=== PATIENT | female | born 1980 | race Caucasian/White ===

== ENCOUNTER 2020-07-05 08:58 | Outpatient (REF) | payer OTHER, SELFPAY ==
[2020-07-05 11:40] LABS: Alanine Aminotransferase 50 U/L (0-31); Anion Gap 13 (12-20); Aspartate Amino Transferase 33 U/L (5-31); Blood Urea Nitrogen 12 mg/dL (9-16); Calcium 9.4 mg/dL (8.4-10.2); Carbon Dioxide 24 mmol/L (22-29); Chloride 105 mmol/L (96-108); Cholesterol 186 mg/dL; Estimated Glomerular Filt Rate > 60; Glucose Fasting 95 mg/dL (60-99); HDL Cholesterol 46 mg/dL; LDL Cholesterol Calculated 103 mg/dl; Potassium 4.1 mmol/l (3.3-5.1); Sodium 138 mmol/L (135-145); Triglycerides 186 mg/dL
[2020-07-05 12:03] LABS: Free T4 (Free Thyroxine) 1.15 ng/dL (0.71-1.85); Thyroid Stimulating Hormone 3.98 mIU/mL (0.32-4.0)
== END 2020-07-05 08:59 | disposition home or self-care (01) ==
LOC: HO.HMGCLDS 08:58
PROVIDERS: PCP Internal Medicine; Visit Provider Internal Medicine
DX: E03.9 Hypothyroidism, unspecified (principal); E04.1 Nontoxic single thyroid nodule; E78.2 Mixed hyperlipidemia; M45.0 Ankylosing spondylitis of multiple sites in spine
CPT/HCPCS: 36415; 80048; 80061; 84439; 84443; 84450; 84460

== ENCOUNTER 2021-01-07 08:27 | Outpatient (REF) | payer OTHER, SELFPAY ==
[2021-01-07 11:56] LABS: Alanine Aminotransferase 56 U/L (0-31); Albumin Level 4.7 g/dL (3.5-5.0); Alkaline Phosphatase 66 U/L (39-117); Anion Gap 16 (12-20); Aspartate Amino Transferase 36 U/L (5-31); Bilirubin Total 0.9 mg/dL (0.0-1.0); Blood Urea Nitrogen 13 mg/dL (9-16); Calcium 9.6 mg/dL (8.4-10.2); Carbon Dioxide 26 mmol/L (22-29); Chloride 103 mmol/L (96-108); Cholesterol 201 mg/dL; Estimated Glomerular Filt Rate > 60; Glucose Fasting 97 mg/dL (60-99); HDL Cholesterol 59 mg/dL; LDL Cholesterol Calculated 109 mg/dl; Potassium 3.8 mmol/L (3.3-5.1); Sodium 141 mmol/L (135-145); Triglycerides 165 mg/dL
[2021-01-07 12:21] LABS: Free T4 (Free Thyroxine) 1.09 ng/dL (0.71-1.85); Thyroid Stimulating Hormone 3.27 uIU/mL (0.32-4.0)
== END 2021-01-07 08:28 | disposition home or self-care (01) ==
LOC: HO.HMGCLDS 08:27
PROVIDERS: PCP Internal Medicine; Visit Provider Internal Medicine
DX: Z00.01 Encounter for general adult medical examination with abnormal findings (principal); E03.9 Hypothyroidism, unspecified; E04.1 Nontoxic single thyroid nodule; E66.9 Obesity, unspecified; E78.2 Mixed hyperlipidemia
CPT/HCPCS: 36415; 80053; 80061; 84439; 84443

== ENCOUNTER 2021-03-19 06:29 | Outpatient (REF) | payer OTHER, SELFPAY ==
--- NOTE | ~2021-03-19 | FL_ITS ---
EXAMINATION: XR FLUOROSCOPY WITH IMAGES CLINICAL INFORMATION: M45.9 - Ankylosing spondylitis of unspecified sites in spine COMPARISON: Radiographs lumbar spine 08/18/2019 TECHNIQUE: Fluoroscopy performed by Loraine Reyes NP. Fluoroscopy time: 0.5 minutes DAP: 5.67 Gycm2 Images: 6 FINDINGS: There are spinal needles overlying the outer aspect of the bilateral L3, L4, L5 neural foramen. There is contrast seen in the respective nerve sheaths with some transforaminal epidural extension. No visible vascular communication. FL/FL guidance in treatment room IMPRESSION: Fluoroscopy for pain management procedures.
== END 2021-03-19 06:30 | disposition home or self-care (01) ==
LOC: HO.RADIR 06:29
PROVIDERS: Visit Provider Anesthesiology
DX: M47.816 Spondylosis without myelopathy or radiculopathy, lumbar region (principal); M45.9 Ankylosing spondylitis of unspecified sites in spine
CPT/HCPCS: Q9967

== ENCOUNTER → 2021-03-26 14:11 | Outpatient (BNVA) | payer OTHER, SELFPAY | PROVIDERS: PCP Internal Medicine; Visit Provider Nurse Practitioner Family ==

== ENCOUNTER 2021-03-27 09:49 | Outpatient (REF) | payer OTHER, SELFPAY ==
--- NOTE | ~2021-03-27 | US_ITS ---
EXAMINATION: US THYROID CLINICAL INFORMATION: Hypothyroidism, unspecified. COMPARISON: Ultrasound soft tissue head/neck thyroid dated 04/10/2020 and 06/23/2017. TECHNIQUE: Linear transducer grayscale and color Doppler examination with attention to the region of the thyroid. FINDINGS: SIZE: Measurements of the thyroid lobes and nodules are given in sagittal, anteroposterior and transverse dimensions respectively. Right Thyroid Lobe: 4.0 x 1.5 x 1.5 cm, volume 4.7 mL. Previously 4.1 x 1.7 x 1.9 cm, volume 6.9 mL. Parenchyma: The gland echotexture is heterogeneous. Thyroid vascularity is increased. Left Thyroid Lobe: 4.0 x 1.3 x 1.5 cm, volume 3.8 mL. Previously 4.0 x 1.7 x 1.7 cm, volume 6.0 mL. Parenchyma: The gland echotexture is heterogeneous. Thyroid vascularity is increased. Isthmus: 0.6 cm in maximum AP dimension. Previously 0.4 cm. Estimated total number of nodules greater than or equal to 1 cm: 0. Injection Molding Machine Offbearer nodules are described as follows: 1. Location: Right mid. Size: 0.4 x 0.4 x 0.3 cm, volume 0.03 mL. Previously: 0.3 x 0.3 x 0.3 cm, volume 0.01 mL. Nodule characteristics: Composition: Solid (2). Echogenicity: Hyperechoic (1). Shape: Not taller than wide (0). Margins: Smooth (0). Echogenic Foci: None (0). ACR TI-RADS total points: 3 ACR TI-RADS category: 3 Significant change in size (>/= 20% in 2 dimensions and minimal increase of 2 mm or 50% or greater increase in volume): None Change in features: None Change in ACR TI-RADS risk category: None applicable 2. Location: Left mid. Size: 0.72 x 0.51 x 0.45 cm, volume 0.09 mL. Previously: 0.7 x 0.5 x 0.5 cm, volume 0.09 mL. Nodule characteristics: Composition: Solid (2). Echogenicity: Hyperechoic (1). Shape: Not taller than wide (0). Margins: Smooth (0). Echogenic Foci: None (0). ACR TI-RADS total points: 3 ACR TI-RADS category: 3 Significant change in size (>/= 20% in 2 dimensions and minimal increase of 2 mm or 50% or greater increase in volume): None Change in features: None Change in ACR TI-RADS risk category: Not applicable NODES: There is a small lymph node inferior to the lower pole right lobe measuring 0.80 x 0.54 x 0.50 cm, previously it measured 1.0 x 0.80 x 0.54 cm. Inferior to the lower pole left thyroid lobe a lymph node measures 0.70 x 0.50 x 0.60 cm, previously measured 0.53 x 0.42 x 0.54 cm. US/US thyroid IMPRESSION: Small non-suspicious nodules, essentially stable compared to the last study 04/10/2020. There are small subcentimeter non-suspicious lymph nodes as described above. Follow up in 3 years is recommended. ACR TI-RADS RECOMMENDATION REFERENCE: Ultrasound-guided fine-needle aspiration, followup ultrasound, no further follow up. * TR1 (0 point) and TR 2 (2 points): No FNA or follow up * TR3 (3 points): FNA if more than or equal to 2.5 cm in maximum dimension, followup ultrasound in 1, 3 and 5 years if 1.5 to 2.4 cm in maximum dimension. * TR4 (4-6 points): FNA if more than or equal to 1.5 cm in maximum dimension, followup ultrasound in 1, 2, 3 and 5 years if 1 to 1.4 cm in maximum dimension. * TR5 (more than or equal to 7 points): FNA if more than or equal to 1 cm in maximum dimension, followup ultrasound every year for 5 years if 0.5 to 0.9 cm in maximum dimension. * TR3, TR4 or TR5 nodules that are below the size threshold for follow up receive no follow up.
== END 2021-03-27 09:50 | disposition home or self-care (01) ==
LOC: HO.HMGCX 09:49
PROVIDERS: PCP Internal Medicine; Visit Provider Internal Medicine
DX: E03.9 Hypothyroidism, unspecified (principal); E04.2 Nontoxic multinodular goiter
CPT/HCPCS: 76536

== ENCOUNTER → 2021-05-21 12:28 | Outpatient (BNVA) | payer OTHER, SELFPAY | PROVIDERS: PCP Internal Medicine; Visit Provider Nurse Practitioner Family ==

== ENCOUNTER 2021-06-06 11:04 | Day surgery (SDC) | payer OTHER, SELFPAY ==
[2021-05-31 11:33] VITALS: BMI 28.9
--- NOTE | 2021-06-05 09:58 | P.CONAN_ITS ---
Documented by User: Elsi Luque NP 06/05/21 10:09 HPI - Anesthesia Eval Consult details Narrative: 41yo F for Bilateral L3-DR L5 Medial Branch Radiofrequency AB PMFSH Active Problems Active Problems: All Active Problems (Updated 05/31/21 @ 11:35 by Princess Amado RN) Bursitis of left shoulder (Acute) Spondylosis of lumbar region without myelopathy or radiculopathy (Acute) Multinodular non-toxic goiter (Acute) Calcific tendinitis of left shoulder (Acute) Obesity (BMI 30.0-34.9) (Acute) Fibromyalgia (Acute) Hypothyroidism (acquired) (Acute) Mixed hyperlipidemia (Acute) Ankylosing spondylitis (Acute) Thyroid nodule (Acute) Past Medical History Medical History Ankylosing spondylitis Calcific tendinitis of left shoulder COVID-19 vaccine series completed Fibromyalgia Hypothyroidism (acquired) Mixed hyperlipidemia Multinodular non-toxic goiter Obesity (BMI 30.0-34.9) Spondylosis of lumbar region without myelopathy or radiculopathy Thyroid nodule Family History Family History Mother Hypothyroidism Maternal Grandmother Hypothyroidism Breast cancer Paternal Grandmother CVD (cardiovascular disease) Maternal Uncle Ulcerative colitis Brother No problems noted. Sister No problems noted. Son No problems noted. Son No problems noted. Surgical History Surgical History H/O arthroscopy of right knee History of section Social History Social History Household Members: Family Housing: House Are you a primary hospice care sales consultant to a significant other at home: No Do you presently have visiting nurse or other home services: No Patient Tobacco Use Status: Former Tobacco user Quit Date: age 17 Tobacco use type: Cigarette Years Smoked: 1 Use of substances other than those prescribed or required for medical reasons: No Have you been hit, kicked, punched, or otherwise hurt by someone within the past year? If so, by whom?: No Are you DNR?: No Advance Directives: No Advance Directives Information Provided: Yes (states does not have a HCP form completed) Advance Directives on File: No Recently lost weight without trying: No Eating poorly because of decreased appetite: No Nutrition Risks: No Nutritional Risk Patient : No FDLMP: 05/19/21 : No Poor oral hygiene: No Meds Allergies Allergy/AdvReac Type Severity Reaction Status Date / Time etanercept [Enbrel] AdvReac Intermediate rash/flu Verified 05/31/21 11:19 like Sx Home Medications Medication Instructions Recorded Confirmed Last Taken Type flu vacc [id number] 6mos up(PF) ml IM ONCE 07/06/20 05/21/21 Unknown History norethindrone (contraceptive) 0.35 0.35 mg PO DAILY 07/06/20 05/31/21 Unknown History mg tablet Exam Exam Date and Time: June 05, 2021 0958 Height,Weight and Vital Signs: Height 5 ft 5 in Weight 78.925 kg Assessment and Plan Assessment Anesthesia Assessment: Chart Reviewed Documented by User: Feng Stuart MD 06/06/21 14:09 [facility] Past Medical History Medical History Ankylosing spondylitis Calcific tendinitis of left shoulder COVID-19 vaccine series completed Fibromyalgia Hypothyroidism (acquired) Mixed hyperlipidemia Multinodular non-toxic goiter Obesity (BMI 30.0-34.9) Spondylosis of lumbar region without myelopathy or radiculopathy Thyroid nodule Family History Family History Mother Hypothyroidism Maternal Grandmother Hypothyroidism Breast cancer Paternal Grandmother CVD (cardiovascular disease) Maternal Uncle Ulcerative colitis Brother No problems noted. Sister No problems noted. Son No problems noted. Son No problems noted. Family history of problems with anesthesia: No Surgical History Surgical History H/O arthroscopy of right knee History of section History of Problems with Anesthesia: No Social History Social History Household Members: Family Housing: House Are you a primary hospice care sales consultant to a significant other at home: No Do you presently have visiting nurse or other home services: No Patient Tobacco Use Status: Former Tobacco user Quit Date: age 17 Tobacco use type: Cigarette Years Smoked: 1 Use of substances other than those prescribed or required for medical reasons: No Have you been hit, kicked, punched, or otherwise hurt by someone within the past year? If so, by whom?: No Are you DNR?: No Advance Directives: No Advance Directives Information Provided: Yes (states does not have a HCP form completed) Advance Directives on File: No Recently lost weight without trying: No Eating poorly because of decreased appetite: No Nutrition Risks: No Nutritional Risk Patient : No FDLMP: 05/19/21 : No Poor oral hygiene: No Meds Allergies Allergy/AdvReac Type Severity Reaction Status Date / Time etanercept [Enbrel] AdvReac Intermediate rash/flu Verified 05/31/21 11:19 like Sx Home Medications Medication Instructions Recorded Confirmed Last Taken Type flu vacc [id number] 6mos up(PF) ml IM ONCE 07/06/20 05/21/21 Unknown History norethindrone (contraceptive) 0.35 0.35 mg PO DAILY 07/06/20 05/31/21 Unknown History mg tablet Exam Airway Mallampati Class: I TM Dist: >3cm Neck ROM: Full Loose/Missing/Broken Teeth: No Assessment and Plan Assessment Anesthesia Assessment: Anesthesia Plan Discussed Final Anesthetic Review Family History of Problems with Anesthesia: No History of Problems with Anesthesia: No NPO: Yes ASA Class: II Final Preanesthetic Review: No Changes in Pt Med Stat, Meds/Allgs Chart Reviewed, Consent Obtained/Reviewed and Anes Risks/Benef Reviewed Patient Risk: Low Procedure Risk: Low Anesthetic Plan Anesthetic Plan: MAC: Disposition: Standard PACU
--- NOTE | ~2021-06-06 | FL_ITS ---
EXAMINATION: XR FLUOROSCOPY WITH IMAGES CLINICAL INFORMATION: Radiofrequency ablation. COMPARISON: None. TECHNIQUE: Fluoroscopy performed by Dr. Amando Silverman. Fluoroscopy time: 1.1 minutes DAP: 10.2 mGycm2 Images: 3 FINDINGS: There are 3 needles positioned lateral to the right L4, L5-S1 pedicles and 3 needles positioned lateral to the right elbow 4, L5 and S1 pedicles for radiofrequency ablation. Visualized L4, L5 vertebral bodies and intervening disc heights are unremarkable. FL/FL guidance in OR IMPRESSION: Fluoroscopy was provided to referring physician during radiofrequency ablation.
[2021-06-06 11:23] VITALS: BP 146/83; PULSE 117; RESP 18; TEMP 36.6; O2SAT 97
[2021-06-06] MEDS: Lactated Ringers 1,000 ML 100 ML IVCONT (11:33)
[2021-06-06 11:43] LABS: UPreg QC Valid YES; Urine Pregnancy NEGATIVE (NEGATIVE)
--- NOTE | 2021-06-06 12:28 | MHC.SHP ---
Pre-Procedural Eval Section A Date of Service: 06/06/21 Section B Chief Complaint: osteoarthritis right knee Details of Present Illness: Spondylosis lumbar Relevant Family History (Specify if Yes): No Relevant Social History: None Present Medications: see Short Stay Collaborative assessment Medical History: No relevant PMH History of Previous Operations: No relevant previous surgery Allergies: Allergies Allergy/AdvReac Type Severity Reaction Status Date / Time etanercept [Enbrel] AdvReac Intermediate rash/flu Verified 05/31/21 11:19 like Sx Review of Systems Sugical H&P ROS: Negative: Constitution, Cardiovascular, Respiratory, Neurological, Psychiatric, Hem-Onc, Allergic/Immunologic, Gastrointestinal, Genitourinary, Musculoskeletal, Integumentary, Endocrine and Eyes/Ears/Nose/Throat Exam Surgical H&P Exam: Normal: HEENT, Normal: Heart, Normal: Lungs, Normal: Extremities, Normal: Abdomen, Normal: Skin and Normal: Neurological Plan Diagnosis/Plan: Unchanged I have reviewed the history and physical and performed a pertinent physical examination on my patient. No changes have occurred unless specified.
[2021-06-06 14:12] VITALS: BP 133/80; PULSE 93; RESP 18; TEMP 36.5; O2SAT 98
[2021-06-06 14:17] VITALS: BP 139/92; PULSE 92; RESP 18; O2SAT 97
--- NOTE | 2021-06-06 14:17 | PM.OP ---
Brief Operative Note Date of Service: 06/06/21 Pre-op diagnosis: spondylosis lumbar spine Post-op diagnosis: same Procedure: RFA L3, L4, DRL5 b/l MB. Implants: none Surgeon: Amando Silverman MD Anesthesia: GETA Was an Telecommunications Cable Jointer used for this Procedure?: No Estimated blood loss (mL): 10 Condition: stable Disposition: PACU
[2021-06-06 14:22] VITALS: BP 146/92; PULSE 83; RESP 18; O2SAT 98
[2021-06-06 14:27] VITALS: BP 159/90; PULSE 85; RESP 18; O2SAT 99
--- NOTE | 2021-06-06 14:28 | P.OP_ITS ---
Operative Note Operative Note Date of Service: 06/06/21 Narrative: Ms. Alonzo is very pleasant 41 years old female who is suffering from axial back pain secondary to spondylosis of lumbar spine. She came- to the operating room today to receive a radiofrequency ablation of L3-L4 does ramus L5 medial branch radiofrequency ablations. After obtaining detailed informed consent the patient was moved to the operating room where she was positioned prone on operating table. [employer] monitors were applied patient was moderately sedated. The patient received no antibiotics before the procedure. Time-out was performed delineating correct site and side of the procedure name of the patient and date of risk of fire, risk of DVT prophylaxis need of antibiotics. Her lower back was prepped with ChloraPrep twice and draped with sterile utility drapes, sterilely draped C-arm was brought over the operating field and sq picture of L4-L 5 vertebrae and sacral bone were demonstrated on the screen. Significant distance between upper portion of the sacral alae and the iliac crest was noted on the screen probably pointing to bilateral sacroiliac joint insufficiency. point of interest were delineated as connection of superior articular process with lateral processes of L4 vertebra bilaterally, connection of superior articular processes with lateral processes of L5 bilaterally, and connection of superior articular process of S1 bilaterally with sacral alae. Projection of the point of interest to the skin with the shift to the foot was injected with small amount of lidocaine 1% 1-1.5 cc and after that radiofrequency cannulas 100 mm long were driven to were the point of interest in tunnel vision fashion. When needles gently contacted the bone at the point of interest the stylets were removed and nitinol electrodes were and inserted. Motor stimulation was performed on each cannula resulting in no motor response. After that the needs in all electrodes were removed momentarily from the needles and needles were filled with mixture of lidocaine 1% and bupivacaine 0.5% 1-1 with addition to the trace amount of Kenalog. After that the nitinol electrodes were reinserted and after 90 seconds of weight energy application was performed on the right 1st and on the left 2nd side. Upon completion of the energy application the needles were rotated 180? and application of energy was repeated. Upon completion of energy application the needles were removed and sterile Band-Aids were applied. The patient tolerated procedure well she was awaken taken outside of the operating room to recovery room where she recovered uneventfully. She went home without immediate complications.
[2021-06-06 14:42] VITALS: BP 131/79; PULSE 88; RESP 18; O2SAT 98
== END 2021-06-06 15:20 | disposition home or self-care (01) ==
PROVIDERS: Nurse Practitioner; PCP Internal Medicine; Visit Provider Anesthesiology
PROC: (CPT 64635; principal; 2021-06-06 12:30)
DX: M47.816 Spondylosis without myelopathy or radiculopathy, lumbar region (principal); Z79.891 Long term (current) use of opiate analgesic
CPT/HCPCS: 64635; 64636 ×2; 81025; J2250; J3010; J3300

== ENCOUNTER → 2021-07-10 10:54 | Outpatient (BNVA) | payer OTHER, SELFPAY | PROVIDERS: PCP Internal Medicine; Visit Provider Nurse Practitioner Family ==

== ENCOUNTER 2021-10-09 07:55 | Outpatient (REF) | payer OTHER, SELFPAY ==
[2021-10-09 11:25] LABS: MANUAL DIFF FLAG NO
[2021-10-09 11:31] LABS: Basophils Percent Auto 0.4 % (0-2); Eosinophils Absolute Auto 0.1 X10*3/uL (0.0-0.4); Eosinophils Percent Auto 1.4 % (0-4); Hematocrit 43.7 % (37.0-47.0); Imm Gran Abs Auto 0.01 X10*3/uL (0.00-0.03); Imm Gran Pct Auto 0.1 % (0.0-0.4); Lymphocytes Absolute Auto 2.5 X10*3/uL (1.2-4.9); Lymphocytes Percent Auto 32.6 % (20-40); Mean Corpuscular HGB Conc 34.3 g/dl (31.0-35.0); Mean Corpuscular Hemoglobin 29.4 pg (27.0-33.0); Mean Corpuscular Volume 85.5 fL (80.0-98.0); Mean Platelet Volume 12.8 fL (9.4-12.3); Monocytes Absolute Auto 0.5 X10*3/uL (0.1-1.2); Monocytes Percent Auto 6.4 % (2-11); Neutrophils Absolute Auto 4.5 x10*3/uL (2.0-8.3); Neutrophils Percent Auto 59.1 % (45-73); Platelet Count 195 X10*3/uL (160-400); Red Blood Count 5.11 X10*6/uL (4.20-5.50); Red Cell Distribution Width 13.3 % (11.0-16.0); White Blood Count 7.6 X10*3/uL (4.8-10.8)
[2021-10-09 12:09] LABS: Free T4 (Free Thyroxine) 1.16 ng/dL (0.71-1.85); Thyroid Stimulating Hormone 2.32 uIU/mL (0.32-4.0)
[2021-10-09 12:10] LABS: Alanine Aminotransferase 24 U/L (0-31); Albumin Level 4.7 g/dL (3.5-5.0); Alkaline Phosphatase 49 U/L (39-117); Anion Gap 13 (12-20); Aspartate Amino Transferase 20 U/L (5-31); Bilirubin Total 1.7 mg/dL (0.0-1.0); Blood Urea Nitrogen 13 mg/dL (9-16); C Reactive Protein 0.51 mg/dL (< or = 0.50); Calcium 9.8 mg/dL (8.4-10.2); Carbon Dioxide 27 mmol/L (22-29); Chloride 105 mmol/L (96-108); Cholesterol 172 mg/dL; Estimated Glomerular Filt Rate > 60; Glucose Random 92 mg/dL (60-115); HDL Cholesterol 47 mg/dL; LDL Cholesterol Calculated 99 mg/dl; Potassium 3.9 mmol/L (3.3-5.1); Sodium 141 mmol/L (135-145); Total Protein 7.5 g/dL (6.5-8.0); Triglycerides 131 mg/dL
[2021-10-09 12:19] LABS: Erythrocyte Sedimentation Rate 12 MM/HR (0-20)
== END 2021-10-09 07:56 | disposition home or self-care (01) ==
LOC: HO.HMGCLDS 07:55
PROVIDERS: Absent Provider Nurse Practitioner Family; PCP Internal Medicine; Visit Provider Internal Medicine
DX: E03.9 Hypothyroidism, unspecified (principal); E04.2 Nontoxic multinodular goiter; E78.2 Mixed hyperlipidemia; M45.9 Ankylosing spondylitis of unspecified sites in spine
CPT/HCPCS: 36415; 80053; 80061; 84439; 84443; 85025; 85652; 86140

== ENCOUNTER 2021-10-15 09:49 | Outpatient (REF) | payer OTHER, SELFPAY ==
[2021-10-15 11:49] LABS: MANUAL DIFF FLAG NO
[2021-10-15 11:57] LABS: Basophils Percent Auto 0.4 % (0-2); Eosinophils Absolute Auto 0.1 X10*3/uL (0.0-0.4); Hemoglobin 15.2 g/dl (12.0-16.0); Imm Gran Abs Auto 0.01 X10*3/uL (0.00-0.03); Imm Gran Pct Auto 0.1 % (0.0-0.4); Lymphocytes Absolute Auto 2.2 X10*3/uL (1.2-4.9); Lymphocytes Percent Auto 29.8 % (20-40); Mean Corpuscular HGB Conc 34.5 g/dl (31.0-35.0); Mean Corpuscular Hemoglobin 29.1 pg (27.0-33.0); Mean Corpuscular Volume 84.3 fL (80.0-98.0); Mean Platelet Volume 12.6 fL (9.4-12.3); Monocytes Absolute Auto 0.4 X10*3/uL (0.1-1.2); Monocytes Percent Auto 5.2 % (2-11); Neutrophils Absolute Auto 4.7 x10*3/uL (2.0-8.3); Neutrophils Percent Auto 63.5 % (45-73); Platelet Count 193 X10*3/uL (160-400); Red Blood Count 5.22 X10*6/uL (4.20-5.50); Red Cell Distribution Width 13.4 % (11.0-16.0); White Blood Count 7.4 X10*3/uL (4.8-10.8)
[2021-10-15 12:10] LABS: Alanine Aminotransferase 21 U/L (0-31); Albumin Level 4.7 g/dL (3.5-5.0); Alkaline Phosphatase 47 U/L (39-117); Anion Gap 15 (12-20); Aspartate Amino Transferase 18 U/L (5-31); Bilirubin Total 1.1 mg/dL (0.0-1.0); Blood Urea Nitrogen 15 mg/dL (9-16); C Reactive Protein 0.25 mg/dL (< or = 0.50); Calcium 10.1 mg/dL (8.4-10.2); Carbon Dioxide 23 mmol/L (22-29); Chloride 107 mmol/L (96-108); Estimated Glomerular Filt Rate > 60; Glucose Random 99 mg/dL (60-115); Potassium 4.3 mmol/L (3.3-5.1); Sodium 141 mmol/L (135-145); Total Protein 7.7 g/dL (6.5-8.0)
[2021-10-15 13:00] LABS: Erythrocyte Sedimentation Rate 13 MM/HR (0-20)
== END 2021-10-15 09:50 | disposition home or self-care (01) ==
LOC: HO.HMGCLDS 09:49
PROVIDERS: Absent Provider Nurse Practitioner Family; PCP Internal Medicine; Visit Provider Internal Medicine
DX: M45.9 Ankylosing spondylitis of unspecified sites in spine (principal)
CPT/HCPCS: 36415; 80053; 85025; 85652; 86140

== ENCOUNTER → 2021-11-11 12:26 | Outpatient (BNVA) | payer OTHER, SELFPAY | PROVIDERS: PCP Internal Medicine; Visit Provider Nurse Practitioner Family ==

== ENCOUNTER 2022-04-09 14:48 | Outpatient (REF) | payer OTHER, SELFPAY ==
--- NOTE | ~2022-04-09 | XR_ITS ---
EXAMINATION: XR HIP, RIGHT XR HIP, LEFT CLINICAL INFORMATION: Hip pain COMPARISON: Radiographs lumbar spine 08/18/2019, MR SI joints 05/31/2019 TECHNIQUE: Each hip is imaged in AP and frog-lateral projections. There is a total of 4 views, 2 each side. FINDINGS: Right: Normal bony mineralization. No fracture or dislocation. No destructive process or periostitis. No definite joint narrowing. No erosive change or chondrocalcinosis. Soft tissue planes are unremarkable. Left: Normal bony mineralization. No fracture or dislocation. No destructive process or periostitis. No joint narrowing or erosive change or chondrocalcinosis. Soft tissue planes are unremarkable. XR/XR hip RT min 2V IMPRESSION: Unremarkable bilateral hips.
--- NOTE | ~2022-04-09 | XR_ITS ---
EXAMINATION: XR KNEE, RIGHT XR KNEE, LEFT CLINICAL INFORMATION: Knee pain COMPARISON: Radiographs bilateral knees 10/19/2007 TECHNIQUE: Each knee is imaged in 3 views, including AP projections with weightbearing. There are total of 6 views. FINDINGS: Right: Normal bony mineralization. No fracture, dislocation, or definite suprapatellar effusion. Hoffa's fat pad appears normal. There is no joint narrowing or erosive change or chondrocalcinosis. There is no lateralization or tilting of the patella. There is mild spurring at the quadriceps insertion patella. Left: No periarticular demineralization. No fracture, dislocation, or suprapatellar effusion. Hoffa's fat pad appears normal. There is no joint narrowing or erosive change or chondrocalcinosis. There is no lateralization or tilting of the patella. Again, there is a chronic serpiginous mildly sclerotic subcortical lesion distal posterior femur suggesting old nonossifying fibroma, measuring approximately 1.4 x 2.2 x 5.7 cm in length. No periostitis. No significant change from remote prior exam 2007. XR/XR knee RT 3V IMPRESSION: -No joint narrowing or erosive change. -No patellar tilting or lateralization. -Right: Spurring quadriceps insertion right patella. 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
--- NOTE | ~2022-04-09 | XR_ITS ---
EXAMINATION: XR KNEE, RIGHT XR KNEE, LEFT CLINICAL INFORMATION: Knee pain COMPARISON: Radiographs bilateral knees 10/19/2007 TECHNIQUE: Each knee is imaged in 3 views, including AP projections with weightbearing. There are total of 6 views. FINDINGS: Right: Normal bony mineralization. No fracture, dislocation, or definite suprapatellar effusion. Hoffa's fat pad appears normal. There is no joint narrowing or erosive change or chondrocalcinosis. There is no lateralization or tilting of the patella. There is mild spurring at the quadriceps insertion patella. Left: No periarticular demineralization. No fracture, dislocation, or suprapatellar effusion. Hoffa's fat pad appears normal. There is no joint narrowing or erosive change or chondrocalcinosis. There is no lateralization or tilting of the patella. Again, there is a chronic serpiginous mildly sclerotic subcortical lesion distal posterior femur suggesting old nonossifying fibroma, measuring approximately 1.4 x 2.2 x 5.7 cm in length. No periostitis. No significant change from remote prior exam 2007. XR/XR knee LT 3V IMPRESSION: -No joint narrowing or erosive change. -No patellar tilting or lateralization. -Right: Spurring quadriceps insertion right patella. 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
--- NOTE | ~2022-04-09 | XR_ITS ---
EXAMINATION: XR HIP, RIGHT XR HIP, LEFT CLINICAL INFORMATION: Hip pain COMPARISON: Radiographs lumbar spine 08/18/2019, MR SI joints 05/31/2019 TECHNIQUE: Each hip is imaged in AP and frog-lateral projections. There is a total of 4 views, 2 each side. FINDINGS: Right: Normal bony mineralization. No fracture or dislocation. No destructive process or periostitis. No definite joint narrowing. No erosive change or chondrocalcinosis. Soft tissue planes are unremarkable. Left: Normal bony mineralization. No fracture or dislocation. No destructive process or periostitis. No joint narrowing or erosive change or chondrocalcinosis. Soft tissue planes are unremarkable. XR/XR hip LT min 2V IMPRESSION: Unremarkable bilateral hips.
[2022-04-09 15:00] LABS: MANUAL DIFF FLAG NO
[2022-04-09 15:14] LABS: Basophils Percent Auto 0.3 % (0-2); Eosinophils Absolute Auto 0.1 X10*3/uL (0.0-0.4); Eosinophils Percent Auto 1.3 % (0-4); Hematocrit 42.7 % (37.0-47.0); Hemoglobin 14.9 g/dl (12.0-16.0); Imm Gran Abs Auto 0.02 X10*3/uL (0.00-0.03); Imm Gran Pct Auto 0.2 % (0.0-0.4); Lymphocytes Absolute Auto 3.2 X10*3/uL (1.2-4.9); Lymphocytes Percent Auto 36.6 % (20-40); Mean Corpuscular HGB Conc 34.9 g/dl (31.0-35.0); Mean Corpuscular Hemoglobin 29.2 pg (27.0-33.0); Mean Corpuscular Volume 83.6 fL (80.0-98.0); Mean Platelet Volume 11.9 fL (9.4-12.3); Monocytes Absolute Auto 0.6 X10*3/uL (0.1-1.2); Monocytes Percent Auto 6.5 % (2-11); Neutrophils Absolute Auto 4.7 x10*3/uL (2.0-8.3); Neutrophils Percent Auto 55.1 % (45-73); Platelet Count 225 X10*3/uL (160-400); Red Blood Count 5.11 X10*6/uL (4.20-5.50); Red Cell Distribution Width 13.4 % (11.0-16.0); White Blood Count 8.6 X10*3/uL (4.8-10.8)
[2022-04-09 17:08] LABS: Erythrocyte Sedimentation Rate 12 MM/HR (0-20)
[2022-04-09 17:34] LABS: Alanine Aminotransferase 17 U/L (0-31); Aspartate Amino Transferase 18 U/L (5-31); C Reactive Protein 0.37 mg/dL (< or = 0.50); Estimated Glomerular Filt Rate > 60
== END 2022-04-09 14:49 | disposition home or self-care (01) ==
LOC: HO.LAB 14:48
PROVIDERS: PCP Internal Medicine; Visit Provider Nurse Practitioner Family
DX: M25.552 Pain in left hip (principal); M25.551 Pain in right hip; M25.562 Pain in left knee; M25.561 Pain in right knee; M45.9 Ankylosing spondylitis of unspecified sites in spine; Z79.899 Other long term (current) drug therapy
CPT/HCPCS: 36415; 73502; 73562; 82565; 84450; 84460; 85025; 85652; 86140

== ENCOUNTER → 2022-06-06 08:57 | Outpatient (BNVA) | payer OTHER, SELFPAY | PROVIDERS: PCP Internal Medicine; Visit Provider Physician Assistant | DX: M70.61 Trochanteric bursitis, right hip (principal) | CPT/HCPCS: 20610; J1040 ==

== ENCOUNTER 2022-09-04 07:57 | Outpatient (REF) | payer OTHER, SELFPAY ==
[2022-09-04 12:12] LABS: Erythrocyte Sedimentation Rate 12 MM/HR (0-20)
[2022-09-04 12:21] LABS: Alanine Aminotransferase 15 U/L (0-31); Aspartate Amino Transferase 16 U/L (5-31); C Reactive Protein 0.31 mg/dL (< or = 0.50); Cholesterol 164 mg/dL; Free T4 (Free Thyroxine) 1.26 ng/dL (0.71-1.85); HDL Cholesterol 54 mg/dL; LDL Cholesterol Calculated 96 mg/dl; Thyroid Stimulating Hormone 2.19 uIU/mL (0.32-4.0); Triglycerides 74 mg/dL
== END 2022-09-04 07:58 | disposition home or self-care (01) ==
LOC: HO.HMGCLDS 07:57
PROVIDERS: Absent Provider Nurse Practitioner Family; PCP Internal Medicine; Visit Provider Internal Medicine
DX: E78.2 Mixed hyperlipidemia (principal); E03.9 Hypothyroidism, unspecified; M45.9 Ankylosing spondylitis of unspecified sites in spine; E04.2 Nontoxic multinodular goiter
CPT/HCPCS: 36415; 80061; 84439; 84443; 84450; 84460; 85652; 86140

== ENCOUNTER 2022-12-01 13:10 | Outpatient (AMB) | payer OTHER, SELFPAY ==
--- NOTE | 2022-12-01 13:37 | MHC.PC.OV ---
Vital Signs 12/01/22 13:38 Height 5 ft 5 in Weight 149 lb 8 oz BMI 24.8 BP 110/72 Blood Pressure Location Lt brachial Position Sitting Pulse 88 Pulse Source Pulse Oximeter Pulse Oximetry (%) 97 Oxygen Delivery Method Room Air Intake Visit Reasons: Med Management Intake Note: Pt is here for a medication review. Allergies etanercept [Enbrel] Adverse Reaction (Intermediate, Verified 07/02/23 01:35) rash/flu like Sx Medication List - Last Reconciled 12/01/22 by Shavon Wells MD alprazolam 0.25 mg PO DAILY PRN atorvastatin 10 mg PO DAILY docusate sodium 100 mg PO BID levothyroxine 100 mcg PO DAILY nabumetone 750 mg PO DAILY PRN nitrofurantoin monohyd/m-cryst 100 mg (Macrobid) 100 mg PO Q12H 7 days norethindrone (contraceptive) 0.35 mg PO DAILY tramadol 50 mg PO BID PRN Tobacco use date assessed: 12/01/22 HPI Med Management HPI Details 43-year-old lady with hypothyroidism, mixed hyperlipidemia and ankylosing spondylitis currently followed by Rheumatology, here today for follow-up on her anxiety and depression. She is currently taking alprazolam 0.25 mg once a day as needed for acute anxiety attacks. Patient states that she has been experiencing more frequent anxiety attacks and low mood, has been needing to take more for alprazolam for acute anxiety attacks. She is also has been having intermittent episodes of burning epigastric pain specially after food intake, usually worse at night. She denies any accompanying vomiting, but gets occasional nausea, no blood in stool or dark stools reported. [facility] Medical History (Updated 07/02/23 @ 01:39 by Shavon Wells MD) PONV (postoperative nausea and vomiting) Nausea and vomiting Heartburn Mixed anxiety and depressive disorder Family history of breast cancer COVID-19 vaccine series completed Spondylosis of lumbar region without myelopathy or radiculopathy Multinodular non-toxic goiter Calcific tendinitis of left shoulder Obesity (BMI 30.0-34.9) Fibromyalgia Hypothyroidism (acquired) Mixed hyperlipidemia Ankylosing spondylitis Thyroid nodule Surgical History History of laparoscopic cholecystectomy (03/27/23) History of section H/O arthroscopy of right knee Family History Mother Hypothyroidism Maternal Grandmother Hypothyroidism Breast cancer Paternal Grandmother CVD (cardiovascular disease) Maternal Uncle Ulcerative colitis Brother No problems noted. Sister No problems noted. Son No problems noted. Son No problems noted. 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 1. Little interest or pleasure in doing things: several days 2. Feeling down, depressed, or hopeless: several days 3. Trouble falling or staying asleep, or sleeping too much: several days 4. Feeling tired or having little energy: several days 5. Poor appetite or overeating: several days 6. Feeling bad about yourself - or that you are a failure or have let yourself or your family down: not at all 7. Trouble concentrating on things, such as reading the newspaper or watching television: several days 8. Moving or speaking so slowly that other people could have noticed. Or the opposite - being so fidgety or restless that you have been moving around a lot more than usual: not at all 9. Thoughts that you would be better off or of hurting yourself in some way: not at all Total score: 6 Depression Screening Interpretation: Positive 05630 - PHQ-9 Billing: Yes Source: Developed by Drs. Manjit Silvestre, Ann Malone, Jeremy Lagunas and colleagues, with an educational farhat from [employer]. Thrive Questionnaire Date Thrive assessed: 11/11/22 AUDIT C Alcohol Use Questionnaire (AUDIT-C) 1. How often do you have a drink containing alcohol?: Never 3. How often do you have six or more drinks on one occasion?: Never Total Score: 0 NORTH-7 AMB Questionnaire NORTH-7 Date NORTH - 7 assessed: 11/11/22 Feeling nervous, anxious, or on edge: 2 = More than half the days Not being able to stop or control worryin = More than half the days Worrying too much about different things: 2 = More than half the days Trouble relaxin = Several days Being so restless that it is hard to sit still: 0 = Not at all Becoming easily annoyed or irritable: 1 = Several days Feeling afraid as if something awful might happen: 0 = Not at all Total NORTH-7 score (0-4 normal; 5-9 mild; 10-14 moderate; 15-21 severe): 8 Source: Developed by Drs. Manjit Silvestre, Ann Malone, Jeremy Lagunas and colleagues, with an educational farhat from [employer]. NORTH-7 Assessment Billing NORTH-7 Assessment Tool: NORTH-7 Assessment 40533 Review of Systems Const Reports difficulty sleeping, Reports fatigue and Reports poor appetite ENT Reports no additional complaints Card Denies chest pain, Denies irregular heart rhythm and Denies lightheadedness Resp Reports no additional complaints GI Details: Poor appetite Reports as per HPI, Denies change in bowel habits and Denies heartburn Psych Reports as per HPI Endo Reports fatigue Physical exam (Primary Care) Vital Signs: Last Vital Signs Pulse 88 12/01/22 13:38 BP 110/72 12/01/22 13:38 Pulse Ox 97 12/01/22 13:38 Oxygen Delivery Method Room Air 12/01/22 13:38 BMI result Body Mass Index 24.8 Tobacco/Smoking Status: Tobacco use Status Tobacco use date assessed 12/01/22 12/01/22 13:39 Patient Tobacco Use Status Former Tobacco user 12/01/22 13:39 Tobacco use type Cigarette 12/01/22 13:39 e-Cigarette/Vaping Use Never Used 12/01/22 13:39 Depression Screening Interpretation: Positive Thrive Assessment: Date of Thrive Assessment Date Thrive assessed 11/11/22 12/01/22 13:39 Const Other: Alert oriented x3, no acute distress noted ambulatory normal gait Orientation/consciousness: patient oriented x3 Resp Auscultation: clear to auscultation bilaterally Cardio Other: S1-S2 present , tachycardia GI Palpation (GI): Soft to palpation, nontender and no guarding Auscultation: normal bowel sounds Neuro General: patient oriented x3, moves all extremities, no focal motor deficits and CN's II-XI intact bilaterally Psych Appearance: grossly normal and well kempt Mental Status: mental status grossly normal Speech and movement: Normal speech and movement present Affect: Sad affect present Attitude: cooperative Thought process: Normal thought process present Assessment and Plan Assessment & Plan (1) Mixed anxiety and depressive disorder: Code(s): F41.8 - Other specified anxiety disorders Plan: Referred for counseling, started on escitalopram at 5 mg per tablet to take once a day, may take an occasional alprazolam as needed for acute anxiety attacks. (2) Heartburn: Code(s): R12 - Heartburn Plan: Prescription sent for omeprazole 20 mg per capsule to take once a day 1 hour before eating. Discussed avoidance of food triggers for heartburn, do not lie down right away after eating, wait at least 2 hours. Medications: New escitalopram oxalate 5 mg PO DAILY 30 tabs 1RF omeprazole 20 mg PO DAILY 30 caps 1RF R12 - Heartburn Refilled alprazolam 0.25 mg PO DAILY PRN 20 tabs 0RF anxiety Coding Level of Care Code Est Pt Level 3 (64626) Diagnoses Mixed anxiety and depressive disorder F41.8 Heartburn R12 Additional Codes NORTH-7 Assessment Billing - NORTH-7 Assessment Tool: NORTH-7 Assessment 19181 ([id number])
[2022-12-01 13:38] VITALS: BP 110/72; PULSE 88; O2SAT 97; BMI 24.8
== END 2022-12-01 14:17 | disposition home or self-care (01) ==
LOC: HO.HMGC 13:10
PROVIDERS: PCP Internal Medicine; Visit Provider Internal Medicine
DX: F41.8 Other specified anxiety disorders (principal); R12 Heartburn
CPT/HCPCS: 96127; 99213

== ENCOUNTER 2022-12-16 10:17 | Outpatient (REF) | payer OTHER, SELFPAY ==
--- NOTE | ~2022-12-16 | US_ITS ---
EXAMINATION: US ABDOMEN COMPLETE CLINICAL INFORMATION: Nausea with vomiting, unspecified. COMPARISON: Ultrasound abdomen complete 06/25/2015. TECHNIQUE: Real-time imaging of the abdominal viscera. FINDINGS: PANCREAS: Normal. ABDOMINAL AORTA: The proximal, mid, and distal segments are normal in caliber. INFERIOR VENA CAVA: Visualized portions are normal. LIVER: Normal. The liver is normal in size. The liver contour is normal. Parenchymal echogenicity is normal. No focal hepatic lesion. There is no intrahepatic biliary duct dilatation seen. GALLBLADDER: There is layering biliary sludge. The gallbladder is physiologically distended without evidence of stones, polyps, wall thickening or pericholecystic fluid. COMMON BILE DUCT: Normal in caliber measuring 0.10 cm in diameter. RIGHT KIDNEY: Normal. No hydronephrosis. No renal calculi or focal parenchymal lesions. The kidney measures 11.2 cm in maximum dimension. LEFT KIDNEY: Normal. No hydronephrosis. No renal calculi or focal parenchymal lesions. The kidney measures 10.3 cm in maximum dimension. SPLEEN: Normal. The spleen measures 10.5 cm in maximum dimension. FREE FLUID: None. US/US abdomen complete IMPRESSION: There is layering biliary sludge within the gallbladder. The examination is otherwise unremarkable. No cholelithiasis, cholecystitis or choledocholithiasis is seen.
== END 2022-12-16 10:18 | disposition home or self-care (01) ==
LOC: HO.HMGCX 10:17
PROVIDERS: PCP Internal Medicine; Visit Provider Internal Medicine
DX: R11.2 Nausea with vomiting, unspecified (principal)
CPT/HCPCS: 76700

== ENCOUNTER 2022-12-18 09:04 | Outpatient (REF) | payer OTHER, SELFPAY ==
--- NOTE | ~2022-12-18 | XR_ITS ---
EXAMINATION: XR SHOULDER, RIGHT CLINICAL INFORMATION: Right shoulder pain. COMPARISON: Left shoulder radiographs dated 07/27/2014. TECHNIQUE: AP external rotation, Grashey, scapular Y, and axillary views of the right shoulder. FINDINGS: The right glenohumeral joint is intact. A corticated osseous density seen posterior to the humeral head. Mild right acromioclavicular joint space narrowing and mild alignment is seen. There is no acute fracture or dislocation. The soft tissues are unremarkable. XR/XR shoulder RT min 2V IMPRESSION: 1. Corticated osseous density posterior to the humeral head is not acute and could represent an ossification center or could be secondary to degenerative change/old injury. 2. Mild right acromioclavicular degenerative joint space narrowing and mild alignment.
[2022-12-18 10:32] LABS: MANUAL DIFF FLAG NO
[2022-12-18 10:49] LABS: Basophils Percent Auto 0.3 % (0-2); Eosinophils Absolute Auto 0.1 X10*3/uL (0.0-0.4); Hematocrit 46.8 % (37.0-47.0); Hemoglobin 15.9 g/dl (12.0-16.0); Imm Gran Abs Auto 0.02 X10*3/uL (0.00-0.03); Imm Gran Pct Auto 0.3 % (0.0-0.4); Lymphocytes Absolute Auto 1.5 X10*3/uL (1.2-4.9); Mean Corpuscular Hemoglobin 28.6 pg (27.0-33.0); Mean Corpuscular Volume 84.3 fL (80.0-98.0); Mean Platelet Volume 12.3 fL (9.4-12.3); Monocytes Absolute Auto 0.4 X10*3/uL (0.1-1.2); Monocytes Percent Auto 6.2 % (2-11); Neutrophils Absolute Auto 4.3 x10*3/uL (2.0-8.3); Neutrophils Percent Auto 68.2 % (45-73); Platelet Count 236 X10*3/uL (160-400); Red Blood Count 5.55 X10*6/uL (4.20-5.50); Red Cell Distribution Width 13.2 % (11.0-16.0); White Blood Count 6.3 X10*3/uL (4.8-10.8)
[2022-12-18 11:16] LABS: Alanine Aminotransferase 19 U/L (0-31); Aspartate Amino Transferase 17 U/L (5-31); Blood Urea Nitrogen 10 mg/dL (9-16); Estimated Glomerular Filt Rate > 60
[2022-12-18 12:45] LABS: Amphetamine Screen Urine Not Detected (Not Detect); Barbiturates, Urine Not Detected (Not Detect); Benzodiazepines Screen Urine POSITIVE (Not Detect); Cannabinoid Screen Urine Not Detected (Not Detect); Cocaine Screen Urine Not Detected (Not Detect); Fentanyl, urine Not Detected (Not Detect); Opiate Screen Urine Not Detected (Not Detect); Phencyclidine Screen Urine Not Detected (Not Detect)
== END 2022-12-18 09:05 | disposition home or self-care (01) ==
LOC: HO.XRAY 09:04
PROVIDERS: PCP Internal Medicine; Visit Provider Nurse Practitioner Family
DX: M45.9 Ankylosing spondylitis of unspecified sites in spine (principal); M25.511 Pain in right shoulder; M47.816 Spondylosis without myelopathy or radiculopathy, lumbar region; M25.551 Pain in right hip; M25.552 Pain in left hip; R11.2 Nausea with vomiting, unspecified; E83.89 Other disorders of mineral metabolism; Z51.81 Encounter for therapeutic drug level monitoring; Z79.899 Other long term (current) drug therapy
CPT/HCPCS: 73030; 80307; 80373; 82565; 84450; 84460; 84520; 85025

== ENCOUNTER 2022-12-25 11:27 | Outpatient (REF) | payer OTHER, SELFPAY | END 2022-12-25 11:28 | disposition home or self-care (01) | LOC: HO.LNP 11:27 | PROVIDERS: Visit Provider Internal Medicine | DX: N30.00 Acute cystitis without hematuria (principal) | CPT/HCPCS: 87086 ==

== ENCOUNTER 2022-12-29 05:49 | Day surgery (SDC) | payer OTHER, SELFPAY ==
[2022-12-23 15:31] VITALS: BMI 23.9
[2022-12-29] VITALS (7 sets, daily range): BP systolic 122–171; BP diastolic 66–97; PULSE 62–75; RESP 13–16; TEMP 36.7–37.2; O2SAT 96–100
[2022-12-29 06:22] LABS: UPreg QC Valid YES; Urine Pregnancy NEGATIVE (NEGATIVE)
[2022-12-29] MEDS: Lactated Ringers 1,000 ML 100 ML IVCONT (06:34)
--- NOTE | 2022-12-29 06:58 | P.CONAN_ITS ---
[facility] Active Problems Active Problems: All Active Problems (Updated 12/25/22 @ 10:00 by Wilmer Coles MD) Acute cystitis (Acute) Greater trochanteric bursitis of right hip (Acute) Encounter for medication monitoring (Acute) Biliary sludge (Acute) Nausea and vomiting (Acute) Heartburn (Acute) Mixed anxiety and depressive disorder (Acute) Family history of breast cancer (Acute) Spondylosis of lumbar region without myelopathy or radiculopathy (Acute) Multinodular non-toxic goiter (Acute) Fibromyalgia (Acute) Hypothyroidism (acquired) (Acute) Mixed hyperlipidemia (Acute) Ankylosing spondylitis (Acute) Past Medical History Medical History Ankylosing spondylitis Calcific tendinitis of left shoulder COVID-19 vaccine series completed Family history of breast cancer Fibromyalgia Heartburn Hypothyroidism (acquired) Mixed anxiety and depressive disorder Mixed hyperlipidemia Multinodular non-toxic goiter Nausea and vomiting Obesity (BMI 30.0-34.9) PONV (postoperative nausea and vomiting) Spondylosis of lumbar region without myelopathy or radiculopathy Thyroid nodule Family History Family History Mother Hypothyroidism Maternal Grandmother Hypothyroidism Breast cancer Paternal Grandmother CVD (cardiovascular disease) Maternal Uncle Ulcerative colitis Brother No problems noted. Sister No problems noted. Son No problems noted. Son No problems noted. Maternal Grandfather Substance use disorder Family history of problems with anesthesia: No Surgical History Surgical History H/O arthroscopy of right knee History of section History of Problems with Anesthesia: No Social History Social History Household Members: Family Housing: House Are you a primary child adolescent care to a significant other at home: No Do you presently have visiting nurse or other home services: No Patient Tobacco Use Status: Former Tobacco user Quit Date: Age 17 Tobacco use type: Cigarette Years Smoked: 1 e-Cigarette/Vaping Use: Never Used Use of substances other than those prescribed or required for medical reasons: No Have you been hit, kicked, punched, or otherwise hurt by someone within the past year? 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 Cognitive needs: No Hearing needs: No Vision needs: Yes Meds Allergies Allergy/AdvReac Type Severity Reaction Status Date / Time etanercept [Enbrel] AdvReac Intermediate rash/flu Verified 12/25/22 09:47 like Sx Active Medications: Current Medications Lactated Ringer's (Lr) 1,000 mls @ 100 mls/hr IVCONT .Q10H ARISTIDES Last Admin: 12/29/22 06:34 Dose: 100 mls/hr Home Medications Medication Instructions Recorded Confirmed Last Taken Type norethindrone (contraceptive) 0.35 0.35 mg PO DAILY 07/06/20 12/25/22 Unknown History mg tablet Exam Exam Date and Time: December 29, 2022 0658 Height,Weight and Vital Signs: Height 5 ft 5 in Weight 65.317 kg Last Vital Signs Temp 98.1 F 12/29/22 06:29 Pulse 75 12/29/22 06:29 Resp 16 12/29/22 06:29 BP 132/79 12/29/22 06:29 Pulse Ox 96 12/29/22 06:29 O2 Del Method Room Air 12/29/22 06:29 Pertinent Lab Results Pertinent Lab Results: Laboratory Tests 12/29/22 06:08 Urine Test NEGATIVE Airway Mallampati Class: II (caps laterally) TM Dist: >3cm Neck ROM: Full Heart: rrr Lungs: cta Assessment and Plan Assessment Anesthesia Assessment: Anesthesia Plan Discussed and Chart Reviewed Final Anesthetic Review Family History of Problems with Anesthesia: No History of Problems with Anesthesia: No NPO: Yes ASA Class: II Final Preanesthetic Review: No Changes in Pt Med Stat, Meds/Allgs Chart Reviewed and Consent Obtained/Reviewed Patient Risk: Intermediate Procedure Risk: Intermediate Anesthetic Plan Anesthetic Plan: GA Disposition: Standard PACU
[2022-12-29] MEDS: Scopolamine 1.5 MG PATCH.TD.3 TRANSDERMA (07:23)
--- NOTE | 2022-12-29 07:26 | MHC.SHP ---
Pre-Procedural Eval Section A Date of Service: 12/29/22 The patient is an INPATIENT: No Changes since office visit: Yes Patient answered all questions; No Cold of Flu in the past 2 weeks, No New Medical Problems and No Changes in Medication The History & Physical has been completed within 30 days and I have reviewed it.: Yes Section B Chief Complaint: Nausea with vomiting, unspecified Allergies: Allergies Allergy/AdvReac Type Severity Reaction Status Date / Time etanercept [Enbrel] AdvReac Intermediate rash/flu Verified 12/25/22 09:47 like Sx Plan Diagnosis/Plan: Unchanged I have reviewed the history and physical and performed a pertinent physical examination on my patient. No changes have occurred unless specified. Time Spent With Patient Time: Total time managing care of this patient today ____ minutes.
--- NOTE | 2022-12-29 08:56 | W.PM.OPN ---
Operative Note Operative Note Date of Service: 12/29/22 Narrative: Preoperative diagnosis: Chronic cholecystitis, cholelithiasis Postoperative diagnosis: Same Procedure: Laparoscopic cholecystectomy Surgeon: Lanre Griffin MD Community Health Representative: EFFIE Escobedo Anesthesia: General endotracheal Indications for procedure: 42-year-old female patient presenting with persistent nausea and vomiting, weight loss found to have biliary sludge and otherwise negative workup presenting today for laparoscopic or possible open cholecystectomy. Operative findings: Evidence of chronic cholecystitis with adhesions to the undersurface of the gallbladder. Multiple small gallstones within the gallbladder. Specimen: gallbladder Estimated blood loss: 3 mL Complications: non Procedure details: Patient was brought to the OR and placed in a supine position. After administering general anesthesia the patient's abdomen was prepped with ChloraPrep and draped in a sterile fashion. Local anesthesia consisting of 0.5% Sensorcaine without epinephrine was infiltrated in a periumbilical region. A 5 mm incision was made above the umbilicus in a transverse fashion. The Veress needle was then inserted while elevating abdominal cavity with towel clips. After positive drop test the abdomen was insufflated to a pressure of 15 mm of mercury. The Veress needle was then removed and a 5 mm trocar inserted. The camera was inserted in the abdomen explored. A 12 mm trocar was then placed in the epigastrium. Two 5 mm trocars placed in the right upper quadrant by the bilingual office assistant. The patient was placed in reverse Trendelenburg positioning and rotated to the left. The gallbladder was grasped with the fundus and retracted cephalad by the bilingual office assistant. The infundibulum was then grasped and retracted away from the liver bed, also by the bilingual office assistant. The Dolphin dissected was then used by the surgeon to dissect the peritoneum off the infundibulum to reveal the junction with the cystic duct. Cystic artery was noted slightly medial and posterior to the cystic duct. After obtaining a critical view the cystic duct was doubly clipped and divided. The cystic artery was then doubly clipped and divided. The gallbladder was then dissected off the liver bed using electrocautery with an L hook. Hemostasis was assured all times using the electrocautery. When the gallbladder is completely dissected off the liver bed was placed in an Endo-Catch bag and brought out through the epigastric incision. The gallbladder was sent to pathology for further examination. The abdomen was then re-examined. The liver bed was irrigated and suctioned dry. No bleeding or bile leak could be identified. CO2 was then evacuated and all trocars removed. Fascia was closed at the epigastric incision using a [id number] 0 Polysorb suture. Skin was closed in all incisions using a subcuticular 4 0 Polysorb suture by both the surgeon and bilingual office assistant. Sterile dressings consisting of Steri-Strips, 2 x 2 gauze, and Tegaderm were then applied. The patient tolerated the procedure well. Sponge instrument and needle counts reported as correct. The patient was transferred to PACU in stable condition.
== END 2022-12-29 10:42 | disposition home or self-care (01) ==
PROVIDERS: Anesthesiology; PCP Internal Medicine; Visit Provider Surgery
PROC: 0FT44ZZ Resection of Gallbladder, Percutaneous Endoscopic Approach (ICD-10-PCS; CPT 47562; principal; 2022-12-29 07:30)
DX: K80.10 Calculus of gallbladder with chronic cholecystitis without obstruction (principal); K82.8 Other specified diseases of gallbladder; K83.8 Other specified diseases of biliary tract; R63.4 Abnormal weight loss; Z68.24 Body mass index [BMI] 24.0-24.9, adult; M79.7 Fibromyalgia; F41.8 Other specified anxiety disorders; E78.5 Hyperlipidemia, unspecified; E03.9 Hypothyroidism, unspecified; E04.2 Nontoxic multinodular goiter; Z79.899 Other long term (current) drug therapy; Z88.8 Allergy status to other drugs, medicaments and biological substances; Z87.891 Personal history of nicotine dependence
CPT/HCPCS: 47562; 81025; 88304; J0131; J1100; J2250; J2370; J2405; J2795; J3010

== ENCOUNTER → 2023-01-06 10:38 | Outpatient (BNVA) | payer OTHER, SELFPAY | PROVIDERS: PCP Internal Medicine; Visit Provider Surgery | DX: Z13.89 Encounter for screening for other disorder (principal) ==

== ENCOUNTER → 2023-02-03 12:26 | Outpatient (BNVA) | payer OTHER, SELFPAY | PROVIDERS: PCP Internal Medicine; Visit Provider Physician Assistant | DX: M75.101 Unspecified rotator cuff tear or rupture of right shoulder, not specified as traumatic (principal) | CPT/HCPCS: 20610; J1040 ==

== ENCOUNTER 2023-02-03 13:58 | Emergency (ER) | payer OTHER, SELFPAY ==
--- NOTE | ~2023-02-03 | CT_ITS ---
CT ANGIOGRAM NECK WITH CONTRAST CT ANGIOGRAM BRAIN WITH CONTRAST CLINICAL INFORMATION: Facial numbness and slurred speech. COMPARISON: CTA head 02/03/2023. TECHNIQUE: Test bolus sequences followed by intravenous administration 70 mL of Omnipaque 350. Helical imaging was performed in the axial plane from the thoracic inlet to the skull vertex. Delayed postcontrast imaging of the head was also performed. The data was processed at the echocardiography technologist workstation for generation of MIP sequences. Angled MIPs and volume rendered reformatted images were also generated at an offline 3D workstation under concurrent supervision. Stenoses are assessed in accordance with NASCET criteria unless otherwise indicated. This CT examination was performed using dose optimization techniques as appropriate, variously including the following: *Automated exposure control *Adjustment of mA and/or kV according to patient size (this includes techniques or standardized protocols for targeted exams where dose is matched to indication/reason for exam; i.e. extremities or head) *Use of iterative reconstruction technique FINDINGS: BRAIN: [There is no intracranial hemorrhage, hydrocephalus, extra-axial surface collection, midline shift, or other herniation pattern. Mckinney to white matter differentiation is diffusely maintained without evidence of an evolved acute territorial infarct. The basilar cisterns are preserved. No significant soft tissue abnormality. No acute osseous abnormality. The paranasal sinuses and the mastoid air cells are well aerated.] CERVICAL SOFT TISSUES AND LUNG APICES: [Unremarkable. ] NECK CTA: [There is a classic 3 vessel configuration of the aortic arch. Proximal arch vessels are non-stenotic. The vertebral arteries are codominant. No significant ostial stenosis is visualized on either side. Both vertebral arteries are widely patent throughout their extracranial cervical course. Both common and internal carotid arteries are normal in course and caliber.] BRAIN CTA: [There is normal opacification of major intracranial arteries. No focal flow-limiting stenosis nor discrete proximal large artery occlusion. No aneurysm. Timing of the contrast bolus allows assessment of the major dural venous sinuses, which all opacify normally] CT/CT angio head neck stroke IMPRESSION: - No acute intracranial findings. - No acute arterial occlusions and no significant arterial stenoses within the head or neck. Covering provider paged with these findings at 3:12 PM on 02/03/2023.
--- NOTE | ~2023-02-03 | CT_ITS ---
EXAMINATION: CT HEAD WITHOUT CONTRAST (STROKE PROTOCOL) CLINICAL INFORMATION: Stroke protocol. Right facial numbness with slurred speech COMPARISON: None available. TECHNIQUE: Contiguous axial imaging was performed from the skull base to vertex without intravenous administration of contrast. This CT examination was performed using dose optimization techniques as appropriate, variously including the following: *Automated exposure control *Adjustment of mA and/or kV according to patient size (this includes techniques or standardized protocols for targeted exams where dose is matched to indication/reason for exam; i.e. extremities or head) *Use of iterative reconstruction technique DLP: 596 mGy-cm FINDINGS: There is no acute intra-axial, extra-axial bleed, masses, collection or midline shift. There is no acute infarction in evolution. The patel to white matter differentiation is maintained normal. The lateral ventricles are symmetrical in size and configuration without enlargement. Bone windows reveal no calvarial abnormality. Bilateral paranasal sinuses and mastoid air cells are well-aerated. CT/CT head for stroke IMPRESSION: No acute intracranial process seen. This critical result was discussed with Dr. Floyd Correa at 2:48 hours on 02/03/2023. It was ascertained that the content and urgency of the report was understood at the time of direct communication.
--- NOTE | ~2023-02-03 | MR_ITS ---
MRI OF THE BRAIN WITHOUT IV CONTRAST INDICATION: Right-sided facial numbness. Slurred speech. Rule out stroke. COMPARISON: Head CT and CTA head and neck 02/03/2023. TECHNIQUE: Multiplanar multisequence MR imaging of the brain was obtained without IV contrast. FINDINGS: There is no hydrocephalus, extra-axial surface collection, or herniation. There are mild T2 signal changes within the supratentorial white matter in a nonspecific distribution. The major flow voids at the skull base are preserved. There is no acute infarct on diffusion-weighted imaging. There is no intracranial hemorrhage on the gradient recalled echo acquisition. The midline structures are normal. The cerebellar tonsils are normally positioned. There is 3 mm cerebellar tonsillar ectopia, a normal variant without true Chiari malformation. The craniocervical junction is normal. Osseous marrow signal intensity is homogenous. The visualized soft tissues are unremarkable. MR/MR head/brain wo con IMPRESSION: - No acute intracranial findings. No acute infarcts. - There are mild T2 signal changes within the supratentorial white matter in a nonspecific distribution.
[2023-02-03 14:07] VITALS: BP 184/100; PULSE 90; RESP 18; TEMP 37.1; O2SAT 98; BMI 23.3
--- NOTE | 2023-02-03 14:07 | ED_ITS ---
HPI - Neuro Symptoms/Deficit General Chief Complaint: Neuro Symptoms/Deficit <GIRMA Urena - Last Filed: 02/03/23 14:11> Stated Complaint: Reaction to cortison shot/numbness <GIRMA Urena - Last Filed: 02/03/23 14:11> Time Seen by Provider: 02/03/23 14:14 <GIRMA Urena - Last Filed: 02/03/23 14:11> Source: patient <Eriberto Correa MD - Last Filed: 02/03/23 16:35> Mode of arrival: ambulatory <Eriberto Correa MD - Last Filed: 02/03/23 16:35> Limitations: no limitations <Eriberto Correa MD - Last Filed: 02/03/23 16:35> History of Present Illness HPI Narrative: 42-year-old female who presents emergency department for evaluation of lightheadedness, slurred speech right-sided facial tingling and headache. The patient has a history of ankylosing spondylitis with spine and joint pain. She states she has been having pain in her right shoulder for months and was scheduled today for a steroid shot. This was performed at 13:15 hours. She was not NPO prior to the shot she states that she ate breakfast and had fluid to drink prior to the procedure. She states she has had a similar steroid shot in her left shoulder in the past with no reaction. She was driving home when she developed lightheadedness as if she was going to pass out. She states that her speech sounded slow to her. She developed tingling this in the right side of her face. Shortly after that she then developed a headache which she describes as a pressure-like pain on the right side of her head which was 4/10. She had no change in her vision. She had no nausea. She denied numbness or weakness of her extremities. She states that her symptoms persist therefore she called her who drove her to the emergency department for evaluation. At the time of evaluation, she is awake, alert. Her exam does reveal diminished light touch to the right side of her face compared to the left with normal sensation to other part of her body. Cranial nerves were intact. Her strength was normal and symmetric. Her NIH stroke scale was 1. Last well-known time was 13:15 hours. <Eriberto Correa MD - Last Filed: 02/03/23 16:35> Related Data Home Medications: Home Medications Medication Instructions Recorded Confirmed norethindrone (contraceptive) 0.35 0.35 mg PO DAILY 07/06/20 01/06/23 mg tablet Previous Rx's Medication Instructions Recorded docusate sodium 100 mg capsule 100 mg PO BID #180 caps 11/22/22 nabumetone 750 mg tablet 750 mg PO DAILY PRN Pain #90 tabs 11/28/22 alprazolam 0.25 mg tablet 0.25 mg PO DAILY PRN anxiety #20 12/01/22 tabs escitalopram oxalate 5 mg tablet 5 mg PO DAILY #30 tabs 12/23/22 omeprazole 20 mg capsule,delayed 20 mg PO DAILY #30 caps 12/23/22 release atorvastatin 10 mg tablet 10 mg PO DAILY #90 tabs 01/06/23 levothyroxine 100 mcg tablet 100 mcg PO DAILY #90 tabs 01/06/23 tramadol 50 mg tablet 50 mg PO BID PRN pain #60 tabs 01/12/23 metoclopramide HCl 10 mg tablet 10 mg PO Q6H PRN nausea and 02/03/23 (Reglan) vomiting #14 tabs <GIRMA Urena - Last Filed: 02/03/23 14:11> Allergies/Adverse Reactions: Allergies Allergy/AdvReac Type Severity Reaction Status Date / Time etanercept [Enbrel] AdvReac Intermediate rash/flu Verified 02/03/23 14:06 like Sx <GIRMA Urena - Last Filed: 02/03/23 14:11> Review of Systems Review of Systems: Yes all other systems are reviewed and are negative <Eriberto Correa MD - Last Filed: 02/03/23 16:35> [facility] Past Medical History [facility] Narrative: Social history: She is , her injury was here in the emergency department. She denies tobacco, alcohol and drug use. <Eriberto Correa MD - Last Filed: 02/03/23 16:35> Medical History: Medical History Ankylosing spondylitis Calcific tendinitis of left shoulder COVID-19 vaccine series completed Family history of breast cancer Fibromyalgia Heartburn Hypothyroidism (acquired) Mixed anxiety and depressive disorder Mixed hyperlipidemia Multinodular non-toxic goiter Nausea and vomiting Obesity (BMI 30.0-34.9) PONV (postoperative nausea and vomiting) Spondylosis of lumbar region without myelopathy or radiculopathy Thyroid nodule <GIRMA Urena - Last Filed: 02/03/23 14:11> Surgical History: Surgical History H/O arthroscopy of right knee History of section History of laparoscopic cholecystectomy (12/29/22) <GIRMA Urena - Last Filed: 02/03/23 14:11> Family History Family History: Family History Mother Hypothyroidism Maternal Grandmother Hypothyroidism Breast cancer Paternal Grandmother CVD (cardiovascular disease) Maternal Uncle Ulcerative colitis Brother No problems noted. Sister No problems noted. Son No problems noted. Son No problems noted. Maternal Grandfather Substance use disorder <GIRMA Urena - Last Filed: 02/03/23 14:11> Social History Social History: Social History Household Members: Family Housing: House Are you a primary acute care nurse to a significant other at home: No Do you presently have visiting nurse or other home services: No Alcohol intake: current Alcohol intake frequency: holidays/special occasions only Patient Tobacco Use Status: Former Tobacco user Quit Date: Age 17 Tobacco use type: Cigarette Years Smoked: 1 Smoked in Last 30 Days: No e-Cigarette/Vaping Use: Never Used Use of substances other than those prescribed or required for medical reasons: No Advance Directives: No Advance Directives Information Provided: No service: No Current occupational status: employed 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 Cognitive needs: No Hearing needs: No Vision needs: Yes <GIRMA Urena - Last Filed: 02/03/23 14:11> Physical Exam Vital Signs: Vital Signs: Last Vital Signs Temp 98.8 F 02/03/23 14:07 Pulse 90 02/03/23 14:07 Resp 18 02/03/23 14:07 BP 184/100 H 02/03/23 14:07 Pulse Ox 98 02/03/23 14:07 O2 Del Method Room Air 02/03/23 14:07 BMI result Body Mass Index 23.3 <GIRMA Urena - Last Filed: 02/03/23 14:11> Vital Signs: Last Vital Signs Temp 98.8 F 02/03/23 14:07 Pulse 90 02/03/23 14:07 Resp 18 02/03/23 14:07 BP 184/100 H 02/03/23 14:07 Pulse Ox 98 02/03/23 14:07 O2 Del Method Room Air 02/03/23 14:07 BMI result Body Mass Index 23.3 <Eriberto Correa MD - Last Filed: 02/03/23 16:35> Const: General: cooperative and no acute distress <Eriberto Correa MD - Last Filed: 02/03/23 16:35> Orientation/consciousness: oriented to person and oriented to place <Eriberto Correa MD - Last Filed: 02/03/23 16:35> Limitations: no limitations <Eriberto Correa MD - Last Filed: 02/03/23 16:35> HEENT: Other: No tenderness palpation over sinuses or temporal arteries areas bilaterally <Eriberto Correa MD - Last Filed: 02/03/23 16:35> Head: Yes normal to inspection, Yes normocephalic and Yes atraumatic <Christian Correa MD - Last Filed: 02/03/23 16:35> Ears: external ears normal <Eriberto Correa MD - Last Filed: 02/03/23 16:35> General nose exam: Normal external nose present <Eriberto Correa MD - Last Filed: 02/03/23 16:35> Face and sinus: Yes normal facial exam <Eriberto Correa MD - Last Filed: 02/03/23 16:35> Mouth: Normal oral and palatal mucosa present <Eriberto Correa MD - Last Filed: 02/03/23 16:35> Throat: Yes posterior oropharynx normal <Eriberto Correa MD - Last Filed: 02/03/23 16:35> Eyes: General: appearance normal, both eyes and all related structures <MD Itzel Oconnell Last Filed: 02/03/23 16:35> Pupils: Equal, round and reactive pupils present <MD Itzel Oconnell Last Filed: 02/03/23 16:35> Neck: Neck: Yes normal visual inspection, Yes no lymphadenopathy, Yes trachea midline and Yes supple <MD Itzel Oconnell Last Filed: 02/03/23 16:35> Chest: Chest palpation & inspection: normal inspection of the chest and normal palpation of entire chest wall <MD Itzel Oconnell Last Filed: 02/03/23 16:35> Resp: Effort & Inspection: normal respiratory effort and able to speak in complete sentences <MD Itzel Oconnell Last Filed: 02/03/23 16:35> Auscultation: clear to auscultation bilaterally <MD Itzel Oconnell Last Filed: 02/03/23 16:35> Cardio: Rate: regular rate <MD Itzel Oconnell Last Filed: 02/03/23 16:35> Rhythm: regular rhythm <MD Itzel Oconnell Last Filed: 02/03/23 16:35> Heart sounds: S1 normal heart sound present, S2 normal heart sound present and no murmurs <MD Itzel Oconnell Last Filed: 02/03/23 16:35> GI: Inspection: Yes normal to inspection <MD Itzel Oconnell Last Filed: 02/03/23 16:35> Palpation (GI): Soft to palpation, nontender and no guarding <MD Itzel Oconnell Last Filed: 02/03/23 16:35> Auscultation: normal bowel sounds <MD Itzel Oconnell Last Filed: 02/03/23 16:35> : General: Yes no CVA tenderness <MD Itzel Oconnell Last Filed: 02/03/23 16:35> Back/Spine/Pelvis: Back: no CVA tenderness <MD Itzel Oconnell Last Filed: 02/03/23 16:35> Skin: General skin exam: no rashes or lesions noted <Eriberto Correa MD - Last Filed: 02/03/23 16:35> Neuro: Other: Diminished light touch to the right side of her face compared to the left, normal light touch neck, arms, lower extremities <Eriberto Correa MD - Last Filed: 02/03/23 16:35> General: oriented to person and oriented to place <Eriberto Correa MD - Last Filed: 02/03/23 16:35> Cranial nerves: Yes CN's II-XII intact bilaterally and Yes Equal, round and reactive pupils present <Eriberto Correa MD - Last Filed: 02/03/23 16:35> Cognition (Neuro): normal cognition <Eriberto Correa MD - Last Filed: 02/03/23 16:35> Motor exam (neuro): 5/5 motor strength present throughout <Eriberto Correa MD - Last Filed: 02/03/23 16:35> Extrem: General: Yes normal to inspection <Eriberto Correa MD - Last Filed: 02/03/23 16:35> Psych: Appearance: grossly normal <Eriberto Correa MD - Last Filed: 02/03/23 16:35> Speech and movement: Normal speech and movement present <Eriberto Correa MD - Last Filed: 02/03/23 16:35> Affect: normal affect <MD Itzel Oconnell Last Filed: 02/03/23 16:35> Attitude: cooperative <Eriberto Correa MD - Last Filed: 02/03/23 16:35> Thought process: Normal thought process present <Eriberto Correa MD - Last Filed: 02/03/23 16:35> Thought content: Normal thought content present <MD Itzel Oconnell Last Filed: 02/03/23 16:35> Course Course Course Narrative: RME - 42 yo female with recent cortisone injection in her right shoulder with [facility] from Ortho at 1:15 pm today presents to the ER for evaluation of acute onset of lightheadedness, right sided facial numbness and pressure behind her right eye that started at 1:25pm. Speech was initially slow and she reports difficulty getting her words out. She called Ortho who told her to come to the ER as it was not a normal reaction. BP 180/100 in triage. reports no hx HTN Plan: to go back to main ER now <GIRMA Urena - Last Filed: 02/03/23 14:11> Medications Administered Discontinued Medications Generic Name Dose Route Start Last Admin Trade Name Freq PRN Reason Stop Dose Admin Diphenhydramine HCl 50 mg 02/03/23 14:29 02/03/23 15:05 Diphenhydramine Hcl 50 Mg/Ml Vial IVPUSH 02/03/23 14:30 50 mg ONCE STA Administration Sodium Chloride 1,000 mls @ 999 mls/hr 02/03/23 14:30 02/03/23 15:05 Ns IV 02/03/23 15:30 999 mls/hr .Q1H1M ARISTIDES Administration Iohexol 100 ml 02/03/23 14:47 02/03/23 14:48 Iohexol 350 Mg/Ml 100 Ml Infus..Btl IV 02/03/23 14:48 70 ml ONCE ONE Administration Ketorolac Tromethamine 15 mg 02/03/23 14:29 02/03/23 15:05 Ketorolac Tromethamine 15 Mg/Ml Vial IVPUSH 02/03/23 14:30 15 mg ONCE STA Administration Metoclopramide HCl 10 mg 02/03/23 14:29 02/03/23 15:05 Metoclopramide Hcl 10 Mg/2 Ml Vial IVPUSH 02/03/23 14:30 10 mg ONCE STA Administration <GIRMA Urena - Last Filed: 02/03/23 14:11> Medications Administered Discontinued Medications Generic Name Dose Route Start Last Admin Trade Name Freq PRN Reason Stop Dose Admin Diphenhydramine HCl 50 mg 02/03/23 14:29 02/03/23 15:05 Diphenhydramine Hcl 50 Mg/Ml Vial IVPUSH 02/03/23 14:30 50 mg ONCE STA Administration Sodium Chloride 1,000 mls @ 999 mls/hr 02/03/23 14:30 02/03/23 15:05 Ns IV 02/03/23 15:30 999 mls/hr .Q1H1M ARISTIDES Administration Iohexol 100 ml 02/03/23 14:47 02/03/23 14:48 Iohexol 350 Mg/Ml 100 Ml Infus..Btl IV 02/03/23 14:48 70 ml ONCE ONE Administration Ketorolac Tromethamine 15 mg 02/03/23 14:29 02/03/23 15:05 Ketorolac Tromethamine 15 Mg/Ml Vial IVPUSH 02/03/23 14:30 15 mg ONCE STA Administration Metoclopramide HCl 10 mg 02/03/23 14:29 02/03/23 15:05 Metoclopramide Hcl 10 Mg/2 Ml Vial IVPUSH 02/03/23 14:30 10 mg ONCE STA Administration <Eriberto Correa MD - Last Filed: 02/03/23 16:35> Medical Decision Making Medical Decision Making MDM Narrative: 42-year-old female with history of alkalosis spondylitis, fibromyalgia and hypothyroidism who presents emergency department for evaluation of lightheadedness, right facial numbness . She then developed right-sided headache which she describes as a pressure sensation, 4/10, with no numbness or weakness of her extremities. I ordered a stroke workup to include CBC, BMP, liver panel, ESR, CRP, PT/INR, magnesium, CT scan of the head, CT angiogram head and neck. I ordered Toradol 15 mg IV, Reglan 10 mg IV and Benadryl 50 mg IV. I also ordered normal saline x1 L I did discuss the patient's presentation with the covering neurologist Dr. Guerrero who recommended an MRI of the brain. 1514: My interpretation patient's laboratory evaluation is as follows: CBC was normal . PT/INR were normal. CRP was normal. ESR was normal at 7. CMP was normal. Troponin was below detectable limits. CT scan head without contrast was negative. CT angiogram head and neck was negative for retrievable clot. MRI of the brain revealed no stroke, there was nonspecific T2 signal but this does not correlate with the patient's presenta tion, the patient has had no symptoms to suggest that she has multiple sclerosis. The patient's headache did improve with the above treatment. She states that her numbness on the side of her face is almost completely resolved which is reassuring. At this time I think the patient's symptoms are consistent with a complex migraine I did discuss this with her. She will be treated with Benadryl, Reglan and Excedrin migraine every 6 hours as needed. She was advised to follow-up with our on-call neurologist for re-evaluation and to discuss the abnormal MRI findings. <Eriberto Correa MD - Last Filed: 02/03/23 16:35> Differential Diagnosis Differential diagnosis includes was not limited to stroke, TIA, complex migraine, volume depletion, dehydration <Eriberto Correa MD - Last Filed: 02/03/23 16:35> Admission/Observation Consideration of admission/observation: Escalation of care including admission/observation considered <Eriberto Correa MD - Last Filed: 02/03/23 16:35> Consult Healthcare Provider Management of the patient was discussed with: Help Desk Engineer (Neurologist, Dr. Guerrero) <Eriberto Correa MD - Last Filed: 02/03/23 16:35> Lab Data MDM Lab Attestation statement: I reviewed the patient's lab results. <Eriberto Correa MD - Last Filed: 02/03/23 16:35> See MDM <Eriberto Correa MD - Last Filed: 02/03/23 16:35> Result Diagrams: 02/03/23 14:36 02/03/23 14:36 <GIRMA Urena - Last Filed: 02/03/23 14:11> Labs: Lab Results 02/03/23 02/03/23 02/03/23 Range/Units 14:36 14:36 14:36 WBC 7.2 (4.8-10.8) X10*3/uL RBC 5.29 (4.20-5.50) X10*6/uL Hgb 15.2 (12.0-16.0) g/dl Hct 44.5 (37.0-47.0) % MCV 84.1 (80.0-98.0) fL MCH 28.7 (27.0-33.0) pg MCHC 34.2 (31.0-35.0) g/dl RDW 13.5 (11.0-16.0) % Plt Count 195 (160-400) X10*3/uL MPV 12.3 (9.4-12.3) fL Immature Gran % (Auto) 0.7 H (0.0-0.4) % Neut % (Auto) 59.1 (45-73) % Lymph % (Auto) 33.9 (20-40) % Christian % (Auto) 5.0 (2-11) % Eos % (Auto) 1.2 (0-4) % Baso % (Auto) 0.1 (0-2) % Lymph # (Auto) 2.5 (1.2-4.9) X10*3/uL Christian # (Auto) 0.4 (0.1-1.2) X10*3/uL Eos # (Auto) 0.1 (0.0-0.4) X10*3/uL Baso # (Auto) 0.0 (0.0-0.2) X10*3/uL Abs Immat Gran (auto) 0.05 H (0.00-0.03) X10*3/uL Absolute Neuts (auto) 4.3 (2.0-8.3) x10*3/uL Absolute Nucleated RBC 0.000 (0.0-0.012) X10*3/uL Nucleated RBC % (auto) 0.0 (0.0-0.2) /100WBC ESR (0-20) MM/HR PT 10.6 (10.0-13.1) SEC INR 0.9 (0.9-1.1) APTT 31.7 (26.0-36.4) SEC Sodium 141 (135-145) mmol/L Potassium 4.1 (3.3-5.1) mmol/L Chloride 105 (96-108) mmol/L Carbon Dioxide 28 (22-29) mmol/L Anion Gap 12 (12-20) BUN 10 (9-16) mg/dL Creatinine 0.74 (0.5-1.4) mg/dL Estim Creat Clear Calc 88.1 Estimated GFR > 60 Random Glucose 131 H (60-115) mg/dL Calcium 9.8 (8.4-10.2) mg/dL Total Bilirubin 1.7 H (0.0-1.0) mg/dL Direct Bilirubin 0.4 (0.0-0.5) mg/dL AST 17 (5-31) U/L ALT 13 (0-31) U/L Alkaline Phosphatase 50 (39-117) U/L Total Creatine Kinase 79 (26-140) U/L Troponin I High Sens (<3.5-17.0) ng/L C-Reactive Protein (< or = 0.50) mg/dL Total Protein 7.2 (6.5-8.0) g/dL Albumin 4.6 (3.5-5.0) g/dL 02/03/23 02/03/23 02/03/23 Range/Units 14:36 14:36 14:36 WBC (4.8-10.8) X10*3/uL RBC (4.20-5.50) X10*6/uL Hgb (12.0-16.0) g/dl Hct (37.0-47.0) % MCV (80.0-98.0) fL MCH (27.0-33.0) pg MCHC (31.0-35.0) g/dl RDW (11.0-16.0) % Plt Count (160-400) X10*3/uL MPV (9.4-12.3) fL Immature Gran % (Auto) (0.0-0.4) % Neut % (Auto) (45-73) % Lymph % (Auto) (20-40) % Christian % (Auto) (2-11) % Eos % (Auto) (0-4) % Baso % (Auto) (0-2) % Lymph # (Auto) (1.2-4.9) X10*3/uL Christian # (Auto) (0.1-1.2) X10*3/uL Eos # (Auto) (0.0-0.4) X10*3/uL Baso # (Auto) (0.0-0.2) X10*3/uL Abs Immat Gran (auto) (0.00-0.03) X10*3/uL Absolute Neuts (auto) (2.0-8.3) x10*3/uL Absolute Nucleated RBC (0.0-0.012) X10*3/uL Nucleated RBC % (auto) (0.0-0.2) /100WBC ESR 7 (0-20) MM/HR PT (10.0-13.1) SEC INR (0.9-1.1) APTT (26.0-36.4) SEC Sodium (135-145) mmol/L Potassium (3.3-5.1) mmol/L Chloride (96-108) mmol/L Carbon Dioxide (22-29) mmol/L Anion Gap (12-20) BUN (9-16) mg/dL Creatinine (0.5-1.4) mg/dL Estim Creat Clear Calc Estimated GFR Random Glucose (60-115) mg/dL Calcium (8.4-10.2) mg/dL Total Bilirubin (0.0-1.0) mg/dL Direct Bilirubin (0.0-0.5) mg/dL AST (5-31) U/L ALT (0-31) U/L Alkaline Phosphatase (39-117) U/L Total Creatine Kinase (26-140) U/L Troponin I High Sens < 2.7 (<3.5-17.0) ng/L C-Reactive Protein 0.21 (< or = 0.50) mg/dL Total Protein (6.5-8.0) g/dL Albumin (3.5-5.0) g/dL <GIRMA Urena - Last Filed: 02/03/23 14:11> Lab Results 02/03/23 02/03/23 02/03/23 Range/Units 14:36 14:36 14:36 WBC 7.2 (4.8-10.8) X10*3/uL RBC 5.29 (4.20-5.50) X10*6/uL Hgb 15.2 (12.0-16.0) g/dl Hct 44.5 (37.0-47.0) % MCV 84.1 (80.0-98.0) fL MCH 28.7 (27.0-33.0) pg MCHC 34.2 (31.0-35.0) g/dl RDW 13.5 (11.0-16.0) % Plt Count 195 (160-400) X10*3/uL MPV 12.3 (9.4-12.3) fL Immature Gran % (Auto) 0.7 H (0.0-0.4) % Neut % (Auto) 59.1 (45-73) % Lymph % (Auto) 33.9 (20-40) % Christian % (Auto) 5.0 (2-11) % Eos % (Auto) 1.2 (0-4) % Baso % (Auto) 0.1 (0-2) % Lymph # (Auto) 2.5 (1.2-4.9) X10*3/uL Christian # (Auto) 0.4 (0.1-1.2) X10*3/uL Eos # (Auto) 0.1 (0.0-0.4) X10*3/uL Baso # (Auto) 0.0 (0.0-0.2) X10*3/uL Abs Immat Gran (auto) 0.05 H (0.00-0.03) X10*3/uL Absolute Neuts (auto) 4.3 (2.0-8.3) x10*3/uL Absolute Nucleated RBC 0.000 (0.0-0.012) X10*3/uL Nucleated RBC % (auto) 0.0 (0.0-0.2) /100WBC ESR (0-20) MM/HR PT 10.6 (10.0-13.1) SEC INR 0.9 (0.9-1.1) APTT 31.7 (26.0-36.4) SEC Sodium 141 (135-145) mmol/L Potassium 4.1 (3.3-5.1) mmol/L Chloride 105 (96-108) mmol/L Carbon Dioxide 28 (22-29) mmol/L Anion Gap 12 (12-20) BUN 10 (9-16) mg/dL Creatinine 0.74 (0.5-1.4) mg/dL Estim Creat Clear Calc 88.1 Estimated GFR > 60 Random Glucose 131 H (60-115) mg/dL Calcium 9.8 (8.4-10.2) mg/dL Total Bilirubin 1.7 H (0.0-1.0) mg/dL Direct Bilirubin 0.4 (0.0-0.5) mg/dL AST 17 (5-31) U/L ALT 13 (0-31) U/L Alkaline Phosphatase 50 (39-117) U/L Total Creatine Kinase 79 (26-140) U/L Troponin I High Sens (<3.5-17.0) ng/L C-Reactive Protein (< or = 0.50) mg/dL Total Protein 7.2 (6.5-8.0) g/dL Albumin 4.6 (3.5-5.0) g/dL 02/03/23 02/03/23 02/03/23 Range/Units 14:36 14:36 14:36 WBC (4.8-10.8) X10*3/uL RBC (4.20-5.50) X10*6/uL Hgb (12.0-16.0) g/dl Hct (37.0-47.0) % MCV (80.0-98.0) fL MCH (27.0-33.0) pg MCHC (31.0-35.0) g/dl RDW (11.0-16.0) % Plt Count (160-400) X10*3/uL MPV (9.4-12.3) fL Immature Gran % (Auto) (0.0-0.4) % Neut % (Auto) (45-73) % Lymph % (Auto) (20-40) % Christian % (Auto) (2-11) % Eos % (Auto) (0-4) % Baso % (Auto) (0-2) % Lymph # (Auto) (1.2-4.9) X10*3/uL Christian # (Auto) (0.1-1.2) X10*3/uL Eos # (Auto) (0.0-0.4) X10*3/uL Baso # (Auto) (0.0-0.2) X10*3/uL Abs Immat Gran (auto) (0.00-0.03) X10*3/uL Absolute Neuts (auto) (2.0-8.3) x10*3/uL Absolute Nucleated RBC (0.0-0.012) X10*3/uL Nucleated RBC % (auto) (0.0-0.2) /100WBC ESR 7 (0-20) MM/HR PT (10.0-13.1) SEC INR (0.9-1.1) APTT (26.0-36.4) SEC Sodium (135-145) mmol/L Potassium (3.3-5.1) mmol/L Chloride (96-108) mmol/L Carbon Dioxide (22-29) mmol/L Anion Gap (12-20) BUN (9-16) mg/dL Creatinine (0.5-1.4) mg/dL Estim Creat Clear Calc Estimated GFR Random Glucose (60-115) mg/dL Calcium (8.4-10.2) mg/dL Total Bilirubin (0.0-1.0) mg/dL Direct Bilirubin (0.0-0.5) mg/dL AST (5-31) U/L ALT (0-31) U/L Alkaline Phosphatase (39-117) U/L Total Creatine Kinase (26-140) U/L Troponin I High Sens < 2.7 (<3.5-17.0) ng/L C-Reactive Protein 0.21 (< or = 0.50) mg/dL Total Protein (6.5-8.0) g/dL Albumin (3.5-5.0) g/dL <Eriberto Correa MD - Last Filed: 02/03/23 16:35> Radiology Impression Discussion of test interpretation with radiology: I discussed test interpretation with the radiologist <Eriberto Correa MD - Last Filed: 02/03/23 16:35> Radiologist Impression: CT head for stroke IMPRESSION: No acute intracranial process seen. This critical result was discussed with Dr. Floyd Correa at 2:48 hours on 02/03/2023. It was ascertained that the content and urgency of the report was understood at the time of direct communication. Dictated By:Andi Luque MD CT angio head neck stroke IMPRESSION: - No acute intracranial findings. - No acute arterial occlusions and no significant arterial stenoses within the head or neck. Covering provider paged with these findings at 3:12 PM on 02/03/2023. Dictated By:Pedro Guzman MD MRI OF THE BRAIN WITHOUT IV CONTRAST INDICATION: Right-sided facial numbness. Slurred speech. Rule out stroke. COMPARISON: Head CT and CTA head and neck 02/03/2023. TECHNIQUE: Multiplanar multisequence MR imaging of the brain was obtained without IV contrast. FINDINGS: There is no hydrocephalus, extra-axial surface collection, or herniation. There are mild T2 signal changes within the supratentorial white matter in a nonspecific distribution. The major flow voids at the skull base are preserved. There is no acute infarct on diffusion-weighted imaging. There is no intracranial hemorrhage on the gradient recalled echo acquisition. The midline structures are normal. The cerebellar tonsils are normally positioned. There is 3 mm cerebellar tonsillar ectopia, a normal variant without true Chiari malformation. The craniocervical junction is normal. Osseous marrow signal intensity is homogenous. The visualized soft tissues are unremarkable. MR/MR head/brain wo con IMPRESSION: - No acute intracranial findings. No acute infarcts. - There are mild T2 signal changes within the supratentorial white matter in a nonspecific distribution. Dictated By:Pedro Guzman MD <Eriberto Correa MD - Last Filed: 02/03/23 16:35> Independent Historian Clinical information obtained from an independent historian. History obtained from or confirmed by: Spouse <Eriberto Correa MD - Last Filed: 02/03/23 16:35> External Record Review External record reviewed: Office record <Eriberto Correa MD - Last Filed: 02/03/23 16:35> Orthopedic note from 02/03/2023 (today) patient was injected with 80 mg of Depo all Medrol and 8 mL of 2% lidocaine in the sub normal space. Diagnosis was painful arc syndrome of right shoulder <Eriberto Correa MD - Last Filed: 02/03/23 16:35> Chronic Conditions Patient?s care impacted by: Other (Ankylosing spondylitis, fibromyalgia) <Eriberto Correa MD - Last Filed: 02/03/23 16:35> NIH Stroke Scale Internal: Initial- Upon Arrival <Eriberto Correa MD - Last Filed: 02/03/23 16:35> Level of Consciousness: Alert <Eriberto Correa MD - Last Filed: 02/03/23 16:35> Level of Consciousness Questions: Answers both questions correctly <Eriberto Correa MD - Last Filed: 02/03/23 16:35> Level of Consciousness Commands: Performs both tasks correctly <Eriberto Correa MD - Last Filed: 02/03/23 16:35> Best Gaze: Normal <Eriberto Correa MD - Last Filed: 02/03/23 16:35> Visual: No visual loss <Eriberto Correa MD - Last Filed: 02/03/23 16:35> Facial Palsy: Normal <Eriberto Correa MD - Last Filed: 02/03/23 16:35> Motor Arm (Right): No drift <Eriberto Correa MD - Last Filed: 02/03/23 16:35> Motor Arm (Left): No drift <Eriberto Correa MD - Last Filed: 02/03/23 16:35> Motor Leg (Right): No drift <Eriberto Correa MD - Last Filed: 02/03/23 16:35> Motor Leg (Left): No drift <Eriberto Correa MD - Last Filed: 02/03/23 16:35> Limb Ataxia: Absent <Eriberto Correa MD - Last Filed: 02/03/23 16:35> Sensory: Mild to moderate sensory loss <Eriberto Correa MD - Last Filed: 02/03/23 16:35> Best Language: No aphasia <Eriberto Correa MD - Last Filed: 02/03/23 16:35> Dysarthia: Normal <Eriberto Correa MD - Last Filed: 02/03/23 16:35> Extinction and Inattention: No abnormality <Eriberto Correa MD - Last Filed: 02/03/23 16:35> Score: 1 <Eriberto Correa MD - Last Filed: 02/03/23 16:35> Critical Care Time Critical Care Time Critical Care Time: Yes <Eriberto Correa MD - Last Filed: 02/03/23 16:35> Total Critical Care Time: 45 <Eriberto Correa MD - Last Filed: 02/03/23 16:35> Attestation: Critical Care: The patient was critically ill with a high probability of imminent or life threatening deterioration. I spent greater than 30 minutes of discontinuous time evaluating the patient,delivering critical care at the bedside, discussing and evaluating pertinent data with consultants. Critical care time does not include time spent performing separately billable procedures or teaching. Total time spent performing critical care was 45 minutes. <Eriberto Correa MD - Last Filed: 02/03/23 16:35> Discharge Plan Discharge Clinical Impression: Migraine, Right facial numbness <GIRMA Urena - Last Filed: 02/03/23 14:11> Patient Disposition: Home, Self-Care <GIRMA Urena - Last Filed: 02/03/23 14:11> Instructions: Migraine Headache (ED) <GIRMA Urena - Last Filed: 02/03/23 14:11> Additional Instructions: Your CT scan of the brain without contrast was normal. Your CT angiogram of your head and neck was negative for a blood clot causing her symptoms. The MRI of your brain revealed no stroke but there was a nonspecific finding of increased T2 signal. See the reading below, you should follow-up with our on- call neurologist to discuss this reading and to further discuss her symptoms Your symptoms are consistent with a complex migraine the cause numbness of your face and her headache. I want you to take the following 3 medications together every 6 hours as needed for headache, nausea or vomiting. Reglan (metoclopramide) in 10 mg, 1 pill Benadryl 25 mg, 2 pills Excedrin migraine, 2 pills. After you take these medications, lie down in a dark quiet room and try to fall asleep. These medications will make you sleepy, do not drive or work after taking these medications. Follow-up with your doctor in 2 days and our on-call neurologist. Please return to the emergency department if your symptoms get worse or if you develop any symptoms that are concerning to you. Below is the MRI reading. The unrelated finding was mild T2 signal changes that were in a nonspecific distribution. These findings are not related to your symptoms at all and is probably normal for you but it is important to follow-up with a neurologist Multiplanar multisequence MR imaging of the brain was obtained without IV contrast. FINDINGS: There is no hydrocephalus, extra-axial surface collection, or herniation. There are mild T2 signal changes within the supratentorial white matter in a nonspecific distribution. The major flow voids at the skull base are preserved. There is no acute infarct on diffusion-weighted imaging. There is no intracranial hemorrhage on the gradient recalled echo acquisition. The midline structures are normal. The cerebellar tonsils are normally positioned. There is 3 mm cerebellar tonsillar ectopia, a normal variant without true Chiari malformation. The craniocervical junction is normal. Osseous marrow signal intensity is homogenous. The visualized soft tissues are unremarkable. MR/MR head/brain wo con IMPRESSION: - No acute intracranial findings. No acute infarcts. - There are mild T2 signal changes within the supratentorial white matter in a nonspecific distribution. Dictated By:Pedro Guzman MD <GIRMA Urena - Last Filed: 02/03/23 14:11> Prescriptions: New metoclopramide HCl [Reglan] 10 mg tablet 10 mg PO Q6H PRN (Reason: nausea and vomiting) Qty: 14 0RF No Action docusate sodium 100 mg capsule 100 mg PO BID Qty: 180 3RF nabumetone 750 mg tablet 750 mg PO DAILY PRN (Reason: Pain) Qty: 90 0RF escitalopram oxalate 5 mg tablet 5 mg PO DAILY Qty: 30 1RF omeprazole 20 mg capsule,delayed release(DR/EC) 20 mg PO DAILY Qty: 30 1RF levothyroxine 100 mcg tablet 100 mcg PO DAILY Qty: 90 1RF atorvastatin 10 mg tablet 10 mg PO DAILY Qty: 90 1RF tramadol 50 mg tablet 50 mg PO BID PRN (Reason: pain) Qty: 60 0RF norethindrone (contraceptive) 0.35 mg tablet 0.35 mg PO DAILY alprazolam 0.25 mg tablet 0.25 mg PO DAILY PRN (Reason: anxiety) Qty: 20 0RF <GIRMA Urena - Last Filed: 02/03/23 14:11> Referrals: Dwight Newton MD [Physician] - 2 weeks (Headache with right facial numbness, negative workup for stroke. MRI revealed increased T2 signal in a nonspecific distribution.) <GIRMA Urena - Last Filed: 02/03/23 14:11>
--- NOTE | 2023-02-03 14:39 | PC.NURSE ---
pt is alert and oriented, skin pwd, respirations even and unlabored, speaking in full clear sentences, no visible facial drift, hand grasp strong and equal and no drift present, moving all extremities, denies dizziness. pt reports at 1325 after her cortisone injection started with some pressure behind her right eye with some tingling on the right side, rating the pain at 4/10 at this time.
[2023-02-03] MEDS: iohexoL 350 MG/ML 100 ML INFUS..BTL IV (14:48)
[2023-02-03 14:52] LABS: MANUAL DIFF FLAG NO
[2023-02-03 14:57] LABS: Basophils Percent Auto 0.1 % (0-2); Eosinophils Absolute Auto 0.1 X10*3/uL (0.0-0.4); Eosinophils Percent Auto 1.2 % (0-4); Hematocrit 44.5 % (37.0-47.0); Hemoglobin 15.2 g/dl (12.0-16.0); Imm Gran Abs Auto 0.05 X10*3/uL (0.00-0.03); Imm Gran Pct Auto 0.7 % (0.0-0.4); Lymphocytes Absolute Auto 2.5 X10*3/uL (1.2-4.9); Lymphocytes Percent Auto 33.9 % (20-40); Mean Corpuscular HGB Conc 34.2 g/dl (31.0-35.0); Mean Corpuscular Hemoglobin 28.7 pg (27.0-33.0); Mean Corpuscular Volume 84.1 fL (80.0-98.0); Mean Platelet Volume 12.3 fL (9.4-12.3); Monocytes Absolute Auto 0.4 X10*3/uL (0.1-1.2); Neutrophils Absolute Auto 4.3 x10*3/uL (2.0-8.3); Neutrophils Percent Auto 59.1 % (45-73); Platelet Count 195 X10*3/uL (160-400); Red Blood Count 5.29 X10*6/uL (4.20-5.50); Red Cell Distribution Width 13.5 % (11.0-16.0); White Blood Count 7.2 X10*3/uL (4.8-10.8)
[2023-02-03 15:02] LABS: INTERNATIONAL NORM RATIO 0.9 (0.9-1.1); Prothrombin Time 10.6 SEC (10.0-13.1)
[2023-02-03 15:04] LABS: Partial Thromboplastin Time 31.7 SEC (26.0-36.4)
[2023-02-03] MEDS: diphenhydrAMINE HCL 50 MG/ML VIAL IVPUSH (15:05)
[2023-02-03] MEDS: 0.9 % Sodium Chloride 1,000 ML 999 ML IV (15:05)
[2023-02-03] MEDS: Ketorolac Tromethamine 15 MG/ML VIAL IVPUSH (15:05)
[2023-02-03] MEDS: Metoclopramide HCl 10 MG/2 ML VIAL IVPUSH (15:05)
[2023-02-03 15:09] LABS: C Reactive Protein 0.21 mg/dL (< or = 0.50)
[2023-02-03 15:16] LABS: Alanine Aminotransferase 13 U/L (0-31); Albumin Level 4.6 g/dL (3.5-5.0); Alkaline Phosphatase 50 U/L (39-117); Anion Gap 12 (12-20); Aspartate Amino Transferase 17 U/L (5-31); Bilirubin Direct 0.4 mg/dL (0.0-0.5); Bilirubin Total 1.7 mg/dL (0.0-1.0); Blood Urea Nitrogen 10 mg/dL (9-16); Calcium 9.8 mg/dL (8.4-10.2); Carbon Dioxide 28 mmol/L (22-29); Chloride 105 mmol/L (96-108); Creatinine Clr Calc Pharmacy 88.1; Estimated Glomerular Filt Rate > 60; Glucose Random 131 mg/dL (60-115); Potassium 4.1 mmol/L (3.3-5.1); Sodium 141 mmol/L (135-145); Stroke Lab Use COMPLETE; Total Protein 7.2 g/dL (6.5-8.0)
[2023-02-03 15:19] LABS: Troponin-I High Sensitivity < 2.7 ng/L (<3.5-17.0)
[2023-02-03 15:35] LABS: Erythrocyte Sedimentation Rate 7 MM/HR (0-20)
--- NOTE | 2023-02-03 16:43 | MHC.EDTECH ---
this pct assumed care of pt at 1645 ,this pct notice ekg was not done ,sheela vasquez said not to bother because patient is getting discharged ,vitals sign taken .
[2023-02-03 16:45] VITALS: BP 129/80; PULSE 86; RESP 16; TEMP 36.6; O2SAT 97
[2023-02-03 16:48] LABS: Prothrombin Time Whole Bld POC 11.7 sec (11.1-13.5)
[2023-02-03 16:49] LABS: Glucose, Whole Blood 146 mg/dL (60-115)
== END 2023-02-03 16:51 | disposition home or self-care (01) ==
PROVIDERS: Emergency Provider Emergency Medicine Emergency Medical Services; PCP Internal Medicine
DX: G43.909 Migraine, unspecified, not intractable, without status migrainosus (principal); R20.0 Anesthesia of skin; M54.2 Cervicalgia; Z79.899 Other long term (current) drug therapy; Z87.891 Personal history of nicotine dependence
CPT/HCPCS: 36415; 70450; 70496; 70498; 70551; 80048; 80076; 82550; 82947; 84484; 85025; 85610; 85652; 85730; 86140; 96361; 96374; 96375; 99285; J1200; J1885; J2765; Q9967

== ENCOUNTER 2023-05-15 10:41 | Outpatient (AMB) | payer OTHER, SELFPAY ==
--- NOTE | 2023-05-15 10:47 | MHC.OFFVIS ---
Intake Vital Signs 05/15/23 10:48 Height 5 ft 5 in Weight 147 lb 14.883 oz BMI 24.6 BP 116/64 Blood Pressure Location Rt brachial Position Sitting Pulse 88 Pulse Source Pulse Oximeter Temp 97.5 F Temp Source Skin Pulse Oximetry (%) 99 Intake Visit Reasons: ankylosing spondylitis Intake Note: Pt seen today for follow up. 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 Required: No Accompanied by: Self / Same As Patient Allergies etanercept [Enbrel] Adverse Reaction (Intermediate, Verified 05/15/23 10:49) rash/flu like Sx Medication List - Last Reconciled 05/15/23 by Blair Poe MD alprazolam 0.25 mg PO DAILY PRN amitriptyline 10 mg PO BEDTIME atorvastatin 10 mg PO DAILY docusate sodium 100 mg PO BID escitalopram oxalate 10 mg PO QAM levothyroxine 100 mcg PO DAILY metoclopramide HCl (Reglan) 10 mg PO Q6H PRN nabumetone 750 mg PO DAILY PRN norethindrone (contraceptive) 0.35 mg PO DAILY omeprazole 20 mg PO DAILY tramadol 50 mg PO BID PRN HPI HPI Comments History of Present Illness Details 43yoF presents for follow-up of ankylosing spondylitis. Last seen by Kayla Fuentes 12/25 Patient reports that overall her back pain has been stable. She received a steroid injection by Orthopedics at [facility] back in February 24 without much relief, she had another injection by [facility] which gave her good relief. Patient continues to have similar symptoms. Gets aches in different areas such as her fingers, her ankles, her back. She takes tramadol 50 mg Twice daily. There was a time when she tried to take 1 tablet a day but she felt some withdrawal symptoms. She takes nabumetone 3 to 4 times a week. [facility] Medical History Ankylosing spondylitis Calcific tendinitis of left shoulder COVID-19 vaccine series completed Family history of breast cancer Fibromyalgia Heartburn Hypothyroidism (acquired) Mixed anxiety and depressive disorder Mixed hyperlipidemia Multinodular non-toxic goiter Nausea and vomiting Obesity (BMI 30.0-34.9) PONV (postoperative nausea and vomiting) Spondylosis of lumbar region without myelopathy or radiculopathy Thyroid nodule Surgical History H/O arthroscopy of right knee History of section History of laparoscopic cholecystectomy (12/29/22) Family History Mother Hypothyroidism Maternal Grandmother Hypothyroidism Breast cancer Paternal Grandmother CVD (cardiovascular disease) Maternal Uncle Ulcerative colitis Brother No problems noted. Sister No problems noted. Son No problems noted. Son No problems noted. 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 Cognitive needs: No Hearing needs: No Vision needs: Yes Review of Systems Musc Reports back pain and Reports arthralgias Physical Exam Vital Signs: Last Vital Signs Temp 97.5 F 05/15/23 10:48 Pulse 88 05/15/23 10:48 BP 116/64 05/15/23 10:48 Pulse Ox 99 05/15/23 10:48 BMI result Body Mass Index 24.6 Const General: cooperative, healthy appearing and comfortable Nutritional Appearance: average body habitus Orientation/consciousness: patient oriented x3 Limitations: no limitations HEENT Head: Yes normocephalic and Yes atraumatic Mouth: moist mucous membranes Resp Effort & Inspection: normal respiratory effort and able to speak in complete sentences Auscultation: clear to auscultation bilaterally Cardio Rate: regular rate Rhythm: regular rhythm GI Inspection: No distended Palpation (GI): Soft to palpation and nontender Neuro General: patient oriented x3 Extrem Other: Few fibromyalgia tender points. No nail pitting Negative JILLIAN test bilaterally Negative straight leg raise test bilaterally Results Reviewed Results Reviewed: MR pelvis 2019 Impression: Normal exam. No evidence of sacroiliitis Assessment & Plan Assessment & Plan (1) Ankylosing spondylitis: Comment: Jung 08/2017 to 03/2020-ineffective Methotrexate- 02/2017- 03/2018 Humira 02/2016-07/2016 Enbrel 08/2015- 10/2015- did not tolerate, injection site reactions Sulfasalazine 08/2015 stopped due to diarrhea Cosentyx: September 2019 stopped after 2-3 months, not effective. Nabumetone-continues with good effect. Code(s): M45.9 - Ankylosing spondylitis of unspecified sites in spine Plan: This is a 43-year-old female previously diagnosed with ankylosing spondylitis who presents for follow-up. Patient with approximately 20 years of chronic low back pain. Had morning stiffness in her lumbar spine that lasted up to 45 minutes and also had pain in her low back that woke her up in the 2nd half of the night. Positive HLA B27. Her lumbar spine pain has been stable after bilateral L3 L4 DR L5 MBB RFA in June 2021. Upon evaluation today I do not see any signs of active autoimmune rheumatic disease. Clinical picture today rather consistent with fibromyalgia. Patient takes tramadol 50 mg Twice daily. She had some withdrawal symptoms when she attempted to take 1 tablet today. Advised patient to try taking half a tablet in the morning and 1 tablet at night. Labs before next visit in 4 months Orders: Orders Comprehensive Met. Panel 4 Months M45.9 - Ankylosing spondylitis of unspecified sites in spine C Reactive Protein 4 Months M45.9 - Ankylosing spondylitis of unspecified sites in spine Complete Blood Count Auto Diff 4 Months M45.9 - Ankylosing spondylitis of unspecified sites in spine Erythrocyte Sedimentation Rate 4 Months M45.9 - Ankylosing spondylitis of unspecified sites in spine Coding Level of Care Code Est Pt Level 3 (17758) Diagnoses Ankylosing spondylitis M45.9
[2023-05-15 10:48] VITALS: BP 116/64; PULSE 88; TEMP 36.4; O2SAT 99; BMI 24.6
== END 2023-05-15 11:16 | disposition home or self-care (01) ==
PROVIDERS: PCP Internal Medicine; Visit Provider Student in an Organized Health Care Education/Training Program
DX: M45.9 Ankylosing spondylitis of unspecified sites in spine (principal)
CPT/HCPCS: 99213

== ENCOUNTER → 2023-05-15 10:41 | Outpatient (BNVA) | payer OTHER, SELFPAY | PROVIDERS: PCP Internal Medicine; Visit Provider Student in an Organized Health Care Education/Training Program ==

== ENCOUNTER 2023-09-03 14:06 | Outpatient (REF) | payer OTHER, SELFPAY ==
[2023-09-03 15:58] LABS: MANUAL DIFF FLAG NO
[2023-09-03 16:05] LABS: Basophils Percent Auto 0.4 % (0-2); Eosinophils Absolute Auto 0.2 X10*3/uL (0.0-0.4); Eosinophils Percent Auto 2.1 % (0-4); Hematocrit 42.4 % (37.0-47.0); Hemoglobin 14.7 g/dl (12.0-16.0); Imm Gran Abs Auto 0.02 X10*3/uL (0.00-0.03); Imm Gran Pct Auto 0.3 % (0.0-0.4); Lymphocytes Absolute Auto 2.4 X10*3/uL (1.2-4.9); Lymphocytes Percent Auto 32.9 % (20-40); Mean Corpuscular HGB Conc 34.7 g/dl (31.0-35.0); Mean Corpuscular Hemoglobin 29.8 pg (27.0-33.0); Mean Platelet Volume 12.1 fL (9.4-12.3); Monocytes Absolute Auto 0.4 X10*3/uL (0.1-1.2); Monocytes Percent Auto 5.7 % (2-11); Neutrophils Absolute Auto 4.2 x10*3/uL (2.0-8.3); Neutrophils Percent Auto 58.6 % (45-73); Platelet Count 207 X10*3/uL (160-400); Red Blood Count 4.93 X10*6/uL (4.20-5.50); Red Cell Distribution Width 13.3 % (11.0-16.0); White Blood Count 7.2 X10*3/uL (4.8-10.8)
[2023-09-03 16:22] LABS: Alanine Aminotransferase 15 U/L (0-31); Albumin Level 4.2 g/dL (3.5-5.0); Alkaline Phosphatase 45 U/L (39-117); Anion Gap 12 (12-20); Aspartate Amino Transferase 19 U/L (5-31); Bilirubin Total 0.8 mg/dL (0.0-1.0); Blood Urea Nitrogen 17 mg/dL (9-16); C Reactive Protein 0.47 mg/dL (< or = 0.50); Calcium 9.8 mg/dL (8.4-10.2); Carbon Dioxide 27 mmol/L (22-29); Chloride 103 mmol/L (96-108); Estimated Glomerular Filt Rate > 60; Glucose Random 119 mg/dL (60-115); Potassium 3.9 mmol/L (3.3-5.1); Sodium 138 mmol/L (135-145); Total Protein 7.6 g/dL (6.5-8.0)
[2023-09-03 16:50] LABS: Erythrocyte Sedimentation Rate 7 MM/HR (0-20)
== END 2023-09-03 14:07 | disposition home or self-care (01) ==
LOC: HO.HMGCLDS 14:06
PROVIDERS: PCP Internal Medicine; Visit Provider Student in an Organized Health Care Education/Training Program
DX: M45.9 Ankylosing spondylitis of unspecified sites in spine (principal)
CPT/HCPCS: 36415; 80053; 85025; 85652; 86140

== ENCOUNTER 2023-09-09 15:48 | Outpatient (AMB) | payer OTHER, SELFPAY ==
[2023-09-09 16:10] VITALS: BP 128/76; PULSE 87; RESP 15; TEMP 36.8; O2SAT 97; BMI 26.2
--- NOTE | 2023-09-09 16:10 | MHC.OFFVIS ---
Intake Vital Signs 09/09/23 16:10 Height 5 ft 5 in Weight 157 lb 10.088 oz BMI 26.2 BP 128/76 Blood Pressure Location Rt brachial Position Sitting Respiration 15 Pulse 87 Pulse Source Pulse Oximeter Temp 98.2 F Temp Source Tympanic Pulse Oximetry (%) 97 Oxygen Delivery Method Room Air Intake Visit Reasons: Allergies etanercept [Enbrel] Adverse Reaction (Intermediate, Verified 09/09/23 16:13) rash/flu like Sx Medication List - Last Reconciled 09/09/23 by Blair Poe MD alprazolam 0.25 mg PO DAILY PRN amitriptyline 10 mg PO BEDTIME atorvastatin 10 mg PO DAILY docusate sodium 100 mg PO BID escitalopram oxalate 10 mg PO QAM levothyroxine 100 mcg PO DAILY metoclopramide HCl (Reglan) 10 mg PO Q6H PRN nabumetone 750 mg PO DAILY PRN norethindrone-e.estradiol-iron 1 mg-10 mcg (24)/10 mcg (2) (Lo Loestrin Fe) 1 tab PO DAILY omeprazole 20 mg PO DAILY tramadol 50 mg PO TID PRN HPI HPI Comments History of Present Illness Details 43yoF presents for follow-up of low back pain and fibromyalgia. Patient states that over the last few weeks she has been having more back and knee pain. She states that she is in the process of getting a divorce. She has been quite stressed recently. Normally she uses the nabumetone once or twice a month but over the last 3 weeks she has been using it daily. She did not attempt to lower her tramadol. She continues to take tramadol 50 mg Twice daily. [facility] Medical History PONV (postoperative nausea and vomiting) Nausea and vomiting Heartburn Mixed anxiety and depressive disorder Family history of breast cancer COVID-19 vaccine series completed Spondylosis of lumbar region without myelopathy or radiculopathy Multinodular non-toxic goiter Calcific tendinitis of left shoulder Obesity (BMI 30.0-34.9) Fibromyalgia Hypothyroidism (acquired) Mixed hyperlipidemia Ankylosing spondylitis Thyroid nodule Surgical History History of laparoscopic cholecystectomy (12/29/22) History of section H/O arthroscopy of right knee Family History Mother Hypothyroidism Maternal Grandmother Hypothyroidism Breast cancer Paternal Grandmother CVD (cardiovascular disease) Maternal Uncle Ulcerative colitis Brother No problems noted. Sister No problems noted. Son No problems noted. Son No problems noted. 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 Cognitive needs: No Hearing needs: No Vision needs: Yes Review of Systems Musc Reports back pain and Reports arthralgias Physical Exam Vital Signs: Last Vital Signs Temp 98.2 F 09/09/23 16:10 Pulse 87 09/09/23 16:10 Resp 15 09/09/23 16:10 BP 128/76 09/09/23 16:10 Pulse Ox 97 09/09/23 16:10 Oxygen Delivery Method Room Air 09/09/23 16:10 BMI result Body Mass Index 26.2 Const General: cooperative, healthy appearing and comfortable Nutritional Appearance: average body habitus Orientation/consciousness: patient oriented x3 Limitations: no limitations HEENT Head: Yes normocephalic and Yes atraumatic Mouth: moist mucous membranes Resp Effort & Inspection: normal respiratory effort and able to speak in complete sentences Auscultation: clear to auscultation bilaterally Cardio Rate: regular rate Rhythm: regular rhythm GI Inspection: No distended Palpation (GI): Soft to palpation and nontender Neuro General: patient oriented x3 Extrem Other: Few fibromyalgia tender points. No nail pitting Negative JILLIAN test bilaterally Negative straight leg raise test bilaterally Results Reviewed Results Reviewed: MR pelvis 2019 Impression: Normal exam. No evidence of sacroiliitis Assessment & Plan Assessment & Plan (1) Spondylosis of lumbar region without myelopathy or radiculopathy: Comment: Previously diagnosed with ankylosing spondylitis: Jung 08/2017 to 03/2020-ineffective Methotrexate- 02/2017- 03/2018 Humira 02/2016-07/2016 Enbrel 08/2015- 10/2015- did not tolerate, injection site reactions Sulfasalazine 08/2015 stopped due to diarrhea Cosentyx: September 2019 stopped after 2-3 months, not effective. Nabumetone-continues with good effect. Code(s): M47.816 - Spondylosis without myelopathy or radiculopathy, lumbar region Plan: This is a 43-year-old female previously diagnosed with ankylosing spondylitis who presents for follow-up.? Patient with approximately 20 years of chronic low back pain. Had morning stiffness in her lumbar spine that lasted up to 45 minutes and also had pain in her low back that woke her up in the 2nd half of the night.? Positive HLA B27.? Her lumbar spine pain has been stable after bilateral L3 L4 DR L5 MBB RFA? in June 2021.? MR pelvis in 2018 showed no sacroiliitis. Upon evaluation today I do not see any signs of active autoimmune rheumatic disease.? Her inflammatory markers are normal. Clinical picture today rather consistent with fibromyalgia. Patient continues to take tramadol 50 mg Twice daily. Patient is currently under significant stress as she is in the process of getting a divorce. Advised patient to attempt to lower her tramadol to 1.5 tabs daily Follow-up in 6 months Plan I spent 17 minutes reviewing patient's chart, evaluating patient,counseling patient and documenting in the chart Coding Level of Care Code Est Pt Level 3 (29282) Diagnoses Spondylosis of lumbar region without myelopathy or radiculopathy M47.816
== END 2023-09-09 16:32 | disposition home or self-care (01) ==
PROVIDERS: PCP Internal Medicine; Visit Provider Student in an Organized Health Care Education/Training Program
DX: M47.816 Spondylosis without myelopathy or radiculopathy, lumbar region (principal)
CPT/HCPCS: 99213

== ENCOUNTER → 2023-09-09 15:48 | Outpatient (BNVA) | payer OTHER, SELFPAY | PROVIDERS: PCP Internal Medicine; Visit Provider Student in an Organized Health Care Education/Training Program ==

== ENCOUNTER 2023-09-11 08:03 | Outpatient (REF) | payer OTHER, SELFPAY ==
[2023-09-11 13:16] LABS: Alanine Aminotransferase 16 U/L (0-31); Aspartate Amino Transferase 21 U/L (5-31); Cholesterol 187 mg/dL (<200); HDL Cholesterol 69 mg/dL (>40); LDL Cholesterol Calculated 102 mg/dL (<100); Triglycerides 82 mg/dL (<150)
[2023-09-11 13:37] LABS: Free T4 (Free Thyroxine) 1.24 ng/dL (0.71-1.85); Thyroid Stimulating Hormone 3.17 uIU/mL (0.32-4.0)
== END 2023-09-11 08:04 | disposition home or self-care (01) ==
LOC: HO.HMGCLDS 08:03
PROVIDERS: PCP Internal Medicine; Visit Provider Internal Medicine
DX: E03.9 Hypothyroidism, unspecified (principal); E78.2 Mixed hyperlipidemia
CPT/HCPCS: 36415; 80061; 84439; 84443; 84450; 84460

== ENCOUNTER 2023-09-15 08:54 | Outpatient (AMB) | payer OTHER, SELFPAY ==
[2023-09-15 08:57] VITALS: BP 132/88; PULSE 102; O2SAT 98; BMI 26.1
--- NOTE | 2023-09-15 08:57 | MHC.PC.OV ---
Vital Signs 09/15/23 08:57 Height 5 ft 5 in Weight 157 lb BMI 26.1 BP 132/88 Blood Pressure Location Lt brachial Position Sitting Pulse 102 H Pulse Source Pulse Oximeter Pulse Oximetry (%) 98 Oxygen Delivery Method Room Air Intake Visit Reasons: follow up TSH and lipids Intake Note: Pt is here to follow up for her lab results Allergies etanercept [Enbrel] Adverse Reaction (Intermediate, Verified 09/15/23 09:34) rash/flu like Sx Medication List - Last Reconciled 09/15/23 by Shavon Wells MD alprazolam 0.25 mg PO DAILY PRN amitriptyline 10 mg PO BEDTIME atorvastatin 10 mg PO DAILY docusate sodium 100 mg PO BID escitalopram oxalate 10 mg PO QAM levothyroxine 100 mcg PO DAILY metoclopramide HCl (Reglan) 10 mg PO Q6H PRN nabumetone 750 mg PO DAILY PRN norethindrone-e.estradiol-iron 1 mg-10 mcg (24)/10 mcg (2) (Lo Loestrin Fe) 1 tab PO DAILY omeprazole 20 mg PO DAILY tramadol 50 mg PO TID PRN Tobacco use date assessed: 09/15/23 Dental Screening Dental Screen Date: 09/15/23 Did you have a dental visit in the last 12 months?: No Did you have a dental problem in the last 6 months where you did not have access to dental care?: No Was dental information given to patient?: Patient has dentist HPI follow up TSH and lipids HPI Details 43-year-old lady here today for follow-up on her hypothyroidism and dyslipidemia currently on atorvastatin 10 mg daily and levothyroxine 100 mcg once a day. Recent labs showed lipids and thyroid levels are within normal limits. She currently is being followed by [facility] him see Rheumatology for her ankylosing spondylitis and fibromyalgia, currently stable controlled on nabumetone and tramadol. Patient also has been applying lidocaine patches to affected area in her lower back which has been helping Has mixed anxiety and depression, stable controlled now on escitalopram 10 mg daily in a.m. and alprazolam 0.25 mg taken as needed for acute anxiety attacks . Patient states that her home life has now stabilized , will be starting divorce proceedings next year, per patient. Call if she just had COVID infection July 2023, did not get a booster, up-to-date with her flu shot [facility] Medical History History of COVID-19 PONV (postoperative nausea and vomiting) Nausea and vomiting Heartburn Mixed anxiety and depressive disorder Family history of breast cancer COVID-19 vaccine series completed Spondylosis of lumbar region without myelopathy or radiculopathy Multinodular non-toxic goiter Calcific tendinitis of left shoulder Obesity (BMI 30.0-34.9) Fibromyalgia Hypothyroidism (acquired) Mixed hyperlipidemia Ankylosing spondylitis Thyroid nodule Surgical History History of laparoscopic cholecystectomy (12/29/22) History of section H/O arthroscopy of right knee Family History Mother Hypothyroidism Maternal Grandmother Hypothyroidism Breast cancer Paternal Grandmother CVD (cardiovascular disease) Maternal Uncle Ulcerative colitis Brother No problems noted. Sister No problems noted. Son No problems noted. Son No problems noted. 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 1. Little interest or pleasure in doing things: not at all 2. Feeling down, depressed, or hopeless: not at all 3. Trouble falling or staying asleep, or sleeping too much: not at all 4. Feeling tired or having little energy: not at all 5. Poor appetite or overeating: not at all 6. Feeling bad about yourself - or that you are a failure or have let yourself or your family down: not at all 7. Trouble concentrating on things, such as reading the newspaper or watching television: not at all 8. Moving or speaking so slowly that other people could have noticed. Or the opposite - being so fidgety or restless that you have been moving around a lot more than usual: not at all 9. Thoughts that you would be better off or of hurting yourself in some way: not at all Total score: 0 Depression Screening Interpretation: Negative Depression Screening Done: Yes 03553 - PHQ-9 Billing: Yes Source: Developed by Drs. Manjit Silvestre, Ann Malone, Jeremy Lagunas and colleagues, with an educational farhat from [employer] Thrive Questionnaire Date Thrive assessed: 11/11/22 NORTH-7 AMB Questionnaire NORTH-7 Date NORTH - 7 assessed: 09/15/23 Feeling nervous, anxious, or on edge: 0 = Not at all Not being able to stop or control worryin = Not at all Worrying too much about different things: 0 = Not at all Trouble relaxin = Not at all Being so restless that it is hard to sit still: 0 = Not at all Becoming easily annoyed or irritable: 0 = Not at all Feeling afraid as if something awful might happen: 0 = Not at all Total NORTH-7 score (0-4 normal; 5-9 mild; 10-14 moderate; 15-21 severe): 0 Source: Developed by Drs. Manjit Silvestre, Ann Malone, Jeremy Lagunas and colleagues, with an educational farhat from [employer] NORTH-7 Assessment Billing NORTH-7 Assessment Tool: NORTH-7 Assessment 02255 (Stable and controlled present treatment) Review of Systems Const Reports no additional complaints Eyes Denies change in vision ENT Reports no additional complaints Card Denies chest pain, Denies chest pain with activity, Denies irregular heart rhythm and Denies lightheadedness Resp Reports no additional complaints GI Denies abdominal pain, Denies change in bowel habits, Reports heartburn (Occasional) and Denies nausea Reports no additional complaints Musc Reports back pain (Lower back), Reports myalgias (Occasional), Denies joint swelling, Denies limited range of motion and Reports stiffness Neuro Reports no additional complaints Psych Reports as per HPI Endo Reports no additional complaints Rahul/Lymph Reports no additional complaints Aller/Immun Reports no additional complaints Physical exam (Primary Care) Vital Signs: Last Vital Signs Pulse 102 H 09/15/23 08:57 BP 132/88 09/15/23 08:57 Pulse Ox 98 09/15/23 08:57 Oxygen Delivery Method Room Air 09/15/23 08:57 BMI result Body Mass Index 26.1 Tobacco/Smoking Status: Tobacco use Status Tobacco use date assessed 09/15/23 09/15/23 09:02 Patient Tobacco Use Status Former Tobacco user 09/15/23 08:58 Tobacco use type Cigarette 09/15/23 08:58 e-Cigarette/Vaping Use Never Used 09/15/23 08:58 Depression Screening Interpretation: Negative Thrive Assessment: Date of Thrive Assessment Date Thrive assessed 11/11/22 09/15/23 08:58 Const General: cooperative, comfortable and no acute distress Nutritional Appearance: average body habitus Orientation/consciousness: patient oriented x3 Limitations: no limitations HENMT Head: Yes normocephalic Ears: hearing grossly normal bilaterally, TM's normal bilaterally and EAC's normal Face and sinus: Yes face symmetric Mouth: Normal oral and palatal mucosa present, oropharynx normal and moist mucous membranes Eyes General: appearance normal, both eyes and all related structures Neck Neck: Yes full ROM, Yes no lymphadenopathy and Yes supple Thyroid: Thyroid normal (Nonpalpable) Resp Effort & Inspection: normal respiratory effort and able to speak in complete sentences Auscultation: clear to auscultation bilaterally Cardio Rate: regular rate Rhythm: regular rhythm Heart sounds: S1 normal heart sound present and S2 normal heart sound present GI Palpation (GI): Soft to palpation, nontender, no guarding and no masses Auscultation: normal bowel sounds General: Yes no CVA tenderness Back/Spine/Pelvis Back: no CVA tenderness and No back tenderness Skin General skin exam: no rashes or lesions noted Neuro General: patient oriented x3, gait normal, tone normal, moves all extremities and no focal motor deficits Extrem General: Yes full ROM, Yes no joint enlargement, Yes no pedal edema and Yes normal gait Psych Appearance: grossly normal and well kempt Mental Status: mental status grossly normal Speech and movement: Normal speech and movement present Affect: normal affect Attitude: cooperative Thought process: Normal thought process present Thought content: Normal thought content present Results Reviewed Results Reviewed: Name: Alis Alonzo Age/Sex: 43/F : 1980 Unit#: [id number] Attend Dr: Blair Poe MD Re09/03/23 Status: DEP REF Location: [facility] Disch: SPEC : [id number] AMINA: 09/03/23 STATUS: COMP REQ : [id number] RECD: 09/03/[address]: Blair Poe MD COMP: 09/03/23 ENTERED: 09/03/[address] [facility] [address]: Shavon Wells MD ORDERED: CBC Auto Diff Test Result Flag Reference Site WBC 7.2 4.8-10.8 X10*3/uL RBC 4.93 4.20-5.50 X10*6/uL HGB 14.7 12.0-16.0 g/dl HCT 42.4 37.0-47.0 % MCV 86.0 80.0-98.0 fL MCH 29.8 27.0-33.0 pg MCHC 34.7 31.0-35.0 g/dl RDW 13.3 11.0-16.0 % PLT 207 160-400 X10*3/uL MPV 12.1 9.4-12.3 fL Neut Pct Auto 58.6 45-73 % ImGran Pct Auto 0.3 0.0-0.4 % Lymp Pct Auto 32.9 20-40 % [place] Pct Auto 5.7 2-11 % Eos Pct Auto 2.1 0-4 % Baso Pct Auto 0.4 0-2 % NRBC Pct Auto 0.0 0.0-0.2 /100WBC ANC Neut Abs # 4.2 2.0-8.3 x10*3/uL ImGran Abs Auto 0.02 0.00-0.03 X10*3/uL Lymph Abs Auto 2.4 1.2-4.9 X10*3/uL [place] Abs Auto 0.4 0.1-1.2 X10*3/uL Eos Abs Auto 0.2 0.0-0.4 X10*3/uL Baso Abs Auto 0.0 0.0-0.2 X10*3/uL NRBC Abs Auto 0.000 0.0-0.012 X10*3/uL SPEC : [id number] AMINA: 09/11/23 STATUS: COMP REQ : [id number] RECD: 09/11/23 [facility] DR: Shavon Wells MD COMP: 09/11/23 ENTERED: 09/11/[address] [facility] [address]: ORDERED: AST, ALT, Lipid Panel, Free T4, TSH Test Result Flag Reference Site AST (GOT) 21 5-31 U/L ALT (GPT) 16 0-31 U/L Triglyceride 82 <150 mg/dL Desirable Triglyceride: less than 150 mg/dL Borderline High Triglyceride 150-199 mg/dL High Triglyceride: 200-499 mg/dL Very High Triglyceride: greater than or equal to 5OO mg/dL Cholesterol 187 <200 mg/dL Desirable Cholesterol: less than 200 mg/dL Borderline High Cholesterol: 200-239 mg/dL High Cholesterol: greater than 239 mg/dL LDL Calculated 102 H <100 mg/dL Desirable LDL: less than 100 mg/dL Near Optimal/Above Optimal LDL: 110-129 mg/dL Borderline High LDL: 130-159 mg/dL High LDL: 160-189 mg/dL Very High LDL: greater than or equal to 190 mg/dL HDL 69 >40 mg/dL Desirable HDL: greater than 40 mg/dL Note: This HDL assay may give artificially low results in patients with liver disease. Free T4 1.24 0.71-1.85 ng/dL TSH 3rd Gen. 3.17 0.32-4.0 uIU/mL Note: A sustained TSH level above 2.5 uIU/mL may warrant further investigation. TSH 3rd Generation ([facility]) Assessment and Plan Assessment & Plan (1) Mixed hyperlipidemia: Code(s): E78.2 - Mixed hyperlipidemia Plan: Reviewed recent fasting lipid profile with patient with levels within normal limits, . Continue with atorvastatin 10 mg daily , in addition to adherence to low-cholesterol diet and regular exercise, at least 30 minutes 3 to 4 times a week. Advised patient to make healthy food choices, eat more fruits, vegetables, whole grains, wild caught fish and low-fat dairy. Limit amount of meat and fried or fatty food products, as well as processed foods and fast foods. (2) Hypothyroidism (acquired): Code(s): E03.9 - Hypothyroidism, unspecified Plan: Thyroid levels are stable and controlled on present treatment, continued on levothyroxine 100 mcg once a day (3) Mixed anxiety and depressive disorder: Code(s): F41.8 - Other specified anxiety disorders Plan: Stable controlled on escitalopram, takes alprazolam as needed Coding Level of Care Code Est Pt Level 4 (57072) Diagnoses Mixed hyperlipidemia E78.2 Hypothyroidism (acquired) E03.9 Mixed anxiety and depressive disorder F41.8 Additional Codes NORTH-7 Assessment Billing - NORTH-7 Assessment Tool: NORTH-7 Assessment 36175 ([id number])
== END 2023-09-15 09:34 | disposition home or self-care (01) ==
PROVIDERS: PCP Internal Medicine; Visit Provider Internal Medicine
DX: E78.2 Mixed hyperlipidemia (principal); E03.9 Hypothyroidism, unspecified; F41.8 Other specified anxiety disorders
CPT/HCPCS: 99214

== ENCOUNTER 2024-03-10 10:33 | Outpatient (AMB) | payer OTHER, SELFPAY ==
[2024-03-10 10:40] VITALS: BP 122/64; PULSE 93; O2SAT 97; BMI 28.1
--- NOTE | 2024-03-10 10:40 | A.OFFVIS_ITS ---
Vital Signs 03/10/24 10:40 Height 5 ft 5 in Weight 168 lb 10.458 oz BMI 28.1 BP 122/64 Blood Pressure Location Rt brachial Position Sitting Pulse 93 Pulse Source Pulse Oximeter Pulse Oximetry (%) 97 Oxygen Delivery Method Room Air Intake Visit Reasons: /CM Intake Note: Since last visit pt states she has been having lots more pain, especially R shoulder. 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 Accompanied by: Self / Same As Patient Allergies etanercept [Enbrel] Adverse Reaction (Intermediate, Verified 03/10/24 10:47) rash/flu like Sx Medication List - Last Reconciled 03/10/24 by Blair Poe MD alprazolam 0.25 mg PO DAILY PRN amitriptyline 10 mg PO BEDTIME atorvastatin 10 mg PO DAILY docusate sodium 100 mg PO BID escitalopram oxalate 10 mg PO QAM levothyroxine 100 mcg PO DAILY metoclopramide HCl (Reglan) 10 mg PO Q6H PRN nabumetone 750 mg PO DAILY PRN norethindrone-e.estradiol-iron 1 mg-10 mcg (24)/10 mcg (2) (Lo Loestrin Fe) 1 tab PO DAILY omeprazole 20 mg PO DAILY tramadol 50 mg PO BID PRN HPI Comments Details: 43yoF presents for follow-up of low back pain and fibromyalgia. Patient states that she recently she has been under plenty of stress. She has in the process of getting a divorce. She has been having right shoulder pain. But it got worse over the last few days. She has pain when sleeping on her right side. She she states that she has received multiple cortisone injections in the shoulders and they usually provides significant relief. States that started having hives yesterday night and today. It is on her face, back upper chest. Itchy. [facility] Medical History History of COVID-19 PONV (postoperative nausea and vomiting) Nausea and vomiting Heartburn Mixed anxiety and depressive disorder Family history of breast cancer COVID-19 vaccine series completed Spondylosis of lumbar region without myelopathy or radiculopathy Multinodular non-toxic goiter Calcific tendinitis of left shoulder Obesity (BMI 30.0-34.9) Fibromyalgia Hypothyroidism (acquired) Mixed hyperlipidemia Ankylosing spondylitis Thyroid nodule Surgical History History of laparoscopic cholecystectomy (12/29/22) History of section H/O arthroscopy of right knee Family History Mother Hypothyroidism Maternal Grandmother Hypothyroidism Breast cancer Paternal Grandmother CVD (cardiovascular disease) Maternal Uncle Ulcerative colitis Brother No problems noted. Sister No problems noted. Son No problems noted. Son No problems noted. 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 Cognitive needs: No Hearing needs: No Vision needs: Yes Review of Systems Musc Reports arthralgias Skin/Breast Reports pruritus and Reports lesions Physical Exam Vital Signs: Last Vital Signs Pulse 93 03/10/24 10:40 BP 122/64 03/10/24 10:40 Pulse Ox 97 03/10/24 10:40 Oxygen Delivery Method Room Air 03/10/24 10:40 BMI result Body Mass Index 28.1 Const General: cooperative, healthy appearing and comfortable Nutritional Appearance: average body habitus Orientation/consciousness: patient oriented x3 Limitations: no limitations HEENT Head: Yes normocephalic and Yes atraumatic Mouth: moist mucous membranes Resp Effort & Inspection: normal respiratory effort and able to speak in complete sentences Auscultation: clear to auscultation bilaterally Cardio Rate: regular rate Rhythm: regular rhythm GI Inspection: No distended Palpation (GI): Soft to palpation and nontender Skin Other: Urticarial lesions on left cheek, upper back, upper chest Neuro General: patient oriented x3 Extrem Other: Negative rotator cuff provocative maneuvers bilaterally negative Speed's test bilaterally Few fibromyalgia tender points. No nail pitting Negative JILLIAN test bilaterally Negative straight leg raise test bilaterally Office Procedures Joint Injection/Drain Joint Injection/Drain Primary Site: right shoulder Prep: site was prepped using sterile technique and ethochloride spray was applied Injected: 40 mg of, Kenalog and other (2 mL of 1% lidocaine) Approach Used: posterolateral Procedure: The patient tolerated the procedure well Coding Details: Patient's consent. The right shoulder was prepped ChloraPrep and alcohol. The subacromial space was injected with 40 mg of triamcinolone and 2 cc of lidocaine. Patient tolerated the procedure well no apparent immediate side effects. 46486 - Large joint Procedure code (CPT) selection complete Results Reviewed Results Reviewed: MR pelvis 2019 Impression: Normal exam. No evidence of sacroiliitis Assessment & Plan Assessment & Plan (1) Spondylosis of lumbar region without myelopathy or radiculopathy: Comment: Previously diagnosed with ankylosing spondylitis: [place] 08/2017 to 03/2020-ineffective Methotrexate- 02/2017- 03/2018 Humira 02/2016-07/2016 Enbrel 08/2015- 10/2015- did not tolerate, injection site reactions Sulfasalazine 08/2015 stopped due to diarrhea Cosentyx: September 2019 stopped after 2-3 months, not effective. Nabumetone-continues with good effect. Code(s): M47.816 - Spondylosis without myelopathy or radiculopathy, lumbar region Category: Medical Plan: This is a 43-year-old female previously diagnosed with ankylosing spondylitis who presents for follow-up.? Patient with approximately 20 years of chronic low back pain. Had morning stiffness in her lumbar spine that lasted up to 45 minutes and also had pain in her low back that woke her up in the 2nd half of the night.? Positive HLA B27.? Her lumbar spine pain has been stable after bilateral L3 L4 DR L5 MBB RFA? in June 2021.? MR pelvis in 2018 showed no sacroiliitis. Her clinical picture is more consistent with active arthritis and fibromyalgia. Her pain symptoms are well controlled with tramadol 50 mg Twice daily. Refilled (2) Painful arc syndrome of right shoulder: Code(s): M75.101 - Unspecified rotator cuff tear or rupture of right shoulder, not specified as traumatic Category: Medical Plan: Injected in clinic today (3) Urticaria: Code(s): L50.9 - Urticaria, unspecified Category: Medical Plan: Likely the steroid injection will help. Plan I spent 17 minutes reviewing patient's chart, evaluating patient,counseling patient and documenting in the chart Orders: Orders AMB Joint Injection/Aspiration Today M75.101 - Unspecified rotator cuff tear or rupture of right shoulder, not specified as traumatic Coding Level of Care Code Est Pt Level 4 (62321) Diagnoses Spondylosis of lumbar region without myelopathy or radiculopathy M47.816 Painful arc syndrome of right shoulder M75.101 Urticaria L50.9 CPT Codes Coding - 98734 Large joint: 71387 - Large joint ([id number])
== END 2024-03-10 11:20 | disposition home or self-care (01) ==
PROVIDERS: PCP Internal Medicine; Visit Provider Student in an Organized Health Care Education/Training Program
DX: M47.816 Spondylosis without myelopathy or radiculopathy, lumbar region (principal); M75.101 Unspecified rotator cuff tear or rupture of right shoulder, not specified as traumatic; L50.9 Urticaria, unspecified
CPT/HCPCS: 20610; 99213

== ENCOUNTER → 2024-03-10 10:33 | Outpatient (BNVA) | payer OTHER, SELFPAY | PROVIDERS: PCP Internal Medicine; Visit Provider Student in an Organized Health Care Education/Training Program | DX: M25.511 Pain in right shoulder (principal); M75.101 Unspecified rotator cuff tear or rupture of right shoulder, not specified as traumatic; M47.816 Spondylosis without myelopathy or radiculopathy, lumbar region; L50.9 Urticaria, unspecified | CPT/HCPCS: 20610 ==

== ENCOUNTER 2024-03-11 10:09 | Outpatient (AMB) | payer OTHER, SELFPAY ==
--- NOTE | 2024-03-11 10:03 | MHC.PC.OV ---
Intake Visit Reasons: Iphone [phone] to discuss letter Intake Note: Pt is having a TH visit to discuss a letter she is requesting Allergies etanercept [Enbrel] Adverse Reaction (Intermediate, Verified 07/06/24 02:02) rash/flu like Sx Medication List - Last Reconciled 03/11/24 by Shavon Wells MD alprazolam 0.25 mg PO DAILY PRN amitriptyline 10 mg PO BEDTIME atorvastatin 10 mg PO DAILY docusate sodium 100 mg PO BID escitalopram oxalate 10 mg PO QAM levothyroxine 100 mcg PO DAILY metoclopramide HCl (Reglan) 10 mg PO Q6H PRN nabumetone 750 mg PO DAILY PRN norethindrone-e.estradiol-iron 1 mg-10 mcg (24)/10 mcg (2) (Lo Loestrin Fe) 1 tab PO DAILY omeprazole 20 mg PO DAILY tramadol 50 mg PO BID PRN Tobacco use date assessed: 03/11/24 Dental Screening Dental Screen Date: 03/11/24 Did you have a dental visit in the last 12 months?: Yes Did you have a dental problem in the last 6 months where you did not have access to dental care?: No Was dental information given to patient?: Patient has dentist HPI Iphone [phone] to discuss letter HPI Details 43-year-old lady with history of ankylosing spondylitis, acquired hypothyroidism, fibromyalgia, mixed hyperlipidemia, and mixed anxiety and depressive disorder, here today for follow-up. She has been working from home since the pandemic, which she states has helped a lot in controlling her pain symptoms. She is under the care of a coating mixer tender , who recently saw her yesterday. She has approximately 20 years of chronic low back pain. She has morning stiffness in her lumbar spine that lasts up to 45 minutes, and also has pain in her low back that would occasionally wake her up in the 2nd half of the night.? Positive HLA B27.? Her lumbar spine pain has been stable after bilateral L3 L4 DR L5 MBB RFA? in June 2021.? MR pelvis in 2019 showed no sacroiliitis. As per her coating mixer tender, clinical picture is more consistent with active arthritis and fibromyalgia. Her pain symptoms are well controlled with taking nabumetone, and tramadol 50 mg Twice daily. She would benefit from continuing to first calender worker at least twice a week, as this allows her to take necessary breaks when she gets flare-ups of her pain symptoms. [facility] Medical History History of COVID-19 PONV (postoperative nausea and vomiting) Nausea and vomiting Heartburn Mixed anxiety and depressive disorder Family history of breast cancer COVID-19 vaccine series completed Spondylosis of lumbar region without myelopathy or radiculopathy Multinodular non-toxic goiter Calcific tendinitis of left shoulder Obesity (BMI 30.0-34.9) Fibromyalgia Hypothyroidism (acquired) Mixed hyperlipidemia Ankylosing spondylitis Thyroid nodule Surgical History History of laparoscopic cholecystectomy (12/29/22) History of section H/O arthroscopy of right knee Family History Mother Hypothyroidism Maternal Grandmother Hypothyroidism Breast cancer Paternal Grandmother CVD (cardiovascular disease) Maternal Uncle Ulcerative colitis Brother No problems noted. Sister No problems noted. Son No problems noted. Son No problems noted. 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 1. Little interest or pleasure in doing things: several days 2. Feeling down, depressed, or hopeless: more than half the days 3. Trouble falling or staying asleep, or sleeping too much: more than half the days 4. Feeling tired or having little energy: nearly every day 5. Poor appetite or overeating: not at all 6. Feeling bad about yourself - or that you are a failure or have let yourself or your family down: not at all 7. Trouble concentrating on things, such as reading the newspaper or watching television: not at all 8. Moving or speaking so slowly that other people could have noticed. Or the opposite - being so fidgety or restless that you have been moving around a lot more than usual: not at all 9. Thoughts that you would be better off or of hurting yourself in some way: not at all Total score: 8 Depression Screening Interpretation: Positive (Currently followed by Flora Caba) Depression Screening Follow-up: Existing condition, In treatment and Community Mental Health Worker F/U Depression Screening Done: Yes 07959 - PHQ-9 Billing: Yes Source: Developed by Drs. Manjit Silvestre, Ann Malone, Jeremy Lagunas and colleagues, with an educational farhat from [employer]. Thrive Questionnaire Date Thrive assessed: 03/11/24 I am a: Patient What is your living situation today?: I have a steady place to live Within the past 12 months, did the food you bought not last and you didn't have the money to get more?: Never true Within the past 12 months, did you worry whether your food would run out before you got money to buy more?: Never true Do you have trouble paying for medicines?: No Do you have trouble getting transportation to medical appointments?: No Do you have trouble paying your heating and electricity bill?: No Do you have trouble taking care of your child, family member or friend?: No Do you have trouble with day-to-day activities such as bathing, preparing meals, shopping, managing finances, etc.?: No Are you currently unemployed and looking for a job?: No Are you interested in more education?: No THRIVE Score: 0 AUDIT C Alcohol Use Questionnaire (AUDIT-C) 1. How often do you have a drink containing alcohol?: Never Total Score: 0 NORTH-7 AMB Questionnaire NORTH-7 Date NORTH - 7 assessed: 03/11/24 Feeling nervous, anxious, or on edge: 3 = Nearly every day Not being able to stop or control worryin = Several days Worrying too much about different things: 0 = Not at all Trouble relaxin = Nearly every day Being so restless that it is hard to sit still: 3 = Nearly every day Becoming easily annoyed or irritable: 3 = Nearly every day Feeling afraid as if something awful might happen: 0 = Not at all Total NORTH-7 score (0-4 normal; 5-9 mild; 10-14 moderate; 15-21 severe): 13 Source: Developed by Drs. Manjit Silvestre, Ann Malone, Jeremy Lagunas and colleagues, with an educational farhat from [employer]. NORTH-7 Assessment Billing NORTH-7 Assessment Tool: NORTH-7 Assessment 11006 (Followed by psychiatry) Review of Systems Const Reports no additional complaints ENT Reports no additional complaints Card Denies chest pain, Denies chest pain with activity, Denies irregular heart rhythm and Denies lightheadedness Resp Reports no additional complaints GI Denies abdominal pain, Denies change in bowel habits, Reports heartburn (Occasional) and Denies nausea Reports no additional complaints Musc Reports back pain (Lower back), Reports myalgias (Occasional), Reports arthralgias, Denies joint swelling, Denies limited range of motion and Reports stiffness Skin/Breast Denies breast pain, Denies breast mass, Denies lesions and Denies rash Neuro Reports no additional complaints Psych Reports as per HPI Endo Reports no additional complaints Rahul/Lymph Reports no additional complaints Aller/Immun Reports no additional complaints Physical exam (Primary Care) Tobacco/Smoking Status: Tobacco use Status Tobacco use date assessed 03/11/24 03/11/24 10:04 Patient Tobacco Use Status Former Tobacco user 03/11/24 10:04 Tobacco use type Cigarette 03/11/24 10:04 e-Cigarette/Vaping Use Never Used 03/11/24 10:04 PHQ-9: PHQ-9 Score PHQ-9: Total score 8 03/21/24 00:26 Depression Screening Interpretation: Positive (Currently followed by Flora Caba) Depression Screening Follow-up: Existing condition, In treatment and Community Mental Health Worker F/U Thrive Assessment: Date of Thrive Assessment Date Thrive assessed 03/11/24 03/11/24 10:08 Telehealth Telehealth Telehealth Platform: [facility] Location of provider rendering services: practice address Location of patient: address on file Patient Identification confirmed using: Name, : Yes Telehealth method: video Patient verbally consented to treatment: Yes Patient verbally consented to billing insurance company: Yes Patient informed of any privacy concerns related to visit: Yes Minutes spent on Phone/Video with Pt.: 15 Coding Level of Care Code Tele Est Pt Level 3 (58942) Diagnoses Ankylosing spondylitis M45.9 Fibromyalgia M79.7 Mixed anxiety and depressive disorder F41.8 Hypothyroidism (acquired) E03.9 Additional Codes NORTH-7 Assessment Billing - NORTH-7 Assessment Tool: NORTH-7 Assessment 05012 ([id number])
== END 2024-03-11 12:21 | disposition home or self-care (01) ==
LOC: HO.HMGC 10:09
PROVIDERS: PCP Internal Medicine; Visit Provider Internal Medicine
DX: M45.9 Ankylosing spondylitis of unspecified sites in spine (principal); M79.7 Fibromyalgia; F41.8 Other specified anxiety disorders; E03.9 Hypothyroidism, unspecified
CPT/HCPCS: 99499

== ENCOUNTER 2024-03-24 10:33 | Outpatient (AMB) | payer OTHER, SELFPAY ==
--- NOTE | 2024-03-24 10:36 | A.OFFVIS_ITS ---
Vital Signs 03/24/24 10:46 Height 5 ft 5 in Weight 167 lb 6 oz BMI 27.8 BP 144/84 H Blood Pressure Location Lt brachial Position Sitting Respiration 16 Pulse 91 Pulse Source Pulse Oximeter Pulse Oximetry (%) 94 Oxygen Delivery Method Room Air Intake Visit Reasons: Low back pain Intake Note: Patient comes in for low back pain last seen in office 07/10/2021. Reports pain 05/14. Allergies etanercept [Enbrel] Adverse Reaction (Intermediate, Verified 03/24/24 10:48) rash/flu like Sx HPI Comments Details: Alis is very pleasant 43 years old female who presents in my office after 3 years and 9 months of absence. In June of 2021 she received radiofrequency ablation of the L3-L4 does ramus L5 medial branches. 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 Lew for ankylosing spondylitis. She came to me today in my office and reported that RFA lasted for her 3 years in 6 months. She reported that 3 months ago the pain started to climb back. I offered the patient to repeat RFA but I explained to her limitations of this procedure. I also offered her sprint PNS L5 bilateral. The patient agreed to go for this procedure. I will schedule her for sprint PNS L5 1st on the right and left will be 2nd. The follow-up appointment will be scheduled for this patient for the follow-up after 1st and after 2nd injections. She will attend nursing appointments in this office for dressing change for the 60 days of application of the PNS. [facility] Medical History History of COVID-19 PONV (postoperative nausea and vomiting) Nausea and vomiting Heartburn Mixed anxiety and depressive disorder Family history of breast cancer COVID-19 vaccine series completed Spondylosis of lumbar region without myelopathy or radiculopathy Multinodular non-toxic goiter Calcific tendinitis of left shoulder Obesity (BMI 30.0-34.9) Fibromyalgia Hypothyroidism (acquired) Mixed hyperlipidemia Ankylosing spondylitis Thyroid nodule Surgical History History of laparoscopic cholecystectomy (12/29/22) History of section H/O arthroscopy of right knee Family History Mother Hypothyroidism Maternal Grandmother Hypothyroidism Breast cancer Paternal Grandmother CVD (cardiovascular disease) Maternal Uncle Ulcerative colitis Brother No problems noted. Sister No problems noted. Son No problems noted. Son No problems noted. 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 Cognitive needs: No Hearing needs: No Vision needs: Yes Review of Systems Const All systems reviewed & are unremarkable except as noted in HPI and below ENT Denies Normal hearing present Neuro Denies Normal hearing present, Denies Abnormal speech present and Denies confusion Psych Denies confusion Physical Exam Vital Signs: Last Vital Signs Pulse 91 03/24/24 10:46 Resp 16 03/24/24 10:46 BP 144/84 H 03/24/24 10:46 Pulse Ox 94 03/24/24 10:46 Oxygen Delivery Method Room Air 03/24/24 10:46 BMI result Body Mass Index 27.8 Const General: No confusion Orientation/consciousness: No confusion Resp Effort & Inspection: normal respiratory effort, able to speak in complete se ntences and no audible wheezes Back/Spine/Pelvis Other: Loading test is positive, Valsalva is negative, SLR is negative, Scooter test is negative. Neuro General: No confusion Cranial nerves: No Normal hearing present Speech: No Abnormal speech present Psych Mental Status: mental status grossly normal Speech and movement: Clear speech present Attitude: cooperative Thought process: Normal thought process present Thought content: Normal thought content present Insight: Good insight present (Psych) Judgement: Good judgement present (Psych) Assessment & Plan Assessment & Plan (1) Spondylosis of lumbar region without myelopathy or radiculopathy: Comment: Previously diagnosed with ankylosing spondylitis: Simponi 08/2017 to 03/2020-ineffective Methotrexate- 02/2017- 03/2018 Humira 02/2016-07/2016 Enbrel 08/2015- 10/2015- did not tolerate, injection site reactions Sulfasalazine 08/2015 stopped due to diarrhea Cosentyx: September 2019 stopped after 2-3 months, not effective. Nabumetone-continues with good effect. Code(s): M47.816 - Spondylosis without myelopathy or radiculopathy, lumbar region Category: Medical (2) Ankylosing spondylitis: Code(s): M45.9 - Ankylosing spondylitis of unspecified sites in spine Category: Medical (3) Chronic pain syndrome: Code(s): G89.4 - Chronic pain syndrome Category: Medical Plan I will schedule this patient for sprint PNS. The results of the RFA are impressive however it is not guarantee that 2nd repeat of the RFA will give her the same results. I will schedule her for sprint PNS on the right following sprint PNS on the left. I will see this patient on the appointment after the procedures. She will continue with Dr. Lew for her rheumatologic care. Patient Instructions: I here by testify that I spent 32 minutes in conversation with this patient as well as planning her care and organizing this note Coding Level of Care Code Est Pt Level 4 (48118) Diagnoses Spondylosis of lumbar region without myelopathy or radiculopathy M47.816 Ankylosing spondylitis M45.9 Chronic pain syndrome G89.4
[2024-03-24 10:46] VITALS: BP 144/84; PULSE 91; RESP 16; O2SAT 94; BMI 27.8
== END 2024-03-24 10:58 | disposition home or self-care (01) ==
PROVIDERS: PCP Internal Medicine; Visit Provider Anesthesiology
DX: M47.816 Spondylosis without myelopathy or radiculopathy, lumbar region (principal); M45.9 Ankylosing spondylitis of unspecified sites in spine; G89.4 Chronic pain syndrome
CPT/HCPCS: 99214

== ENCOUNTER → 2024-03-24 10:33 | Outpatient (BNVA) | payer OTHER, SELFPAY | PROVIDERS: PCP Internal Medicine; Visit Provider Anesthesiology ==

== ENCOUNTER 2024-08-08 08:00 | Outpatient (REF) | payer OTHER, SELFPAY ==
[2024-08-08 10:46] LABS: Alanine Aminotransferase 21 U/L (0-31); Anion Gap 15 (12-20); Aspartate Amino Transferase 23 U/L (5-31); Blood Urea Nitrogen 11 mg/dL (9-16); Calcium 9.3 mg/dL (8.4-10.2); Carbon Dioxide 25 mmol/L (22-29); Chloride 105 mmol/L (96-108); Cholesterol 197 mg/dL (<200); Estimated Glomerular Filt Rate > 60; Glucose Fasting 93 mg/dL (60-99); HDL Cholesterol 56 mg/dL (>40); LDL Cholesterol Calculated 108 mg/dL (<100); Potassium 3.7 mmol/L (3.3-5.1); Sodium 141 mmol/L (135-145); Triglycerides 168 mg/dL (<150)
[2024-08-08 11:05] LABS: Thyroid Stimulating Hormone 2.72 uIU/mL (0.32-4.0)
== END 2024-08-08 08:01 | disposition home or self-care (01) ==
LOC: HO.HMGCLDS 08:00
PROVIDERS: PCP Internal Medicine; Visit Provider Internal Medicine
DX: E04.2 Nontoxic multinodular goiter (principal); E03.9 Hypothyroidism, unspecified; E78.2 Mixed hyperlipidemia
CPT/HCPCS: 36415; 80048; 80061; 84439; 84443; 84450; 84460

== ENCOUNTER 2024-08-10 13:17 | Outpatient (AMB) | payer OTHER, SELFPAY ==
[2024-08-10 13:27] VITALS: BP 142/80; PULSE 95; O2SAT 97; BMI 29.8
--- NOTE | 2024-08-10 13:27 | A.OFFPC_ITS ---
Vital Signs 08/10/24 13:27 Height 5 ft 5 in Weight 179 lb BMI 29.8 BP 142/80 H Blood Pressure Location Rt brachial Position Sitting Pulse 95 Pulse Source Pulse Oximeter Pulse Oximetry (%) 97 Intake Visit Reasons: PE Intake Note: pt is here for PE All Terrain Vehicle Technician Required: No Accompanied by: Self / Same As Patient Allergies etanercept [Enbrel] Adverse Reaction (Intermediate, Verified 08/10/24 13:27) rash/flu like Sx Medication List - Last Reconciled 08/10/24 by Mini Gutierrez, HUE amitriptyline 10 mg PO BEDTIME atorvastatin 10 mg PO DAILY docusate sodium 100 mg PO BID escitalopram oxalate 10 mg PO QAM levothyroxine 100 mcg PO DAILY norethindrone-e.estradiol-iron 1 mg-10 mcg (24)/10 mcg (2) (Lo Loestrin Fe) 1 tab PO DAILY omeprazole 20 mg PO DAILY tramadol 50 mg PO BID PRN Tobacco use date assessed: 03/11/24 Dental Screening Dental Screen Date: 03/11/24 HPI HPI Comments History of Present Illness Details 44 y/o female patient who presents to [facility] for PE. Pt of Dr. Wells. Pmhx Significant of Anxiety/Depression, Hypothyroidism and Dsylipidemia. Reports getting routine Neck/Thyroid U/S due to Multinodular. Last U/S done 3 years ago, will order another one. [facility]: Mammo: 09/22/2024 @ [facility] PAP: 3 years ago @ [facility] Colonoscopy: Ordered. Immunizations reviewed and Uptodate. Labs and medications reviewed. [facility] Medical History History of COVID-19 PONV (postoperative nausea and vomiting) Nausea and vomiting Heartburn Mixed anxiety and depressive disorder Family history of breast cancer COVID-19 vaccine series completed Spondylosis of lumbar region without myelopathy or radiculopathy Multinodular non-toxic goiter Calcific tendinitis of left shoulder Obesity (BMI 30.0-34.9) Fibromyalgia Hypothyroidism (acquired) Mixed hyperlipidemia Ankylosing spondylitis Thyroid nodule Surgical History History of laparoscopic cholecystectomy (12/29/22) History of section H/O arthroscopy of right knee Family History Mother Hypothyroidism Maternal Grandmother Hypothyroidism Breast cancer Paternal Grandmother CVD (cardiovascular disease) Maternal Uncle Ulcerative colitis Brother No problems noted. Sister No problems noted. Son No problems noted. Son No problems noted. 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 1. Little interest or pleasure in doing things: several days 2. Feeling down, depressed, or hopeless: several days 3. Trouble falling or staying asleep, or sleeping too much: several days 4. Feeling tired or having little energy: several days 5. Poor appetite or overeating: not at all 6. Feeling bad about yourself - or that you are a failure or have let yourself or your family down: several days 7. Trouble concentrating on things, such as reading the newspaper or watching television: not at all 8. Moving or speaking so slowly that other people could have noticed. Or the opposite - being so fidgety or restless that you have been moving around a lot more than usual: not at all 9. Thoughts that you would be better off or of hurting yourself in some way: not at all Total score: 5 Depression Screening Interpretation: Negative Depression Screening Done: Yes 16653 - PHQ-9 Billing: Yes Source: Developed by Drs. Manjit Silvestre, Ann Malone, Jeremy Lagunas and colleagues, with an educational farhat from [employer]. Thrive Questionnaire Date Thrive assessed: 08/10/24 I am a: Patient What is your living situation today?: I have a steady place to live Within the past 12 months, did the food you bought not last and you didn't have the money to get more?: Never true Within the past 12 months, did you worry whether your food would run out before you got money to buy more?: Never true Do you have trouble paying for medicines?: No Do you have trouble getting transportation to medical appointments?: No Do you have trouble paying your heating and electricity bill?: No Do you have trouble taking care of your child, family member or friend?: No Do you have trouble with day-to-day activities such as bathing, preparing meals, shopping, managing finances, etc.?: No Are you currently unemployed and looking for a job?: No Are you interested in more education?: No Please select the resources that you would like help with: None Currently or been in a relationship where the following occur: No concerns reported THRIVE Score: 0 AUDIT C Alcohol Use Questionnaire (AUDIT-C) 1. How often do you have a drink containing alcohol?: Never 3. How often do you have six or more drinks on one occasion?: Never Total Score: 0 Score Reviewed/Action Taken: Yes NORTH-7 AMB Questionnaire NORTH-7 Date NORTH - 7 assessed: 08/10/24 Feeling nervous, anxious, or on edge: 1 = Several days Not being able to stop or control worryin = Not at all Worrying too much about different things: 0 = Not at all Trouble relaxin = Not at all Being so restless that it is hard to sit still: 0 = Not at all Becoming easily annoyed or irritable: 1 = Several days Feeling afraid as if something awful might happen: 0 = Not at all Total NORTH-7 score (0-4 normal; 5-9 mild; 10-14 moderate; 15-21 severe): 2 Source: Developed by Drs. Manjit Silvestre, Ann Malone, Jeremy Lagunas and colleagues, with an educational farhat from [employer]. NORTH-7 Assessment Billing NORTH-7 Assessment Tool: NORTH-7 Assessment 17081 Review of Systems Const All systems reviewed & are unremarkable except as noted in HPI and below Physical exam (Primary Care) Vital Signs: Last Vital Signs Pulse 95 08/10/24 13:27 BP 142/80 H 08/10/24 13:27 Pulse Ox 97 08/10/24 13:27 BMI result Body Mass Index 29.8 Tobacco/Smoking Status: Tobacco use Status Tobacco use date assessed 03/11/24 08/10/24 13:28 Patient Tobacco Use Status Former Tobacco user 08/10/24 13:28 Tobacco use type Cigarette 08/10/24 13:28 e-Cigarette/Vaping Use Never Used 08/10/24 13:28 PHQ-9: PHQ-9 Score PHQ-9: Total score 5 08/10/24 13:38 Depression Screening Interpretation: Negative Thrive Assessment: Date of Thrive Assessment Date Thrive assessed 08/10/24 08/10/24 13:28 Currently or been in a relationship where the following occur: No concerns reported Const General: healthy appearing and no acute distress Nutritional Appearance: overweight Orientation/consciousness: patient oriented x3 HENMT Head: Yes normocephalic Ears: external ears normal and TM's normal bilaterally General nose exam: Normal external nose present Face and sinus: Yes sinuses nontender Mouth: moist mucous membranes Throat: Yes tonsils normal and Yes uvula midline Eyes Eyelids: Yes eyelids normal Conjunctivae: conjunctivae normal Pupils: Equal, round and reactive pupils present EOM: EOMs intact bilaterally Direct Ophthalmoscopy: normal light reflex Neck Neck: Yes full ROM and Yes no lymphadenopathy Resp Effort & Inspection: normal respiratory effort and able to speak in complete sentences Auscultation: clear to auscultation bilaterally, no crackles, no rales, no rhonchi and no wheezes Cardio Heart sounds: S1 normal heart sound present and S2 normal heart sound present GI Inspection: Yes normal to inspection, Yes Abdominal panniculus present and Yes obesity Palpation (GI): Soft to palpation, not firm, nontender, no guarding, not rigid and No hepatosplenomegaly present Percussion: Yes normal to percussion Auscultation: normal bowel sounds General: Yes no CVA tenderness Back/Spine/Pelvis Back: no CVA tenderness and No back tenderness Skin General skin exam: no rashes or lesions noted Neuro General: patient oriented x3, gait normal and moves all extremities Cranial nerves: Yes Equal, round and reactive pupils present Motor exam (neuro): 5/5 motor strength present throughout Extrem General: Yes full ROM and Yes capillary refill normal Psych Speech and movement: Normal speech and movement present Coding Level of Care Code New Pt Prev Care 40-64y(81764) Diagnoses Mixed hyperlipidemia E78.2 Hypothyroidism (acquired) E03.9 Mixed anxiety and depressive disorder F41.8 Encounter for routine adult health examination without abnormal findings Z00.00 Additional Codes NORTH-7 Assessment Billing - NORTH-7 Assessment Tool: NORTH-7 Assessment 52446 ([id number]) PHQ-9 - 29997 - PHQ-9 Billing: Yes ([id number]) Time Spent (min) 30 Assessment & Plan Assessment & Plan (1) Mixed hyperlipidemia: Code(s): E78.2 - Mixed hyperlipidemia Category: Medical Plan: Discussed lifestyle changes, weight management, and healthy eating. (2) Hypothyroidism (acquired): Code(s): E03.9 - Hypothyroidism, unspecified Category: Medical Plan: Ordered Neck/Thyroid US (3) Mixed anxiety and depressive disorder: Code(s): F41.8 - Other specified anxiety disorders Category: Medical Plan: Well controlled on current regiment. (4) Encounter for routine adult health examination without abnormal findings: Code(s): Z00.00 - Encounter for general adult medical examination without abnormal findings Plan: WNL. Orders: Orders US thyroid Today E04.2 - Nontoxic multinodular goiter Referrals Gastroenterology Referral Z12.11 - Encounter for screening for malignant neoplasm of colon Medications: Discontinued metoclopramide HCl (Reglan) Discontinued Reason: Patient Completed Course 10 mg PO Q6H PRN 14 tabs 0RF nausea and vomiting nabumetone Discontinued Reason: Patient Completed Course 750 mg PO DAILY PRN 90 tabs 0RF Pain alprazolam Discontinued Reason: Patient Completed Course 0.25 mg PO DAILY PRN 20 tabs 0RF anxiety
== END 2024-08-10 14:32 | disposition home or self-care (01) ==
LOC: HO.HMCC 13:17
PROVIDERS: PCP Internal Medicine; Visit Provider Nurse Practitioner Family
DX: E78.2 Mixed hyperlipidemia (principal); E03.9 Hypothyroidism, unspecified; F41.8 Other specified anxiety disorders; Z00.00 Encounter for general adult medical examination without abnormal findings

== ENCOUNTER → 2024-08-10 13:17 | Outpatient (BNVA) | payer OTHER, SELFPAY | PROVIDERS: PCP Internal Medicine; Visit Provider Nurse Practitioner Family | DX: Z00.00 Encounter for general adult medical examination without abnormal findings (principal); E78.2 Mixed hyperlipidemia; E03.9 Hypothyroidism, unspecified; F41.8 Other specified anxiety disorders | CPT/HCPCS: 96127 ==

== ENCOUNTER 2024-08-18 09:43 | Outpatient (REF) | payer OTHER, SELFPAY ==
--- NOTE | ~2024-08-18 | US_ITS ---
EXAMINATION: US THYROID CLINICAL INFORMATION: Nontoxic multinodular goiter. COMPARISON: Ultrasound soft tissue head/neck thyroid dated 03/27/2021 and 04/10/2020. TECHNIQUE: Linear transducer grayscale and color Doppler examination with attention to the region of the thyroid. FINDINGS: SIZE: Measurements of the thyroid lobes and nodules are given in sagittal, anteroposterior and transverse dimensions respectively. Right Thyroid Lobe: 4.0 x 1.4 x 1.5 cm, volume 4.2 mL. Previously 4.0 x 1.5 x 1.5 cm, volume 4.7 mL. Parenchyma: The gland echotexture is homogeneous. Thyroid vascularity is normal. Left Thyroid Lobe: 3.7 x 1.5 x 1.7 cm, volume 5.2 mL. Previously 4.0 x 1.3 x 1.5 cm, volume 3.8 mL. Parenchyma: The gland echotexture is homogeneous. Thyroid vascularity is normal. Isthmus: 0.42 cm in maximum AP dimension. Previously 0.60 cm. Estimated total number of nodules greater than or equal to 1 cm: 0. Bonderizer Operator nodules are described as follows: 1. Location: Right mid. Size: 0.43 x 0.45 x 0.32 cm, volume 0.03 mL. Previously: 0.40 x 0.40 x 0.30 cm, volume 0.03 mL. Nodule characteristics: Composition: Solid (2). Echogenicity: Hyperechoic (1). Shape: Taller than wide (3). Margins: Smooth (0). Echogenic Foci: None (0). ACR TI-RADS total points: 6 Previous: 3 ACR TI-RADS category: 4 Previous: 3 Significant change in size (>/= 20% in 2 dimensions and minimal increase of 2 mm or 50% or greater increase in volume): No Change in features: No Change in ACR TI-RADS risk category: No 2. Location: Left superior/mid. Size: 0.61 x 0.52 x 0.49 cm, volume 0.08 mL. Previously: 0.72 x 0.51 x 0.45 cm, volume 0.09 mL. Nodule characteristics: Composition: Solid (2). Echogenicity: Hyperechoic (1). Shape: Taller than wide (3). Margins: Smooth (0). Echogenic Foci: None (0). ACR TI-RADS total points: 6 Previous: 3 ACR TI-RADS category: 4 Previous: 3 Significant change in size (>/= 20% in 2 dimensions and minimal increase of 2 mm or 50% or greater increase in volume): No Change in features: No Change in ACR TI-RADS risk category: Yes NODES: Nonpathologic. US/US thyroid IMPRESSION: 1. Normal parenchymal echotexture. 2. TR Category 3 nodule right mid gland measuring 0.4 cm maximally. (No follow-up suggested) 3. TR category 4 nodule left mid superior gland measuring 0.7 cm maximally. (Follow-up recommended) ACR TI-RADS RECOMMENDATION REFERENCE: Ultrasound-guided fine-needle aspiration, follow up ultrasound, no further followup. * TR1 (0 point) and TR2 (2 points): No FNA or followup * TR3 (3 points): FNA if more than or equal to 2.5 cm in maximum dimension, follow up ultrasound in 1, 3 and 5 years if 1.5 to 2.4 cm in maximum dimension. * TR4 (4-6 points): FNA if more than or equal to 1.5 cm in maximum dimension, follow up ultrasound in 1, 2, 3 and 5 years if 1 to 1.4 cm in maximum dimension. * TR5 (more than or equal to 7 points): FNA if more than or equal to 1 cm in maximum dimension, follow up ultrasound every year for 5 years if 0.5 to 0.9 cm in maximum dimension. * TR3, TR4 or TR5 nodules that are below the size threshold for follow up receive no followup. Electronically signed by: Nazario Villaseñor MD 08/19/2024 04:32 PM MICHELLE
== END 2024-08-18 09:44 | disposition home or self-care (01) ==
LOC: HO.HMGCX 09:43
PROVIDERS: PCP Internal Medicine; Visit Provider Nurse Practitioner Family
DX: E04.2 Nontoxic multinodular goiter (principal)
CPT/HCPCS: 76536

== ENCOUNTER → 2024-08-18 09:45 | Outpatient (BNV) | payer OTHER, SELFPAY | PROVIDERS: PCP Internal Medicine; Visit Provider Radiology Diagnostic Radiology | DX: E04.2 Nontoxic multinodular goiter (principal) | CPT/HCPCS: 76536 ==

== ENCOUNTER 2024-09-12 15:36 | Outpatient (AMB) | payer OTHER, SELFPAY ==
[2024-09-12 15:43] VITALS: BP 134/80; PULSE 98; O2SAT 98; BMI 26.3
--- NOTE | 2024-09-12 15:43 | A.OFFVIS_ITS ---
Vital Signs 09/12/24 15:43 Height 5 ft 5 in Weight 158 lb 4.67 oz BMI 26.3 BP 134/80 Blood Pressure Location Lt brachial Position Sitting Pulse 98 Pulse Source Pulse Oximeter Pulse Oximetry (%) 98 Oxygen Delivery Method Room Air Intake Visit Reasons: FMS Intake Note: Patient last seen by Doctor Blair Poe on 03/10/24. Presents today for SLE follow up. Allergies etanercept [Enbrel] Adverse Reaction (Intermediate, Verified 09/12/24 15:45) rash/flu like Sx Medication List - Last Reconciled 09/12/24 by Blair Poe MD amitriptyline 10 mg PO BEDTIME atorvastatin 10 mg PO DAILY docusate sodium 100 mg PO BID escitalopram oxalate 10 mg PO QAM levothyroxine 100 mcg PO DAILY norethindrone-e.estradiol-iron 1 mg-10 mcg (24)/10 mcg (2) (Lo Loestrin Fe) 1 tab PO DAILY omeprazole 20 mg PO DAILY tramadol 50 mg PO BID PRN HPI Comments Details: 44yoF presents for follow-up of degenerative arthritis and fibromyalgia. She stated that recently she has been having pain in both her thumbs. She does not recall any increased use or any recent trauma. She takes ibuprofen 800 mg once daily 4 to 5 times a week [facility] Medical History History of COVID-19 PONV (postoperative nausea and vomiting) Nausea and vomiting Heartburn Mixed anxiety and depressive disorder Family history of breast cancer COVID-19 vaccine series completed Spondylosis of lumbar region without myelopathy or radiculopathy Multinodular non-toxic goiter Calcific tendinitis of left shoulder Obesity (BMI 30.0-34.9) Fibromyalgia Hypothyroidism (acquired) Mixed hyperlipidemia Ankylosing spondylitis Thyroid nodule Surgical History History of laparoscopic cholecystectomy (12/29/22) History of section H/O arthroscopy of right knee Family History Mother Hypothyroidism Maternal Grandmother Hypothyroidism Breast cancer Paternal Grandmother CVD (cardiovascular disease) Maternal Uncle Ulcerative colitis Brother No problems noted. Sister No problems noted. Son No problems noted. Son No problems noted. 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 Cognitive needs: No Hearing needs: No Vision needs: Yes Review of Systems Musc Reports arthralgias and Denies joint swelling Physical Exam Vital Signs: Last Vital Signs Pulse 98 09/12/24 15:43 BP 134/80 09/12/24 15:43 Pulse Ox 98 09/12/24 15:43 Oxygen Delivery Method Room Air 09/12/24 15:43 BMI result Body Mass Index 26.3 Const General: cooperative, healthy appearing and comfortable Nutritional Appearance: average body habitus Orientation/consciousness: patient oriented x3 Limitations: no limitations HEENT Head: Yes normocephalic and Yes atraumatic Resp Effort & Inspection: normal respiratory effort and able to speak in complete sentences Auscultation: clear to auscultation bilaterally Cardio Rate: regular rate Rhythm: regular rhythm GI Inspection: No distended Palpation (GI): Soft to palpation and nontender Neuro General: patient oriented x3 Extrem Other: Bilateral 1st CMC joint tenderness Assessment & Plan Assessment & Plan (1) Spondylosis of lumbar region without myelopathy or radiculopathy: Comment: Previously diagnosed with ankylosing spondylitis: Jung 08/2017 to 03/2020-ineffective Methotrexate- 02/2017- 03/2018 Humira 02/2016-07/2016 Enbrel 08/2015- 10/2015- did not tolerate, injection site reactions Sulfasalazine 08/2015 stopped due to diarrhea Cosentyx: September 2019 stopped after 2-3 months, not effective. Nabumetone-continues with good effect. Code(s): M47.816 - Spondylosis without myelopathy or radiculopathy, lumbar region Category: Medical Plan: This is a 43-year-old female previously diagnosed with ankylosing spondylitis who presents for follow-up.? Patient with approximately 20 years of chronic low back pain. Had morning stiffness in her lumbar spine that lasted up to 45 minutes and also had pain in her low back that woke her up in the 2nd half of the night.? Positive HLA B27.? Her lumbar spine pain has been stable after bilateral L3 L4 DR L5 MBB RFA? in June 2021.? MR pelvis in 2019 showed no sacroiliitis. Her clinical picture is more consistent with degenerative arthritis and fibromyalgia. Her pain symptoms are well controlled with tramadol 50 mg Twice daily. Refilled (2) Osteoarthritis of hands, bilateral: Code(s): M19.041 - Primary osteoarthritis, right hand; M19.042 - Primary osteoarthritis, left hand Category: Medical Qualifiers: Osteoarthritis type: primary Qualified Code(s): M19.041 - Primary osteoarthritis, right hand; M19.042 - Primary osteoarthritis, left hand Plan: Discussed management of hand osteoarthritis. Will refer patient to OT, apply Voltaren gel, use Tylenol Arthritis, can use ibuprofen sparingly Plan I spent 17 minutes reviewing patient's chart, evaluating patient,counseling patient and documenting in the chart Orders: Orders OT Evaluation and Treatment Today M19.041 - Primary osteoarthritis, right hand, M19.042 - Primary osteoarthritis, left hand Medications: Refilled tramadol 50 mg PO BID PRN 60 tabs 5RF pain M47.816 - Spondylosis without myelopathy or radiculopathy, lumbar region Coding Level of Care Code Est Pt Level 3 (61957) Diagnoses Spondylosis of lumbar region without myelopathy or radiculopathy M47.816 Primary osteoarthritis of both hands M19.041; M19.042 Osteoarthritis type: primary
== END 2024-09-12 16:09 | disposition home or self-care (01) ==
PROVIDERS: PCP Internal Medicine; Visit Provider Student in an Organized Health Care Education/Training Program
DX: M47.816 Spondylosis without myelopathy or radiculopathy, lumbar region (principal); M19.041 Primary osteoarthritis, right hand; M19.042 Primary osteoarthritis, left hand
CPT/HCPCS: 99213

== ENCOUNTER → 2024-09-12 15:36 | Outpatient (BNVA) | payer OTHER, SELFPAY | PROVIDERS: PCP Internal Medicine; Visit Provider Student in an Organized Health Care Education/Training Program ==

== ENCOUNTER 2025-01-31 06:10 | Outpatient (REF) | payer OTHER, SELFPAY ==
--- NOTE | ~2025-01-31 | FL_ITS ---
EXAMINATION: FL GUIDANCE ONLY HISTORY: M47.816 - Spondylosis without myelopathy or radiculopathy, lumbar region COMPARISON: None available. TECHNIQUE: Fluoroscopy time: 0.2 minutes. Cumulative Dose: 2.20 mGy. DAP: 0.0320 mGym2 Images: 2. FINDINGS: Images demonstrate a lead in the right lumbar region. FL/FL guidance in treatment room IMPRESSION: Fluoroscopy during procedure. Please see procedure report for additional information. Electronically signed by: Manjit Alicea MD 02/01/2025 02:07 PM EDT
--- OUTSIDE RECORDS SUMMARY | 2025-01-31 06:14 | XMS_ITS | Encounter Summary ---
Author Organization [facility] Address [address] [place] [address] [place] [phone] Phone Care Team Providers Care Film Producer Name Role Phone Elsi Chase BODY FINISHER Unavailable [phone] Paulette Chan NP Primary Care Provider Shavon Wells MD Primary Care Provider Encounter Details Date Type Department Care Team (Late st Contact Info) Description 07/09/2022 Procedure Pass [address] [place] [address] Social History Tobacco Use Types Packs/Day Years Used Date Smoking Tobacco: Never Smokeless Tobacco: Never Alcohol Use Standard Drinks/Week Comments No 0 (1 standard drink = 0.6 oz pur e alcohol) Sex and Gender Information Value Date Recorded Sex Assigned at Female 05/15/2022 12:06 PM EDT Gender Identity Female 05/15/2022 12:06 PM EDT Sexual Orientation Straight 05/15/2022 12 :06 PM EDT documented as of this encounter Plan of Treatment Not on file documented as of this encounter Visit Diagnoses Not on filedocumented in this encounter Care Teams Film Producer Relationship Specialty Start Date End Date Paulette Chan NP [address] [place] [address] [place] [address] [email or web address] PCP - General Family Medicine 10/24/19 11/06/22 Shavon Wells MD [address] [address] PCP - General Internal Medicine 11/07/22 Elsi Chase NP [address] [place] [id number] Historical LMR Provider 07/22/17 documented as of this encounter Additional Source Comments The information contained in this document represents components of the legal health record. It is not the complete legal health record.[facility]
--- OUTSIDE RECORDS SUMMARY | 2025-01-31 06:14 | XMS_ITS | Encounter Summary ---
Author Organization [facility] Address [address] [facility] [address] [place] [phone] Phone Care Team Providers Care Fan Blade Truer Name Role Phone Elsi Chase DOCUMENTATION BILLING CLERK Unavailable [phone] Paulette Chan NP Primary Care Provider Shavon Wells MD Primary Care Provider Encounter Details Date Type Department Care Team (Late st Contact Info) Description 10/10/2022 Procedure Pass [facility], [address] [address] Social History Tobacco Use Types Packs/Day Years [...] on filedocumented in this encounter Care Teams Fan Blade Truer Relationship Specialty Start Date End Date Paulette Chan NP [address] [place] [address] [place] [address] [email or web address] PCP - General Family Medicine 10/24/19 11/06/22 Shavon Wells MD [address] [place] [address] PCP - General Internal Medicine 11/07/22 Elsi Chase NP [address] [place] [address] Historical LMR Provider 07/22/17 documented as of this encounter Additional Source Comments The information contained in this document represents components of the legal health record. It is not the complete legal health record.[facility]
--- OUTSIDE RECORDS SUMMARY | 2025-01-31 06:14 | XMS_ITS | Encounter Summary ---
Author Organization [facility] Address [address] [facility] [address] [place] [address] Phone Care Team Providers Care Metal Flooring Installer Name Role Phone Elsi Chase NEIGHBORHOOD SERVICE CENTER DIRECTOR Unavailable [phone] Kelby Palacio DO Unavailable [phone] Norbert Rubin MD Unavailable [phone] Paulette Chan NP Primary Care Provider Shavon Wells MD Primary Care Provider Encounter Details Date Type Department Care Team (Late st Contact Info) Description 09/04/2020 Ancillary Orders [facility] [address] [place] [address] Eliud Jones MD [address] [facility], [address] [place] [address] Breast screening Social History Tobacco Use Types Packs/Day Years [...] on file documented as of this encounter Results * (ABNORMAL) BI MAMMOGRAM SCREENING WITH TOMOSYNTHESIS WITH CAD (BILATERAL) (03/05/2021 8:58 AM EDT) Anatomical Region Laterality Modality Breast Left, Breast Right, Breast Bilateral Bila teral Mammography 03/05/2021 10:5 5 AM EDT Impressions 03/05/2021 11:10 AM EDT RIGHT BREAST: 2.0 cm focal asymmetry in the medial breast at approximately 3 o'clock position at 3 to 5 cm from the nipple. Patient will be called back for additional imaging including full field ML 90 degrees and spot compression views in CC and MLO, followed by targeted ultrasound. LEFT BREAST: Negative, no evidence of malignancy. Normal interval follow-up is recommended in 12 months. Bi-RADS: BI-RADS CATEGORY: ??0 - Incomplete. Need additional imaging evaluation. DENSITY: ??The breast tissue is extremely dense, which lowers the sensitivity of mammography. RIGHT RECOMMENDATION DUE DATE: 1 Month Recommendation: Right Additional Imaging LEFT RECOMMENDATION DUE DATE: ??12 Months Recommendation: ??Left Mammography Screening Narrative 03/05/2021 11:10 AM EDT STUDY: Bilateral screening mammography with tomosynthesis and CAD TECHNIQUE: Bilateral full-field digital screening mammography is obtained and read in conjunction with computer-aided detection. ??Tomosynthesis as well as 2-D C view imaging were obtained. Best possible images according to the cardiovascular radiologic technologist. COMPARISON: Comparison made to October 24, 2019 BREAST COMPOSITION: The breast tissue is extremely dense, which lowers the sensitivity of mammography. RIGHT BREAST: ??There is approximately 2.0 cm focal asymmetry aspect of the right breast approximately 3 o'clock position at 3 to 5 cm from the nipple (best seen on tomosynthesis MLO 51/77 and tomosynthesis CC 39/80). No suspicious calcifications or other abnormalities are seen. LEFT BREAST: No significant masses, suspicious calcifications or other abnormalities are seen. Procedure Note Tristan Miramontes MD - 03/05/2021 STUDY: Bilateral screening mammography with tomosynthesis and CAD TECHNIQUE: Bilateral full-field digital screening mammography is obtainedand read in conjunction with computer-aided detection. Tomosynthesis aswell as 2-D C view imaging were obtained. Best possible images accordingto the cardiovascular radiologic technologist. COMPARISON: Comparison made to October 24, 2019 BREAST COMPOSITION: The breast tissue is extremely dense, which lowers thesensitivity of mammography. RIGHT BREAST: There is approximately 2.0 cm focal asymmetry aspect of theright breast approximately 3 o'clock position at 3 to 5 cm from the nipple(best seen on tomosynthesis MLO 51/77 and tomosynthesis CC 39/80). Nosuspicious calcifications or other abnormalities are seen. LEFT BREAST: No significant masses, suspicious calcifications or otherabnormalities are seen. IMPRESSION: RIGHT BREAST: 2.0 cm focal asymmetry in the medial breast at approximately3 o'clock position at 3 to 5 cm from the nipple. Patient will be calledback for additional imaging including full field ML 90 degrees and spotcompression views in CC and MLO, followed by targeted ultrasound. LEFT BREAST: Negative, no evidence of malignancy. Normal intervalfollow-up is recommended in 12 months. Bi-RADS: BI-RADS CATEGORY: 0 - Incomplete. Need additional imagingevaluation. DENSITY: The breast tissue is extremely dense, which lowers thesensitivity of mammography. RIGHT RECOMMENDATION DUE DATE: 1 Month Recommendation: Right Additional Imaging LEFT RECOMMENDATION DUE DATE: 12 Months Recommendation: Left Mammography Screening Eliud Jones MD IMG MG EXAMS documented in this encounter Visit Diagnoses Diagnosis Breast screening Breast screening, unspecified Breast screening Breast screening, unspecified documented in this encounter Care Teams Metal Flooring Installer Relationship Specialty Start Date End Date Paulette Chan NP [address] [place] [address] [place] [address] [email or web address] PCP - General Family Medicine 10/24/19 11/06/22 Shavon Wells MD [address] [place] [address] [place] [address] PCP - General Internal Medicine 11/07/22 Elsi Chase NP [address] [place] [address] [address] [place] [address] Historical LMR Provider 07/22/17 Kelby Palacio DO [address] [place] [address] Historical LMR Provider 07/22/17 Norbert Rubin MD [facility] [address] [place] [address] [email or web address] Historical LMR Provider 07/22/17 10/12/21 documented as of this encounter Additional Source Comments The information contained in this document represents components of the legal health record. It is not the complete legal health record.[facility]
--- OUTSIDE RECORDS SUMMARY | 2025-01-31 06:14 | XMS_ITS | Encounter Summary ---
Author Organization [facility] Address [address] [facility] [address] [place] [address] Phone Care Team Providers Care Brick Off Bearer Name Role Phone Elsi Chase INSURANCE PROFESSIONAL Unavailable [phone] Kelby Palacio DO Unavailable [phone] Norbert Rubin MD Unavailable [phone] Paulette Chan NP Primary Care Provider Shavon Wells MD Primary Care Provider Encounter Details Date Type Department Care Team (Late st Contact Info) Description 03/06/2021 Procedure Pass [facility] - [address] [place] [address] Social History Tobacco Use Types Packs/Day Years [...] on filedocumented in this encounter Care Teams Brick Off Bearer Relationship Specialty Start Date End Date Paulette Chan NP [address] [place] [address] [place] [address] [email or web address] PCP - General Family Medicine 10/24/19 11/06/22 Shavon Wells MD [facility] [place] [address] PCP - General Internal Medicine 11/07/22 Elsi Chase NP [address] [place] [address] [address] [place] [address] Historical LMR Provider 07/22/17 Kelby Palacio DO [facility] [place] [address] Historical LMR Provider 07/22/17 Norbert Rubin MD [facility] [address] [place] [address] [email or web address] Historical LMR Provider 07/22/17 10/12/21 documented as of this encounter Additional Source Comments The information contained in this document represents components of the legal health record. It is not the complete legal health record.[facility]
--- OUTSIDE RECORDS SUMMARY | 2025-01-31 06:14 | XMS_ITS | Clinical Summary ---
Author Organization [facility] Address [address] [facility] [address] [place] [address] Phone Care Team Providers Care Dump Attendant Name Role Phone Elsi Chase NP Unavailable [phone] Shavon Wells MD Primary Care Provider Allergies Active Allergy Reactions Criticality Noted Date Comments Etanercept Rash Low 04/12/2023 Medications Medication Sig Dispensed Refills Start Date End Date Status traMADol (ULTRAM) 50 mg tablet 4 pills a day; decrease by one pill a day every 3 days until at 10 mg Orally Active atorvastatin (LIPITOR) 10 MG tablet Take 10 mg by mouth daily. Active nabumetone (RELAFEN) 750 MG tablet 01/30/2021 Active STOOL SOFTENER 100 mg capsule Take 100 mg by mouth 2 (two) times a day. 02/16/2021 Active levothyroxine (SYNTHROID, LEVOTHROID) 100 MCG tablet Take 100 mcg by mouth daily. 05/26/2022 Active escitalopram oxalate (LEXAPRO) 10 MG tablet Take 10 mg by mouth daily. Active amitriptyline (ELAVIL) 25 MG tablet Take 25 mg by mouth nightly at bedtime. Active phenazopyridine (PYRIDIUM) 200 MG tablet Take 1 tablet (200 mg total) by mouth 3 (three) times a day as needed for pain (specific location in comments). 10 tablet 04/12/2023 Active LO LOESTRIN FE 1 mg-10 mcg (24)/10 mcg (2) TabIndications:Abnor mal uterine bleeding (AUB) take 1 tablet by mouth every day 84 tablet 3 06/24/2024 Active Active Problems Problem Noted Date Diagnosed Date Migraine Hyperlipidemia Hypothyroidism Overview (09/10/2018): acquired Fibromyalgia Chronic fatigue syndrome Ankylosing spondylitis Anxiety disorder Immunizations Name Administration Dates Next Due COVID-19 (Pre-07/27) Moderna Vaccine, mRNA, PF 09/18/2021,11/27/2020,11/27/2020,2020,10/30/2020 Influenza Quadrivalent Prese rvative Free IM 06/14/2021,07/09/2019,06/30/2018,2016 Influenza Quadrivalent w/ Preservative IM 05/25/2020,07/17/2016 Influenza, Unspecified Formulation 06/19,06/19/2023,06/19/2023,2022,06/08/2022 MMR 05/05/1994,08/02/1980 Pneumococcal conjugate PCV13 06/11/2018 Tdap 04/02/2016,03/30/2016 Family History Medical History Relation Comments Alcohol abuse Maternal Grandfather Prostate cancer Paternal Grandfather Breast cancer Paternal Grandmother CV disease Paternal Grandmother Relation Status Comments Brother Alive Father Alive Maternal Grandfather Alive Maternal Grandmother Alive Mother Alive Paternal Grandfather Paternal Grandmother Sister Alive Social History Tobacco Use Types Packs/Day Years Used Date Smoking Tobacco: Never Passive Smoke Exposure: Never Smokeless Tobacco: Never Tobacco Cessation:Counseling Given: Not Answered Alcohol Use Standard Drinks/Week Comments No 0 (1 standard drink = 0.6 oz pur e alcohol) Education Answer Date Recorded Are you interested in more education? Not on cristiana e 01/30/2023 Are you concerned about learning? Not on file 01/30/2023 No 01/30/2023 No 01/30/2023 Digital Access Answer Date Recorded No 02/25/2023 No 02/25/2023 Reliable internet access at home? Not on file 02/25/2023 Device with a working camera? Not on file Sex and Gender Information Value Date Recorded Sex Assigned at Female 05/15/2022 12:06 PM EDT Gender Identity Female 05/15/2022 12:06 PM EDT Sexual Orientation Straight 05/15/2022 12 :06 PM EDT Last Filed Vital Signs Vital Sign Reading Time Taken Comments Blood Pressure 148/84 08/19/2023 2:06 PM EST Pulse 96 04/12/2023 12:18 PM EDT Temperature - - Respiratory Rate 15 04/12/2023 12:18 PM EDT Oxygen Saturation 98% 04/12/2023 12:18 PM EDT Inhaled Oxygen Concentration - - Weight 70.4 kg (155 lb 3.2 oz) 08/19/2023 2:06 P M EST Height 165.1 cm (5' 5 ) 04/12/2023 12:18 PM EDT Body Mass Index 25.83 04/12/2023 12:18 PM EDT Plan of Treatment Health Maintenance Due Date Last Done Comments LIPID PANEL 1979 TSH LEVEL 1979 DEPRESSION SCREENING 1991 HEPATITIS B SCREENING 1997 HEPATITIS C SCREENING 1997 HIV ONE-TIME SCREENING (18-65 YEARS) 1997 HEPATITIS B VACCINES (1 of 3 - 19+ 3-dose series) 1998 SCREENING FOR DIABETES 2014 INFLUENZA VACCINE (#1) 2024 , 06/19/2023, 06/19/2023, Additional history exists COLOGUARD 2024 COLONOSCOPY 2024 COLORECTAL CANCER SCREENING 2024 FIT TEST 2024 FOBT 2024 SIGMOIDOSCOPY 2024 VIRTUAL COLONOSCOPY 2024 COVID-19 VACCINE ( season) 2024 09/18/2021, 11/27/2020, 11/27/2020, Additional history exists PAP SMEAR 10/18/2024 10/18/2019, 10/05, 12/25/2014, Additional history exists Adult Td,Tdap Booster 04/02/2026 04/02/2016, 016 MAMMOGRAM 10/13/2026 10/13/2024, 09/04, 07/16/2022, Additional history exists PNEUMOCOCCAL VACCINES (0-49 years) Aged Out 06/11/2018 No longer eligible based on patient's age to complete this topic SMOKING STATUS SCREENING (Once After 26 Yrs) Completed 10/13/2024 HEPATITIS A VACCINES Aged Out No long er eligible based on patient's age to complete this topic HIB VACCINES Aged Out No longer eligi ble based on patient's age to complete this topic MENINGOCOCCAL VACCINES (ACWY) Aged Out No longer eligible based on patient's age to complete this topic Medical Devices Not on file Procedures Procedure Name Priority Date/Time Associated Diagnosis Comments BI MAMMOGRAM DIAGNOSTIC WITH TOMOSYNTHESIS WITH CAD (BILATERAL) Routine 10/13/2024 3:40 PM EST Encounter for screening mammogram for malignant neoplasm of breast Abnormal mammogram of left breast PAP TEST Routine 10/18/2019 12:00 AM EST from Last 3 Months or Most Recently Relevant to Health Maintenance Results * BI MAMMOGRAM DIAGNOSTIC WITH TOMOSYNTHESIS WITH CAD (BILATERAL) (10/13/2024 3:40 PM EST) Anatomical Region Laterality Modality Breast Left, Breast Right, Breast Bilateral Bila teral Mammography 10/13/2024 4:07 PM EST Impressions 10/13/2024 4:15 PM EST Group of coarse calcifications in the posterior outer left breast are now considered benign and are 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 No other findings suspicious for malignancy in either breast. Partial imaging of lymph nodes in the posterior left axilla probably off the field of view on prior mammograms. These are non-specific and are not clearly enlarged. BI-RADS 2 BENIGN Results and recommendations were communicated to the patient at time of examination. Narrative 10/13/2024 4:15 PM EST BI MAMMOGRAM DIAGNOSTIC WITH TOMOSYNTHESIS WITH CAD (BILATERAL) Additional patient information: COMPARISON: Comparison is made with relevant prior imaging. Breast composition: The breast tissue is heterogeneously dense which may obscure small masses. FINDINGS: Right Mammogram: No abnormal masses, suspicious calcifications, or other significant findings are identified mammographically in the right breast. There is no change since previous examination. Left Mammogram: The group of coarse calcifications in the posterior outer left breast likely outlining a mass remains stable. This is suspected to be related to a stable degenerating fibroadenoma. No abnormal masses, suspicious calcifications, or other significant findings are identified mammographically in the left breast. There is no change since previous examination. Partial imaging of lymph nodes with fatty nishi in the posterior left axilla probably off the field of view on previous mammograms. These are not clearly enlarged. Procedure Note Giovanny Crowder MD - 10/13/2024 BI MAMMOGRAM DIAGNOSTIC WITH TOMOSYNTHESIS WITH CAD (BILATERAL) Additional patient information: COMPARISON: Comparison is made with relevant prior imaging. Breast composition: The breast tissue is heterogeneously dense which mayobscure small masses. FINDINGS: Right Mammogram: No abnormal masses, suspicious calcifications, or other significantfindings are identified mammographically in the right breast. There is nochange since previous examination. Left Mammogram: The group of coarse calcifications in the posterior outer left breastlikely outlining a mass remains stable. This is suspected to be related toa stable degenerating fibroadenoma. No abnormal masses, suspiciouscalcifications, or other significant findings are identifiedmammographically in the left breast. There is no change since previousexamination. Partial imaging of lymph nodes with fatty nishi in theposterior left axilla probably off the field of view on previousmammograms. These are not clearly enlarged. IMPRESSION: Group of coarse calcifications in the posterior outer left breast are nowconsidered benign and are 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No other findings suspicious for malignancy in either breast. Partialimaging of lymph nodes in the posterior left axilla probably off the fieldof view on prior mammograms. These are non-specific and are not clearlyenlarged. BI-RADS 2 BENIGN Results and recommendations were communicated to the patient at time ofexamination. Eliud Jones MD IMG MG EXAMS * Pap Smear (10/18/2019 12:00 AM EST) 10/18/2019 10/19/2019 8:4 2 AM EST Narrative SEE NARRATIVE - 11/01/2019 9:13 AM [place] [address] ?? CANNERY TENDER ENGINEER Cytology Report Patient Name: ??ALIS ALONZO : ??1980 (Age: 39) Sex: ??F Institution: ??[facility] Location: [facility] Date of Collection: ??10/18/2019 Date of Reported: ??11/01/2019 09:13 Results to: Eliud Jones MD FINAL DIAGNOSIS A. ??CERVICAL, LIQUID BASED SPECIMEN: SPECIMEN ADEQUACY: Satisfactory for evaluation. INTERPRETATION: NEGATIVE FOR INTRAEPITHELIAL LESION OR MALIGNANCY. ADDITIONAL INFORMATION: This specimen was prescreened using the [facility]. ? Electronically Signed Out By: ??MORRIS Thomson (ASCP) KRISTINA Cervical cytology is a screening test primarily for squamous cancers and precursors and has associated false-negative and false-positive results. ??New technologies such as liquid-based preparations may decrease but will not eliminate all false-negative results. ??Regular sampling and follow-up of unexplained clinical signs and symptoms are recommended to minimize false negative results. PROCEDURES/ADDENDA HPV Testing (Requested) Ordered Date: 10/19/2019 ? A. CERVICAL, LIQUID BASED SPECIMEN: ??Human Papilloma Virus Test Negative for high-risk human papillomavirus types 16, 18, 45 and the Other high risk probe set (Includes 31, 33, 35, 39, 51, 52, 56, 58, 59, 66, 68) by Celestina Skipo On[employer]arity HR-HPV analysis. Clinical correlation is advised. This HPV test was performed at [facility], [address] [place] [address]. This test has been FDA approved for [employer] cervical cytology specimens. The accuracy and precision of this test for all other specimen sources has been verified in the Cytopathology Laboratory of the [facility] and has not been cleared or approved by the U.S. Food and Drug Administration. Clinical correlation is advised. ? CLINICAL HISTORY Date of Last Menstrual Period: Menstrual History: Unknown Contraceptive History: BCPs Other Clinical Conditions: Screening Pap SPECIMEN SOURCE A: CERVICAL, LIQUID BASED SPECIMEN Eliud Jones MD CYTOLOGY ORDERABLES SEE NARRATIVE from Last 3 Months or Most Recently Relevant to Health Maintenance Care Teams Dump Attendant Relationship Specialty Start Date End Date Shavon Wells MD [facility] [place] [address] PCP - General Internal Medicine 11/07/22 Elsi Chase NP [address] [place] [address] [address] [place] [address] Historical LMR Provider 07/22/17 Additional Source Comments The information contained in this document represents components of the legal health record. It is not the complete legal health record.[facility]
--- OUTSIDE RECORDS SUMMARY | 2025-01-31 06:14 | XMS_ITS | Encounter Summary ---
Author Organization [facility] Address [address] [facility] [address] [place] [address] Phone Care Team Providers Care Telephone Answering Service Operator Name Role Phone Elsi Chase STUDENT CAREER DEVELOPMENT SPECIALIST Unavailable [phone] Shavon Wells MD Primary Care Provider Encounter Details Date Type Department Care Team ([facility] Contact Info) Description 08/03/2024 Procedure Pass [address] [place] [address] Social History Tobacco Use Types Packs/Day Years Used Date Smoking Tobacco: Never Passive Smoke Exposure: Never Smokeless Tobacco: Never Alcohol Use Standard [...] on filedocumented in this encounter Care Teams Telephone Answering Service Operator Relationship Specialty Start Date End Date Shavon Wells MD [address] [facility] [place] [address] PCP - General Internal Medicine 11/07/22 Elsi Chase NP [address] [place] [address] Historical LMR Provider 07/22/17 documented as of this encounter Additional Source Comments The information contained in this document represents components of the legal health record. It is not the complete legal health record.[facility]
--- OUTSIDE RECORDS SUMMARY | 2025-01-31 06:14 | XMS_ITS | Encounter Summary ---
Author Organization [facility] Address [address] [facility] [address] [place] [address] Phone Care Team Providers Care Ceramic Research Engineer Name Role Phone Elsi Chase PLUSH FINISHER Unavailable [phone] Kelby Palacio DO Unavailable [phone] Norbert Rubin MD Unavailable [phone] Paulette Chan NP Primary Care Provider Shavon Wells MD Primary Care Provider Encounter Details Date Type Department Care Team (Late st Contact Info) Description 03/06/2021 Ancillary Orders [facility] [address] [place] [address] Eliud Jones MD [facility], [facility] [address] [place] [address] Abnormal mammogram Social History Tobacco Use Types Packs/Day Years [...] documented as of this encounter Results * BI US BREAST LIMITED (RIGHT) (03/15/2021 1:54 PM EDT) Anatomical Region Laterality Modality Breast Right, Breast Bilateral Right U ltrasound 03/15/2021 1:49 PM EDT Narrative 03/15/2021 1:50 PM EDT Refer to the mammogram report. Procedure Note Ulises Galindo MD - 03/15/2021 Refer to the mammogram report. Eliud Jones MD IMG US BREAST * BI MAMMOGRAM DIAGNOSTIC NO TOMOSYNTHESIS WITH CAD (RIGHT) (03/15/2021 1:29 PM EDT) Anatomical Region Laterality Modality Breast Right, Breast Bilateral Right M ammography 03/15/2021 1:35 PM EDT Impressions 03/15/2021 1:54 PM EDT 2 benign simple right breast cysts at 1:00 accounting for the mammographic findings. No mammographic evidence of malignancy. ??Recommend return to annual surveillance. Findings relayed to the patient via the technologist. BI-RADS CATEGORY: ??2 - Benign finding. DENSITY: ??The breast tissue is extremely dense, which lowers the sensitivity of mammography. RIGHT RECOMMENDATION DUE DATE: ??12 Months Right Mammography Screening Narrative 03/15/2021 1:54 PM EDT 40-year-old female who presents for a call back mammogram for a right breast focal asymmetry. ??Comparison made to previous mammograms. ??Interpretation made in conjunction with computer-aided detection and tomosynthesis. Right ML and spot compression right CC and MLO views. The right breast is extremely dense, which lowers the sensitivity of mammography. ??There is a circumscribed mass in the upper inner right breast measuring up to 1.7 cm 3.6 cm from the nipple. Right breast ultrasound was obtained. At 1:00 3 cm from the nipple are 2 simple ovoid cysts measuring up to 1.7 cm in 2.1 cm. Procedure Note Ulises Galindo MD - 03/15/2021 40-year-old female who presents for a call back mammogram for a rightbreast focal asymmetry. Comparison made to previous mammograms.Interpretation made in conjunction with computer-aided detection andtomosynthesis. Right ML and spot compression right CC and MLO views. The right breast isextremely dense, which lowers the sensitivity of mammography. There is acircumscribed mass in the upper inner right breast measuring up to 1.7 cm3.6 cm from the nipple. Right breast ultrasound was obtained. At 1:00 3 cm from the nipple are 2simple ovoid cysts measuring up to 1.7 cm in 2.1 cm. IMPRESSION: 2 benign simple right breast cysts at 1:00 accounting for the mammographicfindings. No mammographic evidence of malignancy. Recommend return toannual surveillance. Findings relayed to the patient via thetechnologist. BI-RADS CATEGORY: 2 - Benign finding. DENSITY: The breast tissue is extremely dense, which lowers thesensitivity of mammography. RIGHT RECOMMENDATION DUE DATE: 12 Months Right Mammography Screening Eliud Jones MD IMG MG EXAMS documented in this encounter Visit Diagnoses Diagnosis Abnormal mammogram Abnormal mammogram, unspecified Abnormal mammogram Abnormal mammogram, unspecified Abnormal mammogram Abnormal mammogram, unspecified documented in this encounter Care Teams Ceramic Research Engineer Relationship Specialty Start Date End Date Paulette Chan NP [address] [place] [address] [place] [address] [email or web address] PCP - General Family Medicine 10/24/19 11/06/22 Shavon Wells MD [address] [place] [address] [place] [address] PCP - General Internal Medicine 11/07/22 Elsi Chase NP [address] [place] [address] [address] [place] [address] Historical LMR Provider 07/22/17 Kelby Palacio DO [address] [place] [address] Historical LMR Provider 07/22/17 Norbert Rubin MD [facility] [address] [place] [address] [email or web address] Historical LMR Provider 07/22/17 10/12/21 documented as of this encounter Additional Source Comments The information contained in this document represents components of the legal health record. It is not the complete legal health record.[facility]
--- OUTSIDE RECORDS SUMMARY | 2025-01-31 06:14 | XMS_ITS | Encounter Summary ---
Author Organization [facility] Address [address] [facility] [address] [place] [address] Phone Care Team Providers Care Last Inserter Name Role Phone Elsi Chase STRESS ANALYST Unavailable [phone] Kelby Palacio DO Unavailable [phone] Norbert Rubin MD Unavailable [phone] Paulette Chan NP Primary Care Provider Shavon Wells MD Primary Care Provider Encounter Details Date Type Department Care Team (Late st Contact Info) Description 09/04/2020 Procedure Pass [facility] - [address] [place] [address] Social History Tobacco Use Types Packs/Day Years [...] on filedocumented in this encounter Care Teams Last Inserter Relationship Specialty Start Date End Date Paulette Chan NP [address] [place] [address] [place] [address] [email or web address] PCP - General Family Medicine 10/24/19 11/06/22 Shavon Wells MD [facility] [place] [address] PCP - General Internal Medicine 11/07/22 Elsi Chase NP [address] [place] [address] [address] [place] [address] Historical LMR Provider 07/22/17 Kelby Palacio DO [facility] [place] [address] Historical LMR Provider 07/22/17 Norbert Rubin MD [facility] [address] [place] [address] [email or web address] Historical LMR Provider 07/22/17 10/12/21 documented as of this encounter Additional Source Comments The information contained in this document represents components of the legal health record. It is not the complete legal health record.[facility]
--- OUTSIDE RECORDS SUMMARY | 2025-01-31 06:14 | XMS_ITS | Encounter Summary ---
Author Organization [facility] Address [address] [facility] [address] [place] [address] Phone Care Team Providers Care Junior Paralegal Name Role Phone Elsi Chase ANTENNA INSTALLER Unavailable [phone] Shavon Wells MD Primary Care Provider Encounter Details Date Type Department Care Team (Late st Contact Info) Description 12/09/2022 Procedure Pass [address] [place] [address] Social History Tobacco Use Types Packs/Day Years [...] on filedocumented in this encounter Care Teams Junior Paralegal Relationship Specialty Start Date End Date Shavon Wells MD [address] [facility] [place] [address] PCP - General Internal Medicine 11/07/22 Elsi Chase NP [address] [place] [address] Historical LMR Provider 07/22/17 documented as of this encounter Additional Source Comments The information contained in this document represents components of the legal health record. It is not the complete legal health record.[facility]
--- OUTSIDE RECORDS SUMMARY | 2025-01-31 06:14 | XMS_ITS | Encounter Summary ---
Author Organization [facility] Address [address] [facility] [address] [place] [address] Phone Care Team Providers Care Voice Pathologist Name Role Phone Elsi Chase CANE FLUME FEEDING MACHINE OPERATOR Unavailable [phone] Paulette Chan NP Primary Care Provider Shavon Wells MD Primary Care Provider Encounter Details Date Type Department Care Team (Late st Contact Info) Description 10/10/2022 Procedure Pass [facility], [address] [address] Social History Tobacco Use Types Packs/Day Years [...] on filedocumented in this encounter Care Teams Voice Pathologist Relationship Specialty Start Date End Date Paulette Chan NP [address] [place] [address] [place] [address] [email or web address] PCP - General Family Medicine 10/24/19 11/06/22 Shavon Wlels MD [address] [facility] [place] [address] PCP - General Internal Medicine 11/07/22 Elsi Chase NP [address] [place] [address] Historical LMR Provider 07/22/17 documented as of this encounter Additional Source Comments The information contained in this document represents components of the legal health record. It is not the complete legal health record.[facility]
== END 2025-01-31 06:11 | disposition home or self-care (01) ==
LOC: CF 06:10
PROVIDERS: Visit Provider Anesthesiology
DX: M47.816 Spondylosis without myelopathy or radiculopathy, lumbar region (principal)
CPT/HCPCS: 64555; J2003

== ENCOUNTER 2025-01-31 08:21 | Outpatient (AMB) | payer OTHER, SELFPAY ==
[2025-01-31 08:27] VITALS: BP 148/84; PULSE 101; RESP 15; O2SAT 98
--- NOTE | 2025-01-31 08:27 | A.OFFVIS_ITS ---
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 Required: No Allergies etanercept [Enbrel] Adverse Reaction (Intermediate, Verified 01/31/25 08:27) rash/flu like Sx Medication List - Last Reconciled 01/31/25 by Lisset Meraz LPN amitriptyline 10 mg PO BEDTIME atorvastatin 10 mg PO DAILY docusate sodium 100 mg PO BID escitalopram oxalate 10 mg PO QAM levothyroxine 100 mcg PO DAILY norethindrone-e.estradiol-iron 1 mg-10 mcg (24)/10 mcg (2) (Lo Loestrin Fe) 1 tab PO DAILY omeprazole 20 mg PO DAILY tramadol 50 mg PO BID PRN PFSH Medical History History of COVID-19 PONV (postoperative nausea and vomiting) Nausea and vomiting Heartburn Mixed anxiety and depressive disorder Family history of breast cancer COVID-19 vaccine series completed Spondylosis of lumbar region without myelopathy or radiculopathy Multinodular non-toxic goiter Calcific tendinitis of left shoulder Obesity (BMI 30.0-34.9) Fibromyalgia Hypothyroidism (acquired) Mixed hyperlipidemia Ankylosing spondylitis Thyroid nodule Surgical History History of laparoscopic cholecystectomy (12/29/22) History of section H/O arthroscopy of right knee Family History Mother Hypothyroidism Maternal Grandmother Hypothyroidism Breast cancer Paternal Grandmother CVD (cardiovascular disease) Maternal Uncle Ulcerative colitis Brother No problems noted. Sister No problems noted. Son No problems noted. Son No problems noted. 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 Percutaneous implantation of peripheral nerve stimulation Sprint system. After the risks, benefits and alternatives were discussed with the patient and informed consent was obtained, patient was placed in the prone position and padded to foster comfort. Time out was performed delineating correct site and side of the procedure , name and of the patient, patient participated in time out procedure. Sterily draped C-arm was brought over the operating field and clear picture of the L5 lamina on the right was delineated on the screen. The upper central portion of the lamina was chosen as a target of the needle tip insertion . After identifying and marking the intended target, the skin around the planned entry point and the subcutaneous tissues were injected with local anesthetic forming skin wheal.. A percutaneous sleeve and stimulating probe lead introduction system were assembled, inserted and advanced through the skin wheal to the point of interest under C-arm view in tunnel vision fashion, the introducer needle was delivered to a location in proximity to the nerve. Multiple stimulation parameters were used to deliver stimulation to the nerve in concert with stimulating at multiple positions around the nerve. nerve target acquisition was confirmed noting generation of in the corresponding to the nerve being stimulated. Various electrical parameter combinations were tested, and the lead location was adjusted (physically relocated) until the patient indicated overlapping the distribution of the patient?s typical region of pain. The stimulating probe was removed from the introducer and a percutaneous lead was guided through the needle and delivered to a location in similar proximity to the nerve. Final location was verified with electrical stimulation. The introducer needle was removed, and the exposed end of the percutaneous lead was attached to an external stimulator unit. At the end of the case various electrical parameter combinations were again tested until the patient indicated paresthesia or muscle tension overlapping the distribution of the patient?s typical region of pain. After confirming that lead impedance was in the normal range, the external unit was detached, the needle was removed, and the lead was anchored at the skin. The lead was threaded into the connector block and electrical continuity and desired patient response was confirmed. The connector block was attached to the external stimulator unit. The site was covered with a sterile occlusive dressing and a image was taken to document final placement. Orders: Orders FL guidance in treatment room Today M47.816 - Spondylosis without myelopathy or radiculopathy, lumbar region Coding Level of Care Code Procedure Only Diagnoses Spondylosis of lumbar region without myelopathy or radiculopathy M47.816
--- OUTSIDE RECORDS SUMMARY | 2025-01-31 08:35 | XMS_ITS | Encounter Summary ---
Author Organization [facility] Address [address] [facility] [address] [place] [address] Phone Care Team Providers Care Supply Room Clerk Name Role Phone Elsi Chase NETWORK SPECIALIST Unavailable [phone] Shavon Wells MD Primary Care Provider Encounter Details Date Type Department Care Team ([facility] Contact Info) Description 08/03/2024 Procedure Pass [address] [place] [address] Social History Tobacco Use Types Packs/Day Years [...] on filedocumented in this encounter Care Teams Supply Room Clerk Relationship Specialty Start Date End Date Shavon Wells MD [address] [facility] [place] [address] PCP - General Internal Medicine 11/07/22 Elsi Chase NP [address] [place] [address] Historical LMR Provider 07/22/17 documented as of this encounter Additional Source Comments The information contained in this document represents components of the legal health record. It is not the complete legal health record.[facility]
--- OUTSIDE RECORDS SUMMARY | 2025-01-31 08:35 | XMS_ITS | Encounter Summary ---
Author Organization [facility] Address [address] [facility] [address] [place] [address] Phone Care Team Providers Care Fleshing Machine Operator Name Role Phone Elsi Chase PILLAR MAN Unavailable [phone] Kelby Palacio DO Unavailable [phone] Norbert Rubin MD Unavailable [phone] Paulette Chan NP Primary Care Provider Shavon Wells MD Primary Care Provider Encounter Details Date Type Department Care Team (Late st Contact Info) Description 03/06/2021 Ancillary Orders [facility] [address] [place] [address] Eliud Jones MD 22 [facility], [facility] [address] [place] [address] Abnormal mammogram Social History Tobacco Use Types [...] unspecified documented in this encounter Care Teams Fleshing Machine Operator Relationship Specialty Start Date End Date Paulette Chan NP [address] [place] [address] [place] [address] [email or web address] PCP - General Family Medicine 10/24/19 11/06/22 Shavon Wells MD [address] [place] [address] [place] [address] PCP - General Internal Medicine 11/07/22 Elsi Chase NP [address] [place] [address] [address] [place] [address] Historical LMR Provider 07/22/17 Kelby Palacio DO [address] [place] [address] Historical LMR Provider 07/22/17 Norbert Rubin MD [facility] [address] [place] [address] [email or web address] Historical LMR Provider 07/22/17 10/12/21 documented as of this encounter Additional Source Comments The information contained in this document represents components of the legal health record. It is not the complete legal health record.[facility]
--- OUTSIDE RECORDS SUMMARY | 2025-01-31 08:35 | XMS_ITS | Encounter Summary ---
Author Organization [facility] Address [address] [facility] [address] [place] [address] Phone Care Team Providers Care Track Car Operator Name Role Phone Elsi Chase TUBE MOLDER FIBERGLASS Unavailable Shavon Wells MD Primary Care Provider Encounter Details Date Type Department Care Team (Late st Contact Info) Description 07/02/2023 Procedure Pass [facility], [facility] [address] [place] [address] Social History Tobacco Use Types Packs/Day Years [...] on filedocumented in this encounter Care Teams Track Car Operator Relationship Specialty Start Date End Date Shavon Wells MD [address] [facility] [place] [address] PCP - General Internal Medicine 11/07/22 Elsi Chase NP [address] [place] [address] Historical LMR Provider 07/22/17 documented as of this encounter Additional Source Comments The information contained in this document represents components of the legal health record. It is not the complete legal health record.[facility]
--- OUTSIDE RECORDS SUMMARY | 2025-01-31 08:35 | XMS_ITS | Encounter Summary ---
Author Organization [facility] Address [address] [facility] [address] [place] [address] Phone Care Team Providers Care Quality Eng Name Role Phone Elsi Chase RATE AND COST ANALYST Unavailable [phone] Kelby Palacio DO Unavailable [phone] Norbert Rubin MD Unavailable [phone] Paulette Chan NP Primary Care Provider Shavon Wells MD Primary Care Provider Encounter Details Date Type Department Care Team (Late st Contact Info) Description 03/06/2021 Procedure Pass [facility] - [address] [place] [address] Social History Tobacco Use Types Packs/Day Years [...] on filedocumented in this encounter Care Teams Quality Eng Relationship Specialty Start Date End Date Paulette Chan NP [address] [place] [address] [place] [address] [email or web address] PCP - General Family Medicine 10/24/19 11/06/22 Shavon Wells MD [facility] [place] [address] PCP - General Internal Medicine 11/07/22 Elsi Chase NP [address] [place] [address] [address] [place] [address] Historical LMR Provider 07/22/17 Kelby Palacio DO [facility] [address] Historical LMR Provider 07/22/17 Norbert Rubin MD [facility] [address] [place] [address] [email or web address] Historical LMR Provider 07/22/17 10/12/21 documented as of this encounter Additional Source Comments The information contained in this document represents components of the legal health record. It is not the complete legal health record.[facility]
--- OUTSIDE RECORDS SUMMARY | 2025-01-31 08:35 | XMS_ITS | Encounter Summary ---
Author Organization [facility] Address [address] [place] [address] [place] [address] Phone Care Team Providers Care Childcare Worker Name Role Phone Elsi Chase EVENT MANAGER Unavailable [phone] Paulette Chan NP Primary Care Provider Shavon Wells MD Primary Care Provider Encounter Details Date Type Department Care Team (Late st Contact Info) Description 07/09/2022 Procedure Pass [address] [place] [address] Social History Tobacco Use Types Packs/Day Years [...] on filedocumented in this encounter Care Teams Childcare Worker Relationship Specialty Start Date End Date Paulette Chan NP [address] [place] [address] [place] [address] [email or web address] PCP - General Family Medicine 10/24/19 11/06/22 Shavon Wells MD [address] [facility] [place] [address] PCP - General Internal Medicine 11/07/22 Elsi Chase NP [address] [place] [address] Historical LMR Provider 07/22/17 documented as of this encounter Additional Source Comments The information contained in this document represents components of the legal health record. It is not the complete legal health record.[facility]
--- OUTSIDE RECORDS SUMMARY | 2025-01-31 08:35 | XMS_ITS | Encounter Summary ---
Author Organization [facility] Address [address] [facility] [address] [place] [address] Phone Care Team Providers Care Code Inspector Name Role Phone Elsi Chase CARDIAC REHABILITATION SPECIALIST Unavailable [phone] Paulette Chan NP Primary Care Provider Shavon Wells MD Primary Care Provider Encounter Details Date Type Department Care Team (Late st Contact Info) Description 10/10/2022 Procedure Pass [facility], [address] [address] Social History Tobacco Use Types Packs/Day Years [...] on filedocumented in this encounter Care Teams Code Inspector Relationship Specialty Start Date End Date Paulette Chan NP [address] [place] [address] [place] [address] [email or web address] PCP - General Family Medicine 10/24/19 11/06/22 Shavon Wells MD [address] [facility] [place] [address] PCP - General Internal Medicine 11/07/22 Elsi Chase NP [address] [place] [address] Historical LMR Provider 07/22/17 documented as of this encounter Additional Source Comments The information contained in this document represents components of the legal health record. It is not the complete legal health record.[facility]
--- OUTSIDE RECORDS SUMMARY | 2025-01-31 08:36 | XMS_ITS | Encounter Summary ---
Author Organization [facility] Address [address] [facility] [address] [place] [address] Phone Care Team Providers Care Color Printer Operator Name Role Phone Elsi Chase CANT HOOKER Unavailable [phone] Kelby Palacio DO Unavailable [phone] Norbert Rubin MD Unavailable [phone] Paulette Chan NP Primary Care Provider Shavon Wells MD Primary Care Provider Encounter Details Date Type Department Care Team (Late st Contact Info) Description 09/04/2020 Procedure Pass [facility] - [address] [place] [address] Social History Tobacco Use Types Packs/Day Years [...] on filedocumented in this encounter Care Teams Color Printer Operator Relationship Specialty Start Date End Date Paulette Chan NP [address] [place] [address] [place] [address] [email or web address] PCP - General Family Medicine 10/24/19 11/06/22 Shavon Wells MD [facility] [place] [address] PCP - General Internal Medicine 11/07/22 Elsi Chase NP [address] [place] [address] [address] [place] [address] Historical LMR Provider 07/22/17 Kelby Palacio DO [facility] [place] [address] Historical LMR Provider 07/22/17 Norbert Rubin MD [facility] [address] [place] [address] [email or web address] Historical LMR Provider 07/22/17 10/12/21 documented as of this encounter Additional Source Comments The information contained in this document represents components of the legal health record. It is not the complete legal health record.[facility]
--- OUTSIDE RECORDS SUMMARY | 2025-01-31 08:36 | XMS_ITS | Encounter Summary ---
Author Organization [facility] Address [address] [facility] [address] [place] [address] Phone Care Team Providers Care Lease Examiner Name Role Phone Elsi Chase LIFE SKILLS SPECIALIST Unavailable [phone] Shavon Wells MD Primary Care Provider Encounter Details Date Type Department Care Team (Late st Contact Info) Description 12/09/2022 Procedure Pass [address] [place] [address] Social History Tobacco Use Types Packs/Day Years [...] on filedocumented in this encounter Care Teams Lease Examiner Relationship Specialty Start Date End Date Shavon Wells MD [address] [facility] [place] [address] PCP - General Internal Medicine 11/07/22 Elsi Chase NP [address] [place] [address] Historical LMR Provider 07/22/17 documented as of this encounter Additional Source Comments The information contained in this document represents components of the legal health record. It is not the complete legal health record.[facility]
--- OUTSIDE RECORDS SUMMARY | 2025-01-31 08:36 | XMS_ITS | Encounter Summary ---
Author Organization [facility] Address [address] [facility] [address] [place] [address] Phone Care Team Providers Care Java Tech Name Role Phone Elsi Chase RISK REDUCTION COUNSELOR Unavailable [phone] Kelby Palacio DO Unavailable [phone] Norbert Rubin MD Unavailable [phone] Paulette Chan NP Primary Care Provider Shavon Wells MD Primary Care Provider Encounter Details Date Type Department Care Team (Late st Contact Info) Description 09/04/2020 Ancillary Orders [facility] [address] [place] [address] Eliud Jones MD [address] [facility], [address] [place] [address] Breast screening Social History Tobacco Use Types [...] obtained. Best possible images according to the laboratory technologist. COMPARISON: Comparison made to October 24, [...] were obtained. Best possible images accordingto the laboratory technologist. COMPARISON: Comparison made to October 24, [...] unspecified documented in this encounter Care Teams Java Tech Relationship Specialty Start Date End Date Paulette Chan NP [address] [place] [address] [place] [address] [email or web address] PCP - General Family Medicine 10/24/19 11/06/22 Shavon Wells MD [address] [place] [address] [place] [address] PCP - General Internal Medicine 11/07/22 Elsi Chase NP [address] [place] [address] [address] [place] [address] Historical LMR Provider 07/22/17 Kelby Palacio DO [address] [place] [address] Historical LMR Provider 07/22/17 Norbert Rubin MD [facility] [address] [place] [address] [email or web address] Historical LMR Provider 07/22/17 10/12/21 documented as of this encounter Additional Source Comments The information contained in this document represents components of the legal health record. It is not the complete legal health record.[facility]
--- OUTSIDE RECORDS SUMMARY | 2025-01-31 08:36 | XMS_ITS | Encounter Summary ---
Author Organization [facility] Address [address] [facility] [address] [place] [address] Phone Care Team Providers Care Registration Rep Name Role Phone Elsi Chase TABLEAU DEVELOPER Unavailable [phone] Paulette Chan NP Primary Care Provider Shavon Wells MD Primary Care Provider Encounter Details Date Type Department Care Team (Late st Contact Info) Description 10/10/2022 Procedure Pass [facility], [address] [address] Social History Tobacco Use Types Packs/Day Years [...] on filedocumented in this encounter Care Teams Registration Rep Relationship Specialty Start Date End Date Paulette Chan NP [address] [place] [address] [place] [address] [email or web address] PCP - General Family Medicine 10/24/19 11/06/22 Shavon Wells MD [address] [facility] [place] [address] PCP - General Internal Medicine 11/07/22 Elsi Chase NP [address] [place] [address] Historical LMR Provider 07/22/17 documented as of this encounter Additional Source Comments The information contained in this document represents components of the legal health record. It is not the complete legal health record.[facility]
--- OUTSIDE RECORDS SUMMARY | 2025-01-31 08:36 | XMS_ITS | Clinical Summary ---
Author Organization [facility] Address [address] [facility] [address] [place] [address] Phone Care Team Providers Care Performance Test Engineer Name Role Phone Elsi Chase NP Unavailable [phone] Shavon Wells MD Primary Care Provider Allergies [...] SEE NARRATIVE - 11/01/2019 9:13 AM [place] [address] ?? SUPERVISOR FRAME ASSEMBLY Cytology Report Patient Name: ??ALIS ALONZO : ??1980 (Age: 39) Sex: ??F Institution: ??[facility] [place] [facility] Date of Collection: ??10/18/2019 Date of Reported: ??11/01/2019 09:13 Results to: Eliud Jones MD FINAL DIAGNOSIS A. ??CERVICAL, LIQUID BASED SPECIMEN: SPECIMEN ADEQUACY: Satisfactory for evaluation. INTERPRETATION: NEGATIVE FOR INTRAEPITHELIAL LESION OR MALIGNANCY. ADDITIONAL INFORMATION: This specimen was prescreened using the [employer] Imaging System. ? Electronically Signed Out By: [...] 56, 58, 59, 66, 68) by Celestina [employer] Onclarity HR-HPV analysis. Clinical correlation is advised. This HPV test was performed at [facility], [address] [place] [address]. This test has been FDA approved for SurePath cervical cytology specimens. The accuracy and precision of this test for all other specimen sources has been verified in the Cytopathology Laboratory of the [facility] and has not been cleared or [...] Recently Relevant to Health Maintenance Care Teams Performance Test Engineer Relationship Specialty Start Date End Date Shavon Wells MD [facility] [place] [address] PCP - General Internal Medicine 11/07/22 Elsi Chase NP [address] [place] [address] [address] [place] [address] Historical LMR Provider 07/22/17 Additional Source Comments The information contained in this document represents components of the legal health record. It is not the complete legal health record.[facility]
[2025-01-31 08:51] VITALS: BP 166/92; PULSE 95; RESP 16; O2SAT 98
== END 2025-01-31 09:06 | disposition home or self-care (01) ==
LOC: HO.PMCPRC 08:21
PROVIDERS: PCP Internal Medicine; Visit Provider Anesthesiology
DX: M47.816 Spondylosis without myelopathy or radiculopathy, lumbar region (principal)
CPT/HCPCS: 64555

== ENCOUNTER 2025-02-08 09:51 | Outpatient (AMB) | payer OTHER, SELFPAY ==
[2025-02-08 09:54] VITALS: BP 141/83; PULSE 88; O2SAT 96; BMI 30.3
--- NOTE | 2025-02-08 09:54 | A.OFFVIS_ITS ---
Vital Signs 02/08/25 09:54 Height 5 ft 5 in Weight 182 lb 6 oz BMI 30.3 BP 141/83 H Blood Pressure Location Lt brachial Position Sitting Pulse 88 Pulse Source Pulse Oximeter Pulse Oximetry (%) 96 Oxygen Delivery Method Room Air Intake Visit Reasons: RIGHT L5 SPRINT PNS TRIAL Allergies etanercept [Enbrel] Adverse Reaction (Intermediate, Verified 02/08/25 09:57) rash/flu like Sx HPI Comments Details: Alis is back in my office after PNS L5 sprint on the right. She reports that she does not feel stimulation however when she brings the stimulation level to 70 she feels shear pain. She continues to discuss the levels of stimulation with sprint inbound customer service representative. Today she came for the dressing change. The wound is completely intact no pathological discharge no swelling no redness. The area surrounding insertion of the electrode was prepped with ChloraPrep and sterile dressing was applied. The patient is scheduled for 02/14/2025 to perform left- sided stimulation insertion. Prior: very pleasant 43 years old female who presents in my office after 3 years and 9 months of absence. In June of 2021 she received radiofrequency ablation of the L3-L4 does ramus L5 medial branches. 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 Lew for ankylosing spondylitis. She came to me today in my office and reported that RFA lasted for her 3 years in 6 months. She reported that 3 months ago the pain started to climb back. I offered the patient to repeat RFA but I explained to her limitations of this procedure. I also offered her sprint PNS L5 bilateral. The patient agreed to go for this procedure. I will schedule her for sprint PNS L5 1st on the right and left will be 2nd. The follow-up appointment will be scheduled for this patient for the follow-up after 1st and after 2nd injections. She will attend nursing appointments in this office for dressing change for the 60 days of application of the PNS. 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 Sister No problems noted. Son No problems noted. Son No problems noted. 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 Cognitive needs: No Hearing needs: No Vision needs: Yes Review of Systems Const All systems reviewed & are unremarkable except as noted in HPI and below ENT Denies Normal hearing present Neuro Denies Normal hearing present, Denies Abnormal speech present and Denies confusion Psych Denies confusion Physical Exam Vital Signs: Last Vital Signs Pulse 88 02/08/25 09:54 BP 141/83 H 02/08/25 09:54 Pulse Ox 96 02/08/25 09:54 Oxygen Delivery Method Room Air 02/08/25 09:54 BMI result Body Mass Index 30.3 Const General: No confusion Orientation/consciousness: No confusion Resp Effort & Inspection: normal respiratory effort, able to speak in complete sentences and no audible wheezes Back/Spine/Pelvis Other: Loading test is positive, Valsalva is negative, SLR is negative, Scooter test is negative. Neuro General: No confusion Cranial nerves: No Normal hearing present Speech: No Abnormal speech present Psych Mental Status: mental status grossly normal Speech and movement: Clear speech present Attitude: cooperative Thought process: Normal thought process present Thought content: Normal thought content present Insight: Good insight present (Psych) Judgement: Good judgement present (Psych) Assessment & Plan Assessment & Plan (1) Spondylosis of lumbar region without myelopathy or radiculopathy: Code(s): M47.816 - Spondylosis without myelopathy or radiculopathy, lumbar region Category: Medical (2) Ankylosing spondylitis: Code(s): M45.9 - Ankylosing spondylitis of unspecified sites in spine Category: Medical (3) Chronic pain syndrome: Code(s): G89.4 - Chronic pain syndrome Category: Medical Plan Follow-up for sprint PNS is as above. In the past patient received RFA. She reports stimulation of the sprint today not satisfactory for her. Alternatively we can do RFA again for her. She is scheduled for the left-sided sprint procedure on 02/14/2025. If it is not improved 1 week after this stimulation we will discuss further options. She will continue with Dr. Lew for her rheumatologic care. Coding Level of Care Code Est Pt Level 3 (44584) Diagnoses Spondylosis of lumbar region without myelopathy or radiculopathy M47.816 Ankylosing spondylitis M45.9 Chronic pain syndrome G89.4
--- OUTSIDE RECORDS SUMMARY | 2025-02-08 10:48 | XMS_ITS | Encounter Summary ---
Author Organization [facility] Address [address] [facility] [address] [place] [address] Phone Care Team Providers Care Engravings Polisher Name Role Phone Elsi Chase STACK SUPERVISOR Unavailable [phone] Shavon Wells MD Primary Care Provider Encounter Details Date Type Department Care Team (Late st Contact Info) Description 07/02/2023 Procedure Pass [facility] [address] [place] [address] Social History Tobacco Use Types Packs/Day Years [...] on filedocumented in this encounter Care Teams Engravings Polisher Relationship Specialty Start Date End Date Shavon Wells MD [address] [facility] [place] [address] PCP - General Internal Medicine 11/07/22 Elsi Chase NP [address] [place] [address] Historical LMR Provider 07/22/17 documented as of this encounter Additional Source Comments The information contained in this document represents components of the legal health record. It is not the complete legal health record.[facility]
--- OUTSIDE RECORDS SUMMARY | 2025-02-08 10:49 | XMS_ITS | Encounter Summary ---
Author Organization [facility] Address [address] [place] [address] [place] [address] Phone Care Team Providers Care Private Detective Name Role Phone Elsi Chase BIT BENDER Unavailable [phone] Paulette Chan NP Primary Care Provider Shavon Wells MD Primary Care Provider Encounter Details Date Type Department Care Team (Late st Contact Info) Description 07/09/2022 Procedure Pass [address] [place] [address] Social History Tobacco Use Types Packs/Day Years [...] on filedocumented in this encounter Care Teams Private Detective Relationship Specialty Start Date End Date Paulette Chan NP [address] [place] [address] [place] [address] [email or web address] PCP - General Family Medicine 10/24/19 11/06/22 Shavon Wells MD [address] [facility] [place] [address] PCP - General Internal Medicine 11/07/22 Elsi Chase NP [address] [place] [address] Historical LMR Provider 07/22/17 documented as of this encounter Additional Source Comments The information contained in this document represents components of the legal health record. It is not the complete legal health record.[facility]
--- OUTSIDE RECORDS SUMMARY | 2025-02-08 10:49 | XMS_ITS | Clinical Summary ---
Author Organization [facility] Address [address] [facility] [address] [place] [address] Phone Care Team Providers Care Concert Or Lecture Hall Manager Name Role Phone Elsi Chase NP Unavailable [phone] Shavon Wells MD Primary Care Provider Allergies [...] SEE NARRATIVE - 11/01/2019 9:13 AM [place] [address] ?? ACETYLENE CUTTER Cytology Report Patient Name: ??ALIS ALONZO : ??1980 (Age: 39) Sex: ??F Institution: ??[facility] Date of Collection: ??10/18/2019 Date of Reported: ??11/01/2019 09:13 Results to: Eliud Jones MD FINAL DIAGNOSIS A. ??CERVICAL, LIQUID BASED SPECIMEN: SPECIMEN ADEQUACY: Satisfactory for evaluation. INTERPRETATION: NEGATIVE FOR INTRAEPITHELIAL LESION OR MALIGNANCY. ADDITIONAL INFORMATION: This specimen was prescreened using the [employer] Imaging System. ? Electronically Signed Out By: [...] 56, 58, 59, 66, 68) by Celestina [employer] Onclarity HR-HPV analysis. Clinical correlation is advised. This HPV test was performed at [facility], [address] [place] [address]. This test has been FDA approved for SurePath cervical cytology specimens. The accuracy and precision of this test for all other specimen sources has been verified in the Cytopathology Laboratory of the [facility] and has not been cleared or approved [...] Recently Relevant to Health Maintenance Care Teams Concert Or Lecture Hall Manager Relationship Specialty Start Date End Date Shavon Wells MD [facility] [place] [address] PCP - General Internal Medicine 11/07/22 Elsi Chase NP [address] [place] [address] [address] [place] [address] Historical LMR Provider 07/22/17 Additional Source Comments The information contained in this document represents components of the legal health record. It is not the complete legal health record.[facility]
--- OUTSIDE RECORDS SUMMARY | 2025-02-08 10:49 | XMS_ITS | Encounter Summary ---
Author Organization [facility] Address [address] [facility] [address] [place] [address] Phone Care Team Providers Care Electrician Bus Name Role Phone Elsi Chase ETCHER MACHINE Unavailable [phone] Paulette Chan NP Primary Care Provider Shavon Wells MD Primary Care Provider Encounter Details Date Type Department Care Team (Late st Contact Info) Description 10/10/2022 Procedure Pass [facility], [address] [address] Social History Tobacco Use Types Packs/Day Years [...] on filedocumented in this encounter Care Teams Electrician Bus Relationship Specialty Start Date End Date Paulette Chan NP [address] [place] [address] [place] [address] [email or web address] PCP - General Family Medicine 10/24/19 11/06/22 Shavon Wells MD [address] [facility] [place] [address] PCP - General Internal Medicine 11/07/22 Elsi Chase NP [address] [place] [address] Historical LMR Provider 07/22/17 documented as of this encounter Additional Source Comments The information contained in this document represents components of the legal health record. It is not the complete legal health record.[facility]
--- OUTSIDE RECORDS SUMMARY | 2025-02-08 10:49 | XMS_ITS | Encounter Summary ---
Author Organization [facility] Address [address] [facility] [address] [place] [address] Phone Care Team Providers Care Ecotherapist Name Role Phone Elsi Chase ADVERTISING SALES ASSOCIATE Unavailable [phone] Shavon Wells MD Primary Care Provider Encounter Details Date Type Department Care Team (Late st Contact Info) Description 12/09/2022 Procedure Pass [address] [place] [address] Social History Tobacco Use Types Packs/Day Years [...] on filedocumented in this encounter Care Teams Ecotherapist Relationship Specialty Start Date End Date Shavon Wells MD [address] [facility] [place] [address] PCP - General Internal Medicine 11/07/22 Elsi Chase NP [address] [place] [address] Historical LMR Provider 07/22/17 documented as of this encounter Additional Source Comments The information contained in this document represents components of the legal health record. It is not the complete legal health record.[facility]
--- OUTSIDE RECORDS SUMMARY | 2025-02-08 10:49 | XMS_ITS | Encounter Summary ---
Author Organization [facility] Address [address] [facility] [address] [place] [address] Phone Care Team Providers Care Lofter Name Role Phone Elsi Chase PROVIDER SERVICE REPRESENTATIVE Unavailable [phone] Kelby Palacio DO Unavailable [phone] Norbert Rubin MD Unavailable [phone] Paulette Chan NP Primary Care Provider Shavon Wells MD Primary Care Provider Encounter Details Date Type Department Care Team (Late st Contact Info) Description 09/04/2020 Ancillary Orders [facility] [address] [place] [address] Eliud Jones MD [address] [facility], [address] [place] [address] Breast screening Social History Tobacco Use Types [...] obtained. Best possible images according to the chemistry technologist. COMPARISON: Comparison made to October 24, [...] were obtained. Best possible images accordingto the chemistry technologist. COMPARISON: Comparison made to October 24, [...] unspecified documented in this encounter Care Teams Lofter Relationship Specialty Start Date End Date Paulette Chan NP [address] [place] [address] [place] [address] [email or web address] PCP - General Family Medicine 10/24/19 11/06/22 Shavon Wells MD [address] [place] [address] [place] [address] PCP - General Internal Medicine 11/07/22 Elsi Chase NP [address] [place] [address] [address] [place] [address] Historical LMR Provider 07/22/17 Kelby Palacio DO [address] [place] [address] Historical LMR Provider 07/22/17 Norbert Rubin MD [facility] [address] [place] [address] [email or web address] Historical LMR Provider 07/22/17 10/12/21 documented as of this encounter Additional Source Comments The information contained in this document represents components of the legal health record. It is not the complete legal health record.[facility]
--- OUTSIDE RECORDS SUMMARY | 2025-02-08 10:49 | XMS_ITS | Encounter Summary ---
Author Organization [facility] Address [address] [facility] [address] [place] [address] Phone Care Team Providers Care Senior Medical Transcriptionist Name Role Phone Elsi Chase CIVIL ENGINEERING DIRECTOR Unavailable [phone] Kelby Palacio DO Unavailable [phone] Norbert Rubin MD Unavailable [phone] Paulette Chan NP Primary Care Provider Shavon Wells MD Primary Care Provider Encounter Details Date Type Department Care Team (Late st Contact Info) Description 09/04/2020 Procedure Pass [facility] - [address] [place] [address] Social History Tobacco Use Types Packs/Day Years [...] on filedocumented in this encounter Care Teams Senior Medical Transcriptionist Relationship Specialty Start Date End Date Paulette Chan NP [address] [place] [address] [place] [address] [email or web address] PCP - General Family Medicine 10/24/19 11/06/22 Shavon Wells MD [facility] [place] [address] PCP - General Internal Medicine 11/07/22 Elsi Chase NP [address] [place] [address] [address] [place] [address] Historical LMR Provider 07/22/17 Kelby Palacio DO [facility] [place] [address] Historical LMR Provider 07/22/17 Norbert Rubin MD [facility] [address] [place] [address] [email or web address] Historical LMR Provider 07/22/17 10/12/21 documented as of this encounter Additional Source Comments The information contained in this document represents components of the legal health record. It is not the complete legal health record.[facility]
--- OUTSIDE RECORDS SUMMARY | 2025-02-08 10:49 | XMS_ITS | Encounter Summary ---
Author Organization [facility] Address [address] [facility] [address] [place] [address] Phone Care Team Providers Care Group Home Supervisor Name Role Phone Elsi Chase SPECIAL EVENTS ASSISTANT Unavailable [phone] Kelby Palacio DO Unavailable [phone] Norbert Rubin MD Unavailable [phone] Paulette Chan NP Primary Care Provider Shavon Wells MD Primary Care Provider Encounter Details Date Type Department Care Team (Late st Contact Info) Description 03/06/2021 Ancillary Orders [facility] [address] [place] [address] Eliud Jones MD [facility], [facility] [address] [place] [address] Abnormal mammogram Social History Tobacco Use Types [...] unspecified documented in this encounter Care Teams Group Home Supervisor Relationship Specialty Start Date End Date Paulette Chan NP [address] [place] [address] [place] [address] [email or web address] PCP - General Family Medicine 10/24/19 11/06/22 Shavon Wells MD [address] [place] [address] [place] [address] PCP - General Internal Medicine 11/07/22 Elsi Chase NP [address] [place] [address] 340 [place] [address] Historical LMR Provider 07/22/17 Kelby Palacio DO [address] [place] [address] Historical LMR Provider 07/22/17 Norbert Rubin MD [facility] [address] [place] [address] [email or web address] Historical LMR Provider 07/22/17 10/12/21 documented as of this encounter Additional Source Comments The information contained in this document represents components of the legal health record. It is not the complete legal health record.[facility]
--- OUTSIDE RECORDS SUMMARY | 2025-02-08 10:49 | XMS_ITS | Encounter Summary ---
Author Organization [facility] Address [address] [facility] [address] [place] [address] Phone Care Team Providers Care Equipment Operator Intermodal Yard Name Role Phone Elsi Chase CLARIFYING PLANT OPERATOR Unavailable [phone] Shavon Wells MD Primary Care Provider Encounter Details Date Type Department Care Team ([facility] Contact Info) Description 08/03/2024 Procedure Pass [address] [place] [address] Social History Tobacco Use Types Packs/Day Years [...] on filedocumented in this encounter Care Teams Equipment Operator Intermodal Yard Relationship Specialty Start Date End Date Shavon Wells MD [address] [facility] [place] [address] PCP - General Internal Medicine 11/07/22 Elsi Chase NP [address] [place] [address] Historical LMR Provider 07/22/17 documented as of this encounter Additional Source Comments The information contained in this document represents components of the legal health record. It is not the complete legal health record.[facility]
--- OUTSIDE RECORDS SUMMARY | 2025-02-08 10:49 | XMS_ITS | Encounter Summary ---
Author Organization [facility] Address [address] [facility] [address] [place] [address] Phone Care Team Providers Care Hollock Maker Name Role Phone Elsi Chase OBSERVER ELECTRICAL PROSPECTING Unavailable [phone] Kelby Palacio DO Unavailable [phone] Norbert Rubin MD Unavailable [phone] Paulette Chan NP Primary Care Provider Shavon Wells MD Primary Care Provider Encounter Details Date Type Department Care Team (Late st Contact Info) Description 03/06/2021 Procedure Pass [facility] - [address] [place] [address] Social History Tobacco Use Types Packs/Day Years [...] on filedocumented in this encounter Care Teams Hollock Maker Relationship Specialty Start Date End Date Paulette Chan NP [address] [place] [address] [place] [address] [email or web address] PCP - General Family Medicine 10/24/19 11/06/22 Shavon Wells MD [facility] [place] [address] PCP - General Internal Medicine 11/07/22 Elsi Chase NP [address] [place] [address] 340 [place] [address] Historical LMR Provider 07/22/17 Kelby Palacio DO [facility] [place] [address] Historical LMR Provider 07/22/17 Norbert Rubin MD [facility] [address] [place] [address] [email or web address] Historical LMR Provider 07/22/17 10/12/21 documented as of this encounter Additional Source Comments The information contained in this document represents components of the legal health record. It is not the complete legal health record.[facility]
--- OUTSIDE RECORDS SUMMARY | 2025-02-08 10:49 | XMS_ITS | Encounter Summary ---
Author Organization [facility] Address [address] [facility] [address] [place] [address] Phone Care Team Providers Care Apprise Counselor Name Role Phone Elsi Chase HYDRO GENERATION MANAGER Unavailable [phone] Paulette Chan NP Primary Care Provider Shavon Wells MD Primary Care Provider Encounter Details Date Type Department Care Team (Late st Contact Info) Description 10/10/2022 Procedure Pass [facility], [address] [address] Social History Tobacco Use Types Packs/Day Years [...] on filedocumented in this encounter Care Teams Apprise Counselor Relationship Specialty Start Date End Date Paulette Chan NP [address] [place] [address] [place] [address] [email or web address] PCP - General Family Medicine 10/24/19 11/06/22 Shavon Wells MD [address] [facility] [place] [address] PCP - General Internal Medicine 11/07/22 Elsi Chase NP [address] [place] [address] Historical LMR Provider 07/22/17 documented as of this encounter Additional Source Comments The information contained in this document represents components of the legal health record. It is not the complete legal health record.[facility]
== END 2025-02-08 10:18 | disposition home or self-care (01) ==
LOC: HO.PMC 09:52
PROVIDERS: PCP Internal Medicine; Visit Provider Anesthesiology
DX: M47.816 Spondylosis without myelopathy or radiculopathy, lumbar region (principal); M45.9 Ankylosing spondylitis of unspecified sites in spine; G89.4 Chronic pain syndrome
CPT/HCPCS: 99024

== ENCOUNTER 2025-02-14 06:15 | Outpatient (REF) | payer OTHER, SELFPAY ==
--- NOTE | ~2025-02-14 | FL_ITS ---
EXAMINATION: FL GUIDANCE ONLY HISTORY: M47.816 - Spondylosis without myelopathy or radiculopathy, lumbar region COMPARISON: None available. TECHNIQUE: Fluoroscopy time: 0.1 minute. Cumulative Dose: 2.10 mGy. DAP: 0.0365 mGym2 Images: 1. FINDINGS: A single fluoroscopic spot film of the lumbosacral junction was obtained in the AP projection. Electrodes is seen in place in the bilateral lower lumbar regions. FL/FL guidance in treatment room IMPRESSION: Fluoroscopy during procedure. Please see procedure report for additional information. Electronically signed by: Manjit Alicea MD 02/14/2025 01:01 PM EDT
--- OUTSIDE RECORDS SUMMARY | 2025-02-14 06:17 | XMS_ITS | Encounter Summary ---
Author Organization [facility] Address [address] [place] [address] Phone Care Team Providers Care Division Leader Name Role Phone Elsi Chase NP Unavailable [phone] Shavon Wells MD Primary Care Provider Encounter Details Date Type Department Care Team ([facility] Contact Info) Description 08/03/2024 Procedure Pass [address] [place] [address] Social History Tobacco Use Types Packs/Day Years [...] with a working camera? Not on file Comments No Sex and Gender Information Value Date Recorded Sex Assigned at Female 05/15/2022 12:06 PM EDT Legal Sex Female 9:24 PM EDT Gender Identity Female 05/15/2022 12:06 PM EDT Sexual Orientation Straight 05/15/2022 12 :06 PM EDT Occupation Industry Job Start Date Job End Date 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 Not on file Not on file N ot on file documented as of this encounter Plan of Treatment Not on file documented as of this encounter Visit Diagnoses Not on filedocumented in this encounter Care Teams Division Leader Relationship Specialty Start Date End Date Shavon Wells MD [address] [facility] [place] [address] PCP - General Internal Medicine 11/07/22 Elsi Chase NP [address] [place] [address] Historical LMR Provider 07/22/17 documented as of this encounter Additional Source Comments The information contained in this document represents components of the legal health record. It is not the complete legal health record.[facility]
--- OUTSIDE RECORDS SUMMARY | 2025-02-14 06:17 | XMS_ITS | Encounter Summary ---
Author Organization [facility] Address [address] [place] [address] Phone Care Team Providers Care Classifier Operator Name Role Phone Elsi Chase TIMBER SURVEYOR Unavailable [phone] Paulette Chan NP Primary Care Provider Shavon Wells MD Primary Care Provider Encounter Details Date Type Department Care Team (Late st Contact Info) Description 10/10/2022 Procedure Pass [facility], [address] [address] Social History Tobacco Use Types Packs/Day Years Used Date Smoking Tobacco: Never Smokeless Tobacco: Never Alcohol Use Standard Drinks/Week Comments No 0 (1 standard drink = 0.6 oz pur e alcohol) Comments No Sex and Gender Information Value Date Recorded Sex Assigned at Female 05/15/2022 12:06 PM EDT Legal Sex Female 9:24 PM EDT Gender Identity Female 05/15/2022 12:06 PM EDT Sexual Orientation Straight 05/15/2022 12 :06 PM EDT Occupation Industry Job Start Date Job End Date 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 Not on file Not on file N ot on file documented as of this encounter Plan of Treatment Not on file documented as of this encounter Visit Diagnoses Not on filedocumented in this encounter Care Teams Classifier Operator Relationship Specialty Start Date End Date Paulette Chan NP [address] [place] [address] [place] [address] [email or web address] PCP - General Family Medicine 10/24/19 11/06/22 Shavon Wells MD [address] [place] [address] [place] [address] PCP - General Internal Medicine 11/07/22 Elsi Chase NP [address] [place] [address] Historical LMR Provider 07/22/17 documented as of this encounter Additional Source Comments The information contained in this document represents components of the legal health record. It is not the complete legal health record.[facility]
--- OUTSIDE RECORDS SUMMARY | 2025-02-14 06:17 | XMS_ITS | Encounter Summary ---
Author Organization [facility] Address [address] [place] [address] Phone Care Team Providers Care Finisher Cold Rolling Name Role Phone Elsi Chase NP Unavailable [phone] Shavon Wells MD Primary Care Provider Encounter Details Date Type Department Care Team (Late st Contact Info) Description 07/02/2023 Procedure Pass [facility] [address] [place] [address] Social History Tobacco Use Types Packs/Day Years [...] Industry Job Start Date Job End Date [employer] 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 Not on file Not on file N ot on file documented as of this encounter Plan of Treatment Not on file documented as of this encounter Visit Diagnoses Not on filedocumented in this encounter Care Teams Finisher Cold Rolling Relationship Specialty Start Date End Date Shavon Wells MD [address] [place] [address] PCP - General Internal Medicine 11/07/22 Elsi Chase NP [address] [place] [address] Historical LMR Provider 07/22/17 documented as of this encounter Additional Source Comments The information contained in this document represents components of the legal health record. It is not the complete legal health record.[facility]
--- OUTSIDE RECORDS SUMMARY | 2025-02-14 06:17 | XMS_ITS | Encounter Summary ---
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 Not on file N ot on file documented as of this encounter Plan of Treatment Not on file documented as of this encounter Visit Diagnoses Not on filedocumented in this encounter Care Teams Retort Or Condenser Press Operator Relationship Specialty Start Date End Date Paulette Chan NP [address] [place] [address] [place] [address] [email or web address] PCP - General Family Medicine 10/24/19 11/06/22 Shavon Wells MD [address] [place] [address] [place] [address] PCP - General Internal Medicine 11/07/22 Elsi Chase NP [address] [place] [address] Historical LMR Provider 07/22/17 documented as of this encounter Additional Source Comments The information contained in this document represents components of the legal health record. It is not the complete legal health record.[facility]
--- OUTSIDE RECORDS SUMMARY | 2025-02-14 06:17 | XMS_ITS | Encounter Summary ---
Author Organization [facility] Address [address] [facility] [address] [place] [address] Phone Care Team Providers Care Hospice Clinical Marketer Name Role Phone Elsi Chase TRAFFIC OR SYSTEM DISPATCHER Unavailable [phone] Kelby Palacio DO Unavailable [phone] Norbert Rubin MD Unavailable [phone] Paulette Chan NP Primary Care Provider Shavon Wells MD Primary Care Provider Encounter Details Date Type Department Care Team (Late st Contact Info) Description 03/06/2021 Procedure Pass [facility] - [address] [place] [address] Social History Tobacco Use Types Packs/Day Years [...] Industry Job Start Date Job End Date [employer] 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 Not on file Not on file N ot on file documented as of this encounter Plan of Treatment Not on file documented as of this encounter Visit Diagnoses Not on filedocumented in this encounter Care Teams Hospice Clinical Marketer Relationship Specialty Start Date End Date Paulette Chan NP [address] [place] [address] [place] [address] [email or web address] PCP - General Family Medicine 10/24/19 11/06/22 Shavon Wells MD [address] [place] [address] [place] [address] PCP - General Internal Medicine 11/07/22 Elsi Chase NP [address] [place] [address] [address] [place] [address] Historical LMR Provider 07/22/17 Kelby Palacio DO [address] [place] [address] Historical LMR Provider 07/22/17 Norbert Rubin MD [facility] [address] [place] [address] [email or web address] Historical LMR Provider 07/22/17 10/12/21 documented as of this encounter Additional Source Comments The information contained in this document represents components of the legal health record. It is not the complete legal health record.[facility]
--- OUTSIDE RECORDS SUMMARY | 2025-02-14 06:18 | XMS_ITS | Clinical Summary ---
Author Organization [facility] Address [address] [facility] [address] [place] [address] Phone Care Team Providers Care Actionscript Developer Name Role Phone Elsi Chase NP Unavailable [phone] Shavon Wells MD Primary Care Provider Allergies Active Allergy Reactions Criticality Noted Date Comments Etanercept Rash Low 04/12/2023 Medications traMADol (ULTRAM) 50 mg tablet 4 pills [...] FE 1 mg-10 mcg (24)/10 mcg (2) TabIndications: Abnormal uterine bleeding (AUB) take 1 tablet by mouth every day 84 tablet 3 06/24/2024 Active Active Problems Problem Noted Date Diagnosed Date Migraine Hyperlipidemia Hypothyroidism Overview (09/10/2018): acquired Fibromyalgia Chronic fatigue syndrome Ankylosing spondylitis Anxiety disorder Immunizations Immunization Administration Dates Next Due COVID-19 (Pre-07/27) Moderna [...] 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 Eliud Jones MD IM MG EXAMS Final Result * Pap Smear (10/18/2019 12:00 AM EST) 10/18/2019 10/19/2019 8:4 2 AM EST Narrative SEE NARRATIVE - 11/01/2019 9:13 [place] [address] ?? LABOR ARBITRATOR HEARING OFFICE Cytology Report Patient Name: ??ALIS ALONZO : ??1980 (Age: 39) Sex: ??F Institution: [facility] Date of Collection: ??10/18/2019 Date of Reported: ??11/01/2019 09:13 Results to: Eliud Jones MD FINAL DIAGNOSIS A. ??CERVICAL, LIQUID BASED SPECIMEN: SPECIMEN ADEQUACY: Satisfactory for evaluation. INTERPRETATION: NEGATIVE FOR INTRAEPITHELIAL LESION OR MALIGNANCY. ADDITIONAL INFORMATION: This specimen was prescreened using the [employer] System. ? Electronically Signed Out By: ??MORRIS Thomson (ASCP) MB Cervical cytology is a screening test primarily [...] 56, 58, 59, 66, 68) by Celestina Adan Onclarity HR-HPV analysis. Clinical correlation is advised. This HPV test was performed at [facility], [address] [place] [address]. This test has been FDA approved for [facility] cervical cytology specimens. The accuracy and precision of this test for all other specimen sources has been verified in the Cytopathology Laboratory of the [facility] and has not been cleared or approved by the U.S. Food and Drug Administration. Clinical correlation is advised. ? CLINICAL HISTORY Date of Last Menstrual Period: Menstrual History: Unknown Contraceptive History: BCPs Other Clinical Conditions: Screening Pap SPECIMEN SOURCE A: CERVICAL, LIQUID BASED SPECIMEN Eliud Jones MD CYTOLOGY ORDERABLES Final Result SEE NARRATIVE from Last 3 Months or Most Recently Relevant to Health Maintenance Insurance [address] [place], [place] [address] [place] [address] HMO [facility] H[facility] [place] [address] [place] [address] [address] [address] [place] [address] HMO [facility] Care Teams Actionscript Developer Relationship Specialty Start Date End Date Shavon Wells MD [facility] [place] [address] PCP - General Internal Medicine 11/07/22 Elsi Chase NP [address] [place] [address] Historical LMR Provider 07/22/17 Additional Source Comments The information contained in this document represents components of the legal health record. It is not the complete legal health record.[facility]
--- OUTSIDE RECORDS SUMMARY | 2025-02-14 06:18 | XMS_ITS | Encounter Summary ---
Author Organization [facility] Address [address] [facility] [address] [place] [address] Phone Care Team Providers Care Nurse Consultant Name Role Phone Elsi Chase REGISTERED MEDICAL ASSISTANT Unavailable [phone] Kelby Palacio DO Unavailable [phone] Norbert Rubin MD Unavailable [phone] Paulette Chan NP Primary Care Provider Shavon Wells MD Primary Care Provider Encounter Details Date Type Department Care Team (Late st Contact Info) Description 09/04/2020 Procedure Pass [facility] - [address] [place] [address] Social History Tobacco Use Types Packs/Day Years [...] 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 file Not on file N ot on file documented as of this encounter Plan of Treatment Not on file documented as of this encounter Visit Diagnoses Not on filedocumented in this encounter Care Teams Nurse Consultant Relationship Specialty Start Date End Date Paulette Chan NP [address] [place] [address] [place] [address] [email or web address] PCP - General Family Medicine 10/24/19 11/06/22 Shavon Wells MD [address] [place] [address] [place] [address] PCP - General Internal Medicine 11/07/22 Elsi Chase NP [address] [place] [address] 340 [place] [address] Historical LMR Provider 07/22/17 Kelby Palacio DO [address] [place] [address] Historical LMR Provider 07/22/17 Norbert Rubin MD [facility] [address] [place] [address] [email or web address] Historical LMR Provider 07/22/17 10/12/21 documented as of this encounter Additional Source Comments The information contained in this document represents components of the legal health record. It is not the complete legal health record.[facility]
--- OUTSIDE RECORDS SUMMARY | 2025-02-14 06:18 | XMS_ITS | Encounter Summary ---
Author Organization [facility] Address [address] [place] [address] Phone Care Team Providers Care Vehicle Detailer Name Role Phone Elsi Chase SCIENTIFIC TECHNICAL WRITER Unavailable [phone] Paulette Chan NP Primary Care Provider Shavon Wells MD Primary Care Provider Encounter Details Date Type Department Care Team (Late st Contact Info) Description 10/10/2022 Procedure Pass [facility], [address] [address] Social History Tobacco Use Types Packs/Day Years [...] Industry Job Start Date Job End Date [employer] 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 Not on file Not on file N ot on file documented as of this encounter Plan of Treatment Not on file documented as of this encounter Visit Diagnoses Not on filedocumented in this encounter Care Teams Vehicle Detailer Relationship Specialty Start Date End Date Paulette Chan NP [address] [place] [address] [place] [address] [email or web address] PCP - General Family Medicine 10/24/19 11/06/22 Shavon Wells MD [address] [place] [address] [place] [address] PCP - General Internal Medicine 11/07/22 Elsi Chase NP [address] [place] [address] Historical LMR Provider 07/22/17 documented as of this encounter Additional Source Comments The information contained in this document represents components of the legal health record. It is not the complete legal health record.[facility]
--- OUTSIDE RECORDS SUMMARY | 2025-02-14 06:18 | XMS_ITS | Encounter Summary ---
Author Organization 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 file Not on file N ot on file documented as of this encounter Plan of Treatment Not on file documented as of this encounter Visit Diagnoses Not on filedocumented in this encounter Care Teams Photocomposing Keyboard Operator Relationship Specialty Start Date End Date Shavon Wells MD [address] [place] [address] PCP - General Internal Medicine 11/07/22 Elsi Chase NP [address] [place] [address] Historical LMR Provider 07/22/17 documented as of this encounter Additional Source Comments The information contained in this document represents components of the legal health record. It is not the complete legal health record.[facility]
--- OUTSIDE RECORDS SUMMARY | 2025-02-14 06:18 | XMS_ITS | Encounter Summary ---
Author Organization [facility] Address [address] [facility] [address] [place] [address] Phone Care Team Providers Care Porcelain Enameler Name Role Phone Elsi Chase PASSENGER RATE CLERK Unavailable [phone] Kelby Palacio DO Unavailable [phone] Norbert Rubin MD Unavailable [phone] Paulette Chan NP Primary Care Provider Shavon Wells MD Primary Care Provider Encounter Details Date Type Department Care Team (Late st Contact Info) Description 03/06/2021 Ancillary Orders [facility] [address] [place] [address] Eliud Jones MD [address] [facility], [address] [place] [address] Abnormal mammogram Social History Tobacco Use Types [...] 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 Eliud Jones MD IMG US BREAST Final Result * BI MAMMOGRAM DIAGNOSTIC NO TOMOSYNTHESIS WITH [...] Screening Eliud Jones MD IMG MG EXAMS Final Result documented in this encounter Visit Diagnoses Diagnosis Abnormal mammogram Abnormal mammogram, unspecified Abnormal mammogram Abnormal mammogram, unspecified Abnormal mammogram Abnormal mammogram, unspecified documented in this encounter Care Teams Porcelain Enameler Relationship Specialty Start Date End Date Paulette Chan NP [address] [place] [address] [place] [address] [email or web address] PCP - General Family Medicine 10/24/19 11/06/22 Shavon Wells MD [address] [place] [address] [place] [address] PCP - General Internal Medicine 11/07/22 Elsi Chase NP [address] [place] [address] [address] [place] [address] Historical LMR Provider 07/22/17 Kelby Palacio DO [facility] [place] [address] Historical LMR Provider 07/22/17 Norbert Rubin MD [facility] [address] [place] [address] [email or web address] Historical LMR Provider 07/22/17 10/12/21 documented as of this encounter Additional Source Comments The information contained in this document represents components of the legal health record. It is not the complete legal health record.[facility]
--- OUTSIDE RECORDS SUMMARY | 2025-02-14 06:18 | XMS_ITS | Encounter Summary ---
Author Organization [facility] Address [address] [facility] [address] [place] [address] Phone Care Team Providers Care Summer Camp Counselor Name Role Phone Elsi Chase AIR CONDITIONING EQUIPMENT MECHANIC Unavailable [phone] Kelby Palacio DO Unavailable [phone] Norbert Rubin MD Unavailable [phone] Paulette Chan NP Primary Care Provider Shavon Wells MD Primary Care Provider Encounter Details Date Type Department Care Team (Late st Contact Info) Description 09/04/2020 Ancillary Orders [facility] [address] [place] [address] Eliud Jones MD [address] [facility], [address] [place] [address] Breast screening Social History Tobacco Use Types [...] 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 Best possible images according to the supervisor microbiology technologists. COMPARISON: Comparison made to October 24, 2019 [...] were obtained. Best possible images accordingto the supervisor microbiology technologists. COMPARISON: Comparison made to October 24, 2019 [...] unspecified documented in this encounter Care Teams Summer Camp Counselor Relationship Specialty Start Date End Date Paulette Chan NP [address] [place] [address] [place] [address] [email or web address] PCP - General Family Medicine 10/24/19 11/06/22 Shavon Wells MD [address] [place] [address] [place] [address] PCP - General Internal Medicine 11/07/22 Elsi Chase NP [address] [place] [address] [address] [place] [address] Historical LMR Provider 07/22/17 Kelby Palacio DO [address] [place] [address] Historical LMR Provider 07/22/17 Norbert Rubin MD [facility] [address] [place] [address] [email or web address] Historical LMR Provider 07/22/17 10/12/21 documented as of this encounter Additional Source Comments The information contained in this document represents components of the legal health record. It is not the complete legal health record.[facility]
== END 2025-02-14 06:16 | disposition home or self-care (01) ==
LOC: CF 06:15
PROVIDERS: Visit Provider Anesthesiology
DX: M47.816 Spondylosis without myelopathy or radiculopathy, lumbar region (principal)
CPT/HCPCS: 64555; C1778; J2003

== ENCOUNTER 2025-02-14 08:18 | Outpatient (AMB) | payer OTHER, SELFPAY ==
--- NOTE | 2025-02-14 08:22 | MHC.OFFVIS ---
Vital Signs 02/14/25 08:29 02/14/25 09:03 BP 142/80 H 150/90 H Blood Pressure Location Lt brachial Lt brachial Position Sitting Sitting Respiration 16 16 Pulse 87 98 Pulse Source Pulse Oximeter Pulse Oximeter Pulse Oximetry (%) 98 98 Oxygen Delivery Method Room Air Room Air Intake Visit Reasons: LEFT L5 (POSS L4, POSS S1) SPRINT PNS TRIAL Victim Advocate Required: No Allergies etanercept [Enbrel] Adverse Reaction (Intermediate, Verified 02/14/25 08:29) rash/flu like Sx Medication List - Last Reconciled 02/14/25 by Lisset Meraz LPN amitriptyline 10 mg PO BEDTIME atorvastatin 10 mg PO DAILY docusate sodium 100 mg PO BID escitalopram oxalate 10 mg PO QAM levothyroxine 100 mcg PO DAILY norethindrone-e.estradiol-iron 1 mg-10 mcg (24)/10 mcg (2) (Lo Loestrin Fe) 1 tab PO DAILY omeprazole 20 mg PO DAILY tramadol 50 mg PO BID PRN PFSH Medical History History of COVID-19 PONV (postoperative nausea and vomiting) Nausea and vomiting Heartburn Mixed anxiety and depressive disorder Family history of breast cancer COVID-19 vaccine series completed Spondylosis of lumbar region without myelopathy or radiculopathy Multinodular non-toxic goiter Calcific tendinitis of left shoulder Obesity (BMI 30.0-34.9) Fibromyalgia Hypothyroidism (acquired) Mixed hyperlipidemia Ankylosing spondylitis Thyroid nodule Surgical History History of laparoscopic cholecystectomy (12/29/22) History of section H/O arthroscopy of right knee Family History Mother Hypothyroidism Maternal Grandmother Hypothyroidism Breast cancer Paternal Grandmother CVD (cardiovascular disease) Maternal Uncle Ulcerative colitis Brother No problems noted. Sister No problems noted. Son No problems noted. Son No problems noted. 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 Percutaneous implantation of peripheral nerve stimulation Sprint system. After the risks, benefits and alternatives were discussed with the patient and informed consent was obtained, patient was placed in the prone position and padded to foster comfort. Time out was performed delineating correct site and side of the procedure , name and of the patient, patient participated in time out procedure. Sterily draped C-arm was brought over the operating field and clear picture of the L5 lamina on the left was delineated on the screen. The upper central portion of the lamina was chosen as a target of the needle tip insertion . After identifying and marking the intended target, the skin around the planned entry point and the subcutaneous tissues were injected with local anesthetic forming skin wheal.. A percutaneous sleeve and stimulating probe lead introduction system were assembled, inserted and advanced through the skin wheal to the point of interest under C-arm view in tunnel vision fashion, the introducer needle was delivered to a location in proximity to the nerve. Multiple stimulation parameters were used to deliver stimulation to the nerve in concert with stimulating at multiple positions around the nerve. nerve target acquisition was confirmed noting generation of in the corresponding to the nerve being stimulated. Various electrical parameter combinations were tested, and the lead location was adjusted (physically relocated) until the patient indicated overlapping the distribution of the patient?s typical region of pain. The stimulating probe was removed from the introducer and a percutaneous lead was guided through the needle and delivered to a location in similar proximity to the nerve. Final location was verified with electrical stimulation. The introducer needle was removed, and the exposed end of the percutaneous lead was attached to an external stimulator unit. At the end of the case various electrical parameter combinations were again tested until the patient indicated paresthesia or muscle tension overlapping the distribution of the patient?s typical region of pain. After confirming that lead impedance was in the normal range, the external unit was detached, the needle was removed, and the lead was anchored at the skin. The lead was threaded into the connector block and electrical continuity and desired patient response was confirmed. The connector block was attached to the external stimulator unit. The site was covered with a sterile occlusive dressing and a image was taken to document final placement. Orders: Orders AMB Sprint PNS Today M47.816 - Spondylosis without myelopathy or radiculopathy, lumbar region FL guidance in treatment room Today M47.816 - Spondylosis without myelopathy or radiculopathy, lumbar region Medications: New lidocaine HCl 5 mL subcut ONCE 5 mL 0RF M47.816 - Spondylosis without myelopathy or radiculopathy, lumbar region Coding Level of Care Code Procedure Only Diagnoses Spondylosis of lumbar region without myelopathy or radiculopathy M47.816 Implantable Device Implantable Device Implantable Devices Qty Associate Professor Of Education Implant Date Expiration Date Analgesic PENS system 1 [employer] 01/31/25 04/25/26 Analgesic PENS system 1 [employer] 02/14/25
--- OUTSIDE RECORDS SUMMARY | 2025-02-14 08:27 | XMS_ITS | Encounter Summary ---
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 [place] 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 Not on file Not on file N ot on file documented as of this encounter Plan of Treatment Not on file documented as of this encounter Visit Diagnoses Not on filedocumented in this encounter Care Teams Finance Controller Relationship Specialty Start Date End Date Paulette Chan NP [address] [place] [address] [place] [address] [email or web address] PCP - General Family Medicine 10/24/19 11/06/22 Shavon Wells MD [address] [place] [address] [place] [address] PCP - General Internal Medicine 11/07/22 Elsi Chase NP [address] [place] [address] Historical LMR Provider 07/22/17 documented as of this encounter Additional Source Comments The information contained in this document represents components of the legal health record. It is not the complete legal health record.[facility]
--- OUTSIDE RECORDS SUMMARY | 2025-02-14 08:27 | XMS_ITS | Encounter Summary ---
Author Organization [facility] Address [address] [place] [address] Phone Care Team Providers Care Aviation Neuropsychologist Name Role Phone Elsi Chase NP Unavailable [phone] Shavon Wells MD Primary Care Provider Encounter Details Date Type Department Care Team ([facility] Contact Info) Description 08/03/2024 Procedure Pass [address] [place] [address] Social History Tobacco Use Types Packs/Day Years [...] Industry Job Start Date Job End Date [place] 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 Not on file Not on file N ot on file documented as of this encounter Plan of Treatment Not on file documented as of this encounter Visit Diagnoses Not on filedocumented in this encounter Care Teams Aviation Neuropsychologist Relationship Specialty Start Date End Date Shavon Wells MD [address] [facility] [place] [address] PCP - General Internal Medicine 11/07/22 Elsi Chase NP [address] [place] [address] Historical LMR Provider 07/22/17 documented as of this encounter Additional Source Comments The information contained in this document represents components of the legal health record. It is not the complete legal health record.[facility]
--- OUTSIDE RECORDS SUMMARY | 2025-02-14 08:27 | XMS_ITS | Encounter Summary ---
Author Organization [facility] Address [address] [facility] [address] [place] [address] Phone Care Team Providers Care Night Warehouse Manager Name Role Phone Elsi Chase BAKER HEAD Unavailable [phone] Kelby Palacio DO Unavailable [phone] Norbert Rubin MD Unavailable [phone] Paulette Chan NP Primary Care Provider Shavon Wells MD Primary Care Provider Encounter Details Date Type Department Care Team (Late st Contact Info) Description 03/06/2021 Procedure Pass [facility] [address] [place] [address] Social History Tobacco Use Types Packs/Day Years [...] 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 Not on file N ot on file documented as of this encounter Plan of Treatment Not on file documented as of this encounter Visit Diagnoses Not on filedocumented in this encounter Care Teams Night Warehouse Manager Relationship Specialty Start Date End Date Paulette Chan NP [address] [place] [address] [place] [address] [email or web address] PCP - General Family Medicine 10/24/19 11/06/22 Shavon Wells MD [address] [place] [address] [place] [address] PCP - General Internal Medicine 11/07/22 Elsi Chase NP [address] [place] [address] [address] [place] [address] Historical LMR Provider 07/22/17 Kelby Palacio DO [address] [place] [address] Historical LMR Provider 07/22/17 Norbert Rubin MD [facility] [address] [place] [address] [email or web address] Historical LMR Provider 07/22/17 10/12/21 documented as of this encounter Additional Source Comments The information contained in this document represents components of the legal health record. It is not the complete legal health record.[facility]
--- OUTSIDE RECORDS SUMMARY | 2025-02-14 08:27 | XMS_ITS | Encounter Summary ---
Author Organization [facility] Address [address] [place] [address] Phone Care Team Providers Care Accordion Tuner Name Role Phone Elsi Chase NP Unavailable [phone] Shavon Wells MD Primary Care Provider Encounter Details Date Type Department Care Team (Late st Contact Info) Description 07/02/2023 Procedure Pass [facility], [facility] [address] [place] [address] Social History Tobacco Use Types Packs/Day Years [...] Industry Job Start Date Job End Date [place] 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 Not on file Not on file N ot on file documented as of this encounter Plan of Treatment Not on file documented as of this encounter Visit Diagnoses Not on filedocumented in this encounter Care Teams Accordion Tuner Relationship Specialty Start Date End Date Shavon Wells MD [address] [facility] [place] [address] PCP - General Internal Medicine 11/07/22 Elsi Chase NP [address] [place] [address] Historical LMR Provider 07/22/17 documented as of this encounter Additional Source Comments The information contained in this document represents components of the legal health record. It is not the complete legal health record.[facility]
--- OUTSIDE RECORDS SUMMARY | 2025-02-14 08:27 | XMS_ITS | Encounter Summary ---
Author Organization [facility] Address [address] [facility] [address] [place] [address] Phone Care Team Providers Care Sheep Boner Name Role Phone Elsi Chase SALES PLANNING COORDINATOR Unavailable [phone] Kelby Palacio DO Unavailable [phone] Norbert Rubin MD Unavailable [phone] Paulette Chan NP Primary Care Provider Shavon Wells MD Primary Care Provider Encounter Details Date Type Department Care Team (Late st Contact Info) Description 03/06/2021 Ancillary Orders [facility] [address] [place] [address] Eliud Jones MD [address] [facility], [address] [place] [address] Abnormal mammogram Social History Tobacco Use Types [...] 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 Not on file [...] unspecified documented in this encounter Care Teams Sheep Boner Relationship Specialty Start Date End Date Paulette Chan NP [address] [place] [address] [place] [address] [email or web address] PCP - General Family Medicine 10/24/19 11/06/22 Shavon Wells MD [address] [place] [address] [place] [id number] PCP - General Internal Medicine 11/07/22 Elsi Chase NP [address] [place] [address] [address] [place] [address] Historical LMR Provider 07/22/17 Kelby Palacio DO [facility] [place] [address] Historical LMR Provider 07/22/17 Norbert Rubin MD [facility] [address] [place] [address] [email or web address] Historical LMR Provider 07/22/17 10/12/21 documented as of this encounter Additional Source Comments The information contained in this document represents components of the legal health record. It is not the complete legal health record.[facility]
--- OUTSIDE RECORDS SUMMARY | 2025-02-14 08:27 | XMS_ITS | Encounter Summary ---
Author Organization [facility] Address [address] [facility] [address] [place] [address] Phone Care Team Providers Care Functional Support Analyst Name Role Phone Elsi Chase GIFTED TEACHER Unavailable [phone] Kelby Palacio DO Unavailable [phone] Norbert Rubin MD Unavailable [phone] Paulette Chan NP Primary Care Provider Shavon Wells MD Primary Care Provider Encounter Details Date Type Department Care Team (Late st Contact Info) Description 09/04/2020 Ancillary Orders [facility] [address] [place] [address] Eliud Jones MD [address] [facility], [address] [place] [address] Breast screening Social History Tobacco Use Types [...] 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 Best possible images according to the cytogenetics technologist. COMPARISON: Comparison made to October 24, [...] were obtained. Best possible images accordingto the cytogenetics technologist. COMPARISON: Comparison made to October 24, [...] unspecified documented in this encounter Care Teams Functional Support Analyst Relationship Specialty Start Date End Date Paulette Chan NP [address] [place] [address] [place] [address] [email or web address] PCP - General Family Medicine 10/24/19 11/06/22 Shavon Wells MD [address] [place] [address] [place] [address] PCP - General Internal Medicine 11/07/22 Elsi Chase NP [address] [place] [address] 340 [place] [address] Historical LMR Provider 07/22/17 Kelby Palacio DO [address] [place] [address] Historical LMR Provider 07/22/17 Norbert Rubin MD [facility] [address] [place] [address] [email or web address] Historical LMR Provider 07/22/17 10/12/21 documented as of this encounter Additional Source Comments The information contained in this document represents components of the legal health record. It is not the complete legal health record.[facility]
--- OUTSIDE RECORDS SUMMARY | 2025-02-14 08:27 | XMS_ITS | Encounter Summary ---
Author Organization Formerly [facility] Address [address] [facility] [address] [place] [address] Phone Care Team Providers Care Senior Mechanical Project Engineer Name Role Phone Elsi Chase BAG HANGER Unavailable [phone] Kelby Palacio DO Unavailable [phone] Norbert Rubin MD Unavailable [phone] Paulette Chan NP Primary Care Provider Shavon Wells MD Primary Care Provider Encounter Details Date Type Department Care Team (Late st Contact Info) Description 09/04/2020 Procedure Pass [facility] - [address] [place] [address] Social History Tobacco Use Types Packs/Day Years [...] 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 Not on file N ot on file documented as of this encounter Plan of Treatment Not on file documented as of this encounter Visit Diagnoses Not on filedocumented in this encounter Care Teams Senior Mechanical Project Engineer Relationship Specialty Start Date End Date Paulette Chan NP [address] [place] [address] [place] [address] [email or web address] PCP - General Family Medicine 10/24/19 11/06/22 Shavon Wells MD [address] [place] [address] [place] [address] PCP - General Internal Medicine 11/07/22 Elsi Chase NP [address] [place] [address] [address] [place] [address] Historical LMR Provider 07/22/17 Kelby Palacio DO [address] [place] [address] Historical LMR Provider 07/22/17 Norbert Rubin MD [facility] [address] [place] [address] [email or web address] Historical LMR Provider 07/22/17 10/12/21 documented as of this encounter Additional Source Comments The information contained in this document represents components of the legal health record. It is not the complete legal health record.[facility]
--- OUTSIDE RECORDS SUMMARY | 2025-02-14 08:27 | XMS_ITS | Encounter Summary ---
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 Not on file N ot on file documented as of this encounter Plan of Treatment Not on file documented as of this encounter Visit Diagnoses Not on filedocumented in this encounter Care Teams Operator Bearer Systems Relationship Specialty Start Date End Date Shavon Wells MD [address] [facility] [address] PCP - General Internal Medicine 11/07/22 Elsi Chase NP [address] [place] [address] Historical LMR Provider 07/22/17 documented as of this encounter Additional Source Comments The information contained in this document represents components of the legal health record. It is not the complete legal health record.[facility]
--- OUTSIDE RECORDS SUMMARY | 2025-02-14 08:27 | XMS_ITS | Encounter Summary ---
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 Not on file N ot on file documented as of this encounter Plan of Treatment Not on file documented as of this encounter Visit Diagnoses Not on filedocumented in this encounter Care Teams Water Treatment Plant Operator Relationship Specialty Start Date End Date Paulette Chan NP [address] [place] [address] [place] [address] [email or web address] PCP - General Family Medicine 10/24/19 11/06/22 Shavon Wells MD [address] [place] [address] [place] [address] PCP - General Internal Medicine 11/07/22 Elsi Chase NP [address] [place] [address] Historical LMR Provider 07/22/17 documented as of this encounter Additional Source Comments The information contained in this document represents components of the legal health record. It is not the complete legal health record.[facility]
--- OUTSIDE RECORDS SUMMARY | 2025-02-14 08:28 | XMS_ITS | Encounter Summary ---
Author Organization [facility] Address [address] [place] [address] Phone Care Team Providers Care Systems Consultant Name Role Phone Elsi Chase LPN CMA Unavailable [phone] Paulette Chan NP Primary Care Provider Shavon Wells MD Primary Care Provider Encounter Details Date Type Department Care Team (Late st Contact Info) Description 10/10/2022 Procedure Pass [facility], [address] [address] Social History Tobacco Use Types Packs/Day Years [...] Industry Job Start Date Job End Date [place] 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 Not on file Not on file N ot on file documented as of this encounter Plan of Treatment Not on file documented as of this encounter Visit Diagnoses Not on filedocumented in this encounter Care Teams Systems Consultant Relationship Specialty Start Date End Date Paulette Chan NP [address] [place] [address] [place] [address] [email or web address] PCP - General Family Medicine 10/24/19 11/06/22 Shavon Wells MD [address] [place] [address] [place] [address] PCP - General Internal Medicine 11/07/22 Elsi Chase NP [address] [place] [address] Historical LMR Provider 07/22/17 documented as of this encounter Additional Source Comments The information contained in this document represents components of the legal health record. It is not the complete legal health record.[facility]
[2025-02-14 08:29] VITALS: BP 142/80; PULSE 87; RESP 16; O2SAT 98
[2025-02-14 09:03] VITALS: BP 150/90; PULSE 98; RESP 16; O2SAT 98
== END 2025-02-14 09:15 | disposition home or self-care (01) ==
LOC: HO.PMCPRC 08:18
PROVIDERS: PCP Internal Medicine; Visit Provider Anesthesiology
DX: M47.816 Spondylosis without myelopathy or radiculopathy, lumbar region (principal)
CPT/HCPCS: 64555

== ENCOUNTER 2025-02-22 09:53 | Outpatient (AMB) | payer OTHER, SELFPAY ==
[2025-02-22 10:07] VITALS: BP 198/98; PULSE 120; RESP 16; O2SAT 97; BMI 30.1
--- NOTE | 2025-02-22 10:07 | MHC.OFFVIS ---
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: No Allergies etanercept [Enbrel] Adverse Reaction (Intermediate, Verified 02/22/25 10:09) rash/flu like Sx Medication List - Last Reconciled 02/22/25 by Lisset Meraz LPN amitriptyline 10 mg PO BEDTIME atorvastatin 10 mg PO DAILY docusate sodium 100 mg PO BID escitalopram oxalate 10 mg PO QAM levothyroxine 100 mcg PO DAILY norethindrone-e.estradiol-iron 1 mg-10 mcg (24)/10 mcg (2) (Lo Loestrin Fe) 1 tab PO DAILY omeprazole 20 mg PO DAILY tramadol 50 mg PO BID PRN HPI Comments Details: The patient is a 44-year-old female presenting to the office for follow-up, one-week status post left L5 sprint PNS placement. She now has bilateral L5 sprint devices. She describes experiencing significantly elevated blood pressure in relation to stress associated with a divorce proceeding. Her chronic pain management involved procedures on the left and right lower back, yielding 90% relief. Although she lacks stimulation perception after the procedures, increased stimulation levels cause pain, suggesting signal transmission remains intact. Past pain relief treatments included an ablation lasting over two years ago. Anxiety related to her personal circumstances significantly influences her current physiological state. - Onset: Chronic pain management procedures conducted over the past three weeks. - Quality and Character: Initially pain-free during procedures; pain re-occurs with increased stimulation. - Primary Location: Bilateral lower extremities. - 90% relief experienced on both sides following procedures. - Exacerbated by high stimulation levels. - Relieved 90% post-procedure. - No interference reported in daily activities. - Affect: Stress and anxiety due to divorce impact psychological well-being. - Analgesia: 90% pain relief achieved bilaterally; procedures on lower extremities. - Adverse Effects: None reported from pain management procedures. - Activities of Daily Living: Minimal interference noted; reports ability to walk without issues. - Aberrant Drug-Related Behaviors: None indicated. [facility] Medical History History of COVID-19 PONV (postoperative nausea and vomiting) Nausea and vomiting Heartburn Mixed anxiety and depressive disorder Family history of breast cancer COVID-19 vaccine series completed Spondylosis of lumbar region without myelopathy or radiculopathy Multinodular non-toxic goiter Calcific tendinitis of left shoulder Obesity (BMI 30.0-34.9) Fibromyalgia Hypothyroidism (acquired) Mixed hyperlipidemia Ankylosing spondylitis Thyroid nodule Surgical History History of laparoscopic cholecystectomy (12/29/22) History of section H/O arthroscopy of right knee Family History Mother Hypothyroidism Maternal Grandmother Hypothyroidism Breast cancer Paternal Grandmother CVD (cardiovascular disease) Maternal Uncle Ulcerative colitis Brother No problems noted. Sister No problems noted. Son No problems noted. Son No problems noted. 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 - Musculoskeletal: Reports 90% pain relief in back - Dermatologic: Reports winter skin irritation. - Neurological: Denies issues outside described pain management and perception. - Mental Health: Reports anxiety secondary to divorce. Physical Exam Vital Signs: Last Vital Signs Pulse 97 02/22/25 10:24 Resp 16 02/22/25 10:07 BP 170/90 H 02/22/25 10:24 Pulse Ox 97 02/22/25 10:07 Oxygen Delivery Method Room Air 02/22/25 10:07 BMI result Body Mass Index 30.1 General: awake, alert, oriented. Answers questions appropriately. Fully engaged in examination. Skin: warm, dry, intact HEENT: Normocephalic. Hearing intact. Cardiac: External chest normal in appearance. Respiratory: No cough, audible wheezing or stridor. Abdomen: without gross distension. MS: No obvious swelling or deformities. Able to transition from sit to stand unassisted. Ambulates with bilaterally normal heel strike and toe off Neurological: Oriented to person, place, time and situation. Thought process intact. No gait abnormalities appreciated. Psychiatric: Appropriate mood and affect. Good judgment and insight. Bilateral lumbar Sprint dressing change: Existing dressing removed, Area cleansed with chloraprep. Site dry, clean without redness, swelling, warmth, bruising or drainage. Lead secure devices removed. Area cleansed again with chloraprep, once dry skin barrier protectant wipe applied. New lead secure devices applied, tegaderm applied. Patient tolerated procedure well. Assessment & Plan Assessment & Plan (1) Spondylosis of lumbar region without myelopathy or radiculopathy: Code(s): M47.816 - Spondylosis without myelopathy or radiculopathy, lumbar region Category: Medical (2) Ankylosing spondylitis: Code(s): M45.9 - Ankylosing spondylitis of unspecified sites in spine Category: Medical (3) Chronic pain syndrome: Code(s): G89.4 - Chronic pain syndrome Category: Medical Plan The patient's chronic pain has been effectively managed via recent bilateral lumbar sprint procedures achieving 90% relief, and ongoing evaluation is planned. Addressing essential hypertension, particularly influenced by personal stressors, involves stress management techniques such as meditation. Continual blood pressure monitoring, with lifestyle adaptations for anxiety, is suggested. The patient will persist with topical skin treatment for winter-related irritation. No adverse pain medication behaviors noted, and patient agreement on planned strategies confirmed. During the visit, we discussed the effectiveness of recent bilateral lumbar sprint procedures which achieved substantial pain relief. The patient understands the relationship between anxiety from personal stressors and elevated blood pressure, with stress management strategies discussed as primary interventions. No further medication alterations were deemed necessary at this time. The patient agreed to continue current management strategies, including topical applications for skin conditions. Follow-up would focus on maintaining current control measures and addressing adjustments as necessary. Patient was informed and verbally consented to the use of an ambient scribe for clinic note documentation during this visit. Patient Instructions: - Monitor blood pressure regularly. - Practice meditation or stress reduction techniques daily. - Continue using skin preparations to manage winter irritation. - Report any changes in pain level or skin condition. - Follow up as instructed. Coding Level of Care Code Est Pt Level 3 (26512) Complex EM visit Add On G2211 Diagnoses Spondylosis of lumbar region without myelopathy or radiculopathy M47.816 Ankylosing spondylitis M45.9 Chronic pain syndrome G89.4
[2025-02-22 10:24] VITALS: BP 170/90; PULSE 97
--- OUTSIDE RECORDS SUMMARY | 2025-02-22 11:16 | XMS_ITS | Encounter Summary ---
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 Not on file Not on file N ot on file documented as of this encounter Plan of Treatment Not on file documented as of this encounter Visit Diagnoses Not on filedocumented in this encounter Care Teams Peanut Salter Relationship Specialty Start Date End Date Shavon Wells MD 1962 [facility] [place] [address] PCP - General Internal Medicine 11/07/22 Elsi Chase NP [address] [place] [address] Historical LMR Provider 07/22/17 documented as of this encounter Additional Source Comments The information contained in this document represents components of the legal health record. It is not the complete legal health record.[facility]
--- OUTSIDE RECORDS SUMMARY | 2025-02-22 11:16 | XMS_ITS | Clinical Summary ---
Author Organization [facility] Address [address] [facility] [address] [place] [address] Phone Care Team Providers Care Pcts Name Role Phone Elsi Chase NP Unavailable [phone] Shavon Wells MD Primary Care Provider Allergies [...] Industry Job Start Date Job End Date [facility] 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 Not on file Not on [...] SEE NARRATIVE - 11/01/2019 9:13 [place] [address] ?? CHEMICAL PLANT TECHNICAL DIRECTOR Cytology Report Patient Name: ??ALIS ALONZO : ??1980 (Age: 39) Sex: ??F Institution: ??[facility] Date of Collection: ??10/18/2019 Date of Reported: ??11/01/2019 09:13 Results to: Eliud Jones MD FINAL DIAGNOSIS A. ??CERVICAL, LIQUID BASED SPECIMEN: SPECIMEN ADEQUACY: Satisfactory for evaluation. INTERPRETATION: NEGATIVE FOR INTRAEPITHELIAL LESION OR MALIGNANCY. ADDITIONAL INFORMATION: This specimen was prescreened using the [employer] System. ? Electronically Signed Out By: [...] 56, 58, 59, 66, 68) by Celestina Ticketbud Onclarity HR-HPV analysis. Clinical correlation is advised. This HPV test was performed at [facility], [address] [place] [address]. This test has been FDA approved for SurePath cervical cytology specimens. The accuracy and precision of this test for all other specimen sources has been verified in the Cytopathology Laboratory of the [facility] and has not been cleared or [...] Most Recently Relevant to Health Maintenance Insurance [address] [place], [place] [address] [place] [address] [facility]MO [facility] [place] [address] [place] [address] [place] [address] [place] [address] H[place] [facility] Care Teams Pcts Relationship Specialty Start Date End Date Shavon Wells MD [facility] [place] [address] PCP - General Internal Medicine 11/07/22 Elsi Chase NP [address] [place] [address] Historical LMR Provider 07/22/17 Additional Source Comments The information contained in this document represents components of the legal health record. It is not the complete legal health record.[facility]
--- OUTSIDE RECORDS SUMMARY | 2025-02-22 11:16 | XMS_ITS | Encounter Summary ---
Author Organization [facility] Address [address] [facility] [address] [place] [address] Phone Care Team Providers Care It Application Support Analyst Name Role Phone Elsi Chase SEGMENT ASSEMBLER Unavailable [phone] Kelby Palacio DO Unavailable [phone] Norbert Rubin MD Unavailable [phone] Paulette Chan NP Primary Care Provider Shavon Wells MD Primary Care Provider Encounter Details Date Type Department Care Team (Late st Contact Info) Description 03/06/2021 Procedure Pass [facility] - [address] [place] [address] Social History Tobacco Use Types Packs/Day Years [...] 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 file Not on file N ot on file documented as of this encounter Plan of Treatment Not on file documented as of this encounter Visit Diagnoses Not on filedocumented in this encounter Care Teams It Application Support Analyst Relationship Specialty Start Date End Date Paulette Chan NP [address] [place] [address] [place] [address] [email or web address] PCP - General Family Medicine 10/24/19 11/06/22 Shavon Wells MD [address] [place] [address] [place] [address] PCP - General Internal Medicine 11/07/22 Elsi Chase NP [address] [place] [address] [address] [place] [address] Historical LMR Provider 07/22/17 Kelby Palacio DO [address] [place] [address] Historical LMR Provider 07/22/17 Norbert Rubin MD [facility] [address] [place] [address] [email or web address] Historical LMR Provider 07/22/17 10/12/21 documented as of this encounter Additional Source Comments The information contained in this document represents components of the legal health record. It is not the complete legal health record.[facility]
--- OUTSIDE RECORDS SUMMARY | 2025-02-22 11:16 | XMS_ITS | Encounter Summary ---
Author Organization [facility] Address [address] [facility] [address] [place] [address] Phone Care Team Providers Care Director Of Entertainment Name Role Phone Elsi Chase WOODS RIDER Unavailable [phone] Kelby Palacio DO Unavailable [phone] Norbert Rubin MD Unavailable [phone] Paulette Chan NP Primary Care Provider Shavon Wells MD Primary Care Provider Encounter Details Date Type Department Care Team (Late st Contact Info) Description 09/04/2020 Procedure Pass [facility] - [address] [place] [address] Social History Tobacco Use Types Packs/Day Years [...] 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 Not on file Not on file N ot on file documented as of this encounter Plan of Treatment Not on file documented as of this encounter Visit Diagnoses Not on filedocumented in this encounter Care Teams Director Of Entertainment Relationship Specialty Start Date End Date Paulette Chan NP [address] [place] [address] [place] [address] [email or web address] PCP - General Family Medicine 10/24/19 11/06/22 Shavon Wells MD [address] [place] [address] [place] [address] PCP - General Internal Medicine 11/07/22 Elsi Chase NP [address] [place] [address] [address] [place] [address] Historical LMR Provider 07/22/17 Kelby Palacio DO [address] [place] [address] Historical LMR Provider 07/22/17 Norbert Rubin MD [facility] [address] [place] [address] [email or web address] Historical LMR Provider 07/22/17 10/12/21 documented as of this encounter Additional Source Comments The information contained in this document represents components of the legal health record. It is not the complete legal health record.[facility]
--- OUTSIDE RECORDS SUMMARY | 2025-02-22 11:16 | XMS_ITS | Encounter Summary ---
Author Organization [facility] Address [address] [facility] [place] [address] Phone Care Team Providers Care Inside Sales Specialist Name Role Phone Elsi Chase PLANT CHANGER Unavailable [phone] Paulette Chan NP Primary Care Provider Shavon Wells MD Primary Care Provider Encounter Details Date Type Department Care Team (Late st Contact Info) Description 10/10/2022 Procedure Pass [facility], [address] [address] Social History Tobacco Use Types Packs/Day Years [...] Industry Job Start Date Job End Date 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 Not on file Not on file N ot on file documented as of this encounter Plan of Treatment Not on file documented as of this encounter Visit Diagnoses Not on filedocumented in this encounter Care Teams Inside Sales Specialist Relationship Specialty Start Date End Date Paulette Chan NP [address] [place] [address] [place] [address] [email or web address] PCP - General Family Medicine 10/24/19 11/06/22 Shavon Wells MD [address] [place] [address] [place] [address] PCP - General Internal Medicine 11/07/22 Esli Chase NP [address] [place] [address] Historical LMR Provider 07/22/17 documented as of this encounter Additional Source Comments The information contained in this document represents components of the legal health record. It is not the complete legal health record.[facility]
--- OUTSIDE RECORDS SUMMARY | 2025-02-22 11:16 | XMS_ITS | Encounter Summary ---
Author Organization [facility] Address [address] [facility] [address] [place] [address] Phone Care Team Providers Care Clinical Trials Manager Name Role Phone Elsi Chase ENGINEERING SPECIALIST Unavailable [phone] Kelby Palacio DO Unavailable [phone] Norbert Rubin MD Unavailable [phone] Paulette Chan NP Primary Care Provider Shavon Wells MD Primary Care Provider Encounter Details Date Type Department Care Team (Late st Contact Info) Description 03/06/2021 Ancillary Orders [facility] [address] [place] [address] Eliud Jones MD [address] [facility], 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 Not on [...] unspecified documented in this encounter Care Teams Clinical Trials Manager Relationship Specialty Start Date End Date Paulette Chan NP [address] [place] [address] [place] [address] [email or web address] PCP - General Family Medicine 10/24/19 11/06/22 Shavon Wells MD [address] [place] [address] [place] [address] PCP - General Internal Medicine 11/07/22 Elsi Chase NP [address] [place] [address] [address] [place] [address] Historical LMR Provider 07/22/17 Kelby Palacio DO [facility] REHAN Guerrero [address] Historical LMR Provider 07/22/17 Norbert Rubin MD [facility] [address] [place] [address] [email or web address] Historical LMR Provider 07/22/17 10/12/21 documented as of this encounter Additional Source Comments The information contained in this document represents components of the legal health record. It is not the complete legal health record.[facility]
--- OUTSIDE RECORDS SUMMARY | 2025-02-22 11:16 | XMS_ITS | Encounter Summary ---
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 It is not the complete legal health record.[facility]
--- OUTSIDE RECORDS SUMMARY | 2025-02-22 11:16 | XMS_ITS | Encounter Summary ---
Author Organization [facility] Address [address] [facility] [address] [place] [address] Phone Care Team Providers Care Pyrometer Operator Name Role Phone Elsi Chase INTERIOR PAINTER Unavailable Kelby Palacio DO Unavailable [phone] Norbert Rubin MD Unavailable [phone] Paulette Chan NP Primary Care Provider Shavon Wells MD Primary Care Provider Encounter Details Date Type Department Care Team (Late st Contact Info) Description 09/04/2020 Ancillary Orders [facility] [address] [place] [address] Eliud Jones MD [address] [facility], [address] [place] [address] Breast screening Social History Tobacco Use Types [...] 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 Best possible images according to the medical technologist chief. COMPARISON: Comparison made to October 24, 2019 [...] were obtained. Best possible images accordingto the medical technologist chief. COMPARISON: Comparison made to October 24, 2019 [...] unspecified documented in this encounter Care Teams Pyrometer Operator Relationship Specialty Start Date End Date Paulette Chan NP [address] [place] [address] [place] [address] [email or web address] PCP - General Family Medicine 10/24/19 11/06/22 Shavon Wells MD [address] [place] [address] [place] [address] PCP - General Internal Medicine 11/07/22 Elsi Chase NP [address] [place] [address] [address] [place] [address] Historical LMR Provider 07/22/17 Kelby Palacio DO [address] [place] [address] Historical LMR Provider 07/22/17 Norbert Rubin MD [facility] [address] [place] [address] [email or web address] Historical LMR Provider 07/22/17 10/12/21 documented as of this encounter Additional Source Comments The information contained in this document represents components of the legal health record. It is not the complete legal health record.[facility]
--- OUTSIDE RECORDS SUMMARY | 2025-02-22 11:16 | XMS_ITS | Encounter Summary ---
Author Organization [facility] Address [address] [place] [address] Phone Care Team Providers Care Logging Tractor Operator Swamp Name Role Phone Elsi Chase NP Unavailable [phone] hSavon Wells MD Primary Care Provider Encounter Details Date Type Department Care Team ([facility] Contact Info) Description 08/03/2024 Procedure Pass [address] [place] [address] Social History Tobacco Use Types Packs/Day Years [...] Industry Job Start Date Job End Date [place] 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 Not on file Not on file N ot on file documented as of this encounter Plan of Treatment Not on file documented as of this encounter Visit Diagnoses Not on filedocumented in this encounter Care Teams Logging Tractor Operator Swamp Relationship Specialty Start Date End Date Shavon Wells MD [address] [facility] [place] [address] PCP - General Internal Medicine 11/07/22 Elsi Chase NP [address] [place] [address] Historical LMR Provider 07/22/17 documented as of this encounter Additional Source Comments The information contained in this document represents components of the legal health record. It is not the complete legal health record.[facility]
--- OUTSIDE RECORDS SUMMARY | 2025-02-22 11:16 | XMS_ITS | Encounter Summary ---
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 Not on file N ot on file documented as of this encounter Plan of Treatment Not on file documented as of this encounter Visit Diagnoses Not on filedocumented in this encounter Care Teams Rod Filler Relationship Specialty Start Date End Date Paulette Chan NP [address] [place] [address] [place] [address] [email or web address] PCP - General Family Medicine 10/24/19 11/06/22 Shavon Wells MD [address] [place] [address] [place] [address] PCP - General Internal Medicine 11/07/22 Elsi Chase NP [address] [place] [address] Historical LMR Provider 07/22/17 documented as of this encounter Additional Source Comments The information contained in this document represents components of the legal health record. It is not the complete legal health record.[facility]
--- OUTSIDE RECORDS SUMMARY | 2025-02-22 11:16 | XMS_ITS | Encounter Summary ---
Author Organization [facility] Address [address] [facility] [address] [place] [address] Phone Care Team Providers Care Estimator Jewelry Name Role Phone Elsi Chase INVENTORY MANAGEMENT SPECIALIST Unavailable [phone] Paulette Chan NP Primary Care Provider Shavon Wells MD Primary Care Provider Encounter Details Date Type Department Care Team (Late st Contact Info) Description 10/10/2022 Procedure Pass [facility], [address] [address] Social History Tobacco Use Types Packs/Day Years [...] Industry Job Start Date Job End Date [employer] 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 Not on file Not on file N ot on file documented as of this encounter Plan of Treatment Not on file documented as of this encounter Visit Diagnoses Not on filedocumented in this encounter Care Teams Estimator Jewelry Relationship Specialty Start Date End Date Paulette Chan NP [address] [place] [address] [place] [address] [email or web address] PCP - General Family Medicine 10/24/19 11/06/22 Shavon Wells MD [address] [place] [address] [place] [address] PCP - General Internal Medicine 11/07/22 Elsi Chase NP [address] [place] [address] Historical LMR Provider 07/22/17 documented as of this encounter Additional Source Comments The information contained in this document represents components of the legal health record. It is not the complete legal health record.[facility]
== END 2025-02-22 10:26 | disposition home or self-care (01) ==
LOC: HO.PMC 09:54
PROVIDERS: PCP Internal Medicine; Visit Provider Registered Nurse Emergency
DX: M47.816 Spondylosis without myelopathy or radiculopathy, lumbar region (principal); M45.9 Ankylosing spondylitis of unspecified sites in spine; G89.4 Chronic pain syndrome
CPT/HCPCS: 99024

== ENCOUNTER → 2025-02-22 09:53 | Outpatient (BNVA) | payer OTHER, SELFPAY | PROVIDERS: PCP Internal Medicine; Visit Provider Registered Nurse Emergency ==

== ENCOUNTER 2025-03-29 09:50 | Outpatient (AMB) | payer OTHER, SELFPAY ==
--- NOTE | 2025-03-29 09:56 | MHC.OFFVIS ---
Vital Signs 03/29/25 09:58 Weight 182 lb Blood Pressure Location Rt brachial Position Sitting Respiration 18 Pulse 106 H Pulse Source Pulse Oximeter Pulse Oximetry (%) 100 Intake Visit Reasons: RIGHT L5 SPRINT REMOVAL Intake Note: Right sprint removed from right lower lumber intact with tip included. Site looks good Light Armored Reconnaissance Officer Required: No Allergies etanercept (Enbrel) Adverse Reaction (Intermediate, Verified 03/29/25 09:56) rash/flu like Sx HPI Comments Details: Alis is back in my office for removal of the right-sided sprint PNS. She could not withstand the paresthesia on stimulation of the sprint PNS and therefore she was receiving subthreshold stimulation. Nevertheless she reported today that the device decrease her pain 75% or better. She reported better activity, better mobility, better social interaction. She stated that device allowed her to be more active. She had insertion of the device on 01/30/2025. Therefore she can not come back to us in 6 months from this date and be eligible for the repeat of the procedure her pain will come back. However fortunately her pain relief will last much longer. Next appointment she will be scheduled for removal of the left-sided device in 2 weeks, this will be nursing appointment. There were no signs of the infection on the right-sided electrode removal today. [facility] Medical History History of COVID-19 PONV (postoperative nausea and vomiting) Nausea and vomiting Heartburn Mixed anxiety and depressive disorder Family history of breast cancer COVID-19 vaccine series completed Spondylosis of lumbar region without myelopathy or radiculopathy Multinodular non-toxic goiter Calcific tendinitis of left shoulder Obesity (BMI 30.0-34.9) Fibromyalgia Hypothyroidism (acquired) Mixed hyperlipidemia Ankylosing spondylitis Thyroid nodule Surgical History History of laparoscopic cholecystectomy (12/29/22) History of section H/O arthroscopy of right knee Family History Mother Hypothyroidism Maternal Grandmother Hypothyroidism Breast cancer Paternal Grandmother CVD (cardiovascular disease) Maternal Uncle Ulcerative colitis Brother No problems noted. Sister No problems noted. Son No problems noted. Son No problems noted. 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 Answers questions appropriately. Fully engaged in examination. Skin: warm, dry, intact HEENT: Normocephalic. Hearing intact. Cardiac: External chest normal in appearance. Respiratory: No cough, audible wheezing or stridor. Abdomen: without gross distension. MS: No obvious swelling or deformities. Able to transition from sit to stand unassisted. Ambulates with bilaterally normal heel strike and toe off Neurological: Oriented to person, place, time and situation. Thought process intact. No gait abnormalities appreciated. Psychiatric: Appropriate mood and affect. Good judgment and insight. Assessment & Plan Assessment & Plan (1) Spondylosis of lumbar region without myelopathy or radiculopathy: Code(s): M47.816 - Spondylosis without myelopathy or radiculopathy, lumbar region Category: Medical (2) Ankylosing spondylitis: Code(s): M45.9 - Ankylosing spondylitis of unspecified sites in spine Category: Medical (3) Chronic pain syndrome: Code(s): G89.4 - Chronic pain syndrome Category: Medical Plan The patient's chronic pain has been effectively managed via recent bilateral lumbar sprint procedures achieving 80 to 90% relief, and ongoing evaluation is planned. She was explained about future pain management if her pain will come back. Patient expressed understanding. I will see her in the future as needed, the insertion of the device was 01/30/2025. Coding Level of Care Code Est Pt Level 3 (45557) Diagnoses Spondylosis of lumbar region without myelopathy or radiculopathy M47.816 Ankylosing spondylitis M45.9 Chronic pain syndrome G89.4
[2025-03-29 09:58] VITALS: PULSE 106; RESP 18; O2SAT 100
== END 2025-03-29 10:31 | disposition home or self-care (01) ==
LOC: HO.PMC 09:50
PROVIDERS: PCP Internal Medicine; Visit Provider Anesthesiology
DX: M47.816 Spondylosis without myelopathy or radiculopathy, lumbar region (principal); M45.9 Ankylosing spondylitis of unspecified sites in spine; G89.4 Chronic pain syndrome
CPT/HCPCS: 99213

== ENCOUNTER 2025-04-12 09:34 | Outpatient (AMB) | payer OTHER, SELFPAY ==
[2025-04-12 09:42] VITALS: BP 146/81; PULSE 90; O2SAT 98
--- NOTE | 2025-04-12 09:42 | A.OFFVIS_ITS ---
Vital Signs 04/12/25 09:42 Weight 184 lb BP 146/81 H Blood Pressure Location Lt brachial Position Sitting Pulse 90 Pulse Source Pulse Oximeter Pulse Oximetry (%) 98 Oxygen Delivery Method Room Air Intake Visit Reasons: LEFT L5 SPRINT TRIAL REMOVAL Intake Note: left sprint lead removed entirely including tip. site looks good Miller Head Required: No Allergies etanercept (Enbrel) Adverse Reaction (Intermediate, Verified 04/12/25 09:43) rash/flu like Sx HPI Comments Details: Alis is back in my office for removal of the L5 left-sided sprint PNS. She could not withstand the paresthesia on stimulation of the sprint PNS and therefore she was receiving subthreshold stimulation. Nevertheless she reported today that the device decrease her pain 75% or better. She reported better activity, better mobility, better social interaction. She stated that device allowed her to be more active. She had insertion of the device on 01/30/2025. Therefore she can come back to us in 6 months from this date and be eligible for the repeat of the procedure her pain will come back. However fortunately her pain relief will last much longer. next appointment is as needed when and if her pain will start to get stronger. [facility] Medical History History of COVID-19 PONV (postoperative nausea and vomiting) Nausea and vomiting Heartburn Mixed anxiety and depressive disorder Family history of breast cancer COVID-19 vaccine series completed Spondylosis of lumbar region without myelopathy or radiculopathy Multinodular non-toxic goiter Calcific tendinitis of left shoulder Obesity (BMI 30.0-34.9) Fibromyalgia Hypothyroidism (acquired) Mixed hyperlipidemia Ankylosing spondylitis Thyroid nodule Surgical History History of laparoscopic cholecystectomy (12/29/22) History of section H/O arthroscopy of right knee Family History Mother Hypothyroidism Maternal Grandmother Hypothyroidism Breast cancer Paternal Grandmother CVD (cardiovascular disease) Maternal Uncle Ulcerative colitis Brother No problems noted. Sister No problems noted. Son No problems noted. Son No problems noted. 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 Answers questions appropriately. Fully engaged in examination. Skin: warm, dry, intact HEENT: Normocephalic. Hearing intact. Cardiac: External chest normal in appearance. Respiratory: No cough, audible wheezing or stridor. Abdomen: without gross distension. MS: No obvious swelling or deformities. Able to transition from sit to stand unassisted. Ambulates with bilaterally normal heel strike and toe off Neurological: Oriented to person, place, time and situation. Thought process intact. No gait abnormalities appreciated. Psychiatric: Appropriate mood and affect. Good judgment and insight. Assessment & Plan Assessment & Plan (1) Spondylosis of lumbar region without myelopathy or radiculopathy: Code(s): M47.816 - Spondylosis without myelopathy or radiculopathy, lumbar region Category: Medical (2) Ankylosing spondylitis: Code(s): M45.9 - Ankylosing spondylitis of unspecified sites in spine Category: Medical (3) Chronic pain syndrome: Code(s): G89.4 - Chronic pain syndrome Category: Medical Plan The patient's chronic pain has been effectively managed via recent bilateral lumbar sprint procedures achieving 80 to 90% relief, and ongoing evaluation is planned. She was explained about future pain management if her pain will come back. Patient expressed understanding. I will see her in the future as needed, the insertion of the device was 01/30/2025. Coding Level of Care Code Est Pt Level 3 (11460) Diagnoses Spondylosis of lumbar region without myelopathy or radiculopathy M47.816 Ankylosing spondylitis M45.9 Chronic pain syndrome G89.4
== END 2025-04-12 10:15 | disposition home or self-care (01) ==
LOC: HO.PMC 09:35
PROVIDERS: PCP Internal Medicine; Visit Provider Anesthesiology
DX: M47.816 Spondylosis without myelopathy or radiculopathy, lumbar region (principal); M45.9 Ankylosing spondylitis of unspecified sites in spine; G89.4 Chronic pain syndrome
CPT/HCPCS: 99213

== ENCOUNTER 2025-04-13 15:30 | Outpatient (AMB) | payer OTHER, SELFPAY ==
[2025-04-13 15:35] VITALS: BP 140/70; PULSE 88; O2SAT 98; BMI 30.9
--- NOTE | 2025-04-13 15:35 | A.OFFVIS_ITS ---
Vital Signs 04/13/25 15:35 Height 5 ft 5 in Weight 185 lb 13.595 oz BMI 30.9 BP 140/70 H Blood Pressure Location Lt brachial Position Sitting Pulse 88 Pulse Source Pulse Oximeter Pulse Oximetry (%) 98 Oxygen Delivery Method Room Air Intake Visit Reasons: FMS Intake Note: Patient presents for follow up on FMS. Allergies etanercept (Enbrel) Adverse Reaction (Intermediate, Verified 04/13/25 15:39) rash/flu like Sx Medication List - Last Reconciled 04/13/25 by Gin Salazar MD atorvastatin 10 mg PO DAILY docusate sodium 100 mg PO BID escitalopram oxalate 10 mg PO QAM levothyroxine 100 mcg PO DAILY norethindrone-e.estradiol-iron 1 mg-10 mcg (24)/10 mcg (2) (Lo Loestrin Fe) 1 tab PO DAILY omeprazole 20 mg PO DAILY tramadol 50 mg PO BID 30 days HPI Comments Details: Patient is a 44-year-old female with anxiety/depression, hyperlipidemia, hypothyroidism, GERD, degenerative disease of the spine and fibromyalgia here today for follow up Interval History: Patient last seen 09/12/[address] 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 Had morning s tiffness in her lumbar spine that lasted up to 45 minutes and also had pain in her low back that woke her up in the 2nd half of the night.? Positive HLA B27.? Her lumbar spine pain has been stable after bilateral L3 L4 DR L5 MBB RFA? in June 2021.? MR pelvis in 2018 showed no sacroiliitis. Based on the positive HLA B27 she was thought to have ankylosing spondylitis and was started on treatment Simponi 08/2017 to 03/2020-ineffective Methotrexate- 02/2017- 03/2018 Humira 02/2016-07/2016 Enbrel 08/2015- 10/2015- did not tolerate, injection site reactions Sulfasalazine 08/2015 stopped due to diarrhea Cosentyx: September 2019 stopped after 2-3 months, not effective. Despite several immunosuppressive patient did not have any improvement in her pain and she was ultimately thought to have degenerative arthritis and fibromyalgia Current Rheumatology Medication(s): Tramadol 50mg bid [facility] Medical History (Updated 04/13/25 @ 16:06 by Gin Salazar MD) History of COVID-19 PONV (postoperative nausea and vomiting) Nausea and vomiting Heartburn Mixed anxiety and depressive disorder Family history of breast cancer COVID-19 vaccine series completed Spondylosis of lumbar region without myelopathy or radiculopathy Multinodular non-toxic goiter Calcific tendinitis of left shoulder Obesity (BMI 30.0-34.9) Fibromyalgia Hypothyroidism (acquired) Mixed hyperlipidemia Ankylosing spondylitis Thyroid nodule Surgical History History of laparoscopic cholecystectomy (12/29/22) History of section H/O arthroscopy of right knee Family History Mother Hypothyroidism Maternal Grandmother Hypothyroidism Breast cancer Paternal Grandmother CVD (cardiovascular disease) Maternal Uncle Ulcerative colitis Brother No problems noted. Sister No problems noted. Son No problems noted. Son No problems noted. 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 Cognitive needs: No Hearing needs: No Vision needs: Yes Review of Systems Const Details: Review of Systems Constitutional: Denies fever, chills, weight loss ENT: Denies vision changes, eye pain or eye redness, dental caries, dry mouth GI: Denies nausea, vomiting, diarrhea, abdominal pain, change in BM Pulm: Denies SOB, US, hemoptysis, wheezing Cards: Denies chest pain, palpitations Skin: Denies Raynaud's, rash, nail changes, photosensitivity, NISSAN SALES CONSULTANT: Denies headaches, weakness, paresthesias, recurrent falls MSK: as per HPI All other systems reviewed and are unremarkable except noted above Physical Exam Vital Signs: Last Vital Signs Pulse 88 04/13/25 15:35 BP 140/70 H 04/13/25 15:35 Pulse Ox 98 04/13/25 15:35 Oxygen Delivery Method Room Air 04/13/25 15:35 BMI result Body Mass Index 30.9 Vital signs reviewed Physical Examination CONSTITUITIONAL Patient alert and cooperative. Well appearing and in no apparent painful distress HEENT Conjunctiva and sclera clear. No lymphadenopathy. CHEST/RESPIRATORY SYSTEM Normal respiratory effort and able to speak in complete sentences. Clear to auscultation bilaterally. No crackles, rales, rhonchi, wheezes heard. CARDIAC SYSTEM Regular rate and rhythm. S1 and S2 heard no murmurs. Radial pulses intact bilaterally MSK Hands * Right Hand: Able to make a fist. No swelling or tenderness to palpation of these joints. * Left Hand: Able to make a fist. No swelling or tenderness to palpation of these joints. * Mild Herbedens nodes noted bilaterally Wrists * Right Wrist: Full ROM. 70 degrees of wrist flexion, 80 degrees of wrist extension. No swelling or TTP * Left Wrist: Full ROM. 70 degrees of wrist flexion, 80 degrees of wrist extension. No swelling or TTP Elbows * Right Elbow: Full ROM. No swelling or TTP. * Left Elbow: Full ROM. No swelling or TTP. * TTP of lateral epicondyles Shoulders * Right shoulder: Full ROM. No swelling noted. No TTP of the AC joint, subacromial bursa or posterior shoulder * Left shoulder: Full ROM. No swelling noted. No TTP of the AC joint, subacromial bursa or posterior shoulder Hip bursa: Tenderness to palpation bilaterally Knees * Right knee: Full ROM. No swelling noted. No TTP of the knee joint lie * Left knee: Full ROM. No swelling noted. No TTP of the knee joint lie * TTP of bilateral pes anserine bursa Ankles * Right ankle: Good ankle dorsiflexion and plantar flexion. No swelling. No TTP of the ankle joint * Left ankle: Good ankle dorsiflexion and plantar flexion. No swelling. No TTP of the ankle joint Feet * Right foot: Negative squeeze test * Left foot: Negative squeeze test Tender points? * Tenderness to palpation of the bilateral trapezius, supraspinatus, anterior costochondral junctions, bilateral suboccipital muscle insertions SKIN No rashes Assessment & Plan Assessment & Plan (1) Fibromyalgia: Comment: tried lyrica, gabapentin Code(s): M79.7 - Fibromyalgia Category: Medical Plan: #Fibromyalgia Patient is a 44-year-old female with fibromyalgia here today for follow up. Previously thought to have ankylosing spondylitis based on positive HLA B27 and back pain however patient has tried a plethora of immunosuppressants without any improvement in her pain and her MRI did not show any evidence of sacroiliitis. Had some benefit from cyclobenzaprine but could not continue it since she was on the tramadol. We will give her a trial of methocarbamol 500 mg nightly. Had a talk with her about low-dose naltrexone in the management of fibromyalgia. However in order to take this medication she would have to stop the tramadol. Patient will think about it and let me know Plan - Methocarbamol 500mg nightly - Low dose naltrexone if patient is willing to hold tramadol - RTC 3 months Plan I spent 25 minutes reviewing the record and labs, taking a history, examining the patient, discussing the treatment plan, ordering diagnostic work up and documenting in the medical record Medications: New methocarbamol 500 mg PO BEDTIME 90 tabs 1RF M79.7 - Fibromyalgia Coding Level of Care Code Est Pt Level 3 (19782) Complex EM visit Add On G2211 Diagnoses Fibromyalgia M79.7
== END 2025-04-13 16:17 | disposition home or self-care (01) ==
LOC: HO.RHE 15:31
PROVIDERS: PCP Internal Medicine; Visit Provider Student in an Organized Health Care Education/Training Program
DX: M79.7 Fibromyalgia (principal)
CPT/HCPCS: 99213; G2211

== ENCOUNTER 2025-06-14 13:49 | Outpatient (REF) | payer OTHER, SELFPAY ==
--- NOTE | ~2025-06-14 | US_ITS ---
EXAMINATION: US THYROID CLINICAL INFORMATION: Hypothyroidism, unspecified. E03.9 COMPARISON: August 18, 2024 TECHNIQUE: Linear transducer grayscale and color Doppler examination with attention to the region of the thyroid. FINDINGS: SIZE: Measurements of the thyroid lobes and nodules are given in sagittal, anteroposterior and transverse dimensions respectively. Right Thyroid Lobe: 4.0 x 1.6 x 1.7 cm, volume 5.7 mL. Previous: 4.0 x 1.4 x 1.5, volume 4.2 cc. Parenchyma: The gland echotexture is normal. Thyroid vascularity is normal. Left Thyroid Lobe: 3.9 x 1.1 x 1.5 cm, volume 3.4 mL. . Previous: 3.7 x 1.5 x 1.7 cm, volume: 5.2 cc. Parenchyma: The gland echotexture is normal. Thyroid vascularity is normal. Isthmus: 0.4 cm in maximum AP dimension. Previous: 0.4 Estimated total number of nodules greater than or equal to 1 cm: 0. Trimming Assembler nodules are described as follows: 1. Location: Midportion right thyroid lobe. Size: 0.4 x 0.4 x 0.4 cm, volume 0.05 mL. Previous: 0.4 x 0.5 x 0.3 cm, volume: 0.03 cc. Nodule characteristics: Composition: Solid (2). Echogenicity: Hyperechoic (1). Shape: Taller than wide (3). Margins: Smooth (0). Echogenic Foci: None (0). ACR TI-RADS total points: 6 ACR TI-RADS category: 4 2. Location: Upper/midportion, left thyroid lobe. Size: 0.7 x 0.5 x 0.5 cm, volume 0.9 mL. Previous: 0.6 x 0.5 x 0.5 cm, volume: 0.8 cc. Nodule characteristics: Composition: Solid (2). Echogenicity: Hyperechoic (1). Shape: Not taller than wide (0). Margins: Smooth (0). Echogenic Foci: None (0). ACR TI-RADS total points: 3 ACR TI-RADS category: 3 NODES: No lymphadenopathy is seen in the tissue surrounding the thyroid gland. US/US thyroid IMPRESSION: ACR TI-RADS category: 4, midportion right thyroid lobe nodule. ACR TI RADS category 3: Upper/midportion junction left thyroid lobe nodule. ACR TI-RADS RECOMMENDATION REFERENCE: Ultrasound-guided fine-needle aspiration, followup ultrasound, no further follow up. * TR1 (0 point) and TR2 (2 points): No FNA or follow up. * TR3 (3 points): FNA if more than or equal to 2.5 cm in maximum dimension, followup ultrasound in 1, 3 and 5 years if 1.5 to 2.4 cm in maximum dimension. * TR4 (4-6 points): FNA if more than or equal to 1.5 cm in maximum dimension, followup ultrasound in 1, 2, 3 and 5 years if 1 to 1.4 cm in maximum dimension. * TR5 (more than or equal to 7 points): FNA if more than or equal to 1 cm in maximum dimension, followup ultrasound every year for 5 years if 0.5 to 0.9 cm in maximum dimension. * TR3, TR4 or TR5 nodules that are below the size threshold for followup receive no follow up. Electronically signed by: Darshan Colin MD 06/14/2025 02:22 PM EDT
== END 2025-06-14 13:50 | disposition home or self-care (01) ==
LOC: HO.HMGCX 13:49
PROVIDERS: PCP Internal Medicine; Visit Provider Internal Medicine
DX: E03.9 Hypothyroidism, unspecified (principal); E04.1 Nontoxic single thyroid nodule
CPT/HCPCS: 76536

== ENCOUNTER → 2025-06-14 13:51 | Outpatient (BNV) | payer OTHER, SELFPAY | PROVIDERS: PCP Internal Medicine; Visit Provider Radiology Diagnostic Radiology | DX: E04.2 Nontoxic multinodular goiter (principal) | CPT/HCPCS: 76536 ==

== ENCOUNTER 2025-07-13 14:29 | Outpatient (AMB) | payer OTHER, SELFPAY ==
--- NOTE | 2025-07-13 14:50 | A.OFFVIS_ITS ---
Vital Signs 07/13/25 14:55 Height 5 ft 5 in Weight 183 lb 10.321 oz BMI 30.6 BP 140/100 H Blood Pressure Location Rt brachial Position Sitting Pulse 86 Pulse Source Pulse Oximeter Pulse Oximetry (%) 99 Oxygen Delivery Method Room Air Intake Visit Reasons: FMS Intake Note: Patient presents for FMS follow up. Allergies etanercept (Enbrel) Adverse Reaction (Intermediate, Verified 07/13/25 14:54) rash/flu like Sx Medication List - Last Reconciled 07/13/25 by Gin Salazar MD amitriptyline 25 mg PO BEDTIME 90 days atorvastatin 10 mg PO DAILY docusate sodium 100 mg PO BID escitalopram oxalate 10 mg PO QAM levothyroxine 100 mcg PO DAILY norethindrone-e.estradiol-iron 1 mg-10 mcg (24)/10 mcg (2) (Lo Loestrin Fe) 1 tab PO DAILY omeprazole 20 mg PO DAILY tramadol 50 mg PO BID 30 days HPI Comments Details: Patient is a 45-year-old female with anxiety/depression, hyperlipidemia, hypothyroidism, GERD, degenerative disease of the spine and fibromyalgia here today for follow up Interval History: Patient last seen 04/13/25 with me - On Tramadol 50mg bid - Continues to have widespread pain - Started on methocarbamol - Did not want to try naltrexone Today - On tramadol 50mg bid and methocarbamol 500mg nightly - States that the methocarbamol made her leg pain worse and so she stopped and was back to her regular pain Rheumatologic History: Patient with approximately 20 years of chronic low back pain. Had morning stiffness in her lumbar spine that lasted up to 45 minutes and also had pain in her low back that woke her up in the 2nd half of the night.? Positive HLA B27.? Her lumbar spine pain has been stable after bilateral L3 L4 DR L5 MBB RFA? in June 2021.? MR pelvis in 2018 showed no sacroiliitis. Based on the positive HLA B27 she was thought to have ankylosing spondylitis and was started on treatment Simponi 08/2017 to 03/2020-ineffective Methotrexate- 02/2017- 03/2018 Humira 02/2016-07/2016 Enbrel 08/2015- 10/2015- did not tolerate, injection site reactions Sulfasalazine 08/2015 stopped due to diarrhea Cosentyx: September 2019 stopped after 2-3 months, not effective. Despite several immunosuppressive patient did not have any improvement in her pain and she was ultimately thought to have degenerative arthritis and fibromyalgia Current Rheumatology Medication(s): Tramadol 50mg bid Methocarbamol 500mg nightly [facility] Medical History (Updated 07/13/25 @ 15:23 by Gin Salazar MD) Thyroid nodule History of COVID-19 PONV (postoperative nausea and vomiting) Nausea and vomiting Heartburn Mixed anxiety and depressive disorder Family history of breast cancer COVID-19 vaccine series completed Spondylosis of lumbar region without myelopathy or radiculopathy Multinodular non-toxic goiter Calcific tendinitis of left shoulder Obesity (BMI 30.0-34.9) Fibromyalgia Hypothyroidism (acquired) Mixed hyperlipidemia Ankylosing spondylitis Surgical History History of laparoscopic cholecystectomy (12/29/22) History of section H/O arthroscopy of right knee Family History Mother Hypothyroidism Maternal Grandmother Hypothyroidism Breast cancer Paternal Grandmother CVD (cardiovascular disease) Maternal Uncle Ulcerative colitis Brother No problems noted. Sister No problems noted. Son No problems noted. Son No problems noted. 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 Cognitive needs: No Hearing needs: No Vision needs: Yes Review of Systems Const Details: Review of Systems Constitutional: Denies fever, chills, weight loss ENT: Denies vision changes, eye pain or eye redness, dental caries, dry mouth GI: Denies nausea, vomiting, diarrhea, abdominal pain, change in BM Pulm: Denies SOB, US, hemoptysis, wheezing Cards: Denies chest pain, palpitations Skin: Denies Raynaud's, rash, nail changes, photosensitivity, ENTRY LEVEL ACCOUNT EXECUTIVE: Denies headaches, weakness, paresthesias, recurrent falls MSK: as per HPI All other systems reviewed and are unremarkable except noted above Physical Exam Exam Exam: Vital signs reviewed Physical Examination CONSTITUITIONAL Patient alert and cooperative. Well appearing and in no apparent painful distress MSK Hands * Right Hand: Able to make a fist. No swelling or tenderness to palpation of the MCPs, PIPs or DIPs. * Left Hand: Able to make a fist. No swelling or tenderness to palpation of the MCPs, PIPs or DIPs. Wrists * Right Wrist: Full ROM to flexion and extension. No swelling or TTP * Left Wrist: Full ROM to flexion and extension. No swelling or TTP Elbows * Right Elbow: Full ROM. No swelling or TTP. No TTP of the medial epicondyle. No TTP of the lateral epicondyle * Left Elbow: Full ROM. No swelling or TTP. No TTP of the medial epicondyle. No TTP of the lateral epicondyle Shoulders * Right shoulder: Full ROM. No swelling noted. No TTP of the AC joint. No TTP of the subacromial bursa. No TTP of the posterior shoulder * Left shoulder: Full ROM. No swelling noted. No TTP of the AC joint. No TTP of the subacromial bursa. No TTP of the posterior shoulder Hip bursa: Tenderness to palpation bilaterally Knees * Right knee: Full ROM. No swelling noted. No TTP of the knee joint line. No TTP of pes anserine bursa * Left knee: Full ROM. No swelling noted. No TTP of the knee joint line. No TTP of pes anserine bursa. Ankles * Right ankle: Good ankle dorsiflexion and plantar flexion. No swelling. No TTP of the ankle joint * Left ankle: Good ankle dorsiflexion and plantar flexion. No swelling. No TTP of the ankle joint Feet * Right foot: Negative squeeze test * Left foot: Negative squeeze test Tender points? * Tenderness to palpation of the bilateral trapezius, supraspinatus, anterior costochondral junctions, bilateral suboccipital muscle insertions SKIN No rashes Vital Signs: Last Vital Signs Pulse 86 07/13/25 14:55 BP 140/100 H 07/13/25 14:55 Pulse Ox 99 07/13/25 14:55 Oxygen Delivery Method Room Air 07/13/25 14:55 BMI result Body Mass Index 30.6 Assessment & Plan Assessment & Plan (1) Fibromyalgia: Comment: tried lyrica, gabapentin Failed methocarbamol Code(s): M79.7 - Fibromyalgia Category: Medical Plan: #Fibromyalgia Patient is a 45-year-old female with fibromyalgia here today for follow up. P reviously thought to have ankylosing spondylitis based on positive HLA B27 and back pain however patient has tried a plethora of immunosuppressants without any improvement in her pain and her MRI did not show any evidence of sacroiliitis. Had some benefit from cyclobenzaprine but could not continue it since she was on the tramadol. Failed methocarbamol Plan - Stop methocarbamol - Tramdol 50mg bid - RTC 1 year Plan I spent 25 minutes reviewing the record and labs, taking a history, examining the patient, discussing the treatment plan, ordering diagnostic work up and documenting in the medical record Medications: Refilled tramadol 50 mg PO BID 60 tabs 5RF 30 days M47.816 - Spondylosis without myelopathy or radiculopathy, lumbar region Coding Level of Care Code Est Pt Level 3 (70675) Diagnoses Fibromyalgia M79.7
[2025-07-13 14:55] VITALS: BP 140/100; PULSE 86; O2SAT 99; BMI 30.6
== END 2025-07-13 15:20 | disposition home or self-care (01) ==
LOC: HO.RHES 14:30
PROVIDERS: PCP Internal Medicine; Visit Provider Student in an Organized Health Care Education/Training Program
DX: M79.7 Fibromyalgia (principal)
CPT/HCPCS: 99213

== ENCOUNTER 2025-08-03 13:10 | Outpatient (AMB) | payer OTHER, SELFPAY ==
--- NOTE | 2025-08-03 13:20 | MHC.OFFVIS ---
Vital Signs 08/03/25 13:21 Height 5 ft 5 in Weight 183 lb BMI 30.4 BP 146/82 H Blood Pressure Location Rt brachial Position Sitting Pulse 110 H Pulse Source Pulse Oximeter Pulse Oximetry (%) 96 Oxygen Delivery Method Room Air Intake Visit Reasons: Colonoscopy Screening Intake Note: Patient new consult for pre Colonoscopy screening. Patient cc: Pt denies any new GI concerns or sx at this time. Pt confirms she is still taking Rx'd therapies w/o complication. Systems Tester Required: No Accompanied by: Self / Same As Patient Allergies etanercept (Enbrel) Adverse Reaction (Intermediate, Verified 08/03/25 13:20) rash/flu like Sx Medication List - Last Reconciled 08/03/25 by Gillian Vieyra CNP amitriptyline 25 mg PO BEDTIME 90 days atorvastatin 10 mg PO DAILY docusate sodium 100 mg PO BID escitalopram oxalate 10 mg PO QAM levothyroxine 100 mcg PO DAILY norethindrone-e.estradiol-iron 1 mg-10 mcg (24)/10 mcg (2) (Lo Loestrin Fe) 1 tab PO DAILY omeprazole 20 mg PO DAILY tramadol 50 mg PO BID 30 days HPI HPI Colonoscopy Screening: Details: Patient is a 45-year-old female with PMH of anxiety, depression, hypothyroidism, hyperlipidemia. Referred for pre colonoscopy screening. Alis presents for her initial colonoscopy evaluation. She reports chronic constipation, with bowel movements typically every two days, sometimes daily, but most often every couple of days. She attributes the constipation partly to chronic tramadol use for fibromyalgia and manages it with daily docusate. She describes stool consistency as variable, ranging from hard to soft, noting that dietary intake affects frequency and quality. She drinks water for hydration and acknowledges she could increase her fiber intake. She experiences intermittent heartburn, primarily triggered by spicy or tomato-based foods, managed effectively with omeprazole taken prophylactically before known trigger meals; symptoms are absent outside those exposures. Appetite remains good, and weight is stable. No recent changes to med regimen or other GI symptoms are reported. She has a past diagnosis of ankylosing spondylitis, though her current fruit room hand questions that diagnosis, attributing symptoms to fibromyalgia. She notes a history of vomiting following anesthesia, usually managed with patches and IV antiemetics. Patient denies: fever/chills, n/v, appetite changes,regurgitation,dysphasia, unintentional wt loss, ab pain or melena/hematochezia. Social hx: -denies ETOH use -denies recreational drug use -former smoker nicotine dependence, cessation at age 19 - family hx as below -denies personal hx of CA -denies significant cardiopulmonary history -post sedation nausea, otherwise tolerated anesthesia in the past without difficulty. [facility] Medical History (Updated 08/03/25 @ 14:01 by Gillian Vieyra CNP) Constipation Colon cancer screening Acid reflux Thyroid nodule History of COVID-19 PONV (postoperative nausea and vomiting) Nausea and vomiting Heartburn Mixed anxiety and depressive disorder Family history of breast cancer COVID-19 vaccine series completed Spondylosis of lumbar region without myelopathy or radiculopathy Multinodular non-toxic goiter Calcific tendinitis of left shoulder Obesity (BMI 30.0-34.9) Fibromyalgia Hypothyroidism (acquired) Mixed hyperlipidemia Ankylosing spondylitis Surgical History History of laparoscopic cholecystectomy (12/29/22) History of section H/O arthroscopy of right knee Family History Mother Hypothyroidism Maternal Grandmother Hypothyroidism Breast cancer Paternal Grandmother CVD (cardiovascular disease) Maternal Uncle Ulcerative colitis Brother No problems noted. Sister No problems noted. Son No problems noted. Son No problems noted. 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 Cognitive needs: No Hearing needs: No Vision needs: Yes Review of Systems Const Reports as per HPI ENT Reports as per HPI Card Reports as per HPI Resp Reports as per HPI GI Reports as per HPI Reports as per HPI Physical Exam Vital Signs: Last Vital Signs Pulse 110 H 08/03/25 13:21 BP 146/82 H 08/03/25 13:21 Pulse Ox 96 08/03/25 13:21 Oxygen Delivery Method Room Air 08/03/25 13:21 BMI result Body Mass Index 30.4 Const General: healthy appearing, no acute distress and well developed Nutritional Appearance: average body habitus Orientation/consciousness: patient oriented x3 HEENT Head: Yes normal to inspection, Yes normocephalic and Yes atraumatic Face and sinus: Yes normal facial exam Eyes General: appearance normal, both eyes and all related structures Neck Neck: Yes normal visual inspection Resp Effort & Inspection: normal respiratory effort, able to speak in complete sentences, no tracheal deviation and symmetric chest movement Cardio Jugular venous distension: no JVD Neuro General: patient oriented x3 Gait exam (Neuro): Normal gait present Psych Appearance: grossly normal Mental Status: mental status grossly normal Speech and movement: Normal speech and movement present Affect: normal affect Attitude: cooperative Thought process: Normal thought process present Thought content: Normal thought content present Insight: Good insight present (Psych) Judgement: Good judgement present (Psych) Assessment & Plan Assessment & Plan (1) Colon cancer screening: Code(s): Z12.11 - Encounter for screening for malignant neoplasm of colon Category: Medical Plan: Initial age-appropriate colorectal Ca screening. Medications: -prescriptions for laxative tablets and MiraLax sent to pharmacy; instructions for Gatorade purchase and clear liquid diet given. Patient educated on scheduling process, procedure preparation, including avoiding certain foods and ensuring clear liquid intake Advised on necessity for ride post-procedure due to sedation. (2) Acid reflux: Code(s): K21.9 - Gastro-esophageal reflux disease without esophagitis Category: Medical Qualifiers: Esophagitis presence: esophagitis presence not specified Qualified Code(s): K21.9 - Gastro-esophageal reflux disease without esophagitis Plan: Classic symptoms with clear dietary triggers; responds to omeprazole Additional Testing: Scheduled EGD concurrent with colonoscopy for baseline assessment given PPI use and ongoing, though intermittent, symptoms Medication Management: Continue omeprazole PRN before trigger foods Lifestyle Recommendations: Avoid known dietary triggers (spicy, tomato-based, pizza, spaghetti, etc.); consider more consistent use if symptoms increase Follow-Up: Reassess post-EGD or sooner if symptoms change (3) Constipation: Code(s): K59.00 - Constipation, unspecified Category: Medical Qualifiers: Constipation type: drug induced constipation Qualified Code(s): K59.03 - Drug induced constipation Plan: Decreased BM frequency, hard stools, tramadol use; partial response to docusate Additional Testing: None prior to colonoscopy Medication Management: Recommend addition of polyethylene glycol (Miralax) for improved regularity; continue docusate Lifestyle Recommendations: Increase fiber intake, optimize hydration, regular physical activity Follow-Up: Reassess at time of colonoscopy or sooner if symptoms worsen; adjust bowel regimen as needed, especially prior to prep Plan Follow-up after colonoscopy or sooner as needed Time: I spent a total of 20 minutes on the date of encounter which includes: Preparing to see the patient (reviewed previous documentation, test results and medical history) Performing a medically appropriate exam and/or evaluation Ordering medications, tests, and procedures Documenting clinical information in the health record Alis message reassured Orders: Referrals GI Procedure Notification K21.9 - Gastro-esophageal reflux disease without esophagitis, Z12.11 - Encounter for screening for malignant neoplasm of colon Medications: New bisacodyl Take per colonoscopy instructions 20 mg (4 x 5 mg) PO ONCE 4 tabs 0RF polyethylene glycol 3350 (Miralax) per colonoscopy prep instructions 238 grams PO ONCE 238 grams 0RF polyethylene glycol 3350 (Miralax) Take 17G (one cap full) daily with 8oz of water 17 grams PO DAILY 510 grams 2RF constipation 30 days Coding Level of Care Code New Pt New Pt Level 2 (30115) Patient Type New Diagnoses Colon cancer screening Z12.11 Gastroesophageal reflux disease, unspecified whether esophagitis present K21.9 Esophagitis presence: esophagitis presence not specified Drug-induced constipation K59.03 Constipation type: drug induced constipation
[2025-08-03 13:21] VITALS: BP 146/82; PULSE 110; O2SAT 96; BMI 30.4
--- OUTSIDE RECORDS SUMMARY | 2025-08-03 16:08 | XMS_ITS | Clinical Summary ---
Author Organization [facility] Address [address] [facility] [address] [place] [address] Phone Care Team Providers Care Contour Band Saw Operator Vertical Name Role Phone Elsi Chase NP Unavailable [phone] Shavon Wells MD Primary Care Provider Allergies Active Allergy Reactions Criticality Noted Date Comments Etanercept Rash Low 04/12/2023 Medications traMADol (ULTRAM) 50 mg tablet 4 pills a day; decrease by one pill a day every 3 days until at 10 mg Orally Active atorvastatin (LIPITOR) 10 MG tablet Take 10 mg by mouth daily. Active STOOL SOFTENER 100 mg capsule Take 100 mg by mouth 2 (two) times a day. 02/16/2021 Active levothyroxine (SYNTHROID, LEVOTHROID) 100 MCG tablet Take 100 mcg by mouth daily. 05/26/2022 Active escitalopram oxalate (LEXAPRO) 10 MG tablet Take 10 mg by mouth daily. Active amitriptyline (ELAVIL) 25 MG tablet Take 25 mg by mouth nightly at bedtime. Active norethindrone-e thinyl estradiol-iron (LO LOESTRIN FE) 1 mg-10 mcg TabIndications: Abnormal uterine bleeding (AUB) Take 1 tablet by mouth daily. 84 tablet 06/14/2025 Active Active Problems Problem Noted Date Diagnosed Date Migraine Hyperlipidemia Hypothyroidism Overview (09/10/2018): acquired Fibromyalgia Chronic fatigue syndrome Ankylosing spondylitis Anxiety disorder Encounters Date Type Department Care Team Description 05/31/2025 Refill [facility] [address] [place] [address] [place] [address] Eliud Jones MD Medication Refill from Last 3 Months Immunizations Immunization Administration Dates Next Due COVID-19 [...] Industry Job Start Date Job End Date 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 Not on file Not on [...] 04/12/2023 12:18 PM EDT Plan of Treatment Upcoming Encounters Date Type Department Care Team (Late st Contact Info) Description 08/23/2025 11:40 AM EST Office Visit [facility] [address] [place] [address] [place] [address] Eliud Jones MD [address] [place] [address], [address] [place] [address] [email or web address] Health Maintenance Due Date Last Done Comments LIPID PANEL 1979 TSH LEVEL 1979 DEPRESSION SCREENING 1991 HEPATITIS C SCREENING 1997 HIV ONE-TIME SCREENING (18-65 YEARS) 1997 SCREENING FOR DIABETES 2014 COLOGUARD 2024 COLONOSCOPY 2024 COLORECTAL CANCER SCREENING 2024 FIT TEST 2024 FOBT 2024 SIGMOIDOSCOPY 2024 VIRTUAL COLONOSCOPY 2024 PAP SMEAR 10/18/2024 10/18/2019, 10/05, 12/25/2014, Additional history exists INFLUENZA VACCINE (#1) 2025 , 06/19/2023, 06/19/2023, Additional history exists COVID-19 VACCINE ( season) 2025 09/18/2021, 11/27/2020, 11/27/2020, Additional history exists Adult Td,Tdap Booster 04/02/2026 [...] age to complete this topic MENINGOCOCCAL VACCINES (B) Aged Out N o longer eligible based on patient's age to [...] ofexamination. 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 CERVICAL, LIQUID BASED SPECIMEN: SPECIMEN ADEQUACY: Satisfactory for evaluation. INTERPRETATION: NEGATIVE FOR INTRAEPITHELIAL LESION OR MALIGNANCY. ADDITIONAL INFORMATION: This specimen was prescreened using the [employer] Imaging System. Electronically Signed Out By: MORRIS Thomson (ASCP) KRISTINA Cervical cytology is a screening test primarily for squamous cancers and precursors and has associated false-negative and false-positive results. New technologies such as liquid-based preparations may decrease but will not eliminate all false-negative results. Regular sampling and follow-up of unexplained clinical signs and symptoms are recommended to minimize false negative results. PROCEDURES/ADDENDA HPV Testing (Requested) Ordered Date: 10/19/2019 A. CERVICAL, LIQUID BASED SPECIMEN: Human Papilloma Virus Test Negative for high-risk human papillomavirus types 16, 18, 45 and the Other high risk probe set (Includes 31, 33, 35, 39, 51, 52, 56, 58, 59, 66, 68) by [employer] Onclarity HR-HPV analysis. Clinical correlation is advised. This HPV test was performed at [facility], [address] [place] [address]. This test has been FDA approved for [employer] cervical cytology specimens. The accuracy and precision of this test for all other specimen sources has been verified in the Cytopathology Laboratory of the [facility] and has not been cleared or approved by the U.S. Food and Drug Administration. Clinical correlation is advised. CLINICAL HISTORY Date of Last Menstrual Period: Menstrual History: Unknown Contraceptive History: BCPs Other Clinical Conditions: Screening Pap SPECIMEN SOURCE A: CERVICAL, LIQUID BASED SPECIMEN Eliud Jones MD CYTOLOGY ORDERABLES Final Result SEE NARRATIVE from Last 3 Months or Most Recently Relevant to Health Maintenance [place] [address] [place] [address] [place], [place] [address] [facility] [place] [place] [address] HMO Member Subscriber Plan / Payer (Ef fective 2018-Present) Name:Alis Alonzo Relation to Subscriber:Self Name:Alis Alonzo Payer ID:Not on file Type:HMO Address: [place] [id number] [place], [place] [address]O Member Subscriber Plan / Payer (Ef fective 2018-Present) Name:Alis Alonzo Relation to Subscriber:Self Name:Alis Alonzo Payer ID:Not on file Type:HMO Address: [place] [id number] [place] [address] HMO Member Subscriber Plan / Payer (Ef fective 2018-Present) Name:Alis Alonzo Relation to Subscriber:Self Name:Alis Alonzo Payer ID:Not on file Type:HMO Address: [place] [id number] Care Teams Contour Band Saw Operator Vertical Relationship Specialty Start Date End Date Shavon Wells MD [address] [facility] [place] [address] PCP - General Internal Medicine 11/07/22 Elsi Chase NP [address] [place] [address] Historical LMR Provider 07/22/17 Additional Source Comments The information contained in this document represents components of the legal health record. It is not the complete legal health record.[facility]
--- OUTSIDE RECORDS SUMMARY | 2025-08-03 16:08 | XMS_ITS | Encounter Summary ---
Author Organization [facility] Address [address] [facility] [address] [place] [address] Phone Care Team Providers Care Equipment Oiler Name Role Phone Elsi Chase ACCIDENT REPORT CLERK Unavailable [phone] Kelby Palacio DO Unavailable [phone] Norbert Rubin MD Unavailable [phone] Paulette Chan NP Primary Care Provider Shavon Wells MD Primary Care Provider Encounter Details Date Type Department Care Team (Late Contact Info) Description 03/06/2021 Procedure Pass [facility] - [address] [place] [address] Social History Tobacco Use Types Packs/Day Years [...] Industry Job Start Date Job End Date 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 Not on file Not on file N ot on file documented as of this encounter Plan of Treatment Upcoming Encounters Date Type Department Care Team (Late Contact Info) Description 08/23/2025 11:40 AM EST Office Visit [facility] [address] [place] [address] [place] [address] Eliud Jones MD [address] [facility], [address] [place] [address] documented as of this encounter Visit Diagnoses Not on filedocumented in this encounter Care Teams Equipment Oiler Relationship Specialty Start Date End Date Paulette Chan NP [address] [place] [address] [place] [address] [place] [address] [email or web address] PCP - General Family Medicine 10/24/19 11/06/22 Shavon Wells MD [address] [place] [address] [place] [address] PCP - General Internal Medicine 11/07/22 Elsi Chase NP [address] [place] [address] Historical LMR Provider 07/22/17 Kelby Palacio DO [address] [place] [address] Historical LMR Provider 07/22/17 Norbert Rubin MD [address] [facility], [address] [place] [address] Historical LMR Provider 07/22/17 10/12/21 documented as of this encounter Additional Source Comments The information contained in this document represents components of the legal health record. It is not the complete legal health record.[facility]
--- OUTSIDE RECORDS SUMMARY | 2025-08-03 16:08 | XMS_ITS | Encounter Summary ---
Author Organization [facility] Address [address] [facility] [address] [place] [address] Phone Care Team Providers Care Stitch Burnisher Name Role Phone Elsi Chase FINISHING OPERATOR Unavailable [phone] Kelby Palacio DO Unavailable [phone] Norbert Rubin MD Unavailable [phone] Paulette Chan NP Primary Care Provider Shavon Wells MD Primary Care Provider Encounter Details Date Type Department Care Team (Late st Contact Info) Description 09/04/2020 Ancillary Orders [facility] [address] [place] [address] Eliud Jones MD [address] [facility], [address] [place] [address] Breast screening Social History Tobacco Use Types [...] 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 Need additional imaging evaluation. DENSITY: The breast tissue is extremely dense, which lowers the sensitivity of mammography. RIGHT RECOMMENDATION DUE DATE: 1 Month Recommendation: Right Additional Imaging LEFT RECOMMENDATION DUE DATE: 12 Months Recommendation: Left Mammography Screening Narrative 03/05/2021 11:10 AM EDT STUDY: Bilateral screening mammography with tomosynthesis and CAD TECHNIQUE: Bilateral full-field digital screening mammography is obtained and read in conjunction with computer-aided detection. Tomosynthesis as well as 2-D C view imaging were obtained. Best possible images according to the medical technologist microbiology. COMPARISON: Comparison made to October 24, 2019 BREAST COMPOSITION: The breast tissue is extremely dense, which lowers the sensitivity of mammography. RIGHT BREAST: There is approximately [...] Best possible images accordingto the medical technologist microbiology. COMPARISON: Comparison made to October 24, 2019 [...] unspecified documented in this encounter Care Teams Stitch Burnisher Relationship Specialty Start Date End Date Paulette Chan NP [address] [place] [address] [place] [address] [email or web address] PCP - General Family Medicine 10/24/19 11/06/22 Shavon Wells MD [address] [place] [address] [place] [address] PCP - General Internal Medicine 11/07/22 Elsi Chase NP [address] [place] [address] [address] [place] [address] Historical LMR Provider 07/22/17 Kelby Palacio DO [address] [place] [address] Historical LMR Provider 07/22/17 Norbert Rubin MD [address] [place] [address] [address] [place] [address] [email or web address] Historical LMR Provider 07/22/17 10/12/21 documented as of this encounter Additional Source Comments The information contained in this document represents components of the legal health record. It is not the complete legal health record.[facility]
--- OUTSIDE RECORDS SUMMARY | 2025-08-03 16:08 | XMS_ITS | Encounter Summary ---
Author Organization [facility] Address [address] [facility] [address] [place] [address] Phone Care Team Providers Care Stock Shaper Name Role Phone Elsi Chase ARMAMENT REPAIRER Unavailable [phone] Paulette Chan NP Primary Care Provider Shavon Wells MD Primary Care Provider Encounter Details Date Type Department Care Team (Late st Contact Info) Description 10/10/2022 Procedure Pass [facility], [address] [id number] Social History Tobacco Use Types Packs/Day Years [...] Industry Job Start Date Job End Date 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 Not on file Not on file N ot on file documented as of this encounter Plan of Treatment Upcoming Encounters Date Type Department Care Team (Late st Contact Info) Description 08/23/2025 11:40 AM EST Office Visit [facility] [address] [place] [address] [place] [address] Eliud Jones MD [address] [place] [address], [facility] [address] [place] [address] [email or web address] documented as of this encounter Visit Diagnoses Not on filedocumented in this encounter Care Teams Stock Shaper Relationship Specialty Start Date End Date Paulette Chan NP [address] [place] [address] [place] [address] [email or web address] PCP - General Family Medicine 10/24/19 11/06/22 Shavon Wells MD [address] [place] [address] [place] [address] PCP - General Internal Medicine 11/07/22 Elsi Chase NP [address] [place] [address] Historical LMR Provider 07/22/17 documented as of this encounter Additional Source Comments The information contained in this document represents components of the legal health record. It is not the complete legal health record.[facility]
--- OUTSIDE RECORDS SUMMARY | 2025-08-03 16:08 | XMS_ITS | Encounter Summary ---
Author Organization [facility] Address [address] [facility] [address] [place] [address] Phone Care Team Providers Care Locate Technician Name Role Phone Elsi Chase FINANCE INTERN Unavailable [phone] Kelby Palacio DO Unavailable [phone] Norbert Rubin MD Unavailable [phone] Paulette Chan NP Primary Care Provider Shavon Wells MD Primary Care Provider Encounter Details Date Type Department Care Team (Late st Contact Info) Description 03/06/2021 Ancillary Orders [facility] [address] [place] [address] Eliud Jones MD [address] [facility], [facility] [address] [place] [address] Abnormal mammogram Social History Tobacco Use Types [...] 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 Not on file N ot on file documented as of this encounter Plan of Treatment Upcoming Encounters Date Type Department Care Team (Late st Contact Info) Description 08/23/2025 11:40 AM EST Office Visit [facility] [address] [place] [address] [place] [address] Eliud Jones MD [address] [place] [address], [address] [place] [address] [email or web address] documented as of this encounter Results * BI US BREAST LIMITED (RIGHT) (03/15/2021 1:54 PM EDT) Anatomical Region Laterality Modality Breast Right, Breast Bilateral Right U ltrasound 03/15/2021 1:49 PM EDT Narrative 03/15/2021 1:50 PM EDT Refer to the mammogram report. Procedure Note Ulises Galindo MD - 03/15/2021 Refer to the mammogram report. Eliud Jones MD [facility] US BREAST Final Result * BI MAMMOGRAM DIAGNOSTIC NO TOMOSYNTHESIS WITH CAD (RIGHT) (03/15/2021 1:29 PM EDT) Anatomical Region Laterality Modality Breast Right, Breast Bilateral Right M ammography 03/15/2021 1:35 PM EDT Impressions 03/15/2021 1:54 PM EDT 2 benign simple right breast cysts at 1:00 accounting for the mammographic findings. No mammographic evidence of malignancy. Recommend return to annual surveillance. Findings relayed to the patient via the technologist. BI-RADS CATEGORY: 2 - Benign finding. DENSITY: The breast tissue is extremely dense, which lowers the sensitivity of mammography. RIGHT RECOMMENDATION DUE DATE: 12 Months Right Mammography Screening Narrative 03/15/2021 1:54 PM EDT 40-year-old female who presents for a call back mammogram for a right breast focal asymmetry. Comparison made to previous mammograms. Interpretation made in conjunction with computer-aided detection and tomosynthesis. Right ML and spot compression right CC and MLO views. The right breast is extremely dense, which lowers the sensitivity of mammography. There is a circumscribed mass in the upper [...] unspecified documented in this encounter Care Teams Locate Technician Relationship Specialty Start Date End Date Paulette Chan NP [address] [place] [address] [place] [address] [place] [address] [email or web address] PCP - General Family Medicine 10/24/19 11/06/22 Shavon Wells MD [address] [place] [address] [place] [address] PCP - General Internal Medicine 11/07/22 Elsi Chase NP [address] [place] [address] [address] [place] [address] Historical LMR Provider 07/22/17 Kelby Palacio DO [address] [place] [address] Historical LMR Provider 07/22/17 Norbert Rubin MD [address] [place] [address], [address] [place] [address] [email or web address] Historical LMR Provider 07/22/17 10/12/21 documented as of this encounter Additional Source Comments The information contained in this document represents components of the legal health record. It is not the complete legal health record.[facility]
--- OUTSIDE RECORDS SUMMARY | 2025-08-03 16:08 | XMS_ITS | Encounter Summary ---
Author Organization [facility] Address [address] [place] [address] [place] [address] Phone Care Team Providers Care Harbormaster Name Role Phone Elsi Chase FRONT OFFICE MANAGER Unavailable [phone] Paulette Chan NP Primary Care Provider Shavon Wells MD Primary Care Provider Encounter Details Date Type Department Care Team (Late Contact Info) Description 07/09/2022 Procedure Pass [address] [place] [address] Social History Tobacco Use Types Packs/Day Years [...] Industry Job Start Date Job End Date [place] 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 Not on file Not on file N ot on file documented as of this encounter Plan of Treatment Upcoming Encounters Date Type Department Care Team (Late Contact Info) Description 08/23/2025 11:40 AM EST Office Visit [facility] [address] [place] [address] [place] [address] Eliud Jones MD [address] [place] [address], [address] [place] [address] [email or web address] documented as of this encounter Visit Diagnoses Not on filedocumented in this encounter Care Teams Harbormaster Relationship Specialty Start Date End Date Paulette Chan NP [address] [place] [address] [place] [address] [email or web address] PCP - General Family Medicine 10/24/19 11/06/22 Shavon Wells MD [address] [place] [address] [place] [address] PCP - General Internal Medicine 11/07/22 Elsi Chase NP [address] [place] [address] Historical LMR Provider 07/22/17 documented as of this encounter Additional Source Comments The information contained in this document represents components of the legal health record. It is not the complete legal health record.[facility]
--- OUTSIDE RECORDS SUMMARY | 2025-08-03 16:08 | XMS_ITS | Encounter Summary ---
Author Organization [facility] Address [address] [place] [address] Phone Care Team Providers Care Plasterer Helper Name Role Phone Elsi Chase NP Unavailable [phone] Shavon Wells MD Primary Care Provider Encounter Details Date Type Department Care Team (Late st Contact Info) Description 07/02/2023 Procedure Pass [facility] [place] [address] [place] [address] Social History Tobacco Use Types Packs/Day Years [...] Industry Job Start Date Job End Date [place] 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 Not on file Not on file N ot on file documented as of this encounter Plan of Treatment Upcoming Encounters Date Type Department Care Team (Late st Contact Info) Description 08/23/2025 11:40 AM EST Office Visit [facility] [address] [place] [address] [place] [address] Eliud Jones MD [address] [place] [address], [address] [place] [address] [email or web address] documented as of this encounter Visit Diagnoses Not on filedocumented in this encounter Care Teams Plasterer Helper Relationship Specialty Start Date End Date Shavon Wells MD [address] [facility] [place] [address] PCP - General Internal Medicine 11/07/22 Elsi Chase NP [address] [place] [address] Historical LMR Provider 07/22/17 documented as of this encounter Additional Source Comments The information contained in this document represents components of the legal health record. It is not the complete legal health record.[facility]
--- OUTSIDE RECORDS SUMMARY | 2025-08-03 16:08 | XMS_ITS | Encounter Summary ---
Author Organization [facility] Address [address] [facility] [address] [place] [address] Phone Care Team Providers Care Business Transformation Analyst Name Role Phone Elsi Chase RAIL OPERATIONS CONTROLLER Unavailable [phone] Kelby Palacio DO Unavailable [phone] Norbert Rubin MD Unavailable [phone] Paulette Chan NP Primary Care Provider Shavon Wells MD Primary Care Provider Encounter Details Date Type Department Care Team (Late Contact Info) Description 09/04/2020 Procedure Pass [facility] - [address] [place] [address] Social History Tobacco Use Types Packs/Day Years [...] Industry Job Start Date Job End Date [place] 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 Not on file Not on file N ot on file documented as of this encounter Plan of Treatment Upcoming Encounters Date Type Department Care Team (Late Contact Info) Description 08/23/2025 11:40 AM EST Office Visit [facility] [address] [place] [address] [place] [address] Eliud Jones MD [address] [facility], [address] [place] [address] documented as of this encounter Visit Diagnoses Not on filedocumented in this encounter Care Teams Business Transformation Analyst Relationship Specialty Start Date End Date Paulette Chan NP [address] [place] [address] [place] [address] [place] [address] [email or web address] PCP - General Family Medicine 10/24/19 11/06/22 Shavon Wells MD [address] [place] [address] [place] [address] PCP - General Internal Medicine 11/07/22 Elsi Chaes NP [address] [place] [address] Historical LMR Provider 07/22/17 Kelby Palacio DO [address] [place] [address] Historical LMR Provider 07/22/17 Norbert Rubin MD [address] [facility], [address] [place] [address] Historical LMR Provider 07/22/17 10/12/21 documented as of this encounter Additional Source Comments The information contained in this document represents components of the legal health record. It is not the complete legal health record.[facility]
--- OUTSIDE RECORDS SUMMARY | 2025-08-03 16:08 | XMS_ITS | Encounter Summary ---
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 Not on file N ot on file documented as of this encounter Plan of Treatment Upcoming Encounters Date Type Department Care Team (Late Contact Info) Description 08/23/2025 11:40 AM EST Office Visit [facility] [address] [place] [address] [place] [address] Eliud Jones MD [address] [facility] [address] [place] [address] [email or web address] documented as of this encounter Visit Diagnoses Not on filedocumented in this encounter Care Teams Nailing Machine Feeder Relationship Specialty Start Date End Date Shavon Wells MD [address] [facility] [place] [address] PCP - General Internal Medicine 11/07/22 Elsi Chase NP [address] [place] [address] Historical LMR Provider 07/22/17 documented as of this encounter Additional Source Comments The information contained in this document represents components of the legal health record. It is not the complete legal health record.[facility]
--- OUTSIDE RECORDS SUMMARY | 2025-08-03 16:08 | XMS_ITS | Encounter Summary ---
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 file N ot on file documented as of this encounter Plan of Treatment Upcoming Encounters Date Type Department Care Team (Late st Contact Info) Description 08/23/2025 11:40 AM EST Office Visit [facility] [address] [place] [address] [place] [address] Eliud Jones MD [address] [place] [address], [address] [place] [address] [email or web address] documented as of this encounter Visit Diagnoses Not on filedocumented in this encounter Care Teams Clinical Nursing Intern Relationship Specialty Start Date End Date Shavon Wells MD [address] [facility] [place] [address] PCP - General Internal Medicine 11/07/22 Elsi Chase NP [address] [place] [address] Historical LMR Provider 07/22/17 documented as of this encounter Additional Source Comments The information contained in this document represents components of the legal health record. It is not the complete legal health record.[facility]
--- OUTSIDE RECORDS SUMMARY | 2025-08-03 16:09 | XMS_ITS | Encounter Summary ---
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 Not on file N ot on file documented as of this encounter Plan of Treatment Upcoming Encounters Date Type Department Care Team (Late Contact Info) Description 08/23/2025 11:40 AM EST Office Visit [facility]ery [address] [place] [address] [place] [address] Eliud Jones MD [address] [place] [address], [facility] [address] [place] [address] [email or web address] documented as of this encounter Visit Diagnoses Not on filedocumented in this encounter Care Teams Mechanical Integrity Engineer Relationship Specialty Start Date End Date Paulette Chan NP [address] [place] [address] [place] [address] [email or web address] PCP - General Family Medicine 10/24/19 11/06/22 Shavon Wells MD [address] [place] [address] [place] [address] PCP - General Internal Medicine 11/07/22 Elsi Chase NP [address] [place] [address] Historical LMR Provider 07/22/17 documented as of this encounter Additional Source Comments The information contained in this document represents components of the legal health record. It is not the complete legal health record.[facility]
== END 2025-08-03 13:54 | disposition home or self-care (01) ==
LOC: HO.HGI 13:11
PROVIDERS: PCP Internal Medicine; Visit Provider Nurse Practitioner Family
DX: Z01.818 Encounter for other preprocedural examination (principal); Z12.11 Encounter for screening for malignant neoplasm of colon; K59.03 Drug induced constipation; K21.9 Gastro-esophageal reflux disease without esophagitis
CPT/HCPCS: 99202

== ENCOUNTER 2025-08-14 15:10 | Outpatient (AMB) | payer OTHER, SELFPAY ==
--- NOTE | 2025-08-14 15:12 | MHC.OFFVIS ---
Intake Visit Reasons: 6 month migraine Allergies etanercept (Enbrel) Adverse Reaction (Intermediate, Verified 08/14/25 15:14) rash/flu like Sx Medication List - Last Reconciled 08/14/25 by Paige Queen CNP amitriptyline 25 mg PO BEDTIME 90 days atorvastatin 10 mg PO DAILY bisacodyl 20 mg (4 x 5 mg) PO ONCE docusate sodium 100 mg PO BID escitalopram oxalate 10 mg PO QAM levothyroxine 100 mcg PO DAILY norethindrone-e.estradiol-iron 1 mg-10 mcg (24)/10 mcg (2) (Lo Loestrin Fe) 1 tab PO DAILY omeprazole 20 mg PO DAILY polyethylene glycol 3350 (Miralax) 238 grams PO ONCE polyethylene glycol 3350 (Miralax) 17 grams PO DAILY 30 days sumatriptan succinate take 1 tab at onset of headache; if no relief may repeat 1 tab after at least 2 hrs; max = 4 tabs/24 hr PO tramadol 50 mg PO BID 30 days HPI Comments Details: She was doing okay. Migraines were controlled with amitriptyline at bedtime. She had few mild headaches each month that were relieved with Excedrin. She has not had to use sumatriptan. Sleep was so-so. Stress was still there, but seemed to be getting better. She was still working 2 jobs, 7 days/week.?? Previously, she was having primarily menstrual migraines with visual aura controlled with Excedrin Migraine and rare migraines outside of periods. Migraine onset at age 21, occasional photophobia, sonophobia, and nausea. Triggered by hormones. Had endometrial biopsy, no findings. Seen at [facility]/2023 for episode of right facial numbness with some difficulty finding words that lasted for hours followed by bad headache for several hours. Has never had that before. No further episodes. CTA head and neck was unremarkable. MRI of brain showed nonspecific 7 white matter hyperintensities in both deep white matter and subcortical distribution. Her mother used to get bad headaches with stress. [facility] Medical History (Updated 08/14/25 @ 15:13 by Paige Queen CNP) Migraine with aura Constipation Colon cancer screening Acid reflux Thyroid nodule History of COVID-19 PONV (postoperative nausea and vomiting) Nausea and vomiting Heartburn Mixed anxiety and depressive disorder Family history of breast cancer COVID-19 vaccine series completed Spondylosis of lumbar region without myelopathy or radiculopathy Multinodular non-toxic goiter Calcific tendinitis of left shoulder Obesity (BMI 30.0-34.9) Fibromyalgia Hypothyroidism (acquired) Mixed hyperlipidemia Ankylosing spondylitis Surgical History History of laparoscopic cholecystectomy (12/29/22) History of section H/O arthroscopy of right knee Family History Mother Hypothyroidism Maternal Grandmother Hypothyroidism Breast cancer Paternal Grandmother CVD (cardiovascular disease) Maternal Uncle Ulcerative colitis Brother No problems noted. Sister No problems noted. Son No problems noted. Son No problems noted. 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 Cognitive needs: No Hearing needs: No Vision needs: Yes Review of Systems Const Denies chills, Denies daytime sleepiness, Reports difficulty sleeping, Reports fatigue, Denies fever(s), Denies frequent falls, Reports headache(s), Denies increased appetite, Denies poor appetite, Denies snoring, Denies weakness, Denies weight gain and Denies weight loss Eyes Denies loss of vision ENT Denies vertigo, Denies dizziness, Reports headache(s) and Reports neck pain Card Denies chest pain at rest, Denies chest pain with activity, Denies syncope, Denies leg edema, Denies palpitations, Denies dyspnea and Denies dyspnea on exertion Resp Denies cough, Denies dyspnea, Denies dyspnea on exertion and Denies snoring GI Denies abdominal pain, Denies constipation, Denies heartburn, Denies diarrhea and Denies nausea Denies urinary frequency, Denies urinary incontinence and Denies urinary urgency Musc Denies abnormal gait, Reports back pain, Denies myalgias, Reports arthralgias, Reports neck pain, Denies numbness and Denies tingling Neuro Denies abnormal gait, Denies vertigo, Denies dizziness, Denies syncope, Denies frequent falls, Reports headache(s), Denies lack of coordination, Denies loss of vision, Denies memory loss, Denies numbness, Denies Other visual disturbances, Denies restless legs, Denies seizure-like activity, Denies tingling, Denies paresthesias, Denies tremor(s) and Denies weakness Psych Reports anxiety, Reports depression, Denies auditory hallucinations, Denies memory loss and Denies visual hallucinations Endo Reports fatigue and Denies palpitations Physical Exam Const Other: General Appearance:? normal, in no acute distress. Heart:? S1, S2 normal, no murmurs. Lungs:? clear anteriorly and posteriorly. Musculoskeletal:? normal. Extremities:? no edema. Psych:? alert, oriented, cognitive function intact, cooperative with exam. Neuro Other: Abnormal Neurological Findings:?none.? Mental Status: alert and oriented X 3. Normal attention, orientation, memory, and affect. Cranial Nerves: Pupils are equal, round, and reactive to light. External ocular muscles are intact. Visual resendiz are full, no ptosis. Face is symmetrical, no facial weakness or droop. Facial sensations are normal. Tongue protrudes in midline. Palate elevates symmetrically. Shoulder shrugging is normal Motor Examination: Normal muscle tone, bulk and strength. No atrophy or fasciculations. No drift of the extended upper extremities. DTR 2+. Plantars are flexor. Sensory Exam: Normal light touch, temperature, pinprick, vibration, and joint-position sensations. Rhomberg sign is absent. Coordination: No ataxia. No titubation. Gait Exam: Within normal limits. Cerebellar Signs: Gchcra-[id number] is okay. Extrapyramidal System: No tremor, rigidity with normal facial expressions. No bradykinesia. No bradyphrenia. Normal arm swing and posture. No propulsion or retropulsion. Speech: Normal. Assessment & Plan Assessment & Plan (1) Migraine with aura: Code(s): G43.109 - Migraine with aura, not intractable, without status migrainosus Category: Medical Qualifiers: Status migrainosus presence: without status migrainosus Intractability: not intractable Qualified Code(s): G43.109 - Migraine with aura, not intractable, without status migrainosus Plan: Continue amitriptyline 25mg 1 tablet at bedtime. Continue sumatriptan 50mg 1 tablet as needed for migraine. Medications: Refilled amitriptyline 25 mg PO BEDTIME 90 tabs 1RF 90 days Coding Level of Care Code Est Pt Level 4 (03700) Diagnoses Migraine with aura and without status migrainosus, not intractable G43.109 Status migrainosus presence: without status migrainosus Intractability: not intractable
--- OUTSIDE RECORDS SUMMARY | 2025-08-14 17:18 | XMS_ITS | Encounter Summary ---
Author Organization [facility] Address [address] [facility] [address] [place] [address] Phone Care Team Providers Care Real Estate Consultant Name Role Phone Elsi Chase WET PROCESS MILLER HEAD ASSISTANT Unavailable [phone] Kelby Palacio DO Unavailable [phone] Norbert Rubin MD Unavailable [phone] Paulette Chan NP Primary Care Provider Shavon Wells MD Primary Care Provider Encounter Details Date Type Department Care Team (Late Contact Info) Description 03/06/2021 Procedure Pass [facility] - [address] [place] [address] Social History Tobacco Use Types Packs/Day Years [...] 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 Contact Info) Description 08/23/2025 11:40 AM EST Office Visit [facility] OBGYN & Midwifery [address] [place] [address] [place] [address] Eliud Jones MD 22 [facility], [address] [place] [address] documented as of this encounter Visit Diagnoses Not on filedocumented in this encounter Care Teams Real Estate Consultant Relationship Specialty Start Date End Date Paulette Chan NP [address] [place] [address] [place] [address] [place] [address] [email or web address] PCP - General Family Medicine 10/24/19 11/06/22 Shavon Wells MD [address] [place] [address] [place] [address] PCP - General Internal Medicine 11/07/22 Elsi Chase NP [address] [place] [address] Historical LMR Provider 07/22/17 Kelby Palacio DO [address] [place] [address] Historical LMR Provider 07/22/17 Norbert Rubin MD 22 [facility], [address] [place] [address] Historical LMR Provider 07/22/17 10/12/21 documented as of this encounter Additional Source Comments The information contained in this document represents components of the legal health record. It is not the complete legal health record.[facility]
--- OUTSIDE RECORDS SUMMARY | 2025-08-14 17:18 | XMS_ITS | Encounter Summary ---
Author Organization [facility] Address [address] [place] [address] [place] [address] Phone Care Team Providers Care Glassware Maker Demonstrator Name Role Phone Elsi Chase HELP DESK ADMINISTRATOR Unavailable [phone] Paulette Chan NP Primary Care Provider Shavon Wells MD Primary Care Provider Encounter Details Date Type Department Care Team (Late Contact Info) Description 07/09/2022 Procedure Pass [address] [place] [address] Social History Tobacco Use Types Packs/Day Years [...] Industry Job Start Date Job End Date [place] 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 Not on file Not on file N ot on file documented as of this encounter Plan of Treatment Upcoming Encounters Date Type Department Care Team (Late Contact Info) Description 08/23/2025 11:40 AM EST Office Visit [facility] OBGYN & Midwifery [address] [place] [address] [place] [address] Eliud Jones MD [address] [place] [address], [address] [place] [address] [email or web address] documented as of this encounter Visit Diagnoses Not on filedocumented in this encounter Care Teams Glassware Maker Demonstrator Relationship Specialty Start Date End Date Paulette Chan NP [address] [place] [address] [place] [address] [email or web address] PCP - General Family Medicine 10/24/19 11/06/22 Shavon Wells MD [address] [place] [address] [place] [address] PCP - General Internal Medicine 11/07/22 Elsi Chase NP [address] [place] [address] Historical LMR Provider 07/22/17 documented as of this encounter Additional Source Comments The information contained in this document represents components of the legal health record. It is not the complete legal health record.[facility]
--- OUTSIDE RECORDS SUMMARY | 2025-08-14 17:18 | XMS_ITS | Encounter Summary ---
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 Not on file N ot on file documented as of this encounter Plan of Treatment Upcoming Encounters Date Type Department Care Team (Late Contact Info) Description 08/23/2025 11:40 AM EST Office Visit [facility] OBGYN & Midwifery [address] [place] [address] [place] [address] Eliud Jones MD [address] [place] [address], [facility] [address] [place] [address] [email or web address] documented as of this encounter Visit Diagnoses Not on filedocumented in this encounter Care Teams Senior Quality Engineer Relationship Specialty Start Date End Date Paulette Chan NP [address] [place] [address] [place] [address] [email or web address] PCP - General Family Medicine 10/24/19 11/06/22 Shavon Wells MD [address] [place] [address] [place] [address] PCP - General Internal Medicine 11/07/22 Elsi Chase NP [address] [place] [address] Historical LMR Provider 07/22/17 documented as of this encounter Additional Source Comments The information contained in this document represents components of the legal health record. It is not the complete legal health record.[facility]
--- OUTSIDE RECORDS SUMMARY | 2025-08-14 17:18 | XMS_ITS | Clinical Summary ---
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 Not on [...] 08/23/2025 11:40 AM EST Office Visit [facility] [address] [place] [address] [place] [address] Eliud Jones MD [address] [place] [address], [address] [place] [address] [email or web address] Health Maintenance Due Date Last Done Comments [...] on patient's age to complete this topic IPV VACCINES Aged Out No longer eligi ble [...] SEE NARRATIVE - 11/01/2019 9:13 [place] [address] DIESEL POWERPLANT MECHANIC Cytology Report Patient Name: ALIS ALONZO : 1980 (Age: 39) Sex: F Institution: [facility] Location: [facility] Date of Collection: 10/18/2019 Date of Reported: 11/01/2019 09:13 Results to: Eliud Jones MD FINAL DIAGNOSIS A. CERVICAL, LIQUID BASED SPECIMEN: SPECIMEN ADEQUACY: Satisfactory for evaluation. INTERPRETATION: NEGATIVE FOR INTRAEPITHELIAL LESION OR MALIGNANCY. ADDITIONAL INFORMATION: This specimen was prescreened using the [employer] Imaging System. Electronically Signed Out By: MORRIS [...] 52, 56, 58, 59, 66, 68) by [employer] On[employer] HR-HPV analysis. Clinical correlation is advised. This HPV test was performed at [facility], [address] [place] [address]. This test has been FDA approved for [employer] cervical cytology specimens. The accuracy and precision of this test for all other specimen sources has been verified in the Cytopathology Laboratory of the [facility] and has not been cleared or [...] Most Recently Relevant to Health Maintenance [place] [address] [place] [address] [place] [address] [place] [address] HMO [facility] [place] [address] [place] [address] [place], [place] [id number] [facility] HMO Member Subscriber Plan / Payer (Ef fective 2018-Present) Name:Alis Alonzo Relation to Subscriber:Self Name:ClintonAlis Payer ID:Not on file Type:HMO Address: [place] [id number] Care Teams Information Security Relationship Specialty Start Date End Date Shavon Wells MD [address] [facility] [place] [address] PCP - General Internal Medicine 11/07/22 Elsi Chase NP [address] [place] [address] Historical LMR Provider 07/22/17 Additional Source Comments The information contained in this document represents components of the legal health record. It is not the complete legal health record.[facility]
--- OUTSIDE RECORDS SUMMARY | 2025-08-14 17:18 | XMS_ITS | Encounter Summary ---
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 Not on file N ot on file documented as of this encounter Plan of Treatment Upcoming Encounters Date Type Department Care Team (Late Contact Info) Description 08/23/2025 11:40 AM EST Office Visit [facility] OBGYN & Midwifery [address] [place] [address] [place] [address] Eliud Jones MD [facility] [address] [place] [address] [email or web address] documented as of this encounter Visit Diagnoses Not on filedocumented in this encounter Care Teams Deputy Controller Relationship Specialty Start Date End Date Shavon Wells MD [address] [facility] [place] [address] PCP - General Internal Medicine 11/07/22 Elsi Chase NP [address] [place] [address] Historical LMR Provider 07/22/17 documented as of this encounter Additional Source Comments The information contained in this document represents components of the legal health record. It is not the complete legal health record.[facility]
--- OUTSIDE RECORDS SUMMARY | 2025-08-14 17:18 | XMS_ITS | Encounter Summary ---
Author Organization [facility] Address [address] [facility] [address] [place] [address] Phone Care Team Providers Care Ship Harbor Pilot Name Role Phone Elsi Chase MOVIE PROJECTIONIST Unavailable [phone] Kelby Palacio DO Unavailable [phone] oNrbert Rubin MD Unavailable [phone] Paulette Chan NP Primary Care Provider Shavon Wells MD Primary Care Provider Encounter Details Date Type Department Care Team (Late st Contact Info) Description 03/06/2021 Ancillary Orders [facility] [address] [place] [address] Eliud Jones MD 22 [facility], [facility] 102 [place] [address] Abnormal mammogram Social History Tobacco Use Types [...] Industry Job Start Date Job End Date [place] 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 Not on file Not on file N ot on file documented as of this encounter Plan of Treatment Upcoming Encounters Date Type Department Care Team (Late st Contact Info) Description 08/23/2025 11:40 AM EST Office Visit [facility] [address] [place] [address] [place] [address] Eliud Jones MD [address] [place] [address], [address] [place] [address] [email or web address] documented as of this encounter Results * BI US BREAST LIMITED (RIGHT) (03/15/2021 1:54 PM EDT) Anatomical Region Laterality Modality Breast Right, Breast Bilateral Right U ltrasound 03/15/2021 1:49 PM EDT Narrative 03/15/2021 1:50 PM EDT Refer to the mammogram report. Procedure Note Ulises Galindo MD - 03/15/2021 Refer to the mammogram report. Eliud Jones MD [facility] US BREAST Final Result * BI MAMMOGRAM [...] unspecified documented in this encounter Care Teams Ship Harbor Pilot Relationship Specialty Start Date End Date Paulette Chan NP [address] [place] [address] [place] [address] [place] [address] [email or web address] PCP - General Family Medicine 10/24/19 11/06/22 Shavon Wells MD [address] [place] [address] [place] [address] PCP - General Internal Medicine 11/07/22 Elsi Chase NP [address] [place] [address] 340 [place] [address] Historical LMR Provider 07/22/17 Kelby Palacio DO [address] [place] [address] Historical LMR Provider 07/22/17 Norbert Rubin MD [address] [place] [address], [address] [place] [address] [email or web address] Historical LMR Provider 07/22/17 10/12/21 documented as of this encounter Additional Source Comments The information contained in this document represents components of the legal health record. It is not the complete legal health record.[facility]
--- OUTSIDE RECORDS SUMMARY | 2025-08-14 17:18 | XMS_ITS | Encounter Summary ---
Author Organization [facility] Address 399 [facility] [address] [place] [address] Phone Care Team Providers Care Bread Pan Greaser Name Role Phone Elsi Chase PROTOTYPE CARPENTER Unavailable [phone] Kelby Palacio DO Unavailable [phone] Norbert Rubin MD Unavailable [phone] Paulette Chan NP Primary Care Provider Shavon Wells MD Primary Care Provider Encounter Details Date Type Department Care Team (Late st Contact Info) Description 09/04/2020 Ancillary Orders [facility] [address] [place] [address] Eliud Jones MD 22 [facility], [address] [place] [address] Breast screening Social History Tobacco Use Types [...] 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 Best possible images according to the communications technologist. COMPARISON: Comparison made to October 24, [...] were obtained. Best possible images accordingto the communications technologist. COMPARISON: Comparison made to October 24, [...] unspecified documented in this encounter Care Teams Bread Pan Greaser Relationship Specialty Start Date End Date Paulette Chan NP [address] [place] [address] [place] [address] [email or web address] PCP - General Family Medicine 10/24/19 11/06/22 Shavon Wells MD [address] [place] [address] [place] [address] PCP - General Internal Medicine 11/07/22 Elsi Chase NP [address] [place] [address] 340 [place] [address] Historical LMR Provider 07/22/17 Kelby Palacio DO [address] [place] [address] Historical LMR Provider 07/22/17 Norbert Rubin MD [address] [place] [address] 102 [place] [address] [email or web address] Historical LMR Provider 07/22/17 10/12/21 documented as of this encounter Additional Source Comments The information contained in this document represents components of the legal health record. It is not the complete legal health record.[facility]
--- OUTSIDE RECORDS SUMMARY | 2025-08-14 17:18 | XMS_ITS | Encounter Summary ---
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 Not on file Not on file N ot on file documented as of this encounter Plan of Treatment Upcoming Encounters Date Type Department Care Team (Late st Contact Info) Description 08/23/2025 11:40 AM EST Office Visit [facility] [address] [place] [address] [place] [address] Eliud Jones MD [address] [place] [address], [address] [place] [address] [email or web address] documented as of this encounter Visit Diagnoses Not on filedocumented in this encounter Care Teams E Commerce Merchant Relationship Specialty Start Date End Date Shavon Wells MD [address] [facility] [place] [address] PCP - General Internal Medicine 11/07/22 Elsi Chase NP [address] [place] [address] Historical LMR Provider 07/22/17 documented as of this encounter Additional Source Comments The information contained in this document represents components of the legal health record. It is not the complete legal health record.[facility]
--- OUTSIDE RECORDS SUMMARY | 2025-08-14 17:18 | XMS_ITS | Encounter Summary ---
Author Organization [facility] Address [address] [facility] [address] [place] [address] Phone Care Team Providers Care Vice Investigator Name Role Phone Elsi Chase QUALITY PROJECT MANAGER Unavailable [phone] Kelby Palacio DO Unavailable [phone] Norbert Rubin MD Unavailable [phone] Paulette Chan NP Primary Care Provider Shavon Wells MD Primary Care Provider Encounter Details Date Type Department Care Team (Late Contact Info) Description 09/04/2020 Procedure Pass [facility] [address] [place] [address] Social History Tobacco Use Types Packs/Day Years [...] 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 Not on file Not on file N ot on file documented as of this encounter Plan of Treatment Upcoming Encounters Date Type Department Care Team (Late Contact Info) Description 08/23/2025 11:40 AM EST Office Visit [facility] OBGYN & Midwifery [address] [place] [address] [place] [address] Eliud Jones MD 22 [facility], [address] [place] [address] documented as of this encounter Visit Diagnoses Not on filedocumented in this encounter Care Teams Vice Investigator Relationship Specialty Start Date End Date Paulette Chan NP [address] [place] [address] [place] [address] [place] [address] [email or web address] PCP - General Family Medicine 10/24/19 11/06/22 Shavon Wells MD [address] [place] [address] [place] [address] PCP - General Internal Medicine 11/07/22 Elsi Chase NP [address] [place] [address] Historical LMR Provider 07/22/17 Kelby Palacio DO [address] [place] [address] Historical LMR Provider 07/22/17 Norbert Rubin MD 22 [facility], [address] [place] [address] Historical LMR Provider 07/22/17 10/12/21 documented as of this encounter Additional Source Comments The information contained in this document represents components of the legal health record. It is not the complete legal health record.[facility]
--- OUTSIDE RECORDS SUMMARY | 2025-08-14 17:18 | XMS_ITS | Encounter Summary ---
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 file Not on file N ot on file documented as of this encounter Plan of Treatment Upcoming Encounters Date Type Department Care Team (Late Contact Info) Description 08/23/2025 11:40 AM EST Office Visit [facility] OBGYN & Midwifery [address] [place] [address] [place] [address] Eliud Jones MD [address] [place] [address], [facility] 102 [place] [address] [email or web address] documented as of this encounter Visit Diagnoses Not on filedocumented in this encounter Care Teams Guest History Clerk Relationship Specialty Start Date End Date Paulette Chan NP [address] [place] [address] [place] [address] [email or web address] PCP - General Family Medicine 10/24/19 11/06/22 Shavon Wells MD [address] [place] [address] [place] [address] PCP - General Internal Medicine 11/07/22 Elsi Chase NP [address] [place] [address] Historical LMR Provider 07/22/17 documented as of this encounter Additional Source Comments The information contained in this document represents components of the legal health record. It is not the complete legal health record.[facility]
--- OUTSIDE RECORDS SUMMARY | 2025-08-14 17:18 | XMS_ITS | Encounter Summary ---
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 Not on file N ot on file documented as of this encounter Plan of Treatment Upcoming Encounters Date Type Department Care Team (Late st Contact Info) Description 08/23/2025 11:40 AM EST Office Visit [facility] [address] [place] [address] [place] [address] Eliud Jones MD [address] [place] [address], [address] [place] [address] [email or web address] documented as of this encounter Visit Diagnoses Not on filedocumented in this encounter Care Teams Terra Cotta Roofer Helper Relationship Specialty Start Date End Date Shavon Wells MD [address] [facility] [place] [address] PCP - General Internal Medicine 11/07/22 Elsi Chase NP [address] [place] [address] Historical LMR Provider 07/22/17 documented as of this encounter Additional Source Comments The information contained in this document represents components of the legal health record. It is not the complete legal health record.[facility]
== END 2025-08-14 15:33 | disposition home or self-care (01) ==
LOC: HO.HSM 15:11
PROVIDERS: PCP Internal Medicine; Referring Provider Internal Medicine; Visit Provider Registered Nurse
DX: G43.109 Migraine with aura, not intractable, without status migrainosus (principal)
CPT/HCPCS: 99214

== ENCOUNTER 2025-08-15 15:46 | Outpatient (AMB) | payer OTHER, SELFPAY ==
--- NOTE | 2025-08-15 16:25 | A.OFFPC_ITS ---
Vital Signs 08/15/25 16:27 Height 5 ft 5 in Weight 184 lb BMI 30.6 BP 140/90 H Blood Pressure Location Lt brachial Position Sitting Respiration 16 Pulse 97 Pulse Source Pulse Oximeter Temp 98.7 F Temp Source Oral Pulse Oximetry (%) 98 Oxygen Delivery Method Room Air Intake Visit Reasons: Annual PE Intake Note: Pt is here today for her PE Durability Technician Required: No Allergies etanercept (Enbrel) Adverse Reaction (Intermediate, Verified 08/15/25 16:41) rash/flu like Sx Medication List - Last Reconciled 08/15/25 by Shavon Wells MD amitriptyline 25 mg PO BEDTIME 90 days atorvastatin 10 mg PO DAILY bisacodyl 20 mg (4 x 5 mg) PO ONCE docusate sodium 100 mg PO BID escitalopram oxalate 10 mg PO QAM levothyroxine 100 mcg PO DAILY norethindrone-e.estradiol-iron 1 mg-10 mcg (24)/10 mcg (2) (Lo Loestrin Fe) 1 tab PO DAILY omeprazole 20 mg PO DAILY polyethylene glycol 3350 (Miralax) 238 grams PO ONCE polyethylene glycol 3350 (Miralax) 17 grams PO DAILY 30 days sumatriptan succinate take 1 tab at onset of headache; if no relief may repeat 1 tab after at least 2 hrs; max = 4 tabs/24 hr PO tramadol 50 mg PO BID 30 days Tobacco use date assessed: 08/15/25 Dental Screening Dental Screen Date: 03/11/24 HPI Annual PE HPI Details The patient is a 45-year-old female presenting for her physical exam The patient has a diagnosis of fibromyalgia and is being followed by Dr. Salazar. A previous diagnosis of ankylosing spondylitis is now considered incorrect. She previously had a temporary spinal cord stimulator trial which was beneficial. She takes amitriptyline for sleep, which also helps with headaches. The patient's gynecological history is significant for irregular menstrual bleeding, which varies from scant to heavy flow lasting up to 10 days. She is on control pills to regulate her cycles but suspects the estrogen component is causing elevated blood pressure readings over the past few months. She also reports perimenopausal symptoms, including hot flashes. The patient reports heartburn and is scheduled for an endoscopy. She also has a history of constipation, which has recently improved, with daily bowel movements. Family history is notable for an uncle with ulcerative colitis. Regarding her endocrine history, she has a thyroid nodule that was noted to be small (less than 1 cm) on a recent ultrasound. Last metabolic panel from August 2023 was normal, but she notes her triglycerides have doubled, which she attributes to stress eating. She has been experiencing extreme fatigue and has gained weight since starting amitriptyline. Her psychiatric history includes anxiety and depression, which are reportedly well-managed with Lexapro. For health maintenance, her last mammogram was normal, and she is scheduled for a Pap smear next week. She has never had a colonoscopy and is awaiting a date for the procedure. She is up to date on her flu and pneumonia vaccinations. [facility] Medical History (Updated 08/21/25 @ 01:25 by Shavon Wells MD) Migraine with aura Thyroid nodule History of COVID-19 Mixed anxiety and depressive disorder Family history of breast cancer COVID-19 vaccine series completed Spondylosis of lumbar region without myelopathy or radiculopathy Calcific tendinitis of left shoulder Obesity (BMI 30.0-34.9) Fibromyalgia Hypothyroidism (acquired) Mixed hyperlipidemia Ankylosing spondylitis Surgical History History of laparoscopic cholecystectomy (12/29/22) History of section H/O arthroscopy of right knee Family History Mother Hypothyroidism Maternal Grandmother Hypothyroidism Breast cancer Paternal Grandmother CVD (cardiovascular disease) Maternal Uncle Ulcerative colitis Brother No problems noted. Sister No problems noted. Son No problems noted. Son No problems noted. 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 Jones and [facility], requested copy of latest Pap and mammogram done this year from [facility] Questionnaire PHQ-9 Over the last 2 weeks, how often have you been bothered by any of the following problems? 1. Little interest or pleasure in doing things: not at all 2. Feeling down, depressed, or hopeless: not at all 3. Trouble falling or staying asleep, or sleeping too much: several days 4. Feeling tired or having little energy: more than half the days 5. Poor appetite or overeating: not at all 6. Feeling bad about yourself - or that you are a failure or have let yourself or your family down: not at all 7. Trouble concentrating on things, such as reading the newspaper or watching television: not at all 8. Moving or speaking so slowly that other people could have noticed. Or the opposite - being so fidgety or restless that you have been moving around a lot more than usual: not at all 9. Thoughts that you would be better off or of hurting yourself in some way: not at all Total score: 3 Depression Screening Interpretation: Positive (Controlled on escitalopram) Depression Screening Follow-up: Existing condition, In treatment and Community Mental Health Worker F/U Depression Screening Done: Yes Source: Developed by Drs. Manjit Silvestre, Ann Malone, Jeremy Lagunas and colleagues, with an educational farhat from [employer]. Thrive Questionnaire Date Thrive assessed: 08/08/25 I am a: Patient What is your living situation today?: I have a steady place to live Within the past 12 months, did the food you bought not last and you didn't have the money to get more?: Never true Within the past 12 months, did you worry whether your food would run out before you got money to buy more?: Never true Do you have trouble paying for medicines?: No Do you have trouble getting transportation to medical appointments?: No Do you have trouble paying your heating and electricity bill?: No Do you have trouble taking care of your child, family member or friend?: No Do you have trouble with day-to-day activities such as bathing, preparing meals, shopping, managing finances, etc.?: No Are you currently unemployed and looking for a job?: No Are you interested in more education?: No Please select the resources that you would like help with: None Currently or been in a relationship where the following occur: No concerns reported THRIVE Score: 0 AUDIT C Alcohol Use Questionnaire (AUDIT-C) 1. How often do you have a drink containing alcohol?: Never Total Score: 0 NORTH-7 AMB Questionnaire NORTH-7 Date NORTH - 7 assessed: 08/15/25 Feeling nervous, anxious, or on edge: 1 = Several days Not being able to stop or control worryin = Not at all Worrying too much about different things: 0 = Not at all Trouble relaxin = Not at all Being so restless that it is hard to sit still: 0 = Not at all Becoming easily annoyed or irritable: 1 = Several days Feeling afraid as if something awful might happen: 0 = Not at all Total NORTH-7 score (0-4 normal; 5-9 mild; 10-14 moderate; 15-21 severe): 2 Source: Developed by Drs. Manjit Silvestre, Ann Malone, Jeremy Lagunas and colleagues, with an educational farhat from [employer]. NORTH-7 Assessment Billing NORTH-7 Assessment Tool: NORTH-7 Assessment 31787 Review of Systems Const Denies daytime sleepiness, Reports difficulty sleeping, Reports fatigue, Denies fever(s), Denies frequent falls, Reports headache(s), Denies increased appetite, Denies poor appetite, Denies snoring and Denies weakness Eyes Denies change in vision ENT Denies vertigo, Denies dizziness, Reports headache(s) and Reports neck pain Card Denies chest pain at rest, Denies chest pain with activity, Denies syncope, Denies leg edema, Denies palpitations, Denies dyspnea and Denies dyspnea on exertion Resp Denies cough, Denies dyspnea, Denies dyspnea on exertion and Denies snoring GI Denies abdominal pain, Denies constipation, Denies heartburn, Denies diarrhea and Denies nausea Denies urinary frequency, Denies urinary incontinence and Denies urinary urgency Musc Denies abnormal gait, Reports back pain, Denies myalgias, Reports arthralgias, Reports neck pain, Denies numbness and Denies tingling Skin/Breast Denies breast skin changes, Denies breast pain, Denies breast mass and Denies rash Neuro Denies abnormal gait, Denies vertigo, Denies dizziness, Denies syncope, Denies frequent falls, Reports headache(s), Denies lack of coordination, Denies memory loss, Denies numbness, Denies restless legs, Denies seizure-like activity, Denies tingling, Denies paresthesias, Denies tremor(s) and Denies weakness Psych Reports anxiety, Reports depression, Denies auditory hallucinations, Denies memory loss and Denies visual hallucinations Endo Reports fatigue and Denies palpitations Rahul/Lymph Reports no additional complaints Aller/Immun Reports no additional complaints Physical exam (Primary Care) Vital Signs: Last Vital Signs Temp 98.7 F 08/15/25 16:27 Pulse 97 08/15/25 16:27 Resp 16 08/15/25 16:27 BP 140/90 H 08/15/25 16:27 Pulse Ox 98 08/15/25 16:27 Oxygen Delivery Method Room Air 08/15/25 16:27 BMI result Body Mass Index 30.6 Tobacco/Smoking Status: Tobacco use Status Tobacco use date assessed 08/15/25 08/15/25 16:31 Patient Tobacco Use Status Former Tobacco user 08/15/25 16:31 Tobacco use type Cigarette 08/15/25 16:31 e-Cigarette/Vaping Use Never Used 08/15/25 16:31 PHQ-9: PHQ-9 Score PHQ-9: Total score 3 08/15/25 17:07 Depression Screening Interpretation: Positive (Controlled on escitalopram) Depression Screening Follow-up: Existing condition, In treatment and Community Mental Health Worker F/U Thrive Assessment: Date of Thrive Assessment Date Thrive assessed 08/08/25 08/15/25 16:31 Currently or been in a relationship where the following occur: No concerns reported Const General: no acute distress Nutritional Appearance: overweight Orientation/consciousness: patient oriented x3 HENMT Head: Yes normocephalic Ears: external ears normal and TM's normal bilaterally General nose exam: Normal external nose present Mouth: moist mucous membranes Eyes Eyelids: Yes eyelids normal Conjunctivae: conjunctivae normal Pupils: Equal, round and reactive pupils present EOM: EOMs intact bilaterally Direct Ophthalmoscopy: normal light reflex Neck Neck: Yes full ROM and Yes no lymphadenopathy Resp Effort & Inspection: normal respiratory effort and able to speak in complete sentences Auscultation: clear to auscultation bilaterally and no wheezes Cardio Heart sounds: S1 normal heart sound present and S2 normal heart sound present GI Inspection: Yes normal to inspection, Yes Abdominal panniculus present and Yes obesity Palpation (GI): Soft to palpation, nontender, no guarding and No hepatosplenomegaly present Percussion: Yes normal to percussion Auscultation: normal bowel sounds General: Yes no CVA tenderness Back/Spine/Pelvis Back: no CVA tenderness and No back tenderness Skin General skin exam: no rashes or lesions noted Neuro General: patient oriented x3, gait normal and moves all extremities Cranial nerves: Yes Equal, round and reactive pupils present Motor exam (neuro): 5/5 motor strength present throughout Extrem General: Yes full ROM Psych Speech and movement: Normal speech and movement present Coding Level of Care Code Est Pt Prev Care 40-64y(16674) Diagnoses Annual visit for general adult medical examination with abnormal findings Z00. Mixed hyperlipidemia E78.2 Hypothyroidism (acquired) E03.9 Fibromyalgia M79.7 Mixed anxiety and depressive disorder F41.8 Gastroesophageal reflux disease, unspecified whether esophagitis present K21.9 Esophagitis presence: esophagitis presence not specified Migraine with aura and without status migrainosus, not intractable G43.109 Intractability: not intractable Status migrainosus presence: without status migrainosus Irregular menstrual bleeding N92.6 Fatigue R53.83 Additional Codes NORTH-7 Assessment Billing - NORTH-7 Assessment Tool: NORTH-7 Assessment 39090 ([id number]) Assessment & Plan Assessment & Plan (1) Annual visit for general adult medical examination with abnormal findings: Code(s): Z00.01 - Encounter for general adult medical examination with abnormal findings Plan: The patient is awaiting scheduling for her first colonoscopy, which is indicated due to age and family history of ulcerative colitis She has an upcoming appointment for a Pap smear and will request copy of results She is up-to-date on her immunizations (2) Mixed hyperlipidemia: Code(s): E78.2 - Mixed hyperlipidemia Category: Medical Plan: Currently on atorvastatin 10 mg daily, fasting lipid panel ordered (3) Hypothyroidism (acquired): Code(s): E03.9 - Hypothyroidism, unspecified Category: Medical Plan: Currently on levothyroxine 100 mcg daily, TSH, free T4 ordered The patient has a history of small, stable thyroid nodules per a recent ultrasound. Plan to recheck thyroid function tests as part of the lab workup and will arrange a follow-up ultrasound in approximately 6 months. (4) Fibromyalgia: Comment: tried lyrica, gabapentin Failed methocarbamol Code(s): M79.7 - Fibromyalgia Category: Medical Plan: The patient's condition appears stable. She continues to be followed by rheumatology and uses amitriptyline for sleep and associated headaches. (5) Mixed anxiety and depressive disorder: Code(s): F41.8 - Other specified anxiety disorders Category: Medical Plan: Stable on Lexapro 10 mg daily (6) Acid reflux: Code(s): K21.9 - Gastro-esophageal reflux disease without esophagitis Category: Medical Qualifiers: Esophagitis presence: esophagitis presence not specified Qualified Code(s): K21.9 - Gastro-esophageal reflux disease without esophagitis Plan: Takes omeprazole 20 mg daily (7) Migraine with aura: Code(s): G43.109 - Migraine with aura, not intractable, without status migrainosus Category: Medical Qualifiers: Intractability: not intractable Status migrainosus presence: without status migrainosus Qualified Code(s): G43.109 - Migraine with aura, not intractable, without status migrainosus Plan: Currently on sumatriptan succinate taken as needed (8) Irregular menstrual bleeding: Code(s): N92.6 - Irregular menstruation, unspecified Plan: The patient is on oral contraceptive pills to regulate her cycles but has developed elevated blood pressure, possibly secondary to the estrogen component. Considering she is also perimenopausal with hot flashes, alternatives like the NuvaRing or Mirena IUD were discussed. The patient will discuss these options with her rail detector car operator. (9) Fatigue: Code(s): R53.83 - Other fatigue Plan: The patient reports profound fatigue and has a noted doubling of her triglyceride levels. Plan to order comprehensive fasting labs including a CBC, CMP, lipid panel, TSH, thyroid antibodies, vitamin B12, and vitamin D to evaluate for underlying causes. Orders: Orders Triiodothyronine T3 Free 08/15/25 E03.9 - Hypothyroidism, unspecified, E78.2 - Mixed hyperlipidemia, F41.8 - Other specified anxiety disorders, G43.109 - Migraine with aura, not intractable, without status migrainosus, K21.9 - Gastro-esophageal reflux disease without esophagitis, M79.7 - Fibromyalgia Vitamin D 25-OH Total 08/15/25 E03.9 - Hypothyroidism, unspecified, E78.2 - Mixed hyperlipidemia, F41.8 - Other specified anxiety disorders, G43.109 - Migraine with aura, not intractable, without status migrainosus, K21.9 - Gastro- esophageal reflux disease without esophagitis, M79.7 - Fibromyalgia Aspartate Amino Transferase 08/15/25 E03.9 - Hypothyroidism, unspecified, E78.2 - Mixed hyperlipidemia, F41.8 - Other specified anxiety disorders, G43.109 - Migraine with aura, not intractable, without status migrainosus, K21.9 - Gastro- esophageal reflux disease without esophagitis, M79.7 - Fibromyalgia Vitamin B12 and Folate 08/15/25 E03.9 - Hypothyroidism, unspecified, E78.2 - Mixed hyperlipidemia, F41.8 - Other specified anxiety disorders, G43.109 - Migraine with aura, not intractable, without status migrainosus, K21.9 - Gastro- esophageal reflux disease without esophagitis, M79.7 - Fibromyalgia Complete Blood Count Auto Diff 08/15/25 E03.9 - Hypothyroidism, unspecified, E78.2 - Mixed hyperlipidemia, F41.8 - Other specified anxiety disorders, G43.109 - Migraine with aura, not intractable, without status migrainosus, K21.9 - Gastro-esophageal reflux disease without esophagitis, M79.7 - Fibromyalgia Thyroid Peroxidase Antibodies 08/15/25 E03.9 - Hypothyroidism, unspecified, E78.2 - Mixed hyperlipidemia, F41.8 - Other specified anxiety disorders, G43.109 - Migraine with aura, not intractable, without status migrainosus, K21.9 - Gastro-esophageal reflux disease without esophagitis, M79.7 - Fibromyalgia Thyroid Stimulating Hormone 08/15/25 E03.9 - Hypothyroidism, unspecified, E78.2 - Mixed hyperlipidemia, F41.8 - Other specified anxiety disorders, G43.109 - Migraine with aura, not intractable, without status migrainosus, K21.9 - Gastro- esophageal reflux disease without esophagitis, M79.7 - Fibromyalgia Free T4 (Free Thyroxine) 08/15/25 E03.9 - Hypothyroidism, unspecified, E78.2 - Mixed hyperlipidemia, F41.8 - Other specified anxiety disorders, G43.109 - Migraine with aura, not intractable, without status migrainosus, K21.9 - Gastro- esophageal reflux disease without esophagitis, M79.7 - Fibromyalgia Lipid Panel 08/15/25 E03.9 - Hypothyroidism, unspecified, E78.2 - Mixed hyperlipidemia, F41.8 - Other specified anxiety disorders, G43.109 - Migraine with aura, not intractable, without status migrainosus, K21.9 - Gastro- esophageal reflux disease without esophagitis, M79.7 - Fibromyalgia Basic Metabolic Panel Fasting 08/15/25 E03.9 - Hypothyroidism, unspecified, E 78.2 - Mixed hyperlipidemia, F41.8 - Other specified anxiety disorders, G43.109 - Migraine with aura, not intractable, without status migrainosus, K21.9 - Gastro-esophageal reflux disease without esophagitis, M79.7 - Fibromyalgia Alanine Aminotransferase 08/15/25 E03.9 - Hypothyroidism, unspecified, E78.2 - Mixed hyperlipidemia, F41.8 - Other specified anxiety disorders, G43.109 - Migraine with aura, not intractable, without status migrainosus, K21.9 - Gastro- esophageal reflux disease without esophagitis, M79.7 - Fibromyalgia
[2025-08-15 16:27] VITALS: BP 140/90; PULSE 97; RESP 16; TEMP 37.1; O2SAT 98; BMI 30.6
--- OUTSIDE RECORDS SUMMARY | 2025-08-15 17:14 | XMS_ITS | Encounter Summary ---
Author Organization [facility] Address [address] [place] [id number] Phone Care Team Providers Care Manager Progressive Care Name Role Phone Elsi Chase LAMINATE FLOOR INSTALLER Unavailable [phone] Kelby Palacio DO Unavailable [phone] Norbert Rubin MD Unavailable [phone] Paulette Chan NP Primary Care Provider Shavon Wells MD Primary Care Provider Encounter Details Date Type Department Care Team (Late st Contact Info) Description 03/06/2021 Ancillary Orders [facility] [address] [place] [id number] Eliud Jones MD [address] [facility], [facility] [address] [place] [address] Abnormal mammogram Social History Tobacco Use Types [...] Industry Job Start Date Job End Date 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 Not on file Not on file N ot on file documented as of this encounter Plan of Treatment Upcoming Encounters Date Type Department Care Team (Late st Contact Info) Description 08/23/2025 11:40 AM EST Office Visit [facility] [address] [place] [address] [place] [address] Eliud Jones MD [address] [place] [address], [address] [place] [address] [email or web address] documented as of this encounter Results * BI US BREAST LIMITED (RIGHT) (03/15/2021 1:54 PM EDT) Anatomical Region Laterality Modality Breast Right, Breast Bilateral Right U ltrasound 03/15/2021 1:49 PM EDT Narrative 03/15/2021 1:50 PM EDT Refer to the mammogram report. Procedure Note Ulises Galindo MD - 03/15/2021 Refer to the mammogram report. Eliud Jones MD [facility] US BREAST Final Result * BI MAMMOGRAM [...] unspecified documented in this encounter Care Teams Manager Progressive Care Relationship Specialty Start Date End Date Paulette Chan NP [address] [place] [address] [place] [address] [place] [address] [email or web address] PCP - General Family Medicine 10/24/19 11/06/22 Shavon Wells MD [address] [place] [address] [place] [address] PCP - General Internal Medicine 11/07/22 Elsi Chase NP [address] [place] [address] [address] [place] [address] Historical LMR Provider 07/22/17 Kelby Palacio DO [address] [place] [address] Historical LMR Provider 07/22/17 Norbert Rubin MD [address] [place] [address], [address] [place] [address] [email or web address] Historical LMR Provider 07/22/17 10/12/21 documented as of this encounter Additional Source Comments The information contained in this document represents components of the legal health record. It is not the complete legal health record.[facility]
--- OUTSIDE RECORDS SUMMARY | 2025-08-15 17:14 | XMS_ITS | Encounter Summary ---
Author Organization [facility] Address [address] [place] [address] [place] [address] Phone Care Team Providers Care Strap Cutting Machine Operator Name Role Phone Elsi Chase DRAWER IN DOBBY LOOM Unavailable [phone] Paulette Chan NP Primary Care Provider Shavon Wells MD Primary Care Provider Encounter Details Date Type Department Care Team (Late Contact Info) Description 07/09/2022 Procedure Pass [address] [place] [address] Social History Tobacco Use Types Packs/Day Years [...] Industry Job Start Date Job End Date 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 Not on file Not on file N ot on file documented as of this encounter Plan of Treatment Upcoming Encounters Date Type Department Care Team (Late Contact Info) Description 08/23/2025 11:40 AM EST Office Visit [facility] [address] [place] [address] [place] [address] Eliud Jones MD [address] [place] [address], [address] [place] [address] [email or web address] documented as of this encounter Visit Diagnoses Not on filedocumented in this encounter Care Teams Strap Cutting Machine Operator Relationship Specialty Start Date End Date Paulette Chan NP [address] [place] [address] [place] [address] [email or web address] PCP - General Family Medicine 10/24/19 11/06/22 Shavon Wells MD [address] [place] [address] [place] [address] PCP - General Internal Medicine 11/07/22 Elsi Chase NP [address] [place] [id number] Historical LMR Provider 07/22/17 documented as of this encounter Additional Source Comments The information contained in this document represents components of the legal health record. It is not the complete legal health record.[facility]
--- OUTSIDE RECORDS SUMMARY | 2025-08-15 17:14 | XMS_ITS | Encounter Summary ---
Author Organization [facility] Address [address] [facility] [address] [place] [address] Phone Care Team Providers Care System Administration Advisor Name Role Phone Elsi Chase PAINT AND TABLE EDGER Unavailable [phone] Kelby Palacio DO Unavailable [phone] Norbert Rubin MD Unavailable [phone] Paulette Chan NP Primary Care Provider Shavon Wells MD Primary Care Provider Encounter Details Date Type Department Care Team (Late st Contact Info) Description 09/04/2020 Ancillary Orders [facility] [address] [place] [address] Eliud Jones MD [address] [facility], [address] [place] [address] Breast screening Social History Tobacco Use Types [...] 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 COMPARISON: Comparison made to October 24, 2019 [...] Best possible images accordingto the medical technologist prn. COMPARISON: Comparison made to October 24, 2019 [...] unspecified documented in this encounter Care Teams System Administration Advisor Relationship Specialty Start Date End Date Paulette Chan NP [address] [place] [address] [place] [address] [email or web address] PCP - General Family Medicine 10/24/19 11/06/22 Shavon Wells MD [address] [place] [address] [place] [address] PCP - General Internal Medicine 11/07/22 Elsi Chase NP [address] [place] [address] [address] [place] [address] Historical LMR Provider 07/22/17 Kelby Palacio DO [address] [place] [address] Historical LMR Provider 07/22/17 Norbert Rubin MD [address] [place] [address] [address] [place] [address] [email or web address] Historical LMR Provider 07/22/17 10/12/21 documented as of this encounter Additional Source Comments The information contained in this document represents components of the legal health record. It is not the complete legal health record.[facility]
--- OUTSIDE RECORDS SUMMARY | 2025-08-15 17:14 | XMS_ITS | Encounter Summary ---
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 Not on file N ot on file documented as of this encounter Plan of Treatment Upcoming Encounters Date Type Department Care Team (Late Contact Info) Description 08/23/2025 11:40 AM EST Office Visit [facility] Midwifery [address] [place] [address] [place] [address] Eliud Jones MD [address] [facility], [address] [place] [address] [email or web address] documented as of this encounter Visit Diagnoses Not on filedocumented in this encounter Care Teams Hooking Machine Operator Relationship Specialty Start Date End Date Shavon Wells MD [address] [facility] [place] [address] PCP - General Internal Medicine 11/07/22 Elsi Chase NP [address] [place] [address] Historical LMR Provider 07/22/17 documented as of this encounter Additional Source Comments The information contained in this document represents components of the legal health record. It is not the complete legal health record.[facility]
--- OUTSIDE RECORDS SUMMARY | 2025-08-15 17:14 | XMS_ITS | Clinical Summary ---
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 CERVICAL, LIQUID BASED SPECIMEN: SPECIMEN ADEQUACY: Satisfactory for evaluation. INTERPRETATION: NEGATIVE FOR INTRAEPITHELIAL LESION OR MALIGNANCY. ADDITIONAL INFORMATION: This specimen was prescreened using the [employer] Imaging System. Electronically Signed Out By: MORRIS [...] 52, 56, 58, 59, 66, 68) by [employer] Onclarity HR-HPV analysis. Clinical correlation is advised. This HPV test was performed at [facility], [address] [place] [address]. This test has been FDA approved for SurePath cervical cytology specimens. The accuracy and precision of this test for all other specimen sources has been verified in the Cytopathology Laboratory of the [facility] and has not been cleared [...] Most Recently Relevant to Health Maintenance [place] [address] [address] [address] [place] [address] [place] [address] HMO [facility] [place] [address] [place] [address] [place], [place] [address]O [facility] HMO Member Subscriber Plan / Payer (Ef fective 2018-Present) Name:Alis Alonzo Relation to Subscriber:Self Name:ClintonAlis Payer ID:Not on file Type:HMO Address: [place] [id number] Care Teams Scullion Chief Relationship Specialty Start Date End Date Shavon Wells MD [address] [facility] [place] [address] PCP - General Internal Medicine 11/07/22 Elsi Chase NP [address] [place] [address] Historical LMR Provider 07/22/17 Additional Source Comments The information contained in this document represents components of the legal health record. It is not the complete legal health record.[facility]
--- OUTSIDE RECORDS SUMMARY | 2025-08-15 17:14 | XMS_ITS | Encounter Summary ---
Author Organization [facility] Address [address] [facility] [address] [place] [address] Phone Care Team Providers Care Oracle Application Consultant Name Role Phone Elsi Chase BOILERMAKER HELPER Unavailable [phone] Kelby [place]acio DO Unavailable [phone] Nrobert Rubin MD Unavailable [phone] Paulette Chan NP Primary Care Provider Shavon Wells MD Primary Care Provider Encounter Details Date Type Department Care Team (Late Contact Info) Description 09/04/2020 Procedure Pass [facility] - [address] [place] [address] Social History Tobacco Use Types Packs/Day Years [...] 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 Not on file N ot on file documented as of this encounter Plan of Treatment Upcoming Encounters Date Type Department Care Team (Late Contact Info) Description 08/23/2025 11:40 AM EST Office Visit [facility] Midwifery [address] [place] [address] [place] [address] Eliud Jones MD 22 [facility], [address] [place] [address] documented as of this encounter Visit Diagnoses Not on filedocumented in this encounter Care Teams Oracle Application Consultant Relationship Specialty Start Date End Date Paulette Chan NP [address] [place] [address] [place] [address] [place] [address] [email or web address] PCP - General Family Medicine 10/24/19 11/06/22 Shavon Wells MD [address] [place] [address] [place] [address] PCP - General Internal Medicine 11/07/22 Elsi Chase NP [address] [place] [address] Historical LMR Provider 07/22/17 Kelby Palacio DO [address] [place] [address] Historical LMR Provider 07/22/17 Norbert Rubin MD 22 [facility], [address] [place] [address] Historical LMR Provider 07/22/17 10/12/21 documented as of this encounter Additional Source Comments The information contained in this document represents components of the legal health record. It is not the complete legal health record.[facility]
--- OUTSIDE RECORDS SUMMARY | 2025-08-15 17:14 | XMS_ITS | Encounter Summary ---
Author Organization [facility] Address [address] [facility] [address] [place] [address] Phone Care Team Providers Care Computer Hardware Designer Name Role Phone Elsi Chase AIRPLANE PILOT CHIEF Unavailable [phone] Kelby Palacio DO Unavailable [phone] Norbert Rubin MD Unavailable [phone] Paulette Chan NP Primary Care Provider Shavon Wells MD Primary Care Provider Encounter Details Date Type Department Care Team (Late Contact Info) Description 03/06/2021 Procedure Pass [facility] - [address] [place] [address] Social History Tobacco Use Types Packs/Day Years [...] 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 Not on file N ot on file documented as of this encounter Plan of Treatment Upcoming Encounters Date Type Department Care Team ([facility] Contact Info) Description 08/23/2025 11:40 AM EST Office Visit [facility] & Midwifery [address] [place] [address] [place] [address] Eliud Jones MD 22 [facility], [address] [place] [address] documented as of this encounter Visit Diagnoses Not on filedocumented in this encounter Care Teams Computer Hardware Designer Relationship Specialty Start Date End Date Paulette Chan NP [address] [place] [address] [place] [address] [place] [address] [email or web address] PCP - General Family Medicine 10/24/19 11/06/22 Shavon Wells MD [address] [place] [address] [place] [address] PCP - General Internal Medicine 11/07/22 Elsi Chase NP [address] [place] [address] Historical LMR Provider 07/22/17 Kelby Palacio DO [address] [place] [address] Historical LMR Provider 07/22/17 Norbert Rubin MD 22 [facility], [address] [place] [address] Historical LMR Provider 07/22/17 10/12/21 documented as of this encounter Additional Source Comments The information contained in this document represents components of the legal health record. It is not the complete legal health record.[facility]
--- OUTSIDE RECORDS SUMMARY | 2025-08-15 17:14 | XMS_ITS | Encounter Summary ---
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 Not on file N ot on file documented as of this encounter Plan of Treatment Upcoming Encounters Date Type Department Care Team (Late Contact Info) Description 08/23/2025 11:40 AM EST Office Visit [facility]YN & Midwifery [address] [place] [address] [place] [address] Eliud Jones MD [address] [place] [address], [facility] [address] [place] [address] [email or web address] documented as of this encounter Visit Diagnoses Not on filedocumented in this encounter Care Teams Bioprocess Development Engineer Relationship Specialty Start Date End Date Paulette Chan NP [address] [place] [address] [place] [address] [email or web address] PCP - General Family Medicine 10/24/19 11/06/22 Shavon Wells MD [address] [place] [address] [place] [address] PCP - General Internal Medicine 11/07/22 Elsi Chase NP [address] [place] [address] Historical LMR Provider 07/22/17 documented as of this encounter Additional Source Comments The information contained in this document represents components of the legal health record. It is not the complete legal health record.[facility]
--- OUTSIDE RECORDS SUMMARY | 2025-08-15 17:14 | XMS_ITS | Encounter Summary ---
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 Not on file N ot on file documented as of this encounter Plan of Treatment Upcoming Encounters Date Type Department Care Team (Late Contact Info) Description 08/23/2025 11:40 AM EST Office Visit [facility]BGYN & Midwifery [address] [place] [address] [place] [address] Eliud Jones MD [address] [place] [address], [facility] [address] [place] [address] [email or web address] documented as of this encounter Visit Diagnoses Not on filedocumented in this encounter Care Teams Compensation And Benefits Analyst Relationship Specialty Start Date End Date Paulette Chan NP [address] [place] [address] [place] [address] [email or web address] PCP - General Family Medicine 10/24/19 11/06/22 Shavon Wells MD [address] [place] [address] [place] [address] PCP - General Internal Medicine 11/07/22 Elsi Chase NP [address] [place] [address] Historical LMR Provider 07/22/17 documented as of this encounter Additional Source Comments The information contained in this document represents components of the legal health record. It is not the complete legal health record.[facility]
--- OUTSIDE RECORDS SUMMARY | 2025-08-15 17:14 | XMS_ITS | Encounter Summary ---
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 Not on file N ot on file documented as of this encounter Plan of Treatment Upcoming Encounters Date Type Department Care Team (Late st Contact Info) Description 08/23/2025 11:40 AM EST Office Visit [facility] [address] [place] [address] [place] [address] Eliud Jones MD [address] [place] [address], [address] [place] [address] [email or web address] documented as of this encounter Visit Diagnoses Not on filedocumented in this encounter Care Teams Dental Practice Manager Relationship Specialty Start Date End Date Shavon Wells MD [address] [place] [address] PCP - General Internal Medicine 11/07/22 Elsi Chase NP [address] [place] [address] Historical LMR Provider 07/22/17 documented as of this encounter Additional Source Comments The information contained in this document represents components of the legal health record. It is not the complete legal health record.[facility]
--- OUTSIDE RECORDS SUMMARY | 2025-08-15 17:14 | XMS_ITS | Encounter Summary ---
Author Organization 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 documented as of this encounter Visit Diagnoses Not on filedocumented in this encounter Care Teams Mail Processing Clerk Relationship Specialty Start Date End Date Shavon Wells MD [address] [facility] [place] [place] [address] PCP - General Internal Medicine 11/07/22 Elsi Chase NP [address] [place] [address] Historical LMR Provider 07/22/17 documented as of this encounter Additional Source Comments The information contained in this document represents components of the legal health record. It is not the complete legal health record.[facility]
== END 2025-08-15 17:02 | disposition home or self-care (01) ==
LOC: HO.HMCC 15:47
PROVIDERS: PCP Internal Medicine; Visit Provider Internal Medicine
DX: Z00.01 Encounter for general adult medical examination with abnormal findings (principal); E78.2 Mixed hyperlipidemia; E03.9 Hypothyroidism, unspecified; M79.7 Fibromyalgia; F41.8 Other specified anxiety disorders; K21.9 Gastro-esophageal reflux disease without esophagitis; G43.109 Migraine with aura, not intractable, without status migrainosus; N92.6 Irregular menstruation, unspecified; R53.83 Other fatigue

== ENCOUNTER → 2025-08-15 15:46 | Outpatient (BNVA) | payer OTHER, SELFPAY | PROVIDERS: PCP Internal Medicine; Visit Provider Internal Medicine | DX: Z00.01 Encounter for general adult medical examination with abnormal findings (principal); E78.2 Mixed hyperlipidemia; E03.9 Hypothyroidism, unspecified; M79.7 Fibromyalgia; F41.8 Other specified anxiety disorders; K21.9 Gastro-esophageal reflux disease without esophagitis; G43.109 Migraine with aura, not intractable, without status migrainosus; N92.6 Irregular menstruation, unspecified; R53.83 Other fatigue | CPT/HCPCS: 96127 ==